=== PATIENT | male | born 1945 ===

== ENCOUNTER 2020-08-17 10:20 | Outpatient (REF) | payer MEDICARE, SELFPAY ==
[2020-08-17 12:41] LABS: Cholesterol 110 mg/dL; HDL Cholesterol 33 mg/dL; LDL Cholesterol Calculated 55 mg/dl; Triglycerides 111 mg/dL
== END 2020-08-17 10:21 | disposition home or self-care (01) ==
LOC: HO.10HDL 10:20
PROVIDERS: Visit Provider Internal Medicine
DX: I10 Essential (primary) hypertension (principal)
CPT/HCPCS: 80061

== ENCOUNTER 2020-10-24 13:07 | Outpatient (REF) | payer MEDICARE, SELFPAY ==
--- NOTE | 2020-10-24 | US_ITS ---
EXAMINATION: US NONINVASIVE ASSESSMENT OF THE ARTERIES OF BOTH LOWER EXTREMITIES WITH PVR EXAM AND BILATERAL LOWER EXTREMITY DUPLEX Walker Zheng M.D. CLINICAL INFORMATION: Claudication. TECHNIQUE: Ankle pulse volume recordings, ankle pressure measurements and ankle brachial indices were obtained of the lower extremity arterial system bilaterally in addition to duplex Doppler techniques with wave form analysis and measurement of velocities in the common femoral, profunda femoral, superficial femoral, popliteal and tibial arteries. The study was performed only at rest. COMPARISON: PVR date 03/10/2019 and CTA with runoff 07/19/2018. FINDINGS: RIGHT LEG: Right ankle-brachial index: 0.59 (previously 0.75). Right ankle pressures: PT 98. DP 86. Right ankle PVR waveform: Dampened. Brachial pressure used is 165. Direct duplex Doppler findings: Common femoral artery: 97 cm/s. Diastolic flow reversal: No. Profunda femoris artery: 34 cm/s. Diastolic flow reversal: No. Superficial femoral artery (proximal): 53 cm/s. Diastolic flow reversal: No. Superficial femoral artery (mid): 51 cm/s. Diastolic flow reversal: No. Superficial femoral artery (distal): 33 cm/s. Diastolic flow reversal: No. Popliteal artery: 31 cm/s. Diastolic flow reversal: No. Posterior tibial artery: 26 cm/s. Diastolic flow reversal: No. Peroneal artery: 22 cm/s. Diastolic flow reversal: No. LEFT LEG: Ankle-brachial index: 0.73 (previously 0.76). Pressures: PT 120. DP 102. Ankle PVR waveform: Dampened. Direct duplex Doppler findings: Common femoral artery: 490 cm/s. Diastolic flow reversal: No. Profunda femoris artery: 65 cm/s. Diastolic flow reversal: No. Superficial femoral artery (proximal): 423 cm/s. Diastolic flow reversal: No. Superficial femoral artery (mid): 62 cm/s. Diastolic flow reversal: No. Superficial femoral artery (distal): 74 cm/s. Diastolic flow reversal: No. Popliteal artery: 31 cm/s. Diastolic flow reversal: No. Posterior tibial artery: 22 cm/s. Diastolic flow reversal: No. Peroneal artery: 21 cm/s. Diastolic flow reversal: No. US/US arterial duplex LE BI IMPRESSION: Right: Monophasic waveforms in the right common femoral artery consistent with inflow stenosis. Moderate peripheral arterial insufficiency. The BRADLY has decreased from 0.75 previously to 0.59. Left: Monophasic waveforms within the left common femoral artery indicative of inflow disease. There is marked worsening of elevated velocities within the left INFUSION THERAPY NURSE increasing from 264 to 490 consistent with a severe INFUSION THERAPY NURSE stenosis. Marked velocity elevation in the proximal SFA on the left increasing from 208 to 423 indicative of a severe stenosis. BRADLY Reference: - >0.97-1.25 = normal - no significant arterial disease. - 0.75-0.96 = mild peripheral arterial disease. - 0.5-0.74 = moderate peripheral arterial disease. - <0.50 = severe peripheral arterial disease.
--- NOTE | 2020-10-24 | US_ITS ---
EXAMINATION: US NONINVASIVE ASSESSMENT OF THE ARTERIES OF BOTH LOWER EXTREMITIES WITH PVR EXAM AND BILATERAL LOWER EXTREMITY DUPLEX Walker Zheng M.D. CLINICAL INFORMATION: Claudication. TECHNIQUE: Ankle pulse volume recordings, ankle pressure measurements and ankle brachial indices were obtained of the lower extremity arterial system bilaterally in addition to duplex Doppler techniques with wave form analysis and measurement of velocities in the common femoral, profunda femoral, superficial femoral, popliteal and tibial arteries. The study was performed only at rest. COMPARISON: PVR date 03/10/2019 and CTA with runoff 07/19/2018. FINDINGS: RIGHT LEG: Right ankle-brachial index: 0.59 (previously 0.75). Right ankle pressures: PT 98. DP 86. Right ankle PVR waveform: Dampened. Brachial pressure used is 165. Direct duplex Doppler findings: Common femoral artery: 97 cm/s. Diastolic flow reversal: No. Profunda femoris artery: 34 cm/s. Diastolic flow reversal: No. Superficial femoral artery (proximal): 53 cm/s. Diastolic flow reversal: No. Superficial femoral artery (mid): 51 cm/s. Diastolic flow reversal: No. Superficial femoral artery (distal): 33 cm/s. Diastolic flow reversal: No. Popliteal artery: 31 cm/s. Diastolic flow reversal: No. Posterior tibial artery: 26 cm/s. Diastolic flow reversal: No. Peroneal artery: 22 cm/s. Diastolic flow reversal: No. LEFT LEG: Ankle-brachial index: 0.73 (previously 0.76). Pressures: PT 120. DP 102. Ankle PVR waveform: Dampened. Direct duplex Doppler findings: Common femoral artery: 490 cm/s. Diastolic flow reversal: No. Profunda femoris artery: 65 cm/s. Diastolic flow reversal: No. Superficial femoral artery (proximal): 423 cm/s. Diastolic flow reversal: No. Superficial femoral artery (mid): 62 cm/s. Diastolic flow reversal: No. Superficial femoral artery (distal): 74 cm/s. Diastolic flow reversal: No. Popliteal artery: 31 cm/s. Diastolic flow reversal: No. Posterior tibial artery: 22 cm/s. Diastolic flow reversal: No. Peroneal artery: 21 cm/s. Diastolic flow reversal: No. US/US BRADLY complete IMPRESSION: Right: Monophasic waveforms in the right common femoral artery consistent with inflow stenosis. Moderate peripheral arterial insufficiency. The BRADLY has decreased from 0.75 previously to 0.59. Left: Monophasic waveforms within the left common femoral artery indicative of inflow disease. There is marked worsening of elevated velocities within the left [employer] C[employer]TING [employer] FEEDER increasing from 264 to 490 consistent with a severe CREASING [employer] C[employer]TING PRESS FEEDER stenosis. Marked velocity elevation in the proximal SFA on the left increasing from 208 to 423 indicative of a severe stenosis. BRADLY Reference: - >0.97-1.25 = normal - no significant arterial disease. - 0.75-0.96 = mild peripheral arterial disease. - 0.5-0.74 = moderate peripheral arterial disease. - <0.50 = severe peripheral arterial disease.
== END 2020-10-24 13:08 | disposition home or self-care (01) ==
LOC: HO.US 13:07
PROVIDERS: Visit Provider Surgery Vascular Surgery
DX: I73.9 Peripheral vascular disease, unspecified (principal)
CPT/HCPCS: 93923; 93925

== ENCOUNTER → 2020-10-30 10:53 | Outpatient (BNVA) | payer MEDICARE, SELFPAY | PROVIDERS: PCP Internal Medicine; Referring Provider Internal Medicine; Visit Provider Surgery Vascular Surgery | DX: I73.9 Peripheral vascular disease, unspecified (principal); I77.9 Disorder of arteries and arterioles, unspecified | CPT/HCPCS: 99212 ==

== ENCOUNTER → 2020-11-05 13:49 | Outpatient (REF) | payer MEDICARE, SELFPAY ==
--- NOTE | 2020-11-05 14:12 | ECG_ITS ---
Hook-up date: 2020-11-05 14:02:00 Duration: 25:40:00 Test Indications: ATRIAL TACHYCARDIA Medications: 521005 QRS complexes 765 Ventricular ectopics which represent <1 % of total QRS comp. * Supraventricular ectopics which represent % of total QRS comp. * Paced QRS complexs which represent % of total QRS comp. VENTRICULAR ECTOPY 747 Isolated 0 Bigeminal Cycles 9 Couplets 0 Runs 0 Beats in Runs * Beats LONGEST at * BPM at :: -- * Beats FASTEST at * BPM at :: -- SUPRAVENTRICULAR ECTOPY * Isolated * Couplets * Runs * Beats in Runs * Beats LONGEST at * BPM at :: -- * Beats FASTEST at * BPM at :: -- HEART RATES 47 MIN at 05:17:43 2020-11-06 81 AVG 148 MAX at 19:51:59 2020-11-05 LONGEST RR 2.5360 secs at 05:07:14 2020-11-06 S-T LEVELS Channel 1 - 128 mm at 14:02:00 2020-11-05 - 128 mm at 14:02:00 2020-11-05 Channel 2 - 128 mm at 14:02:00 2020-11-05 - 128 mm at 14:02:00 2020-11-05 Channel 3 - 128 mm at 03:32:11 -- - 128 mm at 03:32:11 Basic rhythm Atrial fibrillation Good rate control Frequent Premature ventricular complexes Patient did not report any symptoms in the diary Referred By: Jonathan House Overread By: JONATHAN HOUSE MD
== END ==
LOC: HO.CARD 13:49
PROVIDERS: PCP Internal Medicine; Visit Provider Internal Medicine Cardiovascular Disease
DX: I47.1 Supraventricular tachycardia (principal)
CPT/HCPCS: 93226

== ENCOUNTER 2020-11-08 12:01 | Outpatient (REF) | payer MEDICARE, SELFPAY ==
[2020-11-08 13:34] LABS: Blood Urea Nitrogen 24 mg/dL (9-16); Estimated Glomerular Filt Rate > 60
[2020-11-08 13:43] LABS: Cholesterol 108 mg/dL; HDL Cholesterol 42 mg/dL; LDL Cholesterol Calculated 47 mg/dl; Triglycerides 95 mg/dL
== END 2020-11-08 12:02 | disposition home or self-care (01) ==
LOC: HO.10HDL 12:01
PROVIDERS: Internal Medicine; Visit Provider Surgery Vascular Surgery
DX: E11.9 Type 2 diabetes mellitus without complications (principal); I73.9 Peripheral vascular disease, unspecified; D50.0 Iron deficiency anemia secondary to blood loss (chronic)
CPT/HCPCS: 80061; 82565; 84520

== ENCOUNTER 2020-11-14 07:52 | Outpatient (REF) | payer MEDICARE, SELFPAY ==
--- NOTE | 2020-11-14 07:55 | CT_ITS ---
EXAMINATION: CT ANGIOGRAPHY LEGS WITH RUNOFF Interventional Radiologist: Sean Snow M.D., F.S.I.R., F.A.C.R. CLINICAL INFORMATION: This is a 75-year-old male with peripheral vascular disease. The patient has a right ankle-brachial index of 0.59. The patient has a left ankle brachial index of 0.73. Abnormal waveforms are evident. There is a suspicion of bilateral inflow disease. COMPARISON: Comparison is made to the previous noninvasive study. Comparison is made to the CAT scan dated 11/20/2016 TECHNIQUE: This CT examination was performed using dose optimization techniques as appropriate, variously including the following: *Automated exposure control *Adjustment of mA and/or kV according to patient size (this includes techniques or standardized protocols for targeted exams where dose is matched to indication/reason for exam; i.e. extremities or head) *Use of iterative reconstruction technique DLP: 830 mGy-cm. FINDINGS: Vascular: 1. Mesenteric Arteries: There is 30% narrowing the proximal celiac artery. There is diffuse atherosclerotic disease with 30% narrowing in the superior mesenteric artery. There is 30% narrowing at the origin of the inferior mesenteric artery. 2. Renal Arteries: There are 2 left renal arteries. The more superior and main left renal artery demonstrates a high-grade, 99% stenosis. The inferior left renal artery demonstrates a high-grade stenosis and is diffusely small in caliber. There are 2 right renal arteries. The superior right renal artery demonstrates 50% narrowing at its origin. There is a high-grade stenosis at the origin of the inferior right renal artery. 3. Infrarenal Abdominal Aorta :There is diffuse severe atherosclerotic plaque throughout the abdominal aorta without evidence of aneurysm. There is mild ectasia. There is an area of 30% narrowing in the mid abdominal aorta. 4. Common iliac arteries: There is diffuse severe atherosclerotic plaque with 50% narrowing throughout the right common iliac artery. There is diffuse severe atherosclerotic disease with 30% narrowing in the proximal left common iliac artery. There is 50% narrowing the distal left common iliac artery. 5. Internal iliac arteries: There is diffuse severe disease in the right hypogastric artery.. There is severe disease in the left hypogastric artery. 5. Right Lower Extremity: External iliac artery: There is diffuse calcified atherosclerotic disease in the right external iliac artery with 50% narrowing. There is a focal 75% narrowing in the distal right external iliac artery. Common femoral artery: There is diffuse atherosclerotic disease with 30% narrowing in the right common femoral artery appear The profunda femoral artery appears patent. Superficial femoral artery: There is a high-grade 75% stenosis in the proximal right superficial femoral artery. There is diffuse atherosclerotic disease with multiple areas of 30-50% narrowing in the mid and distal right superficial femoral artery. There is a 90% stenosis in the distal right superficial femoral artery. Popliteal artery: The popliteal artery demonstrates diffuse disease above and below the knee joint without focal stenosis. Runoff vessels: There is heavy calcific patient the proximal anterior tibial artery with 30% narrowing. The anterior tibial artery is then seen throughout the calf down into the dorsalis pedis. The posterior tibial artery appears patent throughout its course down into the plantar arch. The peroneal artery is seen patent within the calf. 6. Left lower extremity: External iliac artery: There is diffuse calcified atherosclerotic disease with 50% narrowing. Common femoral artery: There is diffuse atherosclerotic disease with multiple areas of 75-90% narrowing in the common femoral artery. Superficial femoral artery: There is a high-grade, 99%, stenosis in the proximal left superficial femoral artery. The mid left superficial femoral artery demonstrates diffuse atherosclerotic disease with 50% narrowing. There is diffuse atherosclerotic disease with 50% narrowing the distal left superficial femoral artery. There is severe disease in the distal left superficial femoral artery with a focal area of 75% narrowing.The profunda femoral artery appears patent. Popliteal artery: No hemodynamically significant stenosis. Runoff vessels: The proximal left anterior tibial artery demonstrates diffuse calcification with 30% narrowing. The mid and distal anterior tibial artery appear to be patent into the dorsalis pedis. The posterior tibial artery appears to be patent throughout the calf down into the plantar arch. The left peroneal artery appears to be patent throughout the calf. Nonvascular: LUNG BASES: There is increasing groundglass opacity in the left lower lobe medially. This is now apparent. Further evaluation with a PET scan may be helpful to exclude a metabolically active disease such as malignancy. LIVER, GALLBLADDER, AND BILIARY TREE: Again noted is a 0.6 cm low-density nodule in the right lobe of liver which appears unchanged when compared to the previous examination dated 11/20/2016. Again noted is the 1.7 cm hyperenhancing right lobe lesion which appears unchanged when compared to the previous study dated 11/20/2016. It may be helpful to evaluate this with dynamic liver MRI is recommended on the previous study for more definitive diagnosis. The gallbladder is unremarkable with no evidence of radiopaque gallstones, gallbladder wall thickening, or obvious pericholecystic inflammatory changes. PANCREAS: Unremarkable. SPLEEN: Unremarkable. ADRENAL GLANDS: Unremarkable. KIDNEYS AND URETERS: The kidneys are normal in size, shape, and attenuation. No hydronephrosis, hydroureter, or calculi seen. No perinephric stranding. BLADDER: Unremarkable. GASTROINTESTINAL TRACT: There is diverticulosis without evidence of diverticulitis. ABDOMINAL WALL: There is soft tissue thickening in the left groin region possibly from previous interventions. LYMPH NODES: Normal. PELVIC VISCERA: Again noted is prostate gland enlargement. OSSEOUS STRUCTURES: Unremarkable. CT/CT angio abd aorta runoff IMPRESSION: 1. There is increasing groundglass opacity in the left lower lobe medially. This is now apparent. Further evaluation with a PET scan is recommended to exclude a metabolically active disease such as malignancy. 2. Again noted is the 1.7 cm hyperenhancing right lobe lesion which appears unchanged when compared to the previous study dated 11/20/2016. It may be helpful to evaluate this with dynamic liver MRI is recommended on the previous study for more definitive diagnosis. 3. There is diffuse bilateral inflow and outflow atherosclerotic disease with multiple areas of hemodynamically significant stenosis as noted above.
[2020-11-14] MEDS: iohexoL 350 MG/ML 100 ML INFUS..BTL IV (09:08)
== END 2020-11-14 07:53 | disposition home or self-care (01) ==
LOC: HO.CT 07:52
PROVIDERS: Visit Provider Surgery Vascular Surgery
DX: I73.9 Peripheral vascular disease, unspecified (principal)
CPT/HCPCS: 75635; Q9967

== ENCOUNTER → 2020-11-15 10:36 | Outpatient (BNVA) | payer MEDICARE, SELFPAY | PROVIDERS: Visit Provider Surgery Vascular Surgery | DX: I73.9 Peripheral vascular disease, unspecified (principal) | CPT/HCPCS: 99212 ==

== ENCOUNTER → 2020-12-03 10:58 | Outpatient (BNVA) | payer MEDICARE, SELFPAY | PROVIDERS: PCP Internal Medicine; Visit Provider Internal Medicine Cardiovascular Disease | DX: I48.19 Other persistent atrial fibrillation (principal); I73.9 Peripheral vascular disease, unspecified; I10 Essential (primary) hypertension | CPT/HCPCS: 99212 ==

== ENCOUNTER 2020-12-05 06:21 | Day surgery (SDC) | payer MEDICARE, SELFPAY ==
[2020-12-05] VITALS (9 sets, daily range): BP systolic 127–175; BP diastolic 58–85; PULSE 63–90; RESP 16–20; TEMP 36.7–36.8; O2SAT 94–97; BMI 35.3
[2020-12-05 06:30] LABS: MANUAL DIFF FLAG NO
[2020-12-05 06:32] LABS: Basophils Absolute Auto 0.1 X10*3/uL (0.0-0.2); Basophils Percent Auto 0.7 % (0-2); Eosinophils Absolute Auto 0.1 X10*3/uL (0.0-0.4); Eosinophils Percent Auto 1.6 % (0-4); Hematocrit 41.7 % (42-52); Hemoglobin 13.1 g/dl (14.0-18.0); Imm Gran Abs Auto 0.07 X10*3/uL (0.00-0.03); Imm Gran Pct Auto 0.8 % (0.0-0.4); Lymphocytes Absolute Auto 2.1 X10*3/uL (1.2-4.9); Lymphocytes Percent Auto 23.2 % (20-40); Mean Corpuscular HGB Conc 31.4 g/dl (31.0-36.0); Mean Corpuscular Volume 92.3 fL (80-98); Mean Platelet Volume 9.5 fL (9.4-12.4); Monocytes Absolute Auto 1.1 X10*3/uL (0.1-1.2); Monocytes Percent Auto 11.8 % (2-11); Neutrophils Absolute Auto 5.6 X10*3/uL (2.0-8.3); Neutrophils Percent Auto 61.9 % (45-73); Platelet Count 433 X10*3/uL (160-400); Red Blood Count 4.52 X10*6/uL (4.60-5.80); Red Cell Distribution Width 13.9 % (11.0-16.0)
[2020-12-05 06:54] LABS: INTERNATIONAL NORM RATIO 1.3 (0.9-1.1); Prothrombin Time 15.8 SEC (10.8-13.0)
[2020-12-05 06:57] LABS: Partial Thromboplastin Time 32.1 SEC (24.1-38.0)
[2020-12-05 07:00] LABS: Anion Gap 13 (12-20); Blood Urea Nitrogen 39 mg/dL (9-16); Calcium 9.8 mg/dL (8.4-10.2); Carbon Dioxide 27 mmol/L (22-29); Chloride 103 mmol/L (96-108); Creatinine Clr Calc Pharmacy 53.8; Estimated Glomerular Filt Rate 56; Glucose Random 107 mg/dL (60-115); Potassium 4.2 mmol/l (3.3-5.1); Sodium 139 mmol/L (135-145)
[2020-12-05] MEDS: Lidocaine HCl 1 % MPF 5 ML VIAL 15 ML SUBCUT (09:39)
[2020-12-05] MEDS: iohexoL 300 MG/ML 100 ML INFUS..BTL IV (09:40)
--- NOTE | 2020-12-05 13:40 | OP_ITS ---
SURGEON: Tyler Flores MD INDICATIONS: Holland is a 75-year-old gentleman with history significant for peripheral vascular disease. He has had prior bilateral femoral endarterectomies. He is experiencing severe right lower extremity claudication. He now presents for endovascular intervention. Risks, benefits, and complications were discussed in detail with the patient. The patient understood and consented. PREOPERATIVE DIAGNOSIS: POSTOPERATIVE DIAGNOSIS: PROCEDURE PERFORMED: ESTIMATED BLOOD LOSS: Minimal. COMPLICATIONS: ANESTHESIA: Local with moderate conscious sedation performed by mi for a total of 78 minutes. ASSISTANTS: SPECIMENS: None. PREPROCEDURE DIAGNOSIS: Atherosclerosis with bilateral lower extremity claudication. POSTPROCEDURE DIAGNOSIS: Atherosclerosis with bilateral lower extremity claudication. PROCEDURES PERFORMED: 1. Ultrasound-guided left common femoral access. 2. Plasty of left common iliac and external iliac. DESCRIPTION OF PROCEDURE: The patient was brought to the angiography suite, prior to which timeout was called for patient identification and site verification. Bilateral groins were prepped and draped in standard surgical fashion. Under ultrasound guidance, left common femoral was accessed with micropuncture needle, wire. This did not enter straight. We had to go more proximal and we had to enter with an arterial entry needle and subsequent [employer]age and then we were able to advance a 4-Paraguayan sheath. Once this was done, flush catheter was brought to the level of the aorta. Aortogram was then undertaken. We parked it at the level of the iliacs. Iliacs were subsequently imaged bilateral. We were unable to go down the right side due to the calcifications and the tortuosity. This would require a second puncture due to his bilateral femoral endarterectomy. Decision was made to just focus on the left side. At this point, we administered 3000 units of systemic heparin, after 5 minutes of circulation time, we plastied the external iliac and the common iliac with a 7 x 20 regular balloon. Once this was done, we decided to place a 7 x 60 drug-coated balloon, this was once we upsized to a 6-Paraguayan sheath. This was brought into position and under 3 minutes and insufflated for a total of 3 minutes in duration. Once this was accomplished, balloon was then removed. Completion angiogram showed it demonstrated a good result. Catheter, wire, sheath were then removed and direct pressure was held for 10 minutes in duration. No hematoma was noted. The patient tolerated the procedure well, returned to Recovery with stable vitals. INTERPRETATION OF FILMS: Aortogram demonstrated good flow through the aorta, some stenotic disease at the distal portion of it. Iliacs; right side had significant disease throughout the entire iliac tree on the right side. Left side had disease at the junction of the takeoff of the hypogastric. Origin of the hypogastric was quite stenosed. External iliac had stenosis and of note, the prior femoral endarterectomy patch had significant amount of disease. Post plasty, left external iliac and common iliac demonstrated excellent result with good flow through there. CONCLUSION: Successful left-sided plasty of common iliac and external iliac. Right side, will need a second procedure with a directed puncture of the right femoral. DRAINS: None. MD LISA Hernandez/SMOOTH / [id number] MTDD
== END 2020-12-05 16:00 | disposition home or self-care (01) ==
PROVIDERS: PCP Internal Medicine; Visit Provider Surgery Vascular Surgery
DX: I70.212 Atherosclerosis of native arteries of extremities with intermittent claudication, left leg (principal); M79.662 Pain in left lower leg; M79.661 Pain in right lower leg; R26.2 Difficulty in walking, not elsewhere classified; Z98.890 Other specified postprocedural states; Z79.51 Long term (current) use of inhaled steroids; Z87.891 Personal history of nicotine dependence
CPT/HCPCS: 36415; 37220; 37222; 76942; 80048; 85025; 85610; 85730; 99152; 99153; C1725; C1769; C1887; C1894; C2623; J2250; J3010; Q9967

== ENCOUNTER → 2020-12-20 11:31 | Outpatient (BNVA) | payer MEDICARE, SELFPAY | PROVIDERS: PCP Internal Medicine; Visit Provider Surgery Vascular Surgery | DX: I73.9 Peripheral vascular disease, unspecified (principal) | CPT/HCPCS: 99212 ==

== ENCOUNTER 2021-01-02 06:04 | Day surgery (SDC) | payer MEDICARE, SELFPAY ==
[2021-01-02] VITALS (13 sets, daily range): BP systolic 125–205; BP diastolic 47–98; PULSE 68–101; RESP 18–20; TEMP 36.3; O2SAT 94–98; BMI 35.4
[2021-01-02 06:49] LABS: MANUAL DIFF FLAG NO
[2021-01-02 06:54] LABS: Basophils Percent Auto 0.5 % (0-2); Eosinophils Absolute Auto 0.2 X10*3/uL (0.0-0.4); Hematocrit 40.7 % (42-52); Hemoglobin 12.8 g/dl (14.0-18.0); Imm Gran Abs Auto 0.03 X10*3/uL (0.00-0.03); Imm Gran Pct Auto 0.4 % (0.0-0.4); Lymphocytes Percent Auto 25.9 % (20-40); Mean Corpuscular HGB Conc 31.4 g/dl (31.0-36.0); Mean Corpuscular Hemoglobin 28.3 pg (27.0-33.0); Mean Platelet Volume 9.9 fL (9.4-12.4); Monocytes Absolute Auto 0.8 X10*3/uL (0.1-1.2); Monocytes Percent Auto 10.1 % (2-11); Neutrophils Absolute Auto 4.7 X10*3/uL (2.0-8.3); Neutrophils Percent Auto 60.1 % (45-73); Platelet Count 284 X10*3/uL (160-400); Red Blood Count 4.52 X10*6/uL (4.60-5.80); Red Cell Distribution Width 14.7 % (11.0-16.0); White Blood Count 7.8 X10*3/uL (4.8-10.8)
[2021-01-02 07:20] LABS: INTERNATIONAL NORM RATIO 1.2 (0.9-1.1); Prothrombin Time 14.5 SEC (10.8-13.0)
[2021-01-02 07:23] LABS: Anion Gap 13 (12-20); Blood Urea Nitrogen 34 mg/dL (9-16); Calcium 9.3 mg/dL (8.4-10.2); Carbon Dioxide 25 mmol/L (22-29); Chloride 105 mmol/L (96-108); Estimated Glomerular Filt Rate 55; Glucose Random 107 mg/dL (60-115); Partial Thromboplastin Time 32.4 SEC (24.1-38.0); Potassium 3.7 mmol/L (3.3-5.1); Sodium 139 mmol/L (135-145)
[2021-01-02] MEDS: iohexoL 300 MG/ML 100 ML INFUS..BTL IV (09:12)
[2021-01-02] MEDS: Lidocaine HCl 1 % MPF 5 ML VIAL 10 ML SUBCUT (09:12)
--- NOTE | 2021-01-02 11:22 | W.PM.OPN ---
Operative Note Operative Note Date of Service: 01/02/21 Narrative: Angiogram report from [facility] Preoperative diagnosis: Peripheral arterial disease of right lower extremity Postoperative diagnosis: Same Procedure: 1. Ultrasound-guided right common femoral access 2. Aortogram with right lower extremity runoff 3. Stent of right common iliac Surgeon:Tyler Flores M.D. Private Banker:None Anesthesia: Local with moderate conscious sedation for a total of 50 minutes, performed by me Specimens:none Drains:none Estimated blood loss:minimal Indications: 75-year-old gentleman with well known history of peripheral vascular disease presents for right lower extremity intervention. Risks benefits complications were discussed in detail with the patient. He demonstrated a clear understanding and consented. Procedure in detail: Patient was brought to the angiography suite prior to which a time-out was called for patient identification and site verification. Bilateral groins were prepped and draped in the standard surgical fashion. Under ultrasound guidance right common femoral was punctured with micro puncture needle and wire. Subsequently a precision 4 Nepalese sheath was then placed. [employer] wire was advanced to the level of the aorta. 4 Nepalese Flush catheter was brought up and parked at the level of the renal arteries. Aortogram was then undertaken. Catheter was brought down to the level of the iliac bifurcation. Iliacs were subsequently imaged. Right leg runoff study was then undertaken through the sheath. It was recognized that he had a significant occlusion of the right common iliac. At this point we upsized to a 7 Nepalese sheath. 3000 units of systemic heparin was administered. The area was 1st pre-dilated with a 6 x 30 balloon. We then placed a Royal VBX 8 x 59 covered balloon expandable stent. Completion angiogram demonstrated excellent result. Sheath was then removed and direct pressure was held for 10 minutes. Interpretation of films: 1. Ultrasound demonstrates appropriate femoral puncture. Image of which was saved. 2. Aortogram demonstrates appropriate caliber aorta. Minimal disease. Appropriate take-off of the renals. 3. Iliac images demonstrate normal flow through the left iliac. Significant disease in the right common iliac. Normal takeoff of the hypogastric. External iliac had good flow down to the common femoral. SFA had good flow down and good 2 vessel runoff. Conclusion: 1. Successful stent placement of right common iliac artery This note is constructed using voice recognition software. While every effort has been made to ensure accuracy, gunnery/ordnance officer errors may have been included. Thank you for allowing me to participate in the care of your patient. Yours sincerely, Tyler Flores MD, FACS, R.P.V.I.
== END 2021-01-02 14:34 | disposition home or self-care (01) ==
PROVIDERS: PCP Internal Medicine; Visit Provider Surgery Vascular Surgery
DX: E11.51 Type 2 diabetes mellitus with diabetic peripheral angiopathy without gangrene (principal); I70.211 Atherosclerosis of native arteries of extremities with intermittent claudication, right leg; I10 Essential (primary) hypertension; D50.9 Iron deficiency anemia, unspecified; J45.909 Unspecified asthma, uncomplicated; G47.33 Obstructive sleep apnea (adult) (pediatric)
CPT/HCPCS: 36415; 37221; 76942; 80048; 85025; 85610; 85730; 99152; 99153; C1769; C1874; C1887; C1894; J2250; J3010; Q9967

== ENCOUNTER → 2021-01-15 08:53 | Outpatient (BNVA) | payer MEDICARE, SELFPAY | PROVIDERS: PCP Internal Medicine; Visit Provider Surgery Vascular Surgery | DX: I73.9 Peripheral vascular disease, unspecified (principal) | CPT/HCPCS: 99212 ==

== ENCOUNTER 2021-01-15 10:18 | Outpatient (REF) | payer MEDICARE, SELFPAY ==
[2021-01-15 12:52] LABS: Cholesterol 111 mg/dL; HDL Cholesterol 37 mg/dL; LDL Cholesterol Calculated 61 mg/dl; Triglycerides 66 mg/dL
== END 2021-01-15 10:19 | disposition home or self-care (01) ==
LOC: HO.10HDL 10:18
PROVIDERS: Visit Provider Internal Medicine
DX: E11.9 Type 2 diabetes mellitus without complications (principal)
CPT/HCPCS: 36415; 80061

== ENCOUNTER 2021-04-11 09:38 | Outpatient (REF) | payer MEDICARE, SELFPAY ==
--- NOTE | ~2021-04-11 | US_ITS ---
EXAMINATION: US RETROPERITONEAL LIMITED (AORTA) CLINICAL INFORMATION: Peripheral vascular disease. COMPARISON: CT angiography 11/14/2020 TECHNIQUE: Gifford-scale, color Doppler and spectral Doppler evaluation of the abdominal aorta. The study is technically limited as it is difficult to visualize the aorta and iliac arteries. FINDINGS: There are atherosclerotic changes of the visualized aorta appear The measurements of the aorta in maximum AP and transverse dimensions respectively are as follows: Proximal: 2.4 x 2.6 cm. Mid: 1.9 x 1.8 cm. Distal: 1.8 x 1.6 cm. PSV: 80.3 cm/s. The measurements of the common iliac arteries in maximum AP and TRV dimensions are as follows: Right Common Iliac Artery: 1.1 cm. Left Common Iliac Artery: 1.5 cm. US/US abdominal aortic aneurysm IMPRESSION: Somewhat limited visualization. No evidence of abdominal aortic aneurysm. The left common iliac artery is ectatic and measures at least 1.5 cm.
--- NOTE | ~2021-04-11 | US_ITS ---
EXAMINATION: NONINVASIVE ASSESSMENT OF THE ARTERIES OF BOTH LOWER EXTREMITIES INCLUDING BILATERAL LOWER EXTREMITY DUPLEX CLINICAL INFORMATION: Peripheral vascular disease, unspecified. COMPARISON: CT angiography 11/14/2020, ultrasound 10/24/2020 TECHNIQUE: Ankle pressure measurements and ankle brachial indices were obtained of the lower extremity arterial system bilaterally in addition to duplex Doppler techniques with wave form analysis and measurement of velocities in the common femoral, profunda femoral, superficial femoral, popliteal, tibial and peroneal arteries. The study was performed only at rest. FINDINGS: Brachial pressure on the right 206 mmHg brachial pressure on the left 197 mmHg. RIGHT LEG 1. Right Ankle-Brachial Index: 0.86 >0.97-1.25 = normal - no significant arterial disease 0.75-0.96 = mild peripheral arterial disease 0.5-0.74 = moderate peripheral arterial disease <0.50 = severe peripheral arterial disease <0.30 = critical arterial disease 2. Segmental Pressures (mmHg): Ankle: PT 173, DP 177 3. Direct Duplex: Common femoral artery: 173 cm/s, Multiphasic Profunda femoris artery: 84.4 cm/s, Multiphasic Superficial femoral artery (proximal): 132 cm/s, Multiphasic Superficial femoral artery (mid): 130 cm/s, Multiphasic Superficial femoral artery (distal): 134 cm/s, Multiphasic Proximal Popliteal artery: 110 cm/s, Multiphasic Distal popliteal artery: 75 cm/s, Multiphasic Mid posterior tibial artery: 108 cm/s, Multiphasic Peroneal artery: 52.3 cm/s, Multiphasic LEFT LE. Left Ankle-Brachial Index: 0.54 (higher of the DP/PT) >0.97-1.25 = normal - no significant arterial disease 0.75-0.96 = mild peripheral arterial disease 0.5-0.74 = moderate peripheral arterial disease <0.50 = severe peripheral arterial disease <0.30 = critical arterial disease 2. Segmental Pressures: Ankle: PT 112, DP 103 3. Direct Duplex: Common femoral artery: 474 cm/s, Multiphasic Profunda femoris artery: 122 cm/s, monophasic Superficial femoral artery (proximal): 170 cm/s, monophasic Superficial femoral artery (mid): 52.2 cm/s, monophasic Superficial femoral artery (distal): 38.1 cm/s, monophasic Proximal Popliteal artery: 36.9 cm/s, monophasic Distal popliteal artery: 39.5 cm/s, monophasic Mid posterior tibial artery: 27.9 cm/s, monophasic Peroneal artery: 26.2 cm/s, monophasic US/US arterial duplex LE BI IMPRESSION: 1. Evidence of significant hypertension with brachial pressures bilaterally greater than 190 mmHg. 2. Right ankle-brachial index 0.86, previously 0.59. There is now multiphasic flow throughout the visualized right lower extremity arterial vasculature. 3. Left ankle-brachial index is 0.54, previously 0.73. There is persistent elevated velocity at the level of the common femoral artery with monophasic flow throughout the left lower extremity suggestive of inflow disease as well as stenosis at the level of the mid superficial femoral artery.
== END 2021-04-11 09:39 | disposition home or self-care (01) ==
LOC: HO.US 09:38
PROVIDERS: PCP Internal Medicine; Visit Provider Surgery Vascular Surgery
DX: I70.213 Atherosclerosis of native arteries of extremities with intermittent claudication, bilateral legs (principal)
CPT/HCPCS: 76706; 93923; 93925

== ENCOUNTER 2021-04-16 12:18 | Outpatient (REF) | payer MEDICARE, SELFPAY ==
[2021-04-18 15:11] LABS: H Pylori Breath Test NOT DETECTED (NOT DETECTED)
== END 2021-04-16 12:19 | disposition home or self-care (01) ==
LOC: CF 12:18
PROVIDERS: Visit Provider Internal Medicine Gastroenterology
DX: Z87.11 Personal history of peptic ulcer disease (principal); I48.91 Unspecified atrial fibrillation; Z79.01 Long term (current) use of anticoagulants; Z11.0 Encounter for screening for intestinal infectious diseases
CPT/HCPCS: 83013; 99212

== ENCOUNTER → 2021-04-22 13:11 | Outpatient (BNVA) | payer MEDICARE, SELFPAY | PROVIDERS: PCP Internal Medicine; Visit Provider Surgery Vascular Surgery | DX: I73.9 Peripheral vascular disease, unspecified (principal) | CPT/HCPCS: 99212 ==

== ENCOUNTER → 2021-05-28 13:20 | Outpatient (BNVA) | payer MEDICARE, SELFPAY | PROVIDERS: PCP Internal Medicine; Referring Provider Internal Medicine; Visit Provider Internal Medicine Cardiovascular Disease | DX: I48.0 Paroxysmal atrial fibrillation (principal); I73.9 Peripheral vascular disease, unspecified; I10 Essential (primary) hypertension | CPT/HCPCS: 93005; 99212 ==

== ENCOUNTER → 2021-06-07 10:53 | Outpatient (REF) | payer MEDICARE, SELFPAY ==
--- NOTE | 2021-06-07 11:08 | HM_ITS ---
Underlying rhythm is atrial fibrillation; this was noted 93.3% of the time, Remainder of the time, rhythm is sinus rhythm/sinus tachycardia; Overall average rate 94/min; min 46/min; max 175/min; tachycardia count - 26.5%; Frequent PVCs vs aberrant beats (or combination of above); burden 2.3%; longest run 3 beats; 2 different morphologies noted; Total monitoring period- 3d 45 min; No patient symptoms noted. MTDD
== END ==
LOC: HO.CARD 10:53
PROVIDERS: PCP Internal Medicine; Visit Provider Internal Medicine Cardiovascular Disease
DX: I48.0 Paroxysmal atrial fibrillation (principal); I10 Essential (primary) hypertension
CPT/HCPCS: 93242

== ENCOUNTER → 2021-07-09 08:28 | Outpatient (REF) | payer MEDICARE, SELFPAY ==
--- NOTE | 2021-07-09 08:32 | CA_ITS ---
Transthoracic Echocardiogram Patient (Last, First, Middle): Holland Middleton J Gender: Male Date of : 1945 Age: 75 Procedure Date: 07/09/2021 Procedure Type: Transthoracic Echocardiogram Location: OP Height: 160.02 cm Weight: 95.26 kg BSA: 1.97 m2 Heart Rate: bpm BP: 160 / 68 mmHg Wastewater Design Engineer: CARLITA Referring MD: Jonathan House MD Speeder Machine Operator: Jonathan House MD Symptoms: I48.19 - Other persistent atrial fibrillation Study Quality: Fair ECG Rhythm: Atrial Fibrillation Conclusions: - 1. Normal LV systolic function 2. Mildly dilated left atrium 3. Normal cardiac valvular Doppler next 4. Normal RV systolic pressure 5. No pericardial effusion Findings Left Ventricle Normal left ventricular size, thickness, and systolic function. The visually estimated ejection fraction is between 60-65%. Diastolic function is indeterminate on the basis of available data. Right Ventricle Normal right ventricular cavity size and systolic function. Atria The left atrium is mildly dilated. Interatrial shunt cannot be excluded. The right atrium is normal in size. Aortic Valve The aortic valve structure and function is likely normal. There is no aortic valve stenosis. There is no aortic valve regurgitation. Mitral Valve There is mild anterior and posterior mitral leaflet thickening. There is trace mitral valve regurgitation. There is no mitral valve stenosis. Pulmonic Valve The pulmonic valve was not well visualized. Tricuspid Valve Likely normal tricuspid valve structure and function. There is trace tricuspid valve regurgitation. The right ventricular systolic pressure is normal. The right ventricular systolic pressure is 23 mmHg. Normal right atrial pressure. There is no evidence of pulmonary hypertension. Great Vessels All visible segments of the aorta are normal in size. The pulmonary artery was not well visualized. Venous The inferior vena cava is normal in size and collapses greater than 50% with inspiration. Pericardium/Pleural There is no evidence of pericardial effusion. Measurements 2D Linear Measurements IVSd: 1.04 0.6-0.9/0.6-1.0 cm LVIDd: 4.43 3.9-5.3/4.2-5.9 cm LVIDd Index: 2.25 2.4-3.2/2.2-3.1 cm/m2 LVIDs: 2.64 2.0-3.6 cm LVPWd: 1.07 0.7-1.1 cm Ao Root: 2.60 2.1-3.5 cm LA Diam: 4.00 2.7-3.8/3.0-4.0 cm LAIDs Index: 2.03 1.5-2.3 cm/m2 LV Mass: 200.50 67-162/88-224 g LV Mass Index: 101.78 43-95/49-115 g/m2 LVOT Diam: 2.00 3.0+(-)1.3 cm 2D Systolic Function EF 4C: 75.30 >55% Mitral Valve MV Pk E: 0.57 MV Decel Time: 162.00 E'Medial: 8.11 E/E' Med: 7.10 PHT: 48.00 MVA PHT: 4.58 Decel [place]: 5.06 Aortic Valve AoV Pk Jair: 1.21 AoV Pk Grad: 6.00 LVOT LVOT Pk Jair: 0.86 LVOT Mn Jair: 0.52 LVOT VTI: 0.20 LVOT Pk Grad: 3.00 LVOT Mn Grad: 1.00 LVOT Diam: 2.00 LVOT Area: 3.14 Diastolic Function MV Pk E: 0.57 E'Medial: 8.11 E/E' Med: 7.10 Right Ventricle TAPSE (mm): 2.14 Tricuspid Valve TR Pk Jair: 2.23 TR Pk Grad: 20.00 RA Press: 3.00 RVSP: 23.00 Great Vessels Aorta Ao Root-2D: 2.60 2.0-3.7 cm Ao Asc: 3.00 2.1-3.4 cm Updated in Other Vendor System with Status of Final Jonathan House MD electronically signed on 07/09/2021 12:14:43 PM with status of Final
== END ==
LOC: HO.CARD 08:28
PROVIDERS: Visit Provider Internal Medicine Cardiovascular Disease
DX: I48.19 Other persistent atrial fibrillation (principal)
CPT/HCPCS: 93306

== ENCOUNTER 2021-10-08 08:32 | Outpatient (REF) | payer MEDICARE, SELFPAY ==
[2021-10-08 10:51] LABS: Alanine Aminotransferase 15 U/L (0-40); Alkaline Phosphatase 80 U/L (39-117); Anion Gap 12 (12-20); Aspartate Amino Transferase 18 U/L (5-37); Bilirubin Total 0.6 mg/dL (0.0-1.0); Blood Urea Nitrogen 32 mg/dL (9-16); Calcium 10.4 mg/dL (8.4-10.2); Carbon Dioxide 27 mmol/L (22-29); Chloride 106 mmol/L (96-108); Cholesterol 118 mg/dL; Estimated Glomerular Filt Rate 48; Glucose Fasting 96 mg/dL (60-99); HDL Cholesterol 38 mg/dL; LDL Cholesterol Calculated 64 mg/dl; Potassium 4.2 mmol/L (3.3-5.1); Sodium 141 mmol/L (135-145); Total Protein 7.1 g/dL (6.5-8.0); Triglycerides 83 mg/dL
[2021-10-08 11:35] LABS: Prostate Specific Antigen 5.26 ng/mL (<0.05-4.0)
== END 2021-10-08 08:33 | disposition home or self-care (01) ==
LOC: HO.10HDL 08:32
PROVIDERS: Absent Provider Nurse Practitioner Family; Visit Provider Internal Medicine
DX: Z12.5 Encounter for screening for malignant neoplasm of prostate (principal); Z13.1 Encounter for screening for diabetes mellitus; E11.9 Type 2 diabetes mellitus without complications
CPT/HCPCS: 36415; 80053; 80061; 84153

== ENCOUNTER 2021-10-15 08:47 | Outpatient (REF) | payer MEDICARE, SELFPAY ==
--- NOTE | ~2021-10-15 | US_ITS ---
EXAMINATION: NONINVASIVE ASSESSMENT OF THE ARTERIES OF BOTH LOWER EXTREMITIES INCLUDING BILATERAL LOWER EXTREMITY DUPLEX CLINICAL INFORMATION: Peripheral vascular disease, unspecified. COMPARISON: Comparison is made to the previous study dated 04/11/2021. TECHNIQUE: Ankle pressure measurements and ankle brachial indices were obtained of the lower extremity arterial system bilaterally in addition to duplex Doppler techniques with wave form analysis and measurement of velocities in the common femoral, profunda femoral, superficial femoral, popliteal, tibial and peroneal arteries. The study was performed only at rest. FINDINGS: Brachial pressure on the right 206 mmHg brachial pressure on the left 197 mmHg. RIGHT LEG 1. Right Ankle-Brachial Index: 0.95. Previously, 0.86 >0.97-1.25 = normal - no significant arterial disease 0.75-0.96 = mild peripheral arterial disease 0.5-0.74 = moderate peripheral arterial disease <0.50 = severe peripheral arterial disease <0.30 = critical arterial disease 2. Segmental Pressures (mmHg): Ankle: PT 154 mmHg. DP 160 mmHg. Previously, PT 173, DP 177 3. Direct Duplex: Common femoral artery: 115 cm/s. Monophasic. Previously, 173 cm/s, Multiphasic Profunda femoris artery: 115 cm/s. Monophasic. Previously, 84.4 cm/s, Multiphasic Superficial femoral artery (proximal): 90 cm/s. Multiphasic. Previously, 132 cm/s, Multiphasic Superficial femoral artery (mid): 71 cm/s.. Multiphasic. Previously, 130 cm/s, Multiphasic Superficial femoral artery (distal): 168 cm/s. Multiphasic. Previously, 134 cm/s, Multiphasic Proximal Popliteal artery: 68 cm/s. Previously, 110 cm/s, Multiphasic Distal popliteal artery: 75 cm/s, Multiphasic Mid posterior tibial artery: 66 cm/s. Multiphasic. Previously, 108 cm/s, Multiphasic Peroneal artery: 52.3 cm/s, Multiphasic The aortic diameter measures 1.9 cm. The right common iliac artery velocity measures 229 cm/s. The right external iliac artery velocity measures 211 cm/s. LEFT LE. Left Ankle-Brachial Index: 0.69. Previously, 0.54 (higher of the DP/PT) >0.97-1.25 = normal - no significant arterial disease 0.75-0.96 = mild peripheral arterial disease 0.5-0.74 = moderate peripheral arterial disease <0.50 = severe peripheral arterial disease <0.30 = critical arterial disease 2. Segmental Pressures: Ankle: PT 116 mmHg. DAP 94 mmHg. Previously, PT 112, DP 103 3. Direct Duplex: Common femoral artery: 187 cm/s. Monophasic. Previously, 474 cm/s, Multiphasic Profunda femoris artery: 101 cm/s. Monophasic. Previously, 122 cm/s, monophasic Superficial femoral artery (proximal): 109 cm/s. Monophasic. Previously, 170 cm/s, monophasic Superficial femoral artery (mid): 47 cm/s. Monophasic. Previously, 52.2 cm/s, monophasic Superficial femoral artery (distal): 45 cm/s. Monophasic. Previously, 38.1 cm/s, monophasic Proximal Popliteal artery: 35 cm/s. Monophasic. Previously, 36.9 cm/s, monophasic Distal popliteal artery: 39.5 cm/s, monophasic Mid posterior tibial artery: 29 cm/s. Monophasic. Previously, 27.9 cm/s, monophasic Peroneal artery: 26.2 cm/s, monophasic The left common iliac artery velocity measures 254 cm/s. The left external iliac artery velocity measures 86 cm/s. An arrhythmia was demonstrated during the duplex portion of examination. This would be best evaluated with an EKG. US/US abdominal aortic aneurysm IMPRESSION: 1. The right ankle-brachial index measures 0.95. Previously, 0.86. Multiphasic waveforms are seen. 2. Left ankle-brachial index is 0.69, previously 0.54. There is persistent elevated velocity at the level of the common femoral artery with monophasic flow throughout the left lower extremity suggestive of inflow disease as well as stenosis at the level of the mid superficial femoral artery.
== END 2021-10-15 08:48 | disposition home or self-care (01) ==
LOC: HO.US 08:47
PROVIDERS: PCP Internal Medicine; Visit Provider Surgery Vascular Surgery
DX: I73.9 Peripheral vascular disease, unspecified (principal)
CPT/HCPCS: 76706; 93923; 93925

== ENCOUNTER → 2021-10-22 12:47 | Outpatient (BNVA) | payer MEDICARE, SELFPAY | PROVIDERS: PCP Internal Medicine; Visit Provider Surgery Vascular Surgery | DX: I73.9 Peripheral vascular disease, unspecified (principal) | CPT/HCPCS: 99212 ==

== ENCOUNTER 2021-11-19 12:48 | Outpatient (REF) | payer MEDICARE, SELFPAY ==
[2021-11-19 14:33] LABS: Anion Gap 11 (12-20); Blood Urea Nitrogen 31 mg/dL (9-16); Calcium 10.4 mg/dL (8.4-10.2); Carbon Dioxide 30 mmol/L (22-29); Chloride 105 mmol/L (96-108); Estimated Glomerular Filt Rate 51; Glucose Random 85 mg/dL (60-115); Potassium 4.3 mmol/L (3.3-5.1); Sodium 142 mmol/L (135-145)
== END 2021-11-19 12:49 | disposition home or self-care (01) ==
LOC: HO.LAB 12:48
PROVIDERS: PCP Internal Medicine; Referring Provider Internal Medicine; Visit Provider Internal Medicine Cardiovascular Disease
DX: I48.19 Other persistent atrial fibrillation (principal); I73.9 Peripheral vascular disease, unspecified; Z79.899 Other long term (current) drug therapy
CPT/HCPCS: 36415; 80048; 99212

== ENCOUNTER 2022-02-04 08:41 | Outpatient (REF) | payer MEDICARE, SELFPAY ==
--- NOTE | ~2022-02-04 | US_ITS ---
EXAMINATION: US RETROPERITONEAL DOPPLER AND ULTRASOUND CLINICAL INFORMATION: CKD, hypertension. COMPARISON: None TECHNIQUE: Routine ultrasound imaging of kidneys and Doppler study was performed. FINDINGS: RIGHT KIDNEY: 11.4 x 4.8 x 5.1 cm (SAG x AP x TRV). The kidney is normal in size, contour, and echogenicity. Renal cortical thickness is normal. There is an anechoic cyst lower pole measuring 2.6 x 2.0 x 2.6 cm. No additional cyst seen. There is no echogenic stones or hydronephrosis. LEFT KIDNEY: 10.5 x 4.9 x 4.7 cm (SAG x AP x TRV). The kidney is normal in size, contour, and echogenicity. Renal cortical thickness is normal. No calculi or focal parenchymal lesions. No hydronephrosis. There are multiple anechoic cysts. The largest cyst upper pole measures 2.68 x 2.54 x 2.29 cm. RENAL DOPPLER EXAM: Right kidney: The proximal renal artery is not visualized. Renal artery velocity midsegment measures 126 cm/s, distal segment measures 125 cm/s. Renal aortic ratio measures 2.21. Average resistive index measures 0.89. Left kidney: The proximal renal artery velocity measures 74 cm/s, midsegment measures 77 cm/s and distal segment measures 68 cm/s. Renal aortic ratio measures 1.35. Average resistive index measures 0.89. There is abnormal left renal artery waveform. Peak systolic velocity mid abdominal aorta measures 57 cm/s. US/US renal doppler IMPRESSION: Bilateral renal cysts. No echogenic renal calculi. Elevated resistive indices in both kidneys but the renal artery velocities are normal. The RAR ratio is normal. There is no suggestion for renal artery velocity. Elevated resistive indices may be secondary to renal parenchymal disease.
--- NOTE | ~2022-02-04 | US_ITS ---
EXAMINATION: US RETROPERITONEAL DOPPLER AND ULTRASOUND CLINICAL INFORMATION: CKD, hypertension. COMPARISON: None TECHNIQUE: Routine ultrasound imaging of kidneys and Doppler study was performed. FINDINGS: RIGHT KIDNEY: 11.4 x 4.8 x 5.1 cm (SAG x AP x TRV). The kidney is normal in size, contour, and echogenicity. Renal cortical thickness is normal. There is an anechoic cyst lower pole measuring 2.6 x 2.0 x 2.6 cm. No additional cyst seen. There is no echogenic stones or hydronephrosis. LEFT KIDNEY: 10.5 x 4.9 x 4.7 cm (SAG x AP x TRV). The kidney is normal in size, contour, and echogenicity. Renal cortical thickness is normal. No calculi or focal parenchymal lesions. No hydronephrosis. There are multiple anechoic cysts. The largest cyst upper pole measures 2.68 x 2.54 x 2.29 cm. RENAL DOPPLER EXAM: Right kidney: The proximal renal artery is not visualized. Renal artery velocity midsegment measures 126 cm/s, distal segment measures 125 cm/s. Renal aortic ratio measures 2.21. Average resistive index measures 0.89. Left kidney: The proximal renal artery velocity measures 74 cm/s, midsegment measures 77 cm/s and distal segment measures 68 cm/s. Renal aortic ratio measures 1.35. Average resistive index measures 0.89. There is abnormal left renal artery waveform. Peak systolic velocity mid abdominal aorta measures 57 cm/s. US/US renal BI IMPRESSION: Bilateral renal cysts. No echogenic renal calculi. Elevated resistive indices in both kidneys but the renal artery velocities are normal. The RAR ratio is normal. There is no suggestion for renal artery velocity. Elevated resistive indices may be secondary to renal parenchymal disease.
== END 2022-02-04 08:42 | disposition home or self-care (01) ==
LOC: HO.US 08:41
PROVIDERS: Visit Provider Internal Medicine Nephrology
DX: I12.9 Hypertensive chronic kidney disease with stage 1 through stage 4 chronic kidney disease, or unspecified chronic kidney disease (principal); N18.31 Chronic kidney disease, stage 3a
CPT/HCPCS: 76775; 93975

== ENCOUNTER 2022-03-14 10:11 | Outpatient (REF) | payer MEDICARE, SELFPAY ==
[2022-03-14 10:32] LABS: MANUAL DIFF FLAG NO
[2022-03-14 10:48] LABS: Basophils Percent Auto 0.6 % (0-2); Eosinophils Absolute Auto 0.1 X10*3/uL (0.0-0.4); Hematocrit 42.3 % (42.0-52.0); Hemoglobin 13.6 g/dl (14.0-18.0); Imm Gran Abs Auto 0.03 X10*3/uL (0.00-0.03); Imm Gran Pct Auto 0.4 % (0.0-0.4); Lymphocytes Absolute Auto 1.9 X10*3/uL (1.2-4.9); Mean Corpuscular HGB Conc 32.2 g/dl (31.0-36.0); Mean Corpuscular Hemoglobin 29.1 pg (27.0-33.0); Mean Corpuscular Volume 90.6 fL (80.0-98.0); Mean Platelet Volume 10.4 fL (9.4-12.4); Monocytes Absolute Auto 0.7 X10*3/uL (0.1-1.2); Monocytes Percent Auto 10.2 % (2-11); Neutrophils Absolute Auto 4.1 x10*3/uL (2.0-8.3); Neutrophils Percent Auto 59.8 % (45-73); Platelet Count 288 X10*3/uL (160-400); Red Blood Count 4.67 X10*6/uL (4.60-5.80); Red Cell Distribution Width 14.6 % (11.0-16.0); White Blood Count 6.9 X10*3/uL (4.8-10.8)
[2022-03-14 11:19] LABS: Creatinine Urine 141.66 mg/dL; Protein/Creatinine Ratio, Ur 0.25 (<0.2); Total Protein Urine Random 35 mg/dL (<12)
[2022-03-14 11:34] LABS: Anion Gap 11 (12-20); Blood Urea Nitrogen 30 mg/dL (9-16); Calcium 10.7 mg/dL (8.4-10.2); Carbon Dioxide 29 mmol/L (22-29); Chloride 102 mmol/L (96-108); Estimated Glomerular Filt Rate 44; Potassium 4.8 mmol/L (3.3-5.1); Sodium 137 mmol/L (135-145)
[2022-03-14 11:38] LABS: Vitamin D 25-OH Total 22.7 ng/mL (>30)
[2022-03-17 17:17] LABS: Calcium (PTHI) 10.5 mg/dL (8.6-10.3); PTHI 195 pg/mL (16-77)
[2022-03-17 22:26] LABS: Prot Elec - Albumin 3.8 g/dL (3.8-4.8); Prot Elec - Alpha1 0.4 g/dL (0.2-0.3); Prot Elec - Alpha2 0.8 g/dL (0.5-0.9); Prot Elec - Beta 1 0.4 g/dL (0.4-0.6); Prot Elec - Beta 2 0.4 g/dL (0.2-0.5); Prot Elec - Gamma 1.2 g/dL (0.8-1.7); Prot Elec - Total Protein 6.9 g/dL (6.1-8.1)
== END 2022-03-14 10:12 | disposition home or self-care (01) ==
LOC: HO.LAB 10:11
PROVIDERS: PCP Internal Medicine; Visit Provider Internal Medicine Nephrology
DX: I12.9 Hypertensive chronic kidney disease with stage 1 through stage 4 chronic kidney disease, or unspecified chronic kidney disease (principal); N18.31 Chronic kidney disease, stage 3a
CPT/HCPCS: 36415; 80051; 82306; 82310; 82565; 83970; 84100; 84156; 84165; 84520; 85025

== ENCOUNTER → 2022-05-27 10:51 | Outpatient (BNVA) | payer MEDICARE, SELFPAY | PROVIDERS: PCP Internal Medicine; Referring Provider Internal Medicine; Visit Provider Internal Medicine Cardiovascular Disease | DX: I48.19 Other persistent atrial fibrillation (principal); I48.92 Unspecified atrial flutter; Z79.01 Long term (current) use of anticoagulants | CPT/HCPCS: 93005; 99212 ==

== ENCOUNTER 2022-05-28 10:52 | Day surgery (SDC) | payer MEDICARE, SELFPAY ==
--- NOTE | 2022-05-27 13:13 | P.CONAN_ITS ---
Documented by User: Jenise Najera NP 05/27/22 13:21 HPI - Anesthesia Eval Consult details Narrative: 76yo M for Cardioversion Xarelto for afib PMFSH Active Problems Active Problems: All Active Problems (Updated 05/27/22 @ 11:19 by Jonathan House MD) Atrial flutter (Acute) Obesity (Acute) Persistent atrial fibrillation (Acute) Obesity (Acute) Adult general medical exam (Acute) Blind right eye (Acute) Screening for prostate cancer (Acute) Screening for diabetes mellitus (Acute) Hyperlipidemia (Acute) Hypertension (Acute) Carotid disease, bilateral (Acute) PAD (peripheral artery disease) (Acute) Past Medical History Medical History Carotid disease, bilateral History of stent insertion of renal artery Hyperlipidemia Hypertension Obesity PAD (peripheral artery disease) Paroxysmal atrial fibrillation Persistent atrial fibrillation Screening for diabetes mellitus Screening for prostate cancer Family History Family History Father Heart disease Mother Hypertension Brother No problems noted. Son No problems noted. Surgical History Surgical History H/O colonoscopy H/O esophagogastroduodenoscopy History of angioplasty History of cardioversion History of carotid endarterectomy History of surgery History of vasectomy Social History Social History Housing: House Alcohol intake: former Patient Tobacco Use Status: Former Tobacco user e-Cigarette/Vaping Use: Never Used Second Hand Smoke Exposure: No Advance Directives Date on File: 08/17/20 service: No Current occupational status: retired Cognitive needs: No Hearing needs: Yes Vision needs: Yes Meds Allergies Allergy/AdvReac Type Severity Reaction Status Date / Time ENVIRONMENTAL Allergy Runny Nose Uncoded 05/06/22 09:17 Home Medications Medication Instructions Recorded Confirmed Last Taken Type acetaminophen 500 mg capsule 500 mg PO Q6H PRN sob 04/16/21 05/27/22 05/28/22 History cholecalciferol (vitamin D3) 25 25 mcg PO DAILY 05/27/22 05/27/22 Unknown History mcg (1,000 unit) capsule glucosamine 750 at-olowhbbaiff-amm 1 tab PO BID 05/27/22 05/27/22 Unknown History no1 644 mg-C 30 mg-cassi 1 mg tablet (Osteo Bi-Flex Triple Strength) Exam Exam Date and Time: May 27, 2022 1313 Pertinent Lab Results Pertinent Lab Results: Laboratory Tests 03/14/22 03/14/22 10:30 10:30 WBC 6.9 Hgb 13.6 L Hct 42.3 Plt Count 288 Sodium 137 Potassium 4.8 Chloride 102 Carbon Dioxide 29 BUN 30 H Creatinine 1.55 H Narrative Narrative: EKG 05/2022 atrial tachycardia/flutter at heart rate 135 beats per minute with septal infarct pattern with nonspecific ST Assessment and Plan Assessment Anesthesia Assessment: Chart Reviewed Documented by User: Júnior Weiss MD 05/28/22 16:02 HPI - Anesthesia Eval Consult details Narrative: 76yo M for Cardioversion Xarelto for afib [facility] Past Medical History Medical History Carotid disease, bilateral History of stent insertion of renal artery Hyperlipidemia Hypertension Obesity PAD (peripheral artery disease) Paroxysmal atrial fibrillation Persistent atrial fibrillation Screening for diabetes mellitus Screening for prostate cancer Family History Family History Father Heart disease Mother Hypertension Brother No problems noted. Son No problems noted. Family history of problems with anesthesia: No Surgical History Surgical History H/O colonoscopy H/O esophagogastroduodenoscopy History of angioplasty History of cardioversion History of carotid endarterectomy History of surgery History of vasectomy History of Problems with Anesthesia: No Social History Social History Housing: House Alcohol intake: former Patient Tobacco Use Status: Former Tobacco user e-Cigarette/Vaping Use: Never Used Second Hand Smoke Exposure: No Advance Directives Date on File: 08/17/20 service: No Current occupational status: retired Cognitive needs: No Hearing needs: Yes Vision needs: Yes Meds Allergies Allergy/AdvReac Type Severity Reaction Status Date / Time ENVIRONMENTAL Allergy Runny Nose Uncoded 05/06/22 09:17 Home Medications Medication Instructions Recorded Confirmed Last Taken Type acetaminophen 500 mg capsule 500 mg PO Q6H PRN sob 04/16/21 05/27/22 05/28/22 History cholecalciferol (vitamin D3) 25 25 mcg PO DAILY 05/27/22 05/27/22 Unknown H istory mcg (1,000 unit) capsule glucosamine 750 on-cgzwqidroiv-qpv 1 tab PO BID 05/27/22 05/27/22 Unknown History no1 644 mg-C 30 mg-cassi 1 mg tablet (Osteo Bi-Flex Triple Strength) Exam Airway Mallampati Class: III TM Dist: >3cm Denture: Upper and Lower Loose/Missing/Broken Teeth: Yes Heart: Irregular Lungs: b/l breath sounds Assessment and Plan Assessment Anesthesia Assessment: Anesthesia Plan Discussed Final Anesthetic Review Family History of Problems with Anesthesia: No History of Problems with Anesthesia: No NPO: Yes ASA Class: III Final Preanesthetic Review: Meds/Allgs Chart Reviewed, Consent Obtained/Reviewed and Anes Risks/Benef Reviewed Patient Risk: High Procedure Risk: Intermediate Anesthetic Plan Anesthetic Plan: GA Disposition: Standard PACU
--- NOTE | 2022-05-28 11:00 | MHC.SHP ---
Pre-Procedural Eval Section A Date of Service: 05/28/22 The patient is an INPATIENT: No Changes since office visit: Yes Patient answered all questions; No Cold of Flu in the past 2 weeks, No New Medical Problems and No Changes in Medication The History & Physical has been completed within 30 days and I have reviewed it.: Yes Section B Chief Complaint: atrial flutter Allergies: Allergies Allergy/AdvReac Type Severity Reaction Status Date / Time ENVIRONMENTAL Allergy Runny Nose Uncoded 05/06/22 09:17 Plan I have reviewed the history and physical and performed a pertinent physical examination on my patient. No changes have occurred unless specified.
[2022-05-28 11:42] VITALS: BMI 35.6
[2022-05-28 11:58] VITALS: BP 146/78; PULSE 91; RESP 18; TEMP 36.5; O2SAT 97
[2022-05-28] MEDS: Lactated Ringers 1,000 ML 50 ML IVCONT (12:16)
--- NOTE | 2022-05-28 13:31 | ECG_ITS ---
Test Reason : POST CARDIOVERSION Blood Pressure : / mmHG Vent. Rate : 068 BPM Atrial Rate : 068 BPM P-R Int : 270 ms QRS Dur : 092 ms QT Int : 404 ms P-R-T Axes : 088 007 054 degrees QTc Int : 429 ms Sinus rhythm with 1st degree A-V block Possible Anterior infarct , age undetermined Abnormal ECG When compared with ECG of 20-APR-2020 14:13, Premature supraventricular complexes are no longer Present Referred By: Jonathan House Electronically Signed By:Saulo Crouch
--- NOTE | 2022-05-28 13:31 | HO.CARDIVERS ---
Cardioversion Procedure Note Cardioversion Date of Procedure: 05/28/2022 Ordering Provider: Myself Performing Provider: Myself Indication for Procedure: Persistent atrial flutter with rapid ventricular response Pre-Op Diagnosis: Same Post-Op Diagnosis: Normal sinus rhythm Performed with Transesophageal Echo: No History: See my office note from yesterday Consent: Verbal and Written consent was obtained from the patient before starting in after confirming use of oral anticoagulant. The patient was made aware of the risk of synchronized cardioversion including risk, benefits, alternatives. Procedure: After consent obtained, cardioversion pads were attached in anteroposterior configuration and the patient was sedated by the anesthesia team. Once adequate sedation achieved, patient was delivered 200 joules of biphasic synchronized energy in anteroposterior configuration Complications: None Impression: Successful conversion to sinus rhythm with first-degree AV block Recommendations: 1. 12 lead EKG 2. Continue full oral anticoagulation 3. Continue Multaq and Cardizem 4. Will set up for follow-up in 4 weeks after Holter monitor
[2022-05-28 13:34] VITALS: BP 122/63; PULSE 77; RESP 19; TEMP 36.8; O2SAT 96
[2022-05-28 13:39] VITALS: BP 131/66; PULSE 75; RESP 12; O2SAT 100
[2022-05-28 13:44] VITALS: BP 141/71; PULSE 76; RESP 12; O2SAT 97
[2022-05-28 13:49] VITALS: BP 127/68; PULSE 75; RESP 15; TEMP 36.2; O2SAT 95
[2022-05-28 14:04] VITALS: BP 129/70; PULSE 75; RESP 16; TEMP 36.2; O2SAT 96
== END 2022-05-28 14:36 | disposition home or self-care (01) ==
PROVIDERS: PCP Internal Medicine; Visit Provider Internal Medicine Cardiovascular Disease
PROC: 5A2204Z Restoration of Cardiac Rhythm, Single (ICD-10-PCS; principal; 2022-05-28 12:50)
DX: I48.92 Unspecified atrial flutter (principal); Z79.01 Long term (current) use of anticoagulants; I10 Essential (primary) hypertension; E78.5 Hyperlipidemia, unspecified; E66.9 Obesity, unspecified; Z68.35 Body mass index [BMI] 35.0-35.9, adult; Z87.891 Personal history of nicotine dependence
CPT/HCPCS: 92960; 93005

== ENCOUNTER → 2022-06-13 11:30 | Outpatient (REF) | payer MEDICARE, SELFPAY ==
--- NOTE | 2022-06-13 11:33 | HM_ITS ---
* Total monitoring time 3 days and 1 hour. * Underlying rhythm is atrial fibrillation. * Average rate 75/Min. Range 49 to 131/Min. * About 10% the time, rate greater than 100/Min. No significant bradycardia or pauses. * Frequent ventricular ectopy. 3 morphologies. Some couplets; short runs; longest 4 beats. * No patient events. MTDD
== END ==
LOC: HO.CARD 11:30
PROVIDERS: PCP Internal Medicine; Visit Provider Internal Medicine Cardiovascular Disease
DX: I48.92 Unspecified atrial flutter (principal)
CPT/HCPCS: 93242

== ENCOUNTER 2022-06-20 09:54 | Outpatient (REF) | payer MEDICARE, SELFPAY ==
[2022-06-20 11:01] LABS: Anion Gap 14 (12-20); Blood Urea Nitrogen 31 mg/dL (9-16); Calcium 9.7 mg/dL (8.4-10.2); Carbon Dioxide 25 mmol/L (22-29); Chloride 106 mmol/L (96-108); Estimated Glomerular Filt Rate 48; Sodium 141 mmol/L (135-145)
[2022-06-23 17:06] LABS: Calcium (PTHI) 9.8 mg/dL (8.6-10.3); PTHI 183 pg/mL (16-77)
== END 2022-06-20 09:55 | disposition home or self-care (01) ==
LOC: HO.10HDL 09:54
PROVIDERS: Visit Provider Internal Medicine Nephrology
DX: I11.0 Hypertensive heart disease with heart failure (principal); N18.31 Chronic kidney disease, stage 3a; E83.52 Hypercalcemia; N25.81 Secondary hyperparathyroidism of renal origin
CPT/HCPCS: 36415; 80051; 82310; 82565; 83970; 84520

== ENCOUNTER → 2022-07-25 11:03 | Outpatient (BNVA) | payer MEDICARE, SELFPAY | PROVIDERS: PCP Internal Medicine; Referring Provider Internal Medicine; Visit Provider Internal Medicine Gastroenterology | DX: D64.9 Anemia, unspecified (principal); Z87.11 Personal history of peptic ulcer disease | CPT/HCPCS: 99212 ==

== ENCOUNTER 2022-07-25 11:58 | Outpatient (REF) | payer MEDICARE, SELFPAY ==
[2022-07-25 13:40] LABS: MANUAL DIFF FLAG NO
[2022-07-25 13:45] LABS: Basophils Percent Auto 0.5 % (0-2); Eosinophils Absolute Auto 0.2 X10*3/uL (0.0-0.4); Eosinophils Percent Auto 2.6 % (0-4); Hematocrit 42.7 % (42.0-52.0); Hemoglobin 13.6 g/dl (14.0-18.0); Imm Gran Abs Auto 0.04 X10*3/uL (0.00-0.03); Imm Gran Pct Auto 0.5 % (0.0-0.4); Lymphocytes Absolute Auto 1.3 X10*3/uL (1.2-4.9); Lymphocytes Percent Auto 16.7 % (20-40); Mean Corpuscular HGB Conc 31.9 g/dl (31.0-36.0); Mean Corpuscular Hemoglobin 28.8 pg (27.0-33.0); Mean Corpuscular Volume 90.3 fL (80.0-98.0); Mean Platelet Volume 10.3 fL (9.4-12.4); Monocytes Absolute Auto 0.7 X10*3/uL (0.1-1.2); Neutrophils Absolute Auto 5.5 x10*3/uL (2.0-8.3); Neutrophils Percent Auto 70.7 % (45-73); Platelet Count 307 X10*3/uL (160-400); Red Blood Count 4.73 X10*6/uL (4.60-5.80); Red Cell Distribution Width 14.4 % (11.0-16.0); White Blood Count 7.8 X10*3/uL (4.8-10.8)
[2022-07-25 13:55] LABS: Alanine Aminotransferase 22 U/L (0-40); Albumin Level 3.8 g/dL (3.5-5.0); Alkaline Phosphatase 85 U/L (39-117); Anion Gap 14 (12-20); Aspartate Amino Transferase 18 U/L (5-37); Bilirubin Total 0.4 mg/dL (0.0-1.0); Blood Urea Nitrogen 27 mg/dL (9-16); Calcium 9.8 mg/dL (8.4-10.2); Carbon Dioxide 27 mmol/L (22-29); Chloride 105 mmol/L (96-108); Estimated Glomerular Filt Rate 58; Glucose Random 114 mg/dL (60-115); Magnesium 1.7 mg/dL (1.6-2.6); Potassium 4.4 mmol/L (3.3-5.1); Sodium 142 mmol/L (135-145)
[2022-07-25 14:18] LABS: Ferritin 44 ng/mL (20-250); Vitamin D 25-OH Total 25.7 ng/mL (>30)
[2022-07-25 14:35] LABS: Folate 14.3 ng/mL (> or = 4.0); Vitamin B12 306 pg/mL (200-900)
== END 2022-07-25 11:59 | disposition home or self-care (01) ==
LOC: HO.10HDL 11:58
PROVIDERS: Visit Provider Internal Medicine Gastroenterology
DX: K75.81 Nonalcoholic steatohepatitis (NASH) (principal); E46 Unspecified protein-calorie malnutrition; D64.9 Anemia, unspecified
CPT/HCPCS: 36415; 80053; 82306; 82607; 82728; 82746; 83735; 85025

== ENCOUNTER → 2022-08-07 09:04 | Outpatient (BNVA) | payer MEDICARE, SELFPAY | PROVIDERS: PCP Internal Medicine; Referring Provider Internal Medicine; Visit Provider Internal Medicine Cardiovascular Disease | DX: I48.19 Other persistent atrial fibrillation (principal); I48.92 Unspecified atrial flutter | CPT/HCPCS: 93005; 99212 ==

== ENCOUNTER 2022-08-08 12:54 | Day surgery (SDC) | payer MEDICARE, SELFPAY ==
--- NOTE | 2022-08-07 12:15 | P.CONAN_ITS ---
Documented by User: Jenise Najera NP 08/07/22 12:20 HPI - Anesthesia Eval Consult details Narrative: 76yo M for Cardioversion Xarelto for afib s/p same 05/2022 with GA-mask PMFSH Active Problems Active Problems: All Active Problems (Updated 07/25/22 @ 11:23 by Melita Mon MD) Anemia (Acute) Malnutrition (Acute) Atrial flutter (Acute) Obesity (Acute) Persistent atrial fibrillation (Acute) Obesity (Acute) Adult general medical exam (Acute) Blind right eye (Acute) Screening for prostate cancer (Acute) Screening for diabetes mellitus (Acute) Hyperlipidemia (Acute) Hypertension (Acute) Carotid disease, bilateral (Acute) PAD (peripheral artery disease) (Acute) Past Medical History Medical History Atrial flutter Carotid disease, bilateral History of stent insertion of renal artery Hyperlipidemia Hypertension Obesity PAD (peripheral artery disease) Paroxysmal atrial fibrillation Persistent atrial fibrillation Screening for diabetes mellitus Screening for prostate cancer Family History Family History Father Heart disease Mother Hypertension Brother No problems noted. Son No problems noted. Family history of problems with anesthesia: No Surgical History Surgical History H/O colonoscopy H/O esophagogastroduodenoscopy History of angioplasty History of cardioversion History of carotid endarterectomy History of surgery History of vasectomy History of Problems with Anesthesia: No Social History Social History Housing: House Are you a primary family day care provider to a significant other at home: No Do you presently have visiting nurse or other home services: No Alcohol intake: former Patient Tobacco Use Status: Former Tobacco user e-Cigarette/Vaping Use: Never Used Second Hand Smoke Exposure: No Use of substances other than those prescribed or required for medical reasons: No Have you been hit, kicked, punched, or otherwise hurt by someone within the past year? If so, by whom?: No Are you DNR?: No Advance Directives: No Advance Directives Information Provided: Yes Advance Directives Date on File: 08/17/20 Eating poorly because of decreased appetite: No Nutrition Risks: No Nutritional Risk Poor oral hygiene: No service: No Current occupational status: retired Cognitive needs: No Hearing needs: Yes Vision needs: Yes Meds Allergies Allergy/AdvReac Type Severity Reaction Status Date / Time ENVIRONMENTAL Allergy Runny Nose Uncoded 07/25/22 11:09 Home Medications Medication Instructions Recorded Confirmed Last Taken Type acetaminophen 500 mg capsule 500 mg PO Q6H PRN sob 04/16/21 08/07/22 05/28/22 History cholecalciferol (vitamin D3) 25 25 mcg PO DAILY 05/27/22 08/07/22 08/08/22 History mcg (1,000 unit) capsule glucosamine 750 ub-[id number]-[id number] 1 tab PO BID 05/27/22 08/07/22 08/08/22 History no1 644 mg-C 30 mg-cassi 1 mg tablet (Osteo Bi-Flex Triple Strength) lisinopril 40 mg tablet 40 mg PO BID 08/07/22 08/07/22 08/08/22 History Exam Exam Date and Time: August 07, 2022 1215 Pertinent Lab Results Pertinent Lab Results: Laboratory Tests 07/25/22 07/25/22 10:00 10:00 WBC 7.8 Hgb 13.6 L Hct 42.7 Plt Count 307 Sodium 142 Potassium 4.4 Chloride 105 Carbon Dioxide 27 BUN 27 H Creatinine 1.22 Narrative Narrative: Holter 06/2022 * Total monitoring time 3 days and 1 hour. * Underlying rhythm is atrial fibrillation.? * Average rate 75/Min.? Range 49 to 131/Min. * About 10% the time, rate greater than 100/Min.? No significant bradycardia or pauses. * Frequent ventricular ectopy. 3 morphologies.? Some couplets; short runs; longest 4 beats. * No patient events. EKG 05/2022 Vent. Rate : 068 BPM ? ? Atrial Rate : 068 BPM ?? P-R Int : 270 ms? QRS Dur : 092 ms ? ? QT Int : 404 ms ? ? ? P-R-T Axes : 088 007 054 degrees ?? QTc Int : 429 ms ? Sinus rhythm with 1st degree A-V block Possible Anterior infarct , age undetermined Abnormal ECG When compared with ECG of 20-APR-2020 14:13, Premature supraventricular complexes are no longer Present Assessment and Plan Assessment Anesthesia Assessment: Chart Reviewed Final Anesthetic Review Family History of Problems with Anesthesia: No History of Problems with Anesthesia: No Documented by User: Key Tinajero MD 08/08/22 14:06 [facility] Past Medical History Medical History Atrial flutter Carotid disease, bilateral History of stent insertion of renal artery Hyperlipidemia Hypertension Obesity PAD (peripheral artery disease) Paroxysmal atrial fibrillation Persistent atrial fibrillation Screening for diabetes mellitus Screening for prostate cancer Family History Family History Father Heart disease Mother Hypertension Brother No problems noted. Son No problems noted. Surgical History Surgical History H/O colonoscopy H/O esophagogastroduodenoscopy History of angioplasty History of cardioversion History of carotid endarterectomy History of surgery History of vasectomy Social History Social History Housing: House Are you a primary family day care provider to a significant other at home: No Do you presently have visiting nurse or other home services: No Alcohol intake: former Patient Tobacco Use Status: Former Tobacco user e-Cigarette/Vaping Use: Never Used Second Hand Smoke Exposure: No Use of substances other than those prescribed or required for medical reasons: No Have you been hit, kicked, punched, or otherwise hurt by someone within the past year? If so, by whom?: No Are you DNR?: No Advance Directives: No Advance Directives Information Provided: Yes Advance Directives Date on File: 08/17/20 Eating poorly because of decreased appetite: No Nutrition Risks: No Nutritional Risk Poor oral hygiene: No service: No Current occupational status: retired Cognitive needs: No Hearing needs: Yes Vision needs: Yes Meds Allergies Allergy/AdvReac Type Severity Reaction Status Date / Time ENVIRONMENTAL Allergy Runny Nose Uncoded 07/25/22 11:09 Home Medications Medication Instructions Recorded Confirmed Last Taken Type acetaminophen 500 mg capsule 500 mg PO Q6H PRN sob 04/16/21 08/07/22 05/28/22 History cholecalciferol (vitamin D3) 25 25 mcg PO DAILY 05/27/22 08/07/22 08/08/22 History mcg (1,000 unit) capsule glucosamine 750 ee-uijtlldggti-tnj 1 tab PO BID 05/27/22 08/07/22 08/08/22 History no1 644 mg-C 30 mg-cassi 1 mg tablet (Osteo Bi-Flex Triple Strength) lisinopril 40 mg tablet 40 mg PO BID 08/07/22 08/07/22 08/08/22 History Exam Airway Mallampati Class: III TM Dist: >3cm Neck ROM: Full Assessment and Plan Assessment Anesthesia Assessment: Anesthesia Plan Discussed Final Anesthetic Review NPO: Yes ASA Class: III Final Preanesthetic Review: Meds/Allgs Chart Reviewed, Consent Obtained/Reviewed and Anes Risks/Benef Reviewed Patient Risk: Intermediate Procedure Risk: Low Anesthetic Plan Anesthetic Plan: GA Disposition: Standard PACU
--- NOTE | 2022-08-08 09:46 | MHC.SHP ---
Pre-Procedural Eval Section A Date of Service: 08/08/22 The patient is an INPATIENT: No Changes since office visit: Yes Patient answered all questions; No Cold of Flu in the past 2 weeks, No New Medical Problems and No Changes in Medication The History & Physical has been completed within 30 days and I have reviewed it.: Yes Section B Chief Complaint: afib Allergies: Allergies Allergy/AdvReac Type Severity Reaction Status Date / Time ENVIRONMENTAL Allergy Runny Nose Uncoded 07/25/22 11:09 Plan I have reviewed the history and physical and performed a pertinent physical examination on my patient. No changes have occurred unless specified.
[2022-08-08 13:45] VITALS: BP 149/64; PULSE 81; RESP 8; TEMP 37.1; O2SAT 98; BMI 37.8
[2022-08-08] MEDS: Flecainide Acetate 50 MG TABLET 150 MG PO (14:12)
[2022-08-08] MEDS: Lactated Ringers 1,000 ML 100 ML IVCONT (14:14)
--- NOTE | 2022-08-08 14:17 | ECG_ITS ---
Test Reason : s/p cardioversion Blood Pressure : / mmHG Vent. Rate : 070 BPM Atrial Rate : 070 BPM P-R Int : 278 ms QRS Dur : 098 ms QT Int : 406 ms P-R-T Axes : 082 010 034 degrees QTc Int : 438 ms Sinus rhythm with 1st degree A-V block Cannot rule out Anterior infarct (cited on or before 28-MAY-2022) Abnormal ECG When compared with ECG of 28-MAY-2022 13:33, No significant change was found Referred By: Jonathan House Electronically Signed By:JATINDER BUSTAMANTE
[2022-08-08 14:21] VITALS: BP 136/67; PULSE 69; RESP 15; TEMP 36.8; O2SAT 96
--- NOTE | 2022-08-08 14:22 | HO.CARDIVERS ---
Cardioversion Procedure Note Cardioversion Date of Procedure: Today Ordering Provider: Myself Performing Provider: Myself Indication for Procedure: Persistent atrial tachycardia/flutter with rapid rate with intermittent episodes of persistent atrial fibrillation Pre-Op Diagnosis: Same Post-Op Diagnosis: Sinus rhythm with first-degree AV block Performed with Transesophageal Echo: No History: See my office visit note Consent: Verbal and Written consent was obtained from the patient before starting and after confirming oral anticoagulation use as well as give him 150 mg of flecainide.. The patient was made aware of the risk of synchronized cardioversion including benefits, risks and alternatives Procedure: After consent obtained, cardioversion pads were attached in anteroposterior configuration and the patient was sedated by the anesthesia team. Once adequate sedation achieved, patient was delivered 200 joules of biphasic synchronized energy in anteroposterior configuration] Complications: None Impression: Successful conversion to sinus rhythm Recommendations: 1. 12 lead EKG 2. Continue full oral anticoagulation with Xarelto 3. Start flecainide 150 mg b.i.d. for rhythm management along with Cardizem 4. Follow up in the office after Holter monitor
[2022-08-08 14:26] VITALS: BP 136/67; PULSE 70; RESP 17; O2SAT 96
[2022-08-08 14:31] VITALS: BP 122/59; PULSE 71; RESP 14; O2SAT 96
[2022-08-08 14:36] VITALS: BP 128/68; PULSE 72; RESP 14; O2SAT 98
[2022-08-08 14:49] VITALS: BP 142/68; PULSE 70; RESP 16; TEMP 36.9; O2SAT 97
== END 2022-08-08 15:15 | disposition home or self-care (01) ==
PROVIDERS: PCP Internal Medicine; Visit Provider Internal Medicine Cardiovascular Disease
PROC: 5A2204Z Restoration of Cardiac Rhythm, Single (ICD-10-PCS; principal; 2022-08-08 14:00)
DX: I48.92 Unspecified atrial flutter (principal); I48.19 Other persistent atrial fibrillation; Z79.01 Long term (current) use of anticoagulants; I10 Essential (primary) hypertension; Z79.899 Other long term (current) drug therapy; Z87.891 Personal history of nicotine dependence
CPT/HCPCS: 92960; 93005; J0171

== ENCOUNTER → 2022-08-11 07:39 | Outpatient (REF) | payer MEDICARE, SELFPAY ==
--- NOTE | ~2022-08-11 | NM_ITS ---
Lexiscan Myocardial perfusion study Indication: Atrial tachycardia, history of vascular disease, assess for ischemia Technique: The patient was brought in for a Lexiscan perfusion study on 08/11/2022 and was injected 0.4 mg of Lexiscan intravenously. Within a minute of this injection 35 mCi of sestamibi was given intravenously. Images were obtained using the SPECT gamma camera interlaced with the gating device. Images were obtained in supine position. Resting perfusion study was performed on 08/12/2022. Patient was administered 35 mCi of sestamibi intravenously at rest. Images were then obtained in supine position. Total DLP 98mGy-cm. Images were processed with the software and compared side to side in short axis, horizontal long axis and vertical long axis views. Findings: Raw acquisition reviewed. The stress perfusion study showed no significant perfusion abnormality. Both uncorrected as well as CT attenuation corrected images reviewed. The gated study shows normal LV systolic function with calculated LVEF of 68%. LV cavity is normal in size. The gated study shows normal wall thickening and contraction of segments. Resting study shows no significant perfusion abnormality. Gating at rest reveals normal wall motion with ejection fraction at 59%. The findings are consistent with no clear reversible or fixed perfusion defects. NM/NM erick perf SPECT rest & str Impression: 1. Myocardial perfusion imaging study shows likely normal myocardial perfusion. No definitive evidence of any ischemia or infarction. 2. Gated LVEF is 58% during stress and 59% during rest. 3. Transient ischemic dilatation not present. EKG component of the test reported separately.
--- NOTE | 2022-08-11 07:42 | CA_ITS ---
Acquisition Time: 2022-08-11 08:17:54 Total Exercise Time: 00:02:00 Test Indications: Abnormal ECG AFLUTTER Medications: SEE H Protocol: LEXISCAN Max HR: 093 BPM 63% of Pred: 146 BPM Max BP: 160/060 mmHG Max Work Load: 1.0 METS Exercise stress test with Lexiscan injection, while sitting and kicking his legs, without anginal symptoms, without arrythmia, with normotensive response to injection, with nondiagnostic EKG for ischemia. Nuclear images pending. Test reviewed with Dr House. Referred By: Jonathan House Overread By: ABDULLAHI DE LA ROSA
== END ==
LOC: HO.CARD 07:39
PROVIDERS: PCP Internal Medicine; Visit Provider Internal Medicine Cardiovascular Disease
DX: I48.92 Unspecified atrial flutter (principal)
CPT/HCPCS: 78452; 93017; A9500; J0280; J2785

== ENCOUNTER → 2022-08-20 14:54 | Outpatient (REF) | payer MEDICARE, SELFPAY ==
--- NOTE | 2022-08-20 14:56 | HM_ITS ---
* Total monitoring time 3 days. * Underlying rhythm is atrial fibrillation * Some strips appear to have V paced beats * Average ventricular rate 72/Min. Range 39-142/Min. * About 1.7% the time, rate greater than 100/Min. * No significant ectopy, pauses or AV blocks. * Overall, atrial fibrillation with reasonable rate control and rare tachycardia. MTDD
== END ==
LOC: HO.CARD 14:54
PROVIDERS: Visit Provider Internal Medicine Cardiovascular Disease
DX: I48.92 Unspecified atrial flutter (principal)
CPT/HCPCS: 93242

== ENCOUNTER → 2022-09-01 14:33 | Outpatient (BNVA) | payer MEDICARE, SELFPAY | PROVIDERS: PCP Internal Medicine; Visit Provider Internal Medicine Cardiovascular Disease | DX: I48.0 Paroxysmal atrial fibrillation (principal); I48.19 Other persistent atrial fibrillation; I10 Essential (primary) hypertension; Z95.820 Peripheral vascular angioplasty status with implants and grafts; Z98.890 Other specified postprocedural states | CPT/HCPCS: 93005; 99212 ==

== ENCOUNTER 2022-10-20 13:43 | Outpatient (REF) | payer MEDICARE, SELFPAY ==
--- NOTE | ~2022-10-20 | US_ITS ---
EXAMINATION: Noninvasive assessment of the bilateral lower extremities with ARTERIAL DUPLEX and ANKLE BRACHIAL INDICES (ABIs). CLINICAL INFORMATION: Peripheral vascular disease, history of prior left iliac stent TECHNIQUE: Duplex Doppler techniques with waveform analysis and measurement of velocities in the bilateral common femoral, profunda femoris, superficial femoral, popliteal and tibial arteries were performed. Additionally, ankle pulse volume recordings, ankle pressure measurements and ankle brachial indices were obtained of the lower extremity arterial system bilaterally. The study was performed only at rest. COMPARISON: 10/15/2021 FINDINGS: DIRECT DUPLEX DOPPLER FINDINGS: RIGHT LEG: Common femoral artery: 184 cm/s, phasicity: Monophasic Profunda femoris artery: 76.2 cm/s, phasicity: Monophasic Superficial femoral artery (proximal): 160 cm/s, phasicity: Monophasic. Moderate calcified plaque Superficial femoral artery (mid): 125 cm/s, phasicity: Biphasic Superficial femoral artery (distal): 162 cm/s, phasicity: Biphasic Popliteal artery: 113 cm/s, phasicity: Monophasic Posterior tibial artery: 73.9 cm/s, phasicity: Biphasic Peroneal artery: 50.3 cm/s, phasicity: Monophasic LEFT LEG: Common femoral artery: 541 cm/s, phasicity: Monophasic. Shadowing scarring is seen overlying the common femoral artery Profunda femoris artery: 206 cm/s, phasicity: Biphasic Superficial femoral artery (proximal): 162 cm/s, phasicity: Monophasic. Large amount of noncalcified thrombus Superficial femoral artery (mid): 39.3 cm/s, phasicity: Monophasic Superficial femoral artery (distal): 66.4 cm/s, phasicity: Monophasic Popliteal artery: 44.8 cm/s, phasicity: Monophasic Posterior tibial artery: 53.8 cm/s, phasicity: Monophasic Peroneal artery: 39.3 cm/s, phasicity: Monophasic ANKLE-BRACHIAL INDEX: Right: 0.78? Left: 0.69 ANKLE PRESSURES: Right: PT 156, DP 152 Left: PT?138, DP?nondetectable ANKLE PVR WAVEFORMS: Right: Abnormal Left: Abnormal US/US arterial duplex LE BI IMPRESSION: Right leg: Mildly decreased ankle brachial index however this could be inaccurate due to elevated brachial artery pressure. Mildly elevated velocity seen in the right common femoral artery, proximal superficial femoral artery and distal superficial femoral artery which could represent mild to moderate stenoses. Monophasic waveforms seen in the proximal external vessels which could indicate more proximal iliac artery disease. Left leg: Mildly decreased ankle brachial index however this could be inaccurate due to elevated brachial artery pressure. Severely elevated velocity consistent with severe stenosis in the left common femoral artery and proximal superficial femoral artery. Overall stable examination compared to the prior exam. BRADLY Reference: - >1.4 = calcified vessels - 0.9 - 1.4 = normal - no significant arterial disease - 0.7 - 0.89 = mild peripheral arterial disease - 0.51 - 0.69 = moderate peripheral arterial disease - ? 0.50 = severe peripheral arterial disease - < .30 = critical arterial disease
== END 2022-10-20 13:44 | disposition home or self-care (01) ==
LOC: HO.US 13:43
PROVIDERS: Visit Provider Surgery Vascular Surgery
DX: I73.9 Peripheral vascular disease, unspecified (principal)
CPT/HCPCS: 93923; 93925

== ENCOUNTER 2022-10-21 08:30 | Outpatient (REF) | payer MEDICARE, SELFPAY ==
[2022-10-21 11:41] LABS: Anion Gap 13 (12-20); Blood Urea Nitrogen 26 mg/dL (9-16); Calcium 10.2 mg/dL (8.4-10.2); Carbon Dioxide 27 mmol/L (22-29); Chloride 109 mmol/L (96-108); Cholesterol 129 mg/dL; Estimated Glomerular Filt Rate 58; Glucose Fasting 99 mg/dL (60-99); HDL Cholesterol 50 mg/dL; LDL Cholesterol Calculated 66 mg/dl; Potassium 4.2 mmol/L (3.3-5.1); Prostate Specific Antigen 10.84 ng/mL (<0.05-4.0); Sodium 145 mmol/L (135-145); Triglycerides 68 mg/dL
== END 2022-10-21 08:31 | disposition home or self-care (01) ==
LOC: HO.10HDL 08:30
PROVIDERS: Absent Provider Nurse Practitioner Family; Visit Provider Internal Medicine
DX: Z13.1 Encounter for screening for diabetes mellitus (principal); Z12.5 Encounter for screening for malignant neoplasm of prostate; E78.5 Hyperlipidemia, unspecified
CPT/HCPCS: 36415; 80048; 80061; 84153

== ENCOUNTER 2022-12-09 08:30 | Outpatient (REF) | payer MEDICARE, SELFPAY ==
[2022-12-10 08:47] LABS: Urine Cytology See Pathology rpt
== END 2022-12-09 08:31 | disposition home or self-care (01) ==
LOC: HO.LAB 08:30
PROVIDERS: PCP Internal Medicine; Visit Provider Nurse Practitioner Family
DX: R97.20 Elevated prostate specific antigen [PSA] (principal); R82.90 Unspecified abnormal findings in urine
CPT/HCPCS: 51798; 87086; 87088; 87186; 88112; 99202

== ENCOUNTER → 2022-12-16 12:56 | Outpatient (BNVA) | payer MEDICARE, SELFPAY | PROVIDERS: PCP Internal Medicine; Visit Provider Surgery Vascular Surgery | DX: I73.9 Peripheral vascular disease, unspecified (principal); Z95.820 Peripheral vascular angioplasty status with implants and grafts | CPT/HCPCS: 99212 ==

== ENCOUNTER 2023-01-02 12:18 | Outpatient (REF) | payer MEDICARE, SELFPAY ==
[2023-01-02 14:29] LABS: Anion Gap 12 (12-20); Blood Urea Nitrogen 36 mg/dL (9-16); Calcium 9.9 mg/dL (8.4-10.2); Carbon Dioxide 28 mmol/L (22-29); Chloride 106 mmol/L (96-108); Estimated Glomerular Filt Rate 46; Potassium 4.2 mmol/L (3.3-5.1); Sodium 142 mmol/L (135-145)
== END 2023-01-02 12:19 | disposition home or self-care (01) ==
LOC: HO.10HDL 12:18
PROVIDERS: Absent Provider Urology; Referring Provider Internal Medicine Nephrology; Visit Provider Surgery Vascular Surgery
DX: I73.9 Peripheral vascular disease, unspecified (principal); I12.9 Hypertensive chronic kidney disease with stage 1 through stage 4 chronic kidney disease, or unspecified chronic kidney disease; N18.31 Chronic kidney disease, stage 3a; N25.81 Secondary hyperparathyroidism of renal origin
CPT/HCPCS: 36415; 80051; 82310; 82565; 84520

== ENCOUNTER 2023-01-09 08:37 | Outpatient (REF) | payer MEDICARE, SELFPAY ==
--- NOTE | ~2023-01-09 | CT_ITS ---
STUDY PERFORMED: CTA ABDOMEN, PELVIS AND LOWER EXTREMITY RUNOFF WITH CONTRAST HISTORY: Peripheral vascular disease. DESCRIPTION: Routine abdominal aorta and lower extremity runoff CTA protocol with contrast was performed. 100 mL of Omnipaque 350 intravenous contrast was administered. 3D POSTPROCESSING: Multiple 3D angiographic images were processed from the initial data set by the [facility] under concurrent physician supervision. This CT examination was performed using dose optimization techniques as appropriate, variously including the following: *Automated exposure control *Adjustment of mA and/or kV according to patient size (this includes techniques or standardized protocols for targeted exams where dose is matched to indication/reason for exam; i.e. extremities or head) *Use of iterative reconstruction technique DLP: 818 mGy-cm COMPARISON: 3 prior CTA abdomen, pelvis and runoff dated 11/14/2020, 07/19/2018 and 11/20/2016. FINDINGS: VASCULAR: ABDOMINAL AORTA: Atherosclerotic change present in the abdominal aorta without aneurysm, dissection or stenosis. RIGHT LOWER EXTREMITY: - Common Iliac Artery: Since the prior study, the patient has undergone placement of a right common iliac artery stent which is patent. No significant stenosis is seen. - Internal Iliac Artery: Patent with atherosclerotic change. - External Iliac Artery: Calcific atherosclerotic change throughout without significant stenosis. - Common Femoral Artery: Calcific posterior plaque with some minimal narrowing without significant stenosis. - Profunda Femoral Artery: Patent. - Superficial Femoral Artery: Calcified plaque throughout producing some mild areas of narrowing, but a significant stenosis is not seen. - Popliteal Artery: Widely patent. - Tibioperoneal Trunk: Widely patent. - Posterior Tibial Artery: Widely patent. - Peroneal Artery: Widely patent. - Anterior Tibial Artery: Mild disease proximally. Widely patent. LEFT LOWER EXTREMITY: - Common Iliac Artery: Atherosclerotic changes but patent. - Internal Iliac Artery: Proximal stenosis. Patent distally. - External Iliac Artery: Moderate calcification without critical stenosis. - Common Femoral Artery: Tight stenosis distally with luminal narrowing to under 3 mm. - Profunda Femoral Artery: Stenosis proximally but patent. - Superficial Femoral Artery: Proximal occlusion with reconstitution at the adductor canal with [id number]-tyisoq disease. - Popliteal Artery: Small caliber but normal. - Tibioperoneal Trunk: Patent. - Posterior Tibial Artery: Patent. - Peroneal Artery: Patent. - Anterior Tibial Artery: Mild disease proximally, widely patent distally. CELIOMESENTERIC ARTERIES: Celiac, SMA and KENYA are patent. RENAL ARTERIES: There are 2 renal arteries present on each side with small lower pole accessory vessels bilaterally. Moderate atherosclerotic changes are present in both main renal arteries proximally with mild stenoses. NONVASCULAR: Lung Bases: The visualized lung bases are unremarkable aside from bibasilar scarring. Incidental note made of reflux of contrast into the IVC and hepatic veins suggesting elevated right heart pressure. Liver, Gallbladder and Biliary Tree: The liver is normal in size, shape, and attenuation. No focal hepatic lesion or biliary ductal dilatation is present. The gallbladder is unremarkable with no evidence of radiopaque gallstones, gallbladder wall thickening, or obvious pericholecystic inflammatory changes. Pancreas: Unremarkable. Spleen: Unremarkable. Adrenal Glands: Unremarkable. Kidneys and Ureters: The kidneys are normal in size, shape, and attenuation. Bilateral benign Bosniak class I renal cysts are present which need no additional imaging or followup. No solid masses. No hydronephrosis, hydroureter, or calculi seen. No perinephric stranding. Bladder: Unremarkable. Gastrointestinal Tract: The small and large bowel are unremarkable. The appendix is unremarkable. Abdominal Wall: No significant hernia is appreciated. Lymph Nodes: No retroperitoneal lymphadenopathy. Pelvic Viscera: Moderate BPH. Seminal vesicles appear normal. Osseous Structures: Degenerative changes are noted throughout the spine. There is grade 1 anterolisthesis of L5 upon S1. No pars defects are seen. CT/CT angio abd aorta runoff IMPRESSION: 1. No aortic inflow disease. 2. On the right, there has been interval placement of a right common iliac stent which is patent. There is some mild disease in the SFA, but the popliteal is widely patent with three-vessel runoff. 3. On the left, there is a common femoral stenosis with a proximal SFA occlusion with reconstitution at the adductor canal with three-vessel runoff, as described above. 4. Nonvascular findings significant for reflux of contrast into the IVC and hepatic veins suggesting elevated right heart pressures, BPH and degenerative changes in the spine.
[2023-01-09] MEDS: iohexoL 350 MG/ML 100 ML INFUS..BTL IV (10:02)
== END 2023-01-09 08:38 | disposition home or self-care (01) ==
LOC: HO.CT 08:37
PROVIDERS: Visit Provider Surgery Vascular Surgery
DX: I70.213 Atherosclerosis of native arteries of extremities with intermittent claudication, bilateral legs (principal)
CPT/HCPCS: 75635; Q9967

== ENCOUNTER 2023-01-13 07:24 | Outpatient (REF) | payer MEDICARE, SELFPAY ==
[2023-01-13 07:57] VITALS: BP 115/77; RESP 16; TEMP 36.3; O2SAT 99
[2023-01-13 08:01] VITALS: BMI 34.8
[2023-01-13 08:03] VITALS: PULSE 47
[2023-01-13 08:48] VITALS: BP 154/67; PULSE 48; RESP 16; O2SAT 98
--- NOTE | 2023-01-13 08:48 | W.PM.OPN ---
Operative Note Operative Note Date of Service: 01/13/23 Narrative: Preoperative diagnosis: Elevated PSA Postoperative diagnosis: Elevated PSA Prostate Cancer Procedure: 1. transrectal ultrasound measurement of prostate 2. transrectal ultrasound-guided pudendal nerve block 3. transrectal ultrasound-guided prostate biopsy 12 core Surgeon: Dr. Carlos Gallagher Anesthetic: Local Indications for procedure: Elevated PSA 10.3 Procedure: After informed consent was verified, the patient was brought into the procedure area and lay left-hand side down on the table. Patient identity confirmed. Perioperative antibiotics confirmed. Safety pause time out performed. ROGELIO performed to dilate rectal sphincter Iodine 10cc with Gel was placed per rectum Ultrasound probe was placed per rectum The prostate was measured in 3 dimensions Total volume equals 80 gm No cystic structures were noted minor calcifications were noted at the surgical margin The prostate was otherwise homogeneous in nature An ultrasound-guided pudendal nerve block was performed using 10 cc of 1% lidocaine. 8 cc was placed at the base and 2 cc of the apex. A 12 core biopsy was performed with 6 cores each side. Two cores were taken at the apex, mid and base. Cores were spaced between lateral and medial. He tolerated the procedure well. Was able to ambulate to bathroom after 5 minutes. Printed instructions regarding antibiotic use and common side effects such as low-grade temperature, potential infection and bleeding were given Pathology: 12 core prostate biopsy.
== END 2023-01-13 07:25 | disposition home or self-care (01) ==
LOC: HO.MS 07:24
PROVIDERS: PCP Internal Medicine; Visit Provider Urology
PROC: (CPT 55700; principal; 2023-01-13 08:00)
DX: R97.20 Elevated prostate specific antigen [PSA] (principal); C61 Malignant neoplasm of prostate
CPT/HCPCS: 55700; 76942; 88305

== ENCOUNTER → 2023-01-21 12:31 | Outpatient (BNVA) | payer MEDICARE, SELFPAY | PROVIDERS: PCP Internal Medicine; Visit Provider Urology | DX: R97.20 Elevated prostate specific antigen [PSA] (principal); N41.9 Inflammatory disease of prostate, unspecified; R82.81 Pyuria; R31.29 Other microscopic hematuria; I10 Essential (primary) hypertension; Z79.01 Long term (current) use of anticoagulants | CPT/HCPCS: Q3014 ==

== ENCOUNTER → 2023-02-12 11:41 | Outpatient (BNVA) | payer MEDICARE, SELFPAY | PROVIDERS: PCP Internal Medicine; Visit Provider Surgery Vascular Surgery | DX: I73.9 Peripheral vascular disease, unspecified (principal) | CPT/HCPCS: 99212 ==

== ENCOUNTER → 2023-02-24 10:59 | Outpatient (BNVA) | payer MEDICARE, SELFPAY | PROVIDERS: PCP Internal Medicine; Referring Provider Internal Medicine; Visit Provider Internal Medicine Cardiovascular Disease | DX: I48.92 Unspecified atrial flutter (principal); I48.0 Paroxysmal atrial fibrillation; I10 Essential (primary) hypertension; Z98.890 Other specified postprocedural states; Z79.899 Other long term (current) drug therapy | CPT/HCPCS: 93005; 99212 ==

== ENCOUNTER 2023-05-05 10:22 | Outpatient (REF) | payer MEDICARE, SELFPAY ==
[2023-05-05 14:04] LABS: Cholesterol 118 mg/dL; HDL Cholesterol 40 mg/dL; LDL Cholesterol Calculated 61 mg/dl; Triglycerides 88 mg/dL
== END 2023-05-05 10:23 | disposition home or self-care (01) ==
LOC: HO.10HDL 10:22
PROVIDERS: Visit Provider Internal Medicine
DX: E78.5 Hyperlipidemia, unspecified (principal)
CPT/HCPCS: 36415; 80061

== ENCOUNTER 2023-06-25 08:54 | Outpatient (AMB) | payer MEDICARE, SELFPAY ==
[2023-06-25 08:55] VITALS: BP 142/80; PULSE 85; O2SAT 98; BMI 36.7
--- NOTE | 2023-06-25 08:55 | A.OFFVIS_ITS ---
Intake Vital Signs 06/25/23 08:55 Height 5 ft 4 in Weight 214 lb BMI 36.7 BP 142/80 H Blood Pressure Location Lt brachial Position Sitting Pulse 85 Pulse Source Pulse Oximeter Temp Source Skin Pulse Oximetry (%) 98 Oxygen Delivery Method Room Air Intake Visit Reasons: [facility] G0439 Intake Note: Patient is here for an Annual Wellness Visit. Radiation / Chemistry Technician Required: No Allergies ENVIRONMENTAL Allergy (Uncoded 06/25/23 09:09) Runny Nose Medication List - Last Reconciled 06/25/23 by NGHIA Carrington acetaminophen 500 mg PO Q6H PRN albuterol sulfate 90 mcg/actuation 2 puffs PO DAILY atorvastatin 80 mg PO DAILY 90 days cholecalciferol (vitamin D3) 25 mcg PO DAILY diltiazem HCl (Cardizem CD) 240 mg PO DAILY ezetimibe 10 mg PO DAILY fluticasone propion-salmeterol 100-50 mcg/dose (Wixela Inhub) 1 inh inhalation BID ewjucnow-[id number]-C-cassi-bosw 750 mg-644 mg- 30 mg-1 mg (Osteo Bi-Flex Triple Strength) 1 tab PO BID hydrochlorothiazide 25 mg PO DAILY lisinopril 40 mg PO BID pantoprazole 20 mg PO DAILY rivaroxaban (Xarelto) 20 mg PO DAILY 90 days tramadol 100 mg (2 x 50 mg) PO Q6H PRN Fall Risk Assessment Fall risk assessment: No Falls in past year Date Fall Risk Assessed: 06/25/23 HPI [facility] G0439 HPI Details Patient is a 77-year-old male presents today for subsequent wellness visit. Patient of Dr. Puentes. Patient is due for fasting glucose blood work, he has order from his PCP. Up-to-date with immunizations. PSA 10.84 10/2022 and this is followed by Urology. [place] of care was reviewed with the patient and he was provided with a screening schedule. Patient reports that he has a healthcare proxy in place and he has declined a MOLST form. Patient has declined to fill out Medicare wellness checkup questionnaire. [facility] Medical History Atrial flutter Atrial tachycardia Carotid disease, bilateral History of stent insertion of renal artery Hyperlipidemia Hypertension Obesity PAD (peripheral artery disease) Paroxysmal atrial fibrillation Paroxysmal atrial fibrillation Persistent atrial fibrillation Screening for diabetes mellitus Screening for prostate cancer Surgical History H/O colonoscopy H/O esophagogastroduodenoscopy History of angioplasty History of cardioversion History of carotid endarterectomy History of surgery History of vasectomy Family History Father Heart disease Mother Hypertension Brother No problems noted. Son No problems noted. Social History Housing: House Are you a primary customer care assistant to a significant other at home: No Do you presently have visiting nurse or other home services: No Alcohol intake: former Patient Tobacco Use Status: Former Tobacco user e-Cigarette/Vaping Use: Never Used Second Hand Smoke Exposure: No Advance Directives Date on File: 08/17/20 service: No Current occupational status: retired Cognitive needs: Yes (cane) Hearing needs: Yes (hearing aide) Vision needs: Yes (glasses) Questionnaire Mini Mental State Exam (MMSE) Orientation What is the (year) (season) (date) (day) (month)?: year, season, date, day and month Score Score: 5 Activity of Daily Living Bathing - sponge bath, tub bath or shower: receives no assistance (gets in/out by self, if usual bathing means Dressing - getting clothes from closets & drawers, including inner/outer garments & fasteners.: gets clothes & gets completely dressed without help Toileting - going to the 'toilet room' for urine/bowel elimination & cleaning self/arranging clothes: goes to toilet room, cleans self, arranges clothes w ithout help Transfer: moves in & out of bed and chair without help (may use support object) Continence: controls urination/bowel movements completely by self Feeding: feeds self without help Total Score: 0 Information obtained from: patient Using telephone: independent Traveling: independent Shopping: independent Preparing meals: independent Housework: independent Taking medicine: independent Managing money: independent PHQ-9 Over the last 2 weeks, how often have you been bothered by any of the following problems? 1. Little interest or pleasure in doing things: not at all 2. Feeling down, depressed, or hopeless: not at all 3. Trouble falling or staying asleep, or sleeping too much: not at all 4. Feeling tired or having little energy: not at all 5. Poor appetite or overeating: not at all 6. Feeling bad about yourself - or that you are a failure or have let yourself or your family down: not at all 7. Trouble concentrating on things, such as reading the newspaper or watching television: not at all 8. Moving or speaking so slowly that other people could have noticed. Or the opposite - being so fidgety or restless that you have been moving around a lot more than usual: not at all 9. Thoughts that you would be better off or of hurting yourself in some way: not at all Total score: 0 Depression Screening Interpretation: Negative 60834 - PHQ-9 Billing: Yes Source: Developed by Drs. Rubén Whitney, Dalila Delgado, Ken Jolley and colleagues, with an educational oscar from [employer]. ROBERTO-7 AMB Questionnaire ROBERTO-7 Date ROBERTO - 7 assessed: 05/07/23 Feeling nervous, anxious, or on edge: 0 = Not at all Not being able to stop or control worryin = Not at all Worrying too much about different things: 0 = Not at all Trouble relaxin = Not at all Being so restless that it is hard to sit still: 0 = Not at all Becoming easily annoyed or irritable: 0 = Not at all Feeling afraid as if something awful might happen: 0 = Not at all Total ROBERTO-7 score (0-4 normal; 5-9 mild; 10-14 moderate; 15-21 severe): 0 Source: Developed by Drs. Rubén Whitney, Ken Montero and colleagues, with an educational oscar from [employer]. ROBERTO-7 Assessment Billing ROBERTO-7 Assessment Tool: ROBERTO-7 Assessment 48841 AUDIT C Alcohol Use Questionnaire (AUDIT-C) 1. How often do you have a drink containing alcohol?: Never 3. How often do you have six or more drinks on one occasion?: Never Total Score: 0 Score Reviewed/Action Taken: No Thrive Questionnaire Date Thrive assessed: 05/07/23 Physical Exam Vital Signs: Last Vital Signs Pulse 85 08/17/23 08:55 BP 142/80 H 06/25/23 08:55 Pulse Ox 98 06/25/23 08:55 Oxygen Delivery Method Room Air 06/25/23 08:55 BMI result Body Mass Index 36.7 Const General: cooperative and no acute distress Orientation/consciousness: patient oriented x3 HEENT Other: Whisper test: fail - hearing aids Neuro Other: Balance: Normal - ambulates with a cane Get up and walk: able to Romberg: negative Tandem gait: unable to General: patient oriented x3 Assessment & Plan Assessment & Plan (1) Obesity: Code(s): E66.9 - Obesity, unspecified Plan: Healthy food choices and exercise as tolerated (2) Adult general medical exam: Code(s): Z00.00 - Encounter for general adult medical examination without abnormal findings (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 Palacio (4) Screening for diabetes mellitus: Code(s): Z13.1 - Encounter for screening for diabetes mellitus (5) Hyperlipidemia: Code(s): E78.5 - Hyperlipidemia, unspecified Plan: Continue current treatment. Reinforced low-cholesterol diet. (6) Hypertension: Code(s): I10 - Essential (primary) hypertension Plan: Continue current treatment. Reinforced low-sodium diet and exercise as matthias ated. (7) PAD (peripheral artery disease): Comment: Bilateral femoral endarterectomy 12/05/2020- left common iliac and external iliac plasty 01/02/2021 - right common iliac stent Code(s): I73.9 - Peripheral vascular disease, unspecified Plan: Continue to follow-up with vascular provider (8) Atrial flutter: Code(s): I48.92 - Unspecified atrial flutter Plan: Continue to follow-up with cardiology Continue Xarelto Quality Reporting (2019) Fall Risk Screening ([facility] 139) Last assessed Fall Risk: 06/25/23 Fall risk assessment: No Falls in past year Depression/Bipolar (159/160/161/177) PHQ-9: Total score: 0 Coding Level of Care Code Medicare Subsequent (G0439) Diagnoses Obesity E66.9 Adult general medical exam Z00.00 Blind right eye H54.40 Screening for diabetes mellitus Z13.1 Hyperlipidemia E78.5 Hypertension I10 PAD (peripheral artery disease) I73.9 Atrial flutter I48.92 CPT Codes Advance Care Planning - Time spent: 1-15 minutes, not on file ([id number]) Additional Codes ROBERTO-7 Assessment Billing - ROBERTO-7 Assessment Tool: ROBERTO-7 Assessment 28410 ([id number]) Advance Care Planning Advance Care Planning discussion: Exists, not on file Date of discussion: 06/25/23 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
== END 2023-06-25 09:22 | disposition home or self-care (01) ==
PROVIDERS: PCP Internal Medicine; Visit Provider Nurse Practitioner Family
DX: Z00.00 Encounter for general adult medical examination without abnormal findings (principal); E66.9 Obesity, unspecified; I10 Essential (primary) hypertension; Z68.36 Body mass index [BMI] 36.0-36.9, adult; I73.9 Peripheral vascular disease, unspecified; I48.92 Unspecified atrial flutter; Z13.1 Encounter for screening for diabetes mellitus; E78.5 Hyperlipidemia, unspecified
CPT/HCPCS: 1124F; G0439

== ENCOUNTER 2023-07-21 11:29 | Outpatient (REF) | payer MEDICARE, SELFPAY ==
[2023-07-21 13:19] LABS: MANUAL DIFF FLAG NO
[2023-07-21 13:32] LABS: Basophils Percent Auto 0.4 % (0-2); Eosinophils Absolute Auto 0.2 X10*3/uL (0.0-0.4); Eosinophils Percent Auto 1.6 % (0-4); Hematocrit 45.3 % (42.0-52.0); Hemoglobin 14.3 g/dl (14.0-18.0); Imm Gran Abs Auto 0.01 X10*3/uL (0.00-0.03); Imm Gran Pct Auto 0.1 % (0.0-0.4); Lymphocytes Percent Auto 19.6 % (20-40); Mean Corpuscular HGB Conc 31.6 g/dl (31.0-36.0); Mean Corpuscular Hemoglobin 28.1 pg (27.0-33.0); Mean Platelet Volume 10.7 fL (9.4-12.4); Monocytes Absolute Auto 0.8 X10*3/uL (0.1-1.2); Monocytes Percent Auto 8.2 % (2-11); Neutrophils Percent Auto 70.1 % (45-73); Platelet Count 289 X10*3/uL (160-400); Red Blood Count 5.09 X10*6/uL (4.60-5.80); Red Cell Distribution Width 15.5 % (11.0-16.0)
[2023-07-21 14:14] LABS: Alanine Aminotransferase 17 U/L (0-40); Albumin Level 3.9 g/dL (3.5-5.0); Alkaline Phosphatase 71 U/L (39-117); Anion Gap 11 (12-20); Aspartate Amino Transferase 21 U/L (5-37); Bilirubin Total 0.6 mg/dL (0.0-1.0); Blood Urea Nitrogen 30 mg/dL (9-16); Calcium 10.3 mg/dL (8.4-10.2); Carbon Dioxide 28 mmol/L (22-29); Chloride 107 mmol/L (96-108); Cholesterol 115 mg/dL (<200); Estimated Glomerular Filt Rate > 60; Glucose Fasting 100 mg/dL (60-99); HDL Cholesterol 48 mg/dL (>40); LDL Cholesterol Calculated 57 mg/dL (<100); Potassium 4.2 mmol/L (3.3-5.1); Sodium 142 mmol/L (135-145); Total Protein 7.1 g/dL (6.5-8.0); Triglycerides 50 mg/dL (<150)
[2023-07-21 14:30] LABS: PSA,Total (Free>4and<10) 2.31 ng/mL (0.00-4.00)
== END 2023-07-21 11:30 | disposition home or self-care (01) ==
LOC: HO.10HDL 11:29
PROVIDERS: Urology; Visit Provider Internal Medicine
DX: Z12.5 Encounter for screening for malignant neoplasm of prostate (principal); D64.9 Anemia, unspecified; N28.9 Disorder of kidney and ureter, unspecified; R97.20 Elevated prostate specific antigen [PSA]; E78.5 Hyperlipidemia, unspecified
CPT/HCPCS: 36415; 80053; 80061; 84153; 85025

== ENCOUNTER 2023-07-30 09:52 | Outpatient (REF) | payer MEDICARE, SELFPAY ==
--- NOTE | ~2023-07-30 | US_ITS ---
EXAMINATION: ANKLE-BRACHIAL INDICES SINGLE LEVEL PULSE VOLUME RECORDING ARTERIAL DUPLEX BILATERAL LEGS CLINICAL INFORMATION: Peripheral vascular disease. COMPARISON: 10/20/2022 TECHNIQUE: Ankle-brachial indices and PVR at the ankle were obtained. Duplex Doppler of the bilateral lower extremity arterial systems was performed. FINDINGS: RIGHT: Ankle-brachial index: 0.86 (previous 0.78) PVR: Mildly abnormal Diffuse atherosclerotic disease by ultrasound. Common femoral: PSV 177 cm/s. Monophasic waveform. Deep femoral: PSV 75 cm/s. Monophasic waveform. Proximal superficial femoral: PSV 206 cm/s. Biphasic waveform. Mid superficial femoral: PSV 146 cm/s. Biphasic waveform. Distal superficial femoral: PSV 161 cm/s. Biphasic waveform. Popliteal: PSV 122 cm/s. Biphasic waveform. Posterior tibial: PSV 86 cm/s. Biphasic waveform. Peroneal: PSV 55 cm/s. Biphasic waveform. LEFT: Ankle-brachial index: 0.65 (previous 0.69) PVR: Mildly abnormal Diffuse atherosclerotic disease by ultrasound, with severe disease in the proximal superficial femoral artery. Common femoral: PSV 604 cm/s. Biphasic waveform. Deep femoral: PSV 276 cm/s. Monophasic waveform. Proximal superficial femoral: PSV 71 cm/s. Monophasic waveform. Mid superficial femoral: PSV 30 cm/s. Monophasic waveform. Distal superficial femoral: PSV 72 cm/s. Monophasic waveform. Popliteal: PSV 47 cm/s. Monophasic waveform. Posterior tibial: PSV 34 cm/s. Monophasic waveform. Peroneal: PSV 24 cm/s. Monophasic waveform. An arrhythmia is incidentally noted. US/US arterial duplex LE BI IMPRESSION: Mild peripheral arterial disease by BRADLY on the right with a suggestion of inflow disease (monophasic common femoral waveform) and mild mid and distal SFA disease. Moderate peripheral arterial disease by BRADLY on the left with hemodynamically significant common femoral disease and proximal SFA disease.
--- NOTE | ~2023-07-30 | US_ITS ---
EXAMINATION: ANKLE-BRACHIAL INDICES SINGLE LEVEL PULSE VOLUME RECORDING ARTERIAL DUPLEX BILATERAL LEGS CLINICAL INFORMATION: Peripheral vascular disease. COMPARISON: 10/20/2022 TECHNIQUE: Ankle-brachial indices and PVR at the ankle were obtained. Duplex Doppler of the bilateral lower extremity arterial systems was performed. FINDINGS: RIGHT: Ankle-brachial index: 0.86 (previous 0.78) PVR: Mildly abnormal Diffuse atherosclerotic disease by ultrasound. Common femoral: PSV 177 cm/s. Monophasic waveform. Deep femoral: PSV 75 cm/s. Monophasic waveform. Proximal superficial femoral: PSV 206 cm/s. Biphasic waveform. Mid superficial femoral: PSV 146 cm/s. Biphasic waveform. Distal superficial femoral: PSV 161 cm/s. Biphasic waveform. Popliteal: PSV 122 cm/s. Biphasic waveform. Posterior tibial: PSV 86 cm/s. Biphasic waveform. Peroneal: PSV 55 cm/s. Biphasic waveform. LEFT: Ankle-brachial index: 0.65 (previous 0.69) PVR: Mildly abnormal Diffuse atherosclerotic disease by ultrasound, with severe disease in the proximal superficial femoral artery. Common femoral: PSV 604 cm/s. Biphasic waveform. Deep femoral: PSV 276 cm/s. Monophasic waveform. Proximal superficial femoral: PSV 71 cm/s. Monophasic waveform. Mid superficial femoral: PSV 30 cm/s. Monophasic waveform. Distal superficial femoral: PSV 72 cm/s. Monophasic waveform. Popliteal: PSV 47 cm/s. Monophasic waveform. Posterior tibial: PSV 34 cm/s. Monophasic waveform. Peroneal: PSV 24 cm/s. Monophasic waveform. An arrhythmia is incidentally noted. US/US BRADLY complete IMPRESSION: Mild peripheral arterial disease by BRADLY on the right with a suggestion of inflow disease (monophasic common femoral waveform) and mild mid and distal SFA disease. Moderate peripheral arterial disease by BRADLY on the left with hemodynamically significant common femoral disease and proximal SFA disease.
== END 2023-07-30 09:53 | disposition home or self-care (01) ==
LOC: HO.US 09:52
PROVIDERS: PCP Internal Medicine; Visit Provider Surgery Vascular Surgery
DX: I73.9 Peripheral vascular disease, unspecified (principal); E66.9 Obesity, unspecified; R97.20 Elevated prostate specific antigen [PSA]; R33.9 Retention of urine, unspecified; Z79.899 Other long term (current) drug therapy
CPT/HCPCS: 81003; 93923; 93925; 99212

== ENCOUNTER 2023-07-30 13:37 | Outpatient (AMB) | payer MEDICARE, SELFPAY ==
--- NOTE | 2023-07-30 13:45 | A.OFFVIS_ITS ---
Intake Intake Visit Reasons: Elevated PSA- follow up/labs(set) Intake Note: Patient presents for follow up elevated psa/labs (psa 2.31) Urology Medications: finasteride Blood Thinner: Rivaroxaban Media Arts Professor Required: No Accompanied by: Unknown Allergies ENVIRONMENTAL Allergy (Uncoded 07/30/23 14:24) Runny Nose Medication List - Last Reconciled 07/30/23 by HANSEL Wang acetaminophen 500 mg PO Q6H PRN albuterol sulfate 90 mcg/actuation 2 puffs PO DAILY atorvastatin 80 mg PO DAILY 90 days cholecalciferol (vitamin D3) 25 mcg PO DAILY diltiazem HCl (Cardizem CD) 240 mg PO DAILY ezetimibe 10 mg PO DAILY finasteride 5 mg PO DAILY 90 days fluticasone propion-salmeterol 100-50 mcg/dose (Wixela Inhub) 1 inh inhalation BID qxlegfbs-zvhw-iyw7-C-cassi-bosw 750 mg-644 mg- 30 mg-1 mg (Osteo Bi-Flex Triple Strength) 1 tab PO BID hydrochlorothiazide 25 mg PO DAILY lisinopril 40 mg PO BID pantoprazole 20 mg PO DAILY rivaroxaban (Xarelto) 20 mg PO DAILY 90 days tramadol 100 mg (2 x 50 mg) PO Q6H PRN HPI HPI Comments History of Present Illness Details Holland is a very pleasant 77-year-old male patient of Dr. Silva who was accompanied by his at today's visit. He has a past medical history of paroxysmal AFib, a flutter, obesity, P 80, hyperlipidemia, and hypertension. He presents to the office today for follow-up of his elevated PSA. Of note, patient was previously seen approximately [address] Gallagher at which time prostate biopsy results were reviewed. Negative biopsy- chronic inflammation. 80gram prostate. When asked patient reports compliance with finasteride 5 mg daily however reports needing a refill as he has ran out of medication. He denies any bothersome urinary issues or concerns at this time. Recent PSA results reviewed with the patient and his today. PSAs are as follows - 09/29 5.3, 10/30 10.8, 08/01 2.31 When asked he denies urinary urgency, urinary frequency, incontinence, nocturia, hematuria, dysuria, foul smelling urine, changes to urinary stream, flank pain, fever, and or chills. He is happy with his current voiding parameters. In office urinalysis results reviewed with the patient today. He otherwise offers no other issues or concerns at this time. [facility] Medical History Paroxysmal atrial fibrillation Atrial tachycardia Atrial flutter Persistent atrial fibrillation Obesity Screening for prostate cancer Screening for diabetes mellitus Paroxysmal atrial fibrillation History of stent insertion of renal artery Carotid disease, bilateral PAD (peripheral artery disease) Hyperlipidemia Hypertension Surgical History H/O esophagogastroduodenoscopy H/O colonoscopy History of angioplasty History of surgery History of cardioversion History of vasectomy History of carotid endarterectomy Family History Father Heart disease Mother Hypertension Brother No problems noted. Son No problems noted. Social History Housing: House Are you a primary childcare worker to a significant other at home: No Do you presently have visiting nurse or other home services: No Alcohol intake: former Patient Tobacco Use Status: Former Tobacco user e-Cigarette/Vaping Use: Never Used Second Hand Smoke Exposure: No Advance Directives Date on File: 08/17/20 service: No Current occupational status: retired Cognitive needs: Yes (cane) Hearing needs: Yes (hearing aide) Vision needs: Yes (glasses) Review of Systems Const Reports as per HPI Eyes Reports no additional complaints ENT Reports no additional complaints Card Reports as per HPI Resp Reports no additional complaints GI Reports no additional complaints Reports as per HPI Musc Reports no additional complaints Neuro Reports no additional complaints Psych Reports no additional complaints Endo Reports no additional complaints Logan/Lymph Reports no additional complaints Aller/Immun Reports no additional complaints Physical Exam Const General: cooperative, healthy appearing, comfortable, no acute distress, well developed, alert and awake Nutritional Appearance: overweight Orientation/consciousness: patient oriented x3 Limitations: no limitations HEENT Head: Yes normal to inspection, Yes normocephalic and Yes atraumatic Ears: hearing grossly normal bilaterally Eyes General: appearance normal, both eyes and all related structures Neck Neck: Yes normal visual inspection and Yes trachea midline Chest Chest palpation & inspection: normal inspection of the chest Resp Effort & Inspection: normal respiratory effort and able to speak in complete sentences Cardio Rate: regular rate GI Inspection: Yes normal to inspection General: Yes no CVA tenderness Back/Spine/Pelvis Back: no CVA tenderness Skin General skin exam: no rashes or lesions noted Neuro General: patient oriented x3 Extrem General: Yes normal to inspection Psych Appearance: grossly normal and well kempt Mental Status: mental status grossly normal Speech and movement: Normal speech and movement present and Clear speech present Affect: normal affect Attitude: cooperative Thought process: Normal thought process present Thought content: Normal thought content present Insight: Good insight present (Psych) Judgement: Good judgement present (Psych) Results AMB Urinalysis, Automated UA Leukoctes 0 Harman/uL Last Edit by [employer] on 07/30/23 14:01 UA Nitrite Last Edit by [employer] on 07/30/23 14:01 UA Urobilinogen 0.2 mg/dL Last Edit by [employer] on 07/30/23 14:01 UA Protein 0 mg/dL Last Edit by [employer] on 07/30/23 14:01 UA pH 6.0 Last Edit by [employer] on 07/30/23 14:01 UA Blood 0 Michael/uL Last Edit by [employer] on 07/30/23 14:01 UA Specific [place] 1.020 Last Edit by [employer] on 07/30/23 14:01 UA Ketone Negative Last Edit by [employer] on 07/30/23 14:01 UA Bilirubin 0 mg/dL Last Edit by [employer] on 07/30/23 14:01 UA Glucose 0 mg/dL Last Edit by [employer] on 07/30/23 14:01 Results Reviewed Results Reviewed: Laboratory Last Values Urine pH (Auto) 6.0 07/30/23 13:47 Specific [place] (Auto) 1.020 07/30/23 13:47 Urine Protein (Auto) 0 mg/dL 07/30/23 13:47 Glucose (UA)(Auto) 0 mg/dL 07/30/23 13:47 Urine Ketones (Auto) Negative 07/30/23 13:47 Urine Blood (Auto) 0 Michael/uL 07/30/23 13:47 Urine Bilirubin (Auto) 0 mg/dL 07/30/23 13:47 Urine Urobilinogen (Auto) 0.2 mg/dL 07/30/23 13:47 Leukocyte Esterase (Auto) 0 Harman/uL 07/30/23 13:47 Assessment & Plan Assessment & Plan (1) Elevated PSA: Code(s): R97.20 - Elevated prostate specific antigen [PSA] Plan In office urinalysis results reviewed with the patient today. Recent PSA results reviewed with the patient today. Patient denies any bothersome urinary issues or concerns at this time. He reports be happy with current voiding parameters. Will obtain PSA in 1 year. Continue finasteride 5 mg daily as discussed and prescribed; refill prescription provided Follow-up in 1 year with lab to be completed prior; or sooner with any issues, concerns, and or questions. Orders: Orders AMB Urinalysis Automated Today Z13.9 - Encounter for screening, unspecified Prostate Specific Antigen 364 Days R97.20 - Elevated prostate specific antigen [PSA] Medications: New finasteride 5 mg PO DAILY 90 days 90 tabs 3RF N40.1 - Benign prostatic hyperplasia with lower urinary tract symptoms, R33.9 - Retention of urine, unspecified Patient Instructions: The patient had an opportunity to ask questions regarding the treatment plan. All questions were answered. Physical exam, labs, and imaging were discussed and reviewed in detail. As well as risks, benefits, and discussion of treatment choices. No major barriers to understanding were identified. The patient expressed understanding and agreement with the above treatment plan. The patient was made aware they should contact our office by phone for worsening of their current condition, the appearance of new symptoms, or with any questions or concerns. Compliance is encouraged with any medications and follow up testing that is ordered. It is a privilege to be allowed the opportunity to participate in? your urological care.? Again, if you have any questions or concerns If you have any questions or concerns please do not hesitate to contact me. The office is [phone]. This note is constructed using voice recognition software. While every effort has been made to ensure accuracy emt b errors may have been included. Yours sincerely, HANSEL Wang Coding Level of Care Code Est Pt Level 3 (73258) Diagnoses Elevated PSA R97.20
== END 2023-07-30 14:20 | disposition home or self-care (01) ==
PROVIDERS: PCP Internal Medicine; Visit Provider Nurse Practitioner Family
DX: R97.20 Elevated prostate specific antigen [PSA] (principal)
CPT/HCPCS: 99213

== ENCOUNTER 2023-08-06 10:35 | Outpatient (AMB) | payer MEDICARE, SELFPAY ==
[2023-08-06 10:42] VITALS: BP 124/62; PULSE 54; O2SAT 99; BMI 36.6
--- NOTE | 2023-08-06 10:42 | MHC.PC.OV ---
Vital Signs 08/06/23 10:42 Height 5 ft 4 in Weight 213 lb BMI 36.6 BP 124/62 Blood Pressure Location Lt brachial Position Sitting Pulse 54 Pulse Source Pulse Oximeter Pulse Oximetry (%) 99 Oxygen Delivery Method Room Air Intake Visit Reasons: 3 month f/u Rug Clipper: Not Required per policy Accompanied by: Self / Same As Patient Allergies ENVIRONMENTAL Allergy (Uncoded 08/06/23 10:42) Runny Nose Medication List - Last Reconciled 08/06/23 by Oren Puentes MD acetaminophen 500 mg PO Q6H PRN albuterol sulfate 90 mcg/actuation 2 puffs PO DAILY atorvastatin 80 mg PO DAILY 90 days cholecalciferol (vitamin D3) 25 mcg PO DAILY diltiazem HCl 240 mg PO DAILY ezetimibe 10 mg PO DAILY finasteride 5 mg PO DAILY 90 days fluticasone propion-salmeterol 100-50 mcg/dose (Wixela Inhub) 1 inh inhalation BID [id number]-cassi-bosw 750 mg-644 mg- 30 mg-1 mg (Osteo Bi-Flex Triple Strength) 1 tab PO BID hydrochlorothiazide 25 mg PO DAILY lisinopril 40 mg PO BID pantoprazole 20 mg PO DAILY rivaroxaban (Xarelto) 20 mg PO DAILY 90 days tramadol 100 mg (2 x 50 mg) PO Q6H PRN Tobacco use date assessed: 05/07/23 Fall risk assessment: No Falls in past year Last assessed Fall Risk: 08/06/23 Dental Screening Dental Screen Date: 08/06/23 Did you have a dental visit in the last 12 months?: No Did you have a dental problem in the last 6 months where you did not have access to dental care?: No Was dental information given to patient?: Patient has dentist HPI 3 month f/u HPI Details HTN BPH and hyperlipidemia; stable [facility] Medical History Paroxysmal atrial fibrillation Atrial tachycardia Atrial flutter Persistent atrial fibrillation Obesity Screening for prostate cancer Screening for diabetes mellitus Paroxysmal atrial fibrillation History of stent insertion of renal artery Carotid disease, bilateral PAD (peripheral artery disease) Hyperlipidemia Hypertension Surgical History H/O esophagogastroduodenoscopy H/O colonoscopy History of angioplasty History of surgery History of cardioversion History of vasectomy History of carotid endarterectomy Family History Father Heart disease Mother Hypertension Brother No problems noted. Son No problems noted. Social History Housing: House Are you a primary manager care management to a significant other at home: No Do you presently have visiting nurse or other home services: No Alcohol intake: former Patient Tobacco Use Status: Former Tobacco user e-Cigarette/Vaping Use: Never Used Second Hand Smoke Exposure: No Advance Directives Date on File: 08/17/20 service: No Current occupational status: retired Cognitive needs: Yes (cane) Hearing needs: Yes (hearing aide) Vision needs: Yes (glasses) Questionnaire PHQ-9 Over the last 2 weeks, how often have you been bothered by any of the following problems? 1. Little interest or pleasure in doing things: not at all 2. Feeling down, depressed, or hopeless: not at all 3. Trouble falling or staying asleep, or sleeping too much: not at all 4. Feeling tired or having little energy: not at all 5. Poor appetite or overeating: not at all 6. Feeling bad about yourself - or that you are a failure or have let yourself or your family down: not at all 7. Trouble concentrating on things, such as reading the newspaper or watching television: not at all 8. Moving or speaking so slowly that other people could have noticed. Or the opposite - being so fidgety or restless that you have been moving around a lot more than usual: not at all 9. Thoughts that you would be better off or of hurting yourself in some way: not at all Total score: 0 Depression Screening Interpretation: Negative 13805 - PHQ-9 Billing: Yes Source: Developed by Drs. Rubén Whitney, Dalila Delgado, Ken Jolley and colleagues, with an educational oscar from [employer] Thrive Questionnaire Date Thrive assessed: 05/07/23 AUDIT C Alcohol Use Questionnaire (AUDIT-C) 1. How often do you have a drink containing alcohol?: Never 3. How often do you have six or more drinks on one occasion?: Never Total Score: 0 Score Reviewed/Action Taken: No ROBERTO-7 AMB Questionnaire ROBERTO-7 Date ROBERTO - 7 assessed: 05/07/23 Source: Developed by Drs. Rubén Whitney, Dalila Delgado, Ken Jolley and colleagues, with an educational oscar from [employer] Review of Systems Const Denies chills, Denies headache(s) and Denies weight loss ENT Denies headache(s) Card Denies chest pain, Denies syncope, Denies irregular heart rhythm and Denies dyspnea Resp Denies chest congestion, Denies cough and Denies dyspnea GI Denies abdominal pain, Denies change in stool character, Denies nausea and Denies vomiting Musc Denies deformity and Denies joint swelling Neuro Denies syncope and Denies headache(s) Physical exam (Primary Care) Vital Signs: Last Vital Signs Pulse 54 08/06/23 10:42 BP 124/62 08/06/23 10:42 Pulse Ox 99 08/06/23 10:42 Oxygen Delivery Method Room Air 08/06/23 10:42 BMI result Body Mass Index 36.6 Tobacco/Smoking Status: Tobacco use Status Tobacco use date assessed 05/07/23 08/06/23 10:49 Patient Tobacco Use Status Former Tobacco user 08/06/23 10:49 e-Cigarette/Vaping Use Never Used 08/06/23 10:49 PHQ-9: PHQ-9 Score PHQ-9: Total score 0 08/06/23 10:52 Depression Screening Interpretation: Negative Thrive Assessment: Date of Thrive Assessment Date Thrive assessed 05/07/23 08/06/23 10:49 Const General: cooperative, comfortable, no acute distress and alert Neck Neck: Yes no lymphadenopathy Thyroid: Thyroid normal Resp Effort & Inspection: normal respiratory effort Auscultation: clear to auscultation bilaterally Percussion: percussion normal Cardio Jugular venous distension: no JVD Palpation: normal PMI Rate: regular rate Rhythm: regular rhythm Heart sounds: S1 normal heart sound present and S2 normal heart sound present GI Inspection: Yes normal to inspection Palpation (GI): No hepatosplenomegaly present Skin General skin exam: no rashes or lesions noted Extrem General: Yes no clubbing, cyanosis or edema Assessment and Plan Assessment & Plan (1) Hypertension: Code(s): I10 - Essential (primary) hypertension Plan: stable; same rx (2) Hyperlipidemia: Code(s): E78.5 - Hyperlipidemia, unspecified Plan: stable; same rx (3) Elevated PSA: Code(s): R97.20 - Elevated prostate specific antigen [PSA] Plan: as per urology Orders: Orders Lipid Panel Today E78.5 - Hyperlipidemia, unspecified Comprehensive Bruno. Panel Fast Today N28.9 - Disorder of kidney and ureter, unspecified Complete Blood Count Auto Diff Today D64.9 - Anemia, unspecified Coding Level of Care Code Est Pt Level 4 (12443) Diagnoses Hypertension I10 Hyperlipidemia E78.5 Elevated PSA R97.20
== END 2023-08-06 10:57 | disposition home or self-care (01) ==
PROVIDERS: PCP Internal Medicine; Visit Provider Internal Medicine
DX: I10 Essential (primary) hypertension (principal); E78.5 Hyperlipidemia, unspecified; R97.20 Elevated prostate specific antigen [PSA]
CPT/HCPCS: 99214

== ENCOUNTER 2023-09-03 09:55 | Outpatient (AMB) | payer MEDICARE, SELFPAY ==
--- NOTE | 2023-09-03 10:12 | MHC.OFFVIS ---
Intake Vital Signs 09/03/23 10:14 Height 5 ft 4 in Weight 213 lb BMI 36.6 Intake Visit Reasons: Follow Up Arterial Intake Note: FU arterial US with HX of CTA w/ [place] on 01/09/23 Pt states his doing good and has no issues today Accompanied by: Spouse Allergies ENVIRONMENTAL Allergy (Uncoded 08/06/23 10:42) Runny Nose HPI Follow Up Arterial HPI Details Very pleasant 77-year-old gentleman who presents for routine follow-up regarding peripheral vascular disease. He has been following us for a few years now. He reports that he is able to ambulate a erik to with no significant difficulty. He does require the use of a cane more so for balance and he does have some neurologic/back pain issues as well. He appears to be doing relatively well. He is now for surveillance follow-up with noninvasive arterial testing. Of note prior GI bleed issues appear to have all resolved. [facility] Medical History Paroxysmal atrial fibrillation Atrial tachycardia Atrial flutter Persistent atrial fibrillation Obesity Screening for prostate cancer Screening for diabetes mellitus Paroxysmal atrial fibrillation History of stent insertion of renal artery Carotid disease, bilateral PAD (peripheral artery disease) Hyperlipidemia Hypertension Surgical History H/O esophagogastroduodenoscopy H/O colonoscopy History of angioplasty History of surgery History of cardioversion History of vasectomy History of carotid endarterectomy Family History Father Heart disease Mother Hypertension Brother No problems noted. Son No problems noted. Social History Housing: House Are you a primary patient centered care specialist to a significant other at home: No Do you presently have visiting nurse or other home services: No Alcohol intake: former Patient Tobacco Use Status: Former Tobacco user e-Cigarette/Vaping Use: Never Used Second Hand Smoke Exposure: No Advance Directives Date on File: 08/17/20 service: No Current occupational status: retired Cognitive needs: Yes (cane) Hearing needs: Yes (hearing aide) Vision needs: Yes (glasses) Physical Exam Vital Signs: BMI result Body Mass Index 36.6 Cardio Other: Bilateral DP signals Results Reviewed Results Reviewed: Noninvasive arterial testing on 07/30/2023 demonstrates BRADLY on the right of 0.86 and on the left of 0.65 right side has biphasic waveforms all the way down left side has monophasic waveforms SFA down. There is no significant change from prior testing which was done on 10/20/2022. Written report and images were reviewed. Assessment & Plan Assessment & Plan (1) PAD (peripheral artery disease): Comment: Bilateral femoral endarterectomy 12/05/2020- left common iliac and external iliac plasty 01/02/2021 - right common iliac stent Code(s): I73.9 - Peripheral vascular disease, unspecified Plan: In short patient has stable claudication. I did review the pathophysiology of peripheral vascular disease with the patient. In addition we did discuss routine conservative measures including a healthy diet and the importance of exercise and ambulation. We did discuss risk factor modification. The patient will continue to to follow-up with surveillance follow-up in approximately 1 year. Thank you for allowing us to participate in this patient's care. If there are any questions or concerns please do not hesitate to contact us. Orders: Orders US arterial duplex LE BI 364 Days I73.9 - Peripheral vascular disease, unspecified Coding Level of Care Code Est Pt Level 4 (53592) Diagnoses PAD (peripheral artery disease) I73.9
[2023-09-03 10:14] VITALS: BMI 36.6
== END 2023-09-03 10:40 | disposition home or self-care (01) ==
PROVIDERS: PCP Internal Medicine; Visit Provider Surgery Vascular Surgery
DX: I73.9 Peripheral vascular disease, unspecified (principal)
CPT/HCPCS: 99213

== ENCOUNTER → 2023-09-03 09:55 | Outpatient (BNVA) | payer MEDICARE, SELFPAY | PROVIDERS: PCP Internal Medicine; Visit Provider Surgery Vascular Surgery | DX: I73.9 Peripheral vascular disease, unspecified (principal) | CPT/HCPCS: 99212 ==

== ENCOUNTER 2023-09-23 09:52 | Outpatient (AMB) | payer MEDICARE, SELFPAY ==
[2023-09-23 09:57] VITALS: BP 138/70; PULSE 93; BMI 36.5
--- NOTE | 2023-09-23 09:57 | HO.NEPHOV_ITS ---
HPI HPI Comments History of Present Illness Details I had the privilege of seeing Holland in follow-up of his chronic kidney disease and hypertension. He has vascular disease and has seen vascular surgeon . He had undergone angiography as well as stenting. He has been having exacerbation of his sciatica on the left side. He denies taking any nonsteroidal anti-inflammatory medications for it. He follows up with Dr. Flores. His blood pressure has been at goal at home. He denies any chest pain, shortness of breath, proximal nocturnal dyspnea, orthopnea, pedal edema or urinary symptoms. He does not have any palpitation, syncope or orthostatic symptoms. He has not had any medication changes lately. He is on lipid- lowering agents. He has been tolerating lisinopril. He is on anticoagulation. [facility] Medical History Paroxysmal atrial fibrillation Atrial tachycardia Atrial flutter Persistent atrial fibrillation Obesity Screening for prostate cancer Screening for diabetes mellitus Paroxysmal atrial fibrillation History of stent insertion of renal artery Carotid disease, bilateral PAD (peripheral artery disease) Hyperlipidemia Hypertension Surgical History H/O esophagogastroduodenoscopy H/O colonoscopy History of angioplasty History of surgery History of cardioversion History of vasectomy History of carotid endarterectomy Family History Father Heart disease Mother Hypertension Brother No problems noted. Son No problems noted. Social History Housing: House Are you a primary manager medicare marketing to a significant other at home: No Do you presently have visiting nurse or other home services: No Alcohol intake: former Patient Tobacco Use Status: Former Tobacco user e-Cigarette/Vaping Use: Never Used Second Hand Smoke Exposure: No Advance Directives Date on File: 08/17/20 service: No Current occupational status: retired Cognitive needs: Yes (cane) Hearing needs: Yes (hearing aide) Vision needs: Yes (glasses) Vital Signs 09/23/23 09:57 Height 5 ft 4 in Weight 212 lb 8 oz BMI 36.5 BP 138/70 Blood Pressure Location Lt brachial Position Sitting Pulse 93 Pulse Source Pulse Oximeter Physical Exam Vital Signs: Last Vital Signs Pulse 93 09/23/23 09:57 BP 138/70 09/23/23 09:57 BMI result Body Mass Index 36.5 Const General: comfortable and no acute distress Orientation/consciousness: patient oriented x3 HEENT Head: Yes normocephalic Mouth: Normal oral and palatal mucosa present Eyes EOM: EOMs intact bilaterally Neck Neck: Yes supple Resp Auscultation: clear to auscultation bilaterally Cardio Jugular venous distension: no JVD Rate: regular rate GI Palpation (GI): Soft to palpation Auscultation: normal bowel sounds General: Yes no CVA tenderness Back/Spine/Pelvis Back: no CVA tenderness Skin General skin exam: no rashes or lesions noted Neuro General: patient oriented x3 and moves all extremities Extrem General: Yes no pedal edema Assessment & Plan Assessment & Plan (1) CKD (chronic kidney disease) stage 3, GFR 30-59 ml/min: Code(s): N18.30 - Chronic kidney disease, stage 3 unspecified (2) Hypertension: Code(s): I10 - Essential (primary) hypertension Plan Holland has stage III 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 He has longstanding hypertension which is well controlled on the current medication regimen. His needs to cut back on salt and should lose some weight. He avoids nonsteroidal anti-inflammatory medications. He should remain well hydrated. He is on statins. Repeat blood pressure in the office today was 120/80 mmHg on the right arm sitting position. He takes anticoagulation. I did not make any medication changes today. I plan to repeat a Doppler of his renal arteries after his next visit. I have ordered blood work and urine studies for follow-up. Answered all his questions. Time spent for retrieval of his data, documentation and patient encounter 21 minutes. Orders: Orders Blood Urea Nitrogen Today I10 - Essential (primary) hypertension, N18.30 - Chronic kidney disease, stage 3 unspecified Creatinine Today I10 - Essential (primary) hypertension, N18.30 - Chronic kidney disease, stage 3 unspecified Calcium Today I10 - Essential (primary) hypertension, N18.30 - Chronic kidney disease, stage 3 unspecified Protein Creatinine Ratio, Ur Today I10 - Essential (primary) hypertension, N18.30 - Chronic kidney disease, stage 3 unspecified Electrolytes Today I10 - Essential (primary) hypertension, N18.30 - Chronic kidney disease, stage 3 unspecified Coding Level of Care Code Est Pt Level 3 (05684) Diagnoses CKD (chronic kidney disease) stage 3, GFR 30-59 ml/min N18.30 Hypertension I10
== END 2023-09-23 10:47 | disposition home or self-care (01) ==
PROVIDERS: PCP Internal Medicine; Visit Provider Internal Medicine Nephrology
DX: I12.9 Hypertensive chronic kidney disease with stage 1 through stage 4 chronic kidney disease, or unspecified chronic kidney disease (principal); N18.30 Chronic kidney disease, stage 3 unspecified; Z95.820 Peripheral vascular angioplasty status with implants and grafts
CPT/HCPCS: 99213

== ENCOUNTER → 2023-09-23 09:52 | Outpatient (BNVA) | payer MEDICARE, SELFPAY | PROVIDERS: PCP Internal Medicine; Visit Provider Internal Medicine Nephrology | DX: I12.9 Hypertensive chronic kidney disease with stage 1 through stage 4 chronic kidney disease, or unspecified chronic kidney disease (principal); N18.30 Chronic kidney disease, stage 3 unspecified | CPT/HCPCS: 99212 ==

== ENCOUNTER 2023-11-19 10:55 | Outpatient (AMB) | payer MEDICARE, SELFPAY ==
[2023-11-19 11:04] VITALS: BP 144/70; PULSE 68; O2SAT 97; BMI 36.9
--- NOTE | 2023-11-19 11:04 | MHC.PC.OV ---
Vital Signs 11/19/23 11:04 Height 5 ft 4 in Weight 215 lb BMI 36.9 BP 144/70 H Blood Pressure Location Lt brachial Position Sitting Pulse 68 Pulse Source Pulse Oximeter Pulse Oximetry (%) 97 Oxygen Delivery Method Room Air Intake Visit Reasons: Reschedule from November 16 House Supervisor Required: No Mechanical Applications Engineer: Not Required per policy Accompanied by: Self / Same As Patient Allergies ENVIRONMENTAL Allergy (Uncoded 11/19/23 11:05) Runny Nose Medication List - Last Reconciled 11/19/23 by Oren Puentes MD acetaminophen 500 mg PO Q6H PRN albuterol sulfate 90 mcg/actuation 2 puffs PO DAILY atorvastatin 80 mg PO DAILY 90 days cholecalciferol (vitamin D3) 25 mcg PO DAILY cholecalciferol (vitamin D3) 25 mcg PO DAILY diltiazem HCl 240 mg PO DAILY ezetimibe 10 mg PO DAILY finasteride 5 mg PO DAILY 90 days fluticasone propion-salmeterol 100-50 mcg/dose (Wixela Inhub) 1 inh inhalation BID nlpelzjt-kdxg-hfz3-C-cassi-bosw 750 mg-644 mg- 30 mg-1 mg (Osteo Bi-Flex Triple Strength) 1 tab PO BID hydrochlorothiazide 25 mg PO DAILY lisinopril 40 mg PO BID pantoprazole 20 mg PO DAILY rivaroxaban (Xarelto) 20 mg PO DAILY 90 days tramadol 100 mg (2 x 50 mg) PO Q6H PRN Tobacco use date assessed: 05/07/23 Fall risk assessment: No Falls in past year Last assessed Fall Risk: 11/19/23 Dental Screening Dental Screen Date: 11/19/23 Did you have a dental visit in the last 12 months?: Yes Did you have a dental problem in the last 6 months where you did not have access to dental care?: No Was dental information given to patient?: Patient has dentist HPI Reschedule from November 16 HPI Details hyperlip htn and bph on rx; doing well and compliant [facility] Medical History Paroxysmal atrial fibrillation Atrial tachycardia Atrial flutter Persistent atrial fibrillation Obesity Screening for prostate cancer Screening for diabetes mellitus Paroxysmal atrial fibrillation History of stent insertion of renal artery Carotid disease, bilateral PAD (peripheral artery disease) Hyperlipidemia Hypertension Surgical History H/O esophagogastroduodenoscopy H/O colonoscopy History of angioplasty History of surgery History of cardioversion History of vasectomy History of carotid endarterectomy Family History Father Heart disease Mother Hypertension Brother No problems noted. Son No problems noted. Social History Housing: House Are you a primary toddler caregiver to a significant other at home: No Do you presently have visiting nurse or other home services: No Alcohol intake: former Patient Tobacco Use Status: Former Tobacco user e-Cigarette/Vaping Use: Never Used Second Hand Smoke Exposure: No Advance Directives Date on File: 08/17/20 service: No Current occupational status: retired Cognitive needs: Yes (cane) Hearing needs: Yes (hearing aide) Vision needs: Yes (glasses) Questionnaire PHQ-9 Over the last 2 weeks, how often have you been bothered by any of the following problems? 1. Little interest or pleasure in doing things: not at all 2. Feeling down, depressed, or hopeless: not at all 3. Trouble falling or staying asleep, or sleeping too much: not at all 4. Feeling tired or having little energy: not at all 5. Poor appetite or overeating: not at all 6. Feeling bad about yourself - or that you are a failure or have let yourself or your family down: not at all 7. Trouble concentrating on things, such as reading the newspaper or watching television: not at all 8. Moving or speaking so slowly that other people could have noticed. Or the opposite - being so fidgety or restless that you have been moving around a lot more than usual: not at all 9. Thoughts that you would be better off or of hurting yourself in some way: not at all Total score: 0 Depression Screening Interpretation: Negative Depression Screening Done: Yes 55191 - PHQ-9 Billing: Yes Source: Developed by Drs. Rubén Whitney, Dalila Delgado, Ken Jolley and colleagues, with an educational oscar from [employer]. Thrive Questionnaire Date Thrive assessed: 11/19/23 I am a: Patient What is your living situation today?: I have a steady place to live Within the past 12 months, did the food you bought not last and you didn't have the money to get more?: Never true Within the past 12 months, did you worry whether your food would run out before you got money to buy more?: Never true Do you have trouble paying for medicines?: No Do you have trouble getting transportation to medical appointments?: No Do you have trouble paying your heating and electricity bill?: No Do you have trouble taking care of your child, family member or friend?: No Do you have trouble with day-to-day activities such as bathing, preparing meals, shopping, managing finances, etc.?: No Are you currently unemployed and looking for a job?: No Are you interested in more education?: No Please select the resources that you would like help with: None AUDIT C Alcohol Use Questionnaire (AUDIT-C) 1. How often do you have a drink containing alcohol?: Never 3. How often do you have six or more drinks on one occasion?: Never Total Score: 0 Score Reviewed/Action Taken: No ROBERTO-7 AMB Questionnaire ROBERTO-7 Date ROBERTO - 7 assessed: 11/19/23 Feeling nervous, anxious, or on edge: 0 = Not at all Not being able to stop or control worryin = Not at all Worrying too much about different things: 0 = Not at all Trouble relaxin = Not at all Being so restless that it is hard to sit still: 0 = Not at all Becoming easily annoyed or irritable: 0 = Not at all Feeling afraid as if something awful might happen: 0 = Not at all Total ROBERTO-7 score (0-4 normal; 5-9 mild; 10-14 moderate; 15-21 severe): 0 Source: Developed by Drs. Rubén Whitney, Dalila Delgado, Ken Jolley and colleagues, with an educational oscar from [employer]. ROBERTO-7 Assessment Billing ROBERTO-7 Assessment Tool: ROBERTO-7 Assessment 49056 Review of Systems Const Denies chills, Denies headache(s) and Denies weight loss ENT Denies headache(s) Card Denies chest pain, Denies syncope, Denies irregular heart rhythm and Denies dyspnea Resp Denies chest congestion, Denies cough and Denies dyspnea GI Denies abdominal pain, Denies change in stool character, Denies nausea and Denies vomiting Musc Denies deformity and Denies joint swelling Neuro Denies syncope and Denies headache(s) Physical exam (Primary Care) Vital Signs: Last Vital Signs Pulse 68 11/19/23 11:04 BP 144/70 H 11/19/23 11:04 Pulse Ox 97 11/19/23 11:04 Oxygen Delivery Method Room Air 11/19/23 11:04 BMI result Body Mass Index 36.9 Tobacco/Smoking Status: Tobacco use Status Tobacco use date assessed 05/07/23 11/19/23 11:06 Patient Tobacco Use Status Former Tobacco user 11/19/23 11:06 e-Cigarette/Vaping Use Never Used 11/19/23 11:06 PHQ-9: PHQ-9 Score PHQ-9: Total score 0 11/19/23 11:06 Depression Screening Interpretation: Negative Thrive Assessment: Date of Thrive Assessment Date Thrive assessed 11/19/23 11/19/23 11:06 Const General: cooperative, comfortable, no acute distress and alert Neck Neck: Yes no lymphadenopathy Thyroid: Thyroid normal Resp Effort & Inspection: normal respiratory effort Auscultation: clear to auscultation bilaterally Percussion: percussion normal Cardio Jugular venous distension: no JVD Palpation: normal PMI Rate: regular rate Rhythm: regular rhythm Heart sounds: S1 normal heart sound present and S2 normal heart sound present GI Inspection: Yes normal to inspection Palpation (GI): No hepatosplenomegaly present Skin General skin exam: no rashes or lesions noted Extrem General: Yes no clubbing, cyanosis or edema Assessment and Plan Assessment & Plan (1) Hyperlipidemia: Code(s): E78.5 - Hyperlipidemia, unspecified Plan: stable; same rx (2) Hypertension: Code(s): I10 - Essential (primary) hypertension Plan: stable; same rx (3) BPH (benign prostatic hyperplasia): Code(s): N40.0 - Benign prostatic hyperplasia without lower urinary tract symptoms Plan: stable; same rx Orders: Orders Lipid Panel Today E78.5 - Hyperlipidemia, unspecified Coding Level of Care Code Est Pt Level 4 (97698) Diagnoses Hyperlipidemia E78.5 Hypertension I10 BPH (benign prostatic hyperplasia) N40.0 Additional Codes ROBERTO-7 Assessment Billing - ROBERTO-7 Assessment Tool: ROBERTO-7 Assessment 80345 ([id number])
== END 2023-11-19 11:30 | disposition home or self-care (01) ==
PROVIDERS: PCP Internal Medicine; Visit Provider Internal Medicine
DX: E78.5 Hyperlipidemia, unspecified (principal); I10 Essential (primary) hypertension; N40.0 Benign prostatic hyperplasia without lower urinary tract symptoms
CPT/HCPCS: 99214

== ENCOUNTER 2023-12-15 08:59 | Outpatient (REF) | payer MEDICARE, SELFPAY ==
[2023-12-15 11:14] LABS: Cholesterol 122 mg/dL (<200); HDL Cholesterol 50 mg/dL (>40); LDL Cholesterol Calculated 56 mg/dL (<100); Triglycerides 84 mg/dL (<150)
== END 2023-12-15 09:00 | disposition home or self-care (01) ==
LOC: HO.LAB 08:59
PROVIDERS: PCP Internal Medicine; Visit Provider Internal Medicine
DX: E78.5 Hyperlipidemia, unspecified (principal)
CPT/HCPCS: 36415; 80061

== ENCOUNTER 2023-12-21 13:44 | Outpatient (REF) | payer MEDICARE, SELFPAY ==
[2023-12-21 16:16] LABS: Anion Gap 13 (12-20); Blood Urea Nitrogen 28 mg/dL (9-16); Calcium 10.6 mg/dL (8.4-10.2); Carbon Dioxide 28 mmol/L (22-29); Chloride 104 mmol/L (96-108); Estimated Glomerular Filt Rate > 60; Sodium 141 mmol/L (135-145)
[2023-12-21 16:17] LABS: Creatinine Urine 71.11 mg/dL; Protein/Creatinine Ratio, Ur 0.13 (<0.2); Total Protein Urine Random 9 mg/dL (<12)
== END 2023-12-21 13:45 | disposition home or self-care (01) ==
LOC: HO.LAB 13:44
PROVIDERS: PCP Internal Medicine; Visit Provider Internal Medicine Nephrology
DX: I12.9 Hypertensive chronic kidney disease with stage 1 through stage 4 chronic kidney disease, or unspecified chronic kidney disease (principal); N18.30 Chronic kidney disease, stage 3 unspecified
CPT/HCPCS: 36415; 80051; 82310; 82565; 82570; 84156; 84520

== ENCOUNTER 2023-12-23 09:47 | Outpatient (AMB) | payer MEDICARE, SELFPAY ==
--- NOTE | 2023-12-23 10:04 | HO.NEPHOV_ITS ---
HPI HPI Comments History of Present Illness Details I had the privilege of seeing Holland in follow-up of his chronic kidney disease and hypertension. He has vascular disease and has seen vascular surgeon . He had undergone angiography as well as stenting. He has been having exacerbation of his sciatica on the left side. He denies taking any nonsteroidal anti-inflammatory medications for it. He follows up with Dr. Flores. His blood pressure has been at goal at home. He denies any chest pain, shortness of breath, proximal nocturnal dyspnea, orthopnea, pedal edema or urinary symptoms. He does not have any palpitation, syncope or orthostatic symptoms. He is on lipid-lowering agents. He has been tolerating lisinopril. He is on anticoagulation [facility] Medical History Paroxysmal atrial fibrillation Atrial tachycardia Atrial flutter Persistent atrial fibrillation Obesity Screening for prostate cancer Screening for diabetes mellitus Paroxysmal atrial fibrillation History of stent insertion of renal artery Carotid disease, bilateral PAD (peripheral artery disease) Hyperlipidemia Hypertension Surgical History H/O esophagogastroduodenoscopy H/O colonoscopy History of angioplasty History of surgery History of cardioversion History of vasectomy History of carotid endarterectomy Family History Father Heart disease Mother Hypertension Brother No problems noted. Son No problems noted. Social History Housing: House Are you a primary health care / medical job titles to a significant other at home: No Do you presently have visiting nurse or other home services: No Alcohol intake: former Patient Tobacco Use Status: Former Tobacco user e-Cigarette/Vaping Use: Never Used Second Hand Smoke Exposure: No Advance Directives Date on File: 08/17/20 service: No Current occupational status: retired Cognitive needs: Yes (cane) Hearing needs: Yes (hearing aide) Vision needs: Yes (glasses) Vital Signs 12/23/23 10:06 Height 5 ft 4 in Weight 216 lb BMI 37.1 BP 130/62 Blood Pressure Location Rt brachial Position Sitting Pulse 84 Pulse Source Pulse Oximeter Pulse Oximetry (%) 98 Oxygen Delivery Method Room Air Physical Exam Vital Signs: Last Vital Signs Pulse 84 12/23/23 10:06 BP 130/62 12/23/23 10:06 Pulse Ox 98 12/23/23 10:06 Oxygen Delivery Method Room Air 12/23/23 10:06 BMI result Body Mass Index 37.1 Const General: comfortable and no acute distress Orientation/consciousness: patient oriented x3 HEENT Head: Yes normocephalic Mouth: Normal oral and palatal mucosa present Eyes EOM: EOMs intact bilaterally Neck Neck: Yes supple Resp Auscultation: clear to auscultation bilaterally Cardio Jugular venous distension: no JVD Rate: regular rate GI Palpation (GI): Soft to palpation Auscultation: normal bowel sounds General: Yes no CVA tenderness Back/Spine/Pelvis Back: no CVA tenderness Skin General skin exam: no rashes or lesions noted Neuro General: patient oriented x3 and moves all extremities Extrem General: Yes no pedal edema Assessment & Plan Assessment & Plan (1) CKD (chronic kidney disease) stage 3, GFR 30-59 ml/min: Code(s): N18.30 - Chronic kidney disease, stage 3 unspecified Qualifiers: Chronic kidney disease stage 3 subtype: stage 3a (GFR 45-59) Qualified Code(s): N18.31 - Chronic kidney disease, stage 3a (2) Hypertension: Code(s): I10 - Essential (primary) hypertension Qualifiers: Hypertension type: primary hypertension Qualified Code(s): I10 - Essential (primary) hypertension (3) Hypercalcemia: Code(s): E83.52 - Hypercalcemia Elena Lino has stage III 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 He has longstanding hypertension which is well controlled on the current medication regimen. His needs to cut back on salt and should lose some weight. He avoids nonsteroidal anti-inflammatory medications. He should remain well hydrated. He is on statins. He takes anticoagulation. I did not make any medication changes today. I shall back off HCTZ if his serum calcium goes up further. I ordered W/U. I plan to repeat a Doppler of his renal arteries after his next visit. Answered all his questions. Orders: Orders Blood Urea Nitrogen Today E83.52 - Hypercalcemia, I10 - Essential (primary) hypertension, N18.30 - Chronic kidney disease, stage 3 unspecified Creatinine Today E83.52 - Hypercalcemia, I10 - Essential (primary) hypertension, N18.30 - Chronic kidney disease, stage 3 unspecified Calcium Today E83.52 - Hypercalcemia, I10 - Essential (primary) hypertension, N18.30 - Chronic kidney disease, stage 3 unspecified Immunofixation Pnl, Serum Today E83.52 - Hypercalcemia, I10 - Essential (primary) hypertension, N18.30 - Chronic kidney disease, stage 3 unspecified Vitamin D 25-OH Total Today E83.52 - Hypercalcemia, I10 - Essential (primary) hypertension, N18.30 - Chronic kidney disease, stage 3 unspecified Electrolytes Today E83.52 - Hypercalcemia, I10 - Essential (primary) hypertension, N18.30 - Chronic kidney disease, stage 3 unspecified Vitamin D 1,25 dihydroxy Today E83.52 - Hypercalcemia, I10 - Essential (primary) hypertension, N18.30 - Chronic kidney disease, stage 3 unspecified Parathyroid Hormone Intact Today E83.52 - Hypercalcemia, I10 - Essential (primary) hypertension, N18.30 - Chronic kidney disease, stage 3 unspecified Coding Level of Care Code Est Pt Level 4 (73678) Diagnoses Stage 3a chronic kidney disease N18.31 Chronic kidney disease stage 3 subtype: stage 3a (GFR 45-59) Primary hypertension I10 Hypertension type: primary hypertension Hypercalcemia E83.52 Results Reviewed Nephrology Results: Hgb 14.3 g/dl (14.0-18.0) 07/21/23 WBC 10.0 X10*3/uL (4.8-10.8) 07/21/23 Plt Count 289 X10*3/uL (160-400) 07/21/23 Sodium 141 mmol/L (135-145) 12/21/23 Potassium 4.0 mmol/L (3.3-5.1) 12/21/23 Chloride 104 mmol/L (96-108) 12/21/23 Carbon Dioxide 28 mmol/L (22-29) 12/21/23 BUN 28 mg/dL (9-16) H 12/21/23 Creatinine 1.14 mg/dL (0.5-1.4) 12/21/23 Calcium 10.6 mg/dL (8.4-10.2) H 12/21/23 Urine Creatinine 71.11 mg/dL 12/21/23 Protein/Creatinin Ratio 0.13 (<0.2) 12/21/23
[2023-12-23 10:06] VITALS: BP 130/62; PULSE 84; O2SAT 98; BMI 37.1
== END 2023-12-23 10:37 | disposition home or self-care (01) ==
PROVIDERS: PCP Internal Medicine; Visit Provider Internal Medicine Nephrology
DX: N18.31 Chronic kidney disease, stage 3a (principal); I10 Essential (primary) hypertension; E83.52 Hypercalcemia
CPT/HCPCS: 99214

== ENCOUNTER → 2023-12-23 09:47 | Outpatient (BNVA) | payer MEDICARE, SELFPAY | PROVIDERS: PCP Internal Medicine; Visit Provider Internal Medicine Nephrology | DX: I12.9 Hypertensive chronic kidney disease with stage 1 through stage 4 chronic kidney disease, or unspecified chronic kidney disease (principal); N18.31 Chronic kidney disease, stage 3a; E83.52 Hypercalcemia | CPT/HCPCS: 99212 ==

== ENCOUNTER 2024-02-18 10:23 | Outpatient (AMB) | payer MEDICARE, SELFPAY ==
[2024-02-18 10:24] VITALS: BP 134/60; PULSE 80; O2SAT 96; BMI 37.1
--- NOTE | 2024-02-18 10:24 | A.OFFPC_ITS ---
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: No Allergies ENVIRONMENTAL Allergy (Uncoded 02/18/24 10:25) Runny Nose Medication List - Last Reconciled 02/18/24 by Oren Puentes MD acetaminophen 500 mg PO Q6H PRN albuterol sulfate 90 mcg/actuation 2 puffs PO DAILY atorvastatin 80 mg PO DAILY 90 days cholecalciferol (vitamin D3) 25 mcg PO DAILY diltiazem HCl CD 240 mg PO DAILY ezetimibe 10 mg PO DAILY finasteride 5 mg PO DAILY 90 days fluticasone propion-salmeterol 100-50 mcg/dose (Wixela Inhub) 1 inh inhalation BID hydrochlorothiazide 25 mg PO DAILY lisinopril 40 mg PO BID pantoprazole 20 mg PO DAILY rivaroxaban (Xarelto) 20 mg PO DAILY 90 days tramadol 100 mg (2 x 50 mg) PO Q6H PRN Tobacco use date assessed: 02/18/24 Fall risk assessment: No Falls in past year Last assessed Fall Risk: 02/18/24 Dental Screening Dental Screen Date: 11/19/23 HPI 3mth f/u HPI Details hyperlipidemia hypertension and afib; compliant wuith rx; feels well PFSH Medical History Paroxysmal atrial fibrillation Atrial tachycardia Atrial flutter Persistent atrial fibrillation Obesity Screening for prostate cancer Screening for diabetes mellitus Paroxysmal atrial fibrillation History of stent insertion of renal artery Carotid disease, bilateral PAD (peripheral artery disease) Hyperlipidemia Hypertension Surgical History H/O esophagogastroduodenoscopy H/O colonoscopy History of angioplasty History of surgery History of cardioversion History of vasectomy History of carotid endarterectomy Family History Father Heart disease Mother Hypertension Brother No problems noted. Son No problems noted. Social History (Reviewed 12/23/23 @ 10:10 by LEIGH Phillips Housing: House Are you a primary janitor caretaker to a significant other at home: No Do you presently have visiting nurse or other home services: No Alcohol intake: former Patient Tobacco Use Status: Former Tobacco user e-Cigarette/Vaping Use: Never Used Second Hand Smoke Exposure: No Advance Directives Date on File: 08/17/20 service: No Current occupational status: retired Cognitive needs: Yes (cane) Hearing needs: Yes (hearing aide) Vision needs: Yes (glasses) Questionnaire Thrive Questionnaire Date Thrive assessed: 11/19/23 AUDIT C Alcohol Use Questionnaire (AUDIT-C) 1. How often do you have a drink containing alcohol?: Never 3. How often do you have six or more drinks on one occasion?: Never Total Score: 0 Score Reviewed/Action Taken: No ROBERTO-7 AMB Questionnaire ROBERTO-7 Date ROBERTO - 7 assessed: 11/19/23 Source: Developed by Drs. Rubén Whitney, Dalila Delgado, Ken Jolley and colleagues, with an educational oscar from [email or web address]. Review of Systems Const Denies chills, Denies headache(s) and Denies weight loss ENT Denies headache(s) Card Denies chest pain, Denies syncope, Denies irregular heart rhythm and Denies dyspnea Resp Denies chest congestion, Denies cough and Denies dyspnea GI Denies abdominal pain, Denies change in stool character, Denies nausea and Denies vomiting Musc Denies deformity and Denies joint swelling Neuro Denies syncope and Denies headache(s) Physical exam (Primary Care) Vital Signs: Last Vital Signs Pulse 80 02/18/24 10:24 BP 134/60 02/18/24 10:24 Pulse Ox 96 02/18/24 10:24 Oxygen Delivery Method Room Air 02/18/24 10:24 BMI result Body Mass Index 37.1 Tobacco/Smoking Status: Tobacco use Status Tobacco use date assessed 02/18/24 02/18/24 10:32 Patient Tobacco Use Status Former Tobacco user 02/18/24 10:32 e-Cigarette/Vaping Use Never Used 02/18/24 10:32 Thrive Assessment: Date of Thrive Assessment Date Thrive assessed 11/19/23 02/18/24 10:32 Const General: cooperative, comfortable, no acute distress and alert Neck Neck: Yes no lymphadenopathy Thyroid: Thyroid normal Resp Effort & Inspection: normal respiratory effort Auscultation: clear to auscultation bilaterally Percussion: percussion normal Cardio Jugular venous distension: no JVD Palpation: normal PMI Rate: regular rate Rhythm: regular rhythm Heart sounds: S1 normal heart sound present and S2 normal heart sound present GI Inspection: Yes normal to inspection Palpation (GI): No hepatosplenomegaly present Skin General skin exam: no rashes or lesions noted Extrem General: Yes no clubbing, cyanosis or edema Assessment and Plan Assessment & Plan (1) Atrial flutter: Code(s): I48.92 - Unspecified atrial flutter Plan: stable; same rx (2) Hyperlipidemia: Code(s): E78.5 - Hyperlipidemia, unspecified Plan: stable; same rx (3) Hypertension: Code(s): I10 - Essential (primary) hypertension Qualifiers: Hypertension type: primary hypertension Qualified Code(s): I10 - Essential (primary) hypertension Plan: stable; same rx Orders: Orders Lipid Panel Today Z13.220 - Encounter for screening for lipoid disorders Comprehensive [place]. Panel Fast Today Z13.9 - Encounter for screening, unspecified Complete Blood Count Auto Diff Today Z13.0 - Encounter for screening for diseases of the blood and blood-forming organs and certain disorders involving the immune mechanism Coding Level of Care Code Est Pt Level 4 (12358) Diagnoses Atrial flutter I48.92 Hyperlipidemia E78.5 Primary hypertension I10 Hypertension type: primary hypertension
== END 2024-02-18 11:02 | disposition home or self-care (01) ==
PROVIDERS: PCP Internal Medicine; Visit Provider Internal Medicine
DX: I48.92 Unspecified atrial flutter (principal); E78.5 Hyperlipidemia, unspecified; I10 Essential (primary) hypertension
CPT/HCPCS: 99214

== ENCOUNTER 2024-02-25 10:54 | Outpatient (AMB) | payer MEDICARE, SELFPAY ==
[2024-02-25 11:12] VITALS: BP 130/52; PULSE 71; BMI 36.7
--- NOTE | 2024-02-25 11:12 | MHC.OFFVIS ---
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 Present Allergies ENVIRONMENTAL Allergy (Uncoded 02/25/24 11:16) Runny Nose Medication List - Last Reconciled 02/25/24 by Jonathan House MD acetaminophen 500 mg PO Q6H PRN albuterol sulfate 90 mcg/actuation 2 puffs PO DAILY atorvastatin 80 mg PO DAILY 90 days cholecalciferol (vitamin D3) 25 mcg PO DAILY diltiazem HCl CD 240 mg PO DAILY ezetimibe 10 mg PO DAILY finasteride 5 mg PO DAILY 90 days fluticasone propion-salmeterol 100-50 mcg/dose (Wixela Inhub) 1 inh inhalation BID hydrochlorothiazide 25 mg PO DAILY lisinopril 40 mg PO BID pantoprazole 20 mg PO DAILY rivaroxaban (Xarelto) 20 mg PO DAILY 90 days tramadol 100 mg (2 x 50 mg) PO Q6H PRN HPI Comments Details: Holland comes for annual follow-up. He has been doing well overall. No major cardiac complaints. Recently had symptoms of lightheadedness after his heart spiked to 125 beats per minute over this was only transient but his lightheaded lasted for the whole day. After that he had lightheadedness for some time. Since then he is significantly reduced his caffeine intake. He is also drinking more fluid. Symptoms of lightheadedness as well. No syncopal episodes. He denies any heart failure symptoms. No orthopnea, PND, leg edema. No bleeding issues or neurologic events. Takes all his medications regularly. [facility] Medical History Paroxysmal atrial fibrillation Atrial tachycardia Atrial flutter Persistent atrial fibrillation Obesity Screening for prostate cancer Screening for diabetes mellitus Paroxysmal atrial fibrillation History of stent insertion of renal artery Carotid disease, bilateral PAD (peripheral artery disease) Hyperlipidemia Hypertension Surgical History H/O esophagogastroduodenoscopy H/O colonoscopy History of angioplasty History of surgery History of cardioversion History of vasectomy History of carotid endarterectomy Family History Father Heart disease Mother Hypertension Brother No problems noted. Son No problems noted. Social History Housing: House Are you a primary acute care nurse to a significant other at home: No Do you presently have visiting nurse or other home services: No Alcohol intake: former Patient Tobacco Use Status: Former Tobacco user e-Cigarette/Vaping Use: Never Used Second Hand Smoke Exposure: No Advance Directives Date on File: 08/17/20 service: No Current occupational status: retired Cognitive needs: Yes (cane) Hearing needs: Yes (hearing aide) Vision needs: Yes (glasses) Review of Systems ENT Reports dizziness Card Denies chest pain, Denies chest pain at rest, Denies chest pain with activity, Denies rapid heart rate, Denies pedal edema, Denies edema, Denies leg edema, Denies lightheadedness, Denies palpitations, Denies dyspnea, Denies dyspnea on exertion and Denies orthopnea Resp Denies cough, Denies dyspnea and Denies dyspnea on exertion GI Denies hematochezia and Denies change in stool character Musc Denies abnormal gait, Reports limited range of motion, Reports muscle cramps, Denies muscle weakness, Denies numbness, Denies radiating pain into limb, Denies stiffness and Denies tingling Neuro Denies abnormal gait, Reports dizziness, Denies numbness and Denies tingling Endo Denies palpitations Physical Exam Vital Signs: Last Vital Signs Pulse 71 02/25/24 11:12 BP 130/52 L 02/25/24 11:12 BMI result Body Mass Index 36.7 Const General: cooperative, comfortable, no acute distress, alert and awake Nutritional Appearance: obese Orientation/consciousness: patient oriented x3 Limitations: ambulation with cane Neck Neck: Yes trachea midline, Yes supple and Yes no JVD Resp Effort & Inspection: normal respiratory effort Auscultation: clear to auscultation bilaterally Cardio Jugular venous distension: no JVD Palpation: normal PMI Rate: regular rate Rhythm: abnormal rhythm irregularly irregular and regularly irregular Heart sounds: S1 normal heart sound present, S2 normal heart sound present, no click, no gallops, no murmurs and no rubs GI Auscultation: normal bowel sounds Skin General skin exam: no rashes or lesions noted Neuro General: patient oriented x3 and no focal motor deficits Psych Appearance: grossly normal Office Procedures EKG Details: EKG shows atrial flutter with 4 is to 1 conduction with incomplete right bundle-branch block [id number], Complete Assessment & Plan Assessment & Plan (1) Atrial flutter: Code(s): I48.92 - Unspecified atrial flutter Category: Medical Plan: Persistent mostly rate controlled atrial flutter on current Cardizem therapy. Continue the same. Has failed rhythm control approach in the past. No new symptoms at this point time. Will therefore continue pursue rate control approach at this point time. Continue full oral anticoagulation, currently on Xarelto 20 mg daily. Semi annual renal function test should be pursued. Follow-up echocardiogram in 1 year's time. Advised to call me with any worsening symptoms. (2) Hypertension: Code(s): I10 - Essential (primary) hypertension Category: Medical Qualifiers: Hypertension type: primary hypertension Qualified Code(s): I10 - Essential (primary) hypertension Plan: Hypertension which is currently well optimized advised to monitor blood pressure at home maintain a log. Goal blood pressure less than 130/84 as per the blood pressure is well optimized advised low-salt diet. Advised to participate in regular physical activity and weight loss program. Has diffuse vascular disease being followed by vascular surgery. Currently on full oral anticoagulation Xarelto. Would avoid antiplatelet therapy. Continue high-intensity statin therapy as well as ezetimibe therapy. Target goal LDL less than 70 mg/dL. Will follow up in the clinic in 1 year's time, sooner p.r.n.. Thank you for allowing me to partake in his care Medications: New diltiazem HCl CD 240 mg PO DAILY 90 caps 1RF
== END 2024-02-25 11:46 | disposition home or self-care (01) ==
PROVIDERS: Visit Provider Internal Medicine Cardiovascular Disease
DX: I48.92 Unspecified atrial flutter (principal); I10 Essential (primary) hypertension
CPT/HCPCS: 93010; 99214

== ENCOUNTER → 2024-02-25 10:54 | Outpatient (BNVA) | payer MEDICARE, SELFPAY | PROVIDERS: Visit Provider Internal Medicine Cardiovascular Disease | DX: I48.92 Unspecified atrial flutter (principal); I48.19 Other persistent atrial fibrillation; I48.0 Paroxysmal atrial fibrillation; I10 Essential (primary) hypertension; I45.19 Other right bundle-branch block; Z98.890 Other specified postprocedural states | CPT/HCPCS: 93005; 99212 ==

== ENCOUNTER 2024-04-13 09:48 | Outpatient (REF) | payer MEDICARE, SELFPAY ==
[2024-04-13 11:07] LABS: Anion Gap 13 (12-20); Blood Urea Nitrogen 37 mg/dL (9-16); Calcium 10.6 mg/dL (8.4-10.2); Carbon Dioxide 25 mmol/L (22-29); Chloride 108 mmol/L (96-108); Estimated Glomerular Filt Rate 51; Potassium 3.8 mmol/L (3.3-5.1); Sodium 142 mmol/L (135-145)
[2024-04-13 11:14] LABS: Vitamin D 25-OH Total 29.8 ng/mL (>30)
[2024-04-13 11:32] LABS: Parathyroid Hormone Intact 212.1 pg/mL (8.7-77.1)
[2024-04-18 15:58] LABS: IgA 240 mg/dL (70-320); IgG 1147 mg/dL (600-1540); IgM 54 mg/dL (50-300)
[2024-04-19 15:43] LABS: VITAMIN D (1,25 OH) D3 25 pg/mL; Vit D (1,25-Dihydroxy) Total 25 pg/mL (18-72); Vitamin D (1,25 OH) D2 <8 pg/mL
== END 2024-04-13 09:49 | disposition home or self-care (01) ==
LOC: HO.10HDL 09:48
PROVIDERS: Visit Provider Internal Medicine Nephrology
DX: I12.9 Hypertensive chronic kidney disease with stage 1 through stage 4 chronic kidney disease, or unspecified chronic kidney disease (principal); N18.30 Chronic kidney disease, stage 3 unspecified; E83.52 Hypercalcemia
CPT/HCPCS: 36415; 80051; 82306; 82310; 82565; 82652; 82784; 83970; 84520; 86334

== ENCOUNTER 2024-04-20 11:06 | Outpatient (AMB) | payer MEDICARE, SELFPAY ==
--- NOTE | 2024-04-20 11:10 | HO.NEPHOV ---
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 He has vascular disease and has seen vascular surgeon . He had undergone angiography as well as stenting. He has been having exacerbation of his sciatica on the left side. He denies taking any nonsteroidal anti-inflammatory medications for it. He follows up with Dr. Flores. His blood pressure has been at goal at home. He denies any chest pain, shortness of breath, proximal nocturnal dyspnea, orthopnea, pedal edema or urinary symptoms. He does not have any palpitation, syncope or orthostatic symptoms. He is on lipid-lowering agents. He has been tolerating lisinopril. He is on anticoagulation [facility] Medical History Paroxysmal atrial fibrillation Atrial tachycardia Atrial flutter Persistent atrial fibrillation Obesity Screening for prostate cancer Screening for diabetes mellitus Paroxysmal atrial fibrillation History of stent insertion of renal artery Carotid disease, bilateral PAD (peripheral artery disease) Hyperlipidemia Hypertension Surgical History H/O esophagogastroduodenoscopy H/O colonoscopy History of angioplasty History of surgery History of cardioversion History of vasectomy History of carotid endarterectomy Family History Father Heart disease Mother Hypertension Brother No problems noted. Son No problems noted. Social History Housing: House Are you a primary patient care to a significant other at home: No Do you presently have visiting nurse or other home services: No Alcohol intake: former Patient Tobacco Use Status: Former Tobacco user e-Cigarette/Vaping Use: Never Used Second Hand Smoke Exposure: No Advance Directives Date on File: 08/17/20 service: No Current occupational status: retired Cognitive needs: Yes (cane) Hearing needs: Yes (hearing aide) Vision needs: Yes (glasses) Physical Exam Const General: comfortable and no acute distress Orientation/consciousness: patient oriented x3 HEENT Head: Yes normocephalic Mouth: Normal oral and palatal mucosa present Eyes EOM: EOMs intact bilaterally Neck Neck: Yes supple Resp Auscultation: clear to auscultation bilaterally Cardio Jugular venous distension: no JVD Rate: regular rate GI Palpation (GI): Soft to palpation Auscultation: normal bowel sounds General: Yes no CVA tenderness Back/Spine/Pelvis Back: no CVA tenderness Skin General skin exam: no rashes or lesions noted Neuro General: patient oriented x3 and moves all extremities Extrem General: Yes no pedal edema Results Reviewed Nephrology Results: Sodium 142 mmol/L (135-145) 04/13/24 Potassium 3.8 mmol/L (3.3-5.1) 04/13/24 Chloride 108 mmol/L (96-108) 04/13/24 Carbon Dioxide 25 mmol/L (22-29) 04/13/24 BUN 37 mg/dL (9-16) H 04/13/24 Creatinine 1.35 mg/dL (0.5-1.4) 04/13/24 Calcium 10.6 mg/dL (8.4-10.2) H 04/13/24 PTH Intact 212.1 pg/mL (8.7-77.1) H 04/13/24 Urine Creatinine 71.11 mg/dL 12/21/23 Protein/Creatinin Ratio 0.13 (<0.2) 12/21/23 Assessment & Plan Assessment & Plan (1) Hypercalcemia: Code(s): E83.52 - Hypercalcemia Category: Medical (2) CKD (chronic kidney disease) stage 3, GFR 30-59 ml/min: Code(s): N18.30 - Chronic kidney disease, stage 3 unspecified Category: Medical Qualifiers: Chronic kidney disease stage 3 subtype: stage 3a (GFR 45-59) Qualified Code(s): N18.31 - Chronic kidney disease, stage 3a (3) Hypertension: Code(s): I10 - Essential (primary) hypertension Category: Medical Qualifiers: Hypertension type: primary hypertension Qualified Code(s): I10 - Essential (primary) hypertension (4) Hyperparathyroidism: Code(s): E21.3 - Hyperparathyroidism, unspecified Category: Medical Plan Holland has stage III 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 He has longstanding hypertension which is well controlled on the current medication regimen. His needs to cut back on salt and should lose some weight. He avoids nonsteroidal anti-inflammatory medications. He should remain well hydrated. He is on statins. He takes anticoagulation. I did not make any medication changes today. I shall back off HCTZ if his serum calcium goes up further. He likely has primary hyperparathyroidism. I ordered a Sestamibi scan. I plan to repeat a Doppler of his renal arteries with time. Answered all his questions. Followup labs ordered. Orders: Orders Creatinine Today E21.3 - Hyperparathyroidism, unspecified, E83.52 - Hypercalcemia, I10 - Essential (primary) hypertension, N18.31 - Chronic kidney disease, stage 3a Electrolytes Today E21.3 - Hyperparathyroidism, unspecified, E83.52 - Hypercalcemia, I10 - Essential (primary) hypertension, N18.31 - Chronic kidney disease, stage 3a NM parathyroid SPECT Today E21.3 - Hyperparathyroidism, unspecified, E83.52 - Hypercalcemia Blood Urea Nitrogen Today E21.3 - Hyperparathyroidism, unspecified, E83.52 - Hypercalcemia, I10 - Essential (primary) hypertension, N18.31 - Chronic kidney disease, stage 3a Calcium Today E21.3 - Hyperparathyroidism, unspecified, E83.52 - Hypercalcemia, I10 - Essential (primary) hypertension, N18.31 - Chronic kidney disease, stage 3a Coding Level of Care Code Est Pt Level 4 (95660) Diagnoses Hypercalcemia E83.52 Stage 3a chronic kidney disease N18.31 Chronic kidney disease stage 3 subtype: stage 3a (GFR 45-59) Primary hypertension I10 Hypertension type: primary hypertension Hyperparathyroidism E21.3
[2024-04-20 11:12] VITALS: BP 134/60; BMI 36.1
== END 2024-04-20 11:35 | disposition home or self-care (01) ==
PROVIDERS: PCP Internal Medicine; Visit Provider Internal Medicine Nephrology
DX: I12.9 Hypertensive chronic kidney disease with stage 1 through stage 4 chronic kidney disease, or unspecified chronic kidney disease (principal); N18.31 Chronic kidney disease, stage 3a; E83.52 Hypercalcemia
CPT/HCPCS: 99214

== ENCOUNTER → 2024-04-20 11:06 | Outpatient (BNVA) | payer MEDICARE, SELFPAY | PROVIDERS: PCP Internal Medicine; Visit Provider Internal Medicine Nephrology | DX: I12.9 Hypertensive chronic kidney disease with stage 1 through stage 4 chronic kidney disease, or unspecified chronic kidney disease (principal); N18.31 Chronic kidney disease, stage 3a; E83.52 Hypercalcemia; E21.3 Hyperparathyroidism, unspecified | CPT/HCPCS: 99212 ==

== ENCOUNTER 2024-05-19 10:32 | Outpatient (AMB) | payer MEDICARE, SELFPAY ==
--- NOTE | 2024-05-19 10:36 | MHC.PC.OV ---
Vital Signs 05/19/24 10:37 Height 5 ft 2 in Weight 214 lb 6 oz BMI 39.2 BP 130/62 Blood Pressure Location Lt brachial Position Sitting Pulse 66 Pulse Source Pulse Oximeter Pulse Oximetry (%) 96 Oxygen Delivery Method Room Air Intake Visit Reasons: 3mth f/u - see comments Intake Note: Patient is here to follow up on BPH, CKD, HTN, Hyperthyroidism . Handbag Stitcher Required: No Hematology Oncology Consultant: Not Required per policy Accompanied by: Self / Same As Patient Allergies ENVIRONMENTAL Allergy (Uncoded 05/19/24 10:37) Runny Nose Medication List - Last Reconciled 05/19/24 by Oren Puentes MD acetaminophen 500 mg PO Q6H PRN albuterol sulfate 90 mcg/actuation 2 puffs PO DAILY atorvastatin 80 mg PO DAILY 90 days cholecalciferol (vitamin D3) 25 mcg PO DAILY diltiazem HCl CD 240 mg PO DAILY ezetimibe 10 mg PO DAILY finasteride 5 mg PO DAILY 90 days flecainide 50 mg PO BID fluticasone propion-salmeterol 100-50 mcg/dose (Wixela Inhub) 1 inh inhalation BID hydrochlorothiazide 25 mg PO DAILY lisinopril 40 mg PO BID pantoprazole 20 mg PO DAILY rivaroxaban (Xarelto) 20 mg PO DAILY 90 days tramadol 100 mg (2 x 50 mg) PO Q6H PRN Tobacco use date assessed: 05/19/24 Fall risk assessment: No Falls in past year Last assessed Fall Risk: 05/19/24 Dental Screening Dental Screen Date: 11/19/23 HPI 3mth f/u - see comments HPI Details hyperlipidemia on rx; doing well and comliant; PFSH Medical History Paroxysmal atrial fibrillation Atrial tachycardia Atrial flutter Persistent atrial fibrillation Obesity Screening for prostate cancer Screening for diabetes mellitus Paroxysmal atrial fibrillation History of stent insertion of renal artery Carotid disease, bilateral PAD (peripheral artery disease) Hyperlipidemia Hypertension Surgical History H/O esophagogastroduodenoscopy H/O colonoscopy History of angioplasty History of surgery History of cardioversion History of vasectomy History of carotid endarterectomy Family History Father Heart disease Mother Hypertension Brother No problems noted. Son No problems noted. Social History Housing: House Are you a primary critical care nurse specialist to a significant other at home: No Do you presently have visiting nurse or other home services: No Alcohol intake: former Patient Tobacco Use Status: Former Tobacco user e-Cigarette/Vaping Use: Never Used Second Hand Smoke Exposure: No Advance Directives Date on File: 08/17/20 service: No Current occupational status: retired Cognitive needs: Yes (cane) Hearing needs: Yes (hearing aide) Vision needs: Yes (glasses) Questionnaire Thrive Questionnaire Date Thrive assessed: 11/19/23 ROBERTO-7 AMB Questionnaire ROBERTO-7 Date ROBERTO - 7 assessed: 11/19/23 Source: Developed by Drs. Rubén Whitney, Dalila Delgado, Ken Jolley and colleagues, with an educational oscar from [employer]. Review of Systems Const Denies chills, Denies headache(s) and Denies weight loss ENT Denies headache(s) Card Denies chest pain, Denies syncope, Denies irregular heart rhythm and Denies dyspnea Resp Denies chest congestion, Denies cough and Denies dyspnea GI Denies abdominal pain, Denies change in stool character, Denies nausea and Denies vomiting Musc Denies deformity and Denies joint swelling Neuro Denies syncope and Denies headache(s) Physical exam (Primary Care) Vital Signs: Last Vital Signs Pulse 66 05/19/24 10:37 BP 130/62 05/19/24 10:37 Pulse Ox 96 05/19/24 10:37 Oxygen Delivery Method Room Air 05/19/24 10:37 BMI result Body Mass Index 39.2 Tobacco/Smoking Status: Tobacco use Status Tobacco use date assessed 05/19/24 05/19/24 10:42 Patient Tobacco Use Status Former Tobacco user 05/19/24 10:42 e-Cigarette/Vaping Use Never Used 05/19/24 10:42 Thrive Assessment: Date of Thrive Assessment Date Thrive assessed 11/19/23 05/19/24 10:42 Const General: cooperative, comfortable, no acute distress and alert Neck Neck: Yes no lymphadenopathy Thyroid: Thyroid normal Resp Effort & Inspection: normal respiratory effort Auscultation: clear to auscultation bilaterally Percussion: percussion normal Cardio Jugular venous distension: no JVD Palpation: normal PMI Rate: regular rate Rhythm: regular rhythm Heart sounds: S1 normal heart sound present and S2 normal heart sound present GI Inspection: Yes normal to inspection Palpation (GI): No hepatosplenomegaly present Skin General skin exam: no rashes or lesions noted Extrem General: Yes no clubbing, cyanosis or edema Assessment and Plan Assessment & Plan (1) Hyperlipidemia: Code(s): E78.5 - Hyperlipidemia, unspecified Plan: stable; same rx Coding Level of Care Code Est Pt Level 3 (25299) Diagnoses Hyperlipidemia E78.5
[2024-05-19 10:37] VITALS: BP 130/62; PULSE 66; O2SAT 96; BMI 39.2
== END 2024-05-19 10:53 | disposition home or self-care (01) ==
PROVIDERS: PCP Internal Medicine; Visit Provider Internal Medicine
DX: E78.5 Hyperlipidemia, unspecified (principal)
CPT/HCPCS: 99213

== ENCOUNTER → 2024-05-25 07:47 | Outpatient (REF) | payer MEDICARE, SELFPAY ==
--- NOTE | ~2024-05-25 | NM_ITS ---
EXAMINATION: NM PARATHYROID SCAN CLINICAL INFORMATION: Hyperparathyroidism, unspecified. COMPARISON: None TECHNIQUE: A double radionuclide study of the thyroid bed region and upper chest in multiple projections was performed 2 hours after the oral administration of 1000 microcuries I-123 sodium iodide and immediately following the intravenous administration of 30 mCi Tc-99m sestamibi. Repeat imaging was performed 2 hours later. The iodide images were electronically subtracted from the sestamibi images using different weighting factors. A single anterior view of the chest using a low energy high-resolution parallel hole collimator was also obtained at 2 hours. In addition, single photon emission tomography (SPECT) of the mid skull to the upper chest in the mid cardiac level was also performed acquiring 120 projections of 20 seconds each over 360 degrees using a noncircular orbit and an acquisition matrix of [id number]. Transverse, coronal and sagittal projections and a cine volume were reconstructed in separate image sets for the I-123 and technetium 99m photopenic acquisitions. FINDINGS: PLANAR PINHOLE COLLIMATOR IMAGES: The iodine images shows homogenous tracer avidity involving both lobes of the thyroid gland. Technetium 99m sestamibi images demonstrate homogeneous thyroid activity. In addition, focal increased asymmetric tracer avidity is present at the inferior pole of the right lobe. Subtraction images further confirmed presence of extensive focal radiotracer activity seen projecting at the inferior pole of the right lobe, best visualized on 20 minutes delayed images in the PEDRAZA projection. SPECT IMAGES: No additional information. NM/NM parathyroid SPECT IMPRESSION: Solitary focal excess sestamibi activity suggestive of parathyroid adenoma or hyperplasia is seen projecting at the inferior pole of the right lobe of the thyroid gland, best seen in the PEDRAZA projection. There is homogeneous uptake of radioiodine in the thyroid gland which is also normal in size and shape.
== END ==
LOC: HO.NUCMED 07:47
PROVIDERS: PCP Internal Medicine; Visit Provider Internal Medicine Nephrology
DX: E21.3 Hyperparathyroidism, unspecified (principal)
CPT/HCPCS: 78071; A9500; A9516

== ENCOUNTER 2024-07-21 11:59 | Outpatient (REF) | payer MEDICARE, SELFPAY ==
[2024-07-21 13:58] LABS: Prostate Specific Antigen 2.63 ng/mL (<0.05-4.0)
== END 2024-07-21 12:00 | disposition home or self-care (01) ==
LOC: HO.10HDL 11:59
PROVIDERS: Visit Provider Nurse Practitioner Family
DX: Z12.5 Encounter for screening for malignant neoplasm of prostate (principal); R97.20 Elevated prostate specific antigen [PSA]
CPT/HCPCS: 36415; 84153

== ENCOUNTER 2024-07-26 09:20 | Outpatient (AMB) | payer MEDICARE, SELFPAY ==
--- NOTE | 2024-07-26 09:24 | MHC.OFFVIS ---
Intake Visit Reasons: 1y/PSA(set) Intake Note: Patient presents for follow up elevated psa PSA: 2.63 Urology Medications: finasteride Blood Thinner: Rivaroxaban Linux System Admin Required: No Accompanied by: Self / Same As Patient Allergies ENVIRONMENTAL Allergy (Uncoded 07/26/24 09:44) Runny Nose Medication List - Last Reconciled 07/26/24 by NGHIA Wang-JOSE DANIEL acetaminophen 500 mg PO Q6H PRN albuterol sulfate 90 mcg/actuation 2 puffs PO DAILY atorvastatin 80 mg PO DAILY 90 days cholecalciferol (vitamin D3) 25 mcg PO DAILY diltiazem HCl CD 240 mg PO DAILY ezetimibe 10 mg PO DAILY finasteride 5 mg PO DAILY 90 days flecainide 50 mg PO BID fluticasone propion-salmeterol 100-50 mcg/dose (Wixela Inhub) 1 inh inhalation BID hydrochlorothiazide 25 mg PO DAILY lisinopril 40 mg PO BID pantoprazole 20 mg PO DAILY rivaroxaban (Xarelto) 20 mg PO DAILY 90 days tramadol 100 mg (2 x 50 mg) PO Q6H PRN HPI Comments Details: Holland is a very pleasant 78-year-old male patient of Dr. Silva. He has a past medical history of paroxysmal AFib, a flutter, obesity, P 80, hyperlipidemia, and hypertension. He presents to the office today for follow-up of his elevated PSA. In discussion with the patient today reports to be doing and feeling well. He reports having had no bothersome urinary issues or concerns since his last office visit here approximately 1 year ago. Recent PSA results reviewed with the patient today as noted and trended below. Patient with a previous history of a prostate biopsy with Dr. Gallagher 01/29 due to his elevated PSA that noted Negative biopsy-chronic inflammation. 80gram prostate. When asked patient reports compliance with finasteride 5 mg daily as prescribed. He denies any bothersome urinary issues or concerns at this time. PSAs are as follows: - 09/29 5.3, 10/30 10.8, 08/01 2.31, 08/02 2.6 When asked he denies urinary urgency, urinary frequency, incontinence, nocturia, hematuria, dysuria, foul smelling urine, changes to urinary stream, flank pain, fever, and or chills. He is happy with his current voiding parameters. In office urinalysis results reviewed with the patient today. He otherwise offers no other issues or concerns at this time. [facility] Medical History Paroxysmal atrial fibrillation Atrial tachycardia Atrial flutter Persistent atrial fibrillation Obesity Screening for prostate cancer Screening for diabetes mellitus Paroxysmal atrial fibrillation History of stent insertion of renal artery Carotid disease, bilateral PAD (peripheral artery disease) Hyperlipidemia Hypertension Surgical History H/O esophagogastroduodenoscopy H/O colonoscopy History of angioplasty History of surgery History of cardioversion History of vasectomy History of carotid endarterectomy Family History Father Heart disease Mother Hypertension Brother No problems noted. Son No problems noted. Social History Housing: House Are you a primary career development director to a significant other at home: No Do you presently have visiting nurse or other home services: No Alcohol intake: former Patient Tobacco Use Status: Former Tobacco user e-Cigarette/Vaping Use: Never Used Second Hand Smoke Exposure: No Advance Directives Date on File: 08/17/20 service: No Current occupational status: retired Cognitive needs: Yes (cane) Hearing needs: Yes (hearing aide) Vision needs: Yes (glasses) Review of Systems Const Reports as per HPI Eyes Reports no additional complaints ENT Reports no additional complaints Card Reports as per HPI Resp Reports no additional complaints GI Reports no additional complaints Reports as per HPI Musc Reports no additional complaints Neuro Reports no additional complaints Psych Reports no additional complaints Endo Reports no additional complaints Logan/Lymph Reports no additional complaints Aller/Immun Reports no additional complaints Physical Exam Const General: cooperative, healthy appearing, comfortable, no acute distress, well developed, alert and awake Nutritional Appearance: overweight Orientation/consciousness: patient oriented x3 Limitations: ambulation with cane HEENT Head: Yes normal to inspection, Yes normocephalic and Yes atraumatic Ears: hearing grossly normal bilaterally Eyes General: appearance normal, both eyes and all related structures Neck Neck: Yes normal visual inspection and Yes trachea midline Chest Chest palpation & inspection: normal inspection of the chest Resp Effort & Inspection: normal respiratory effort and able to speak in complete sentences Cardio Rate: regular rate GI Inspection: Yes normal to inspection General: Yes no CVA tenderness Back/Spine/Pelvis Back: no CVA tenderness Skin General skin exam: no rashes or lesions noted Neuro General: patient oriented x3 Extrem General: Yes normal to inspection Psych Appearance: grossly normal and well kempt Mental Status: mental status grossly normal Speech and movement: Normal speech and movement present and Clear speech present Affect: normal affect Attitude: cooperative Thought process: Normal thought process present Thought content: Normal thought content present Insight: Fair insight present (Psych) Judgement: Fair judgement present (Psych) Results AMB Urinalysis, Automated UA Leukoctes 0 Harman/uL Last Edit by [employer] on 07/26/24 09:35 UA Nitrite Last Edit by Kapow Softwarebryan [employer] on 07/26/24 09:35 UA Urobilinogen 0.2 mg/dL Last Edit by Speed D[employer] by Chantilly Lace Ebonydali on 07/26/24 09:35 UA Protein 15 mg/dL Last Edit by Kapow Softwarebryan Beckd[employer] on 07/26/24 09:35 UA pH 5.5 Last Edit by ChaiEndoLumix Technologybryan Beckdali on 07/26/24 09:35 UA Blood 0 Michael/uL Last Edit by [employer] on 07/26/24 09:35 UA Specific [place] 1.025 Last Edit by [employer] D[employer] by Chantilly Lace Ebonydali on 07/26/24 09:35 UA Ketone Last Edit by Speed Dating by Chantilly Lace EbonyWorld [employer] on 07/26/24 09:35 UA Bilirubin 0 mg/dL Last Edit by Speed Dating by Chantilly Lace EbonyWorld [employer] Network on 07/26/24 09:35 UA Glucose 0 mg/dL Last Edit by [employer] on 07/26/24 09:35 Results Reviewed Results Reviewed: Laboratory Last Values Urine pH (Auto) 5.5 07/26/24 09:26 Specific [place] (Auto) 1.025 07/26/24 09:26 Urine Protein (Auto) 15 mg/dL 07/26/24 09:26 Glucose (UA)(Auto) 0 mg/dL 07/26/24 09:26 Urine Blood (Auto) 0 Michael/uL 07/26/24 09:26 Urine Bilirubin (Auto) 0 mg/dL 07/26/24 09:26 Urine Urobilinogen (Auto) 0.2 mg/dL 07/26/24 09:26 Leukocyte Esterase (Auto) 0 Harman/uL 07/26/24 09:26 Assessment & Plan Assessment & Plan (1) BPH (benign prostatic hyperplasia): Code(s): N40.0 - Benign prostatic hyperplasia without lower urinary tract symptoms Category: Medical (2) Prostatitis: Code(s): N41.9 - Inflammatory disease of prostate, unspecified Category: Medical (3) Elevated PSA: Code(s): R97.20 - Elevated prostate specific antigen [PSA] Category: Medical Plan In office urinalysis results reviewed with the patient today. Recent PSA results reviewed with the patient today. Patient denies any bothersome urinary issues or concerns at this time. He reports be happy with current voiding parameters. Will obtain PSA in 1 year. Continue finasteride 5 mg daily as discussed and prescribed; refill prescription provided Follow-up in 1 year with lab to be completed prior; or sooner with any issues, concerns, and or questions. Orders: Orders AMB Urinalysis Automated Today Z13.9 - Encounter for screening, unspecified Prostate Specific Antigen 1 Year N40.0 - Benign prostatic hyperplasia without lower urinary tract symptoms Patient Instructions: The patient had an opportunity to ask questions regarding the treatment plan. All questions were answered. Physical exam, labs, and imaging were discussed and reviewed in detail. As well as risks, benefits, and discussion of treatment choices. No major barriers to understanding were identified. The patient expressed understanding and agreement with the above treatment plan. The patient was made aware they should contact our office by phone for worsening of their current condition, the appearance of new symptoms, or with any questions or concerns. Compliance is encouraged with any medications and follow up testing that is ordered. It is a privilege to be allowed the opportunity to participate in? your urological care.? Again, if you have any questions or concerns If you have any questions or concerns please do not hesitate to contact me. The office is [phone]. This note is constructed using voice recognition software. While every effort has been made to ensure accuracy lidar analyst errors may have been included. Yours sincerely, HANSEL Wang Coding Level of Care Code Est Pt Level 3 (40694) Diagnoses BPH (benign prostatic hyperplasia) N40.0 Prostatitis N41.9 Elevated PSA R97.20
== END 2024-07-26 09:45 | disposition home or self-care (01) ==
PROVIDERS: PCP Internal Medicine; Visit Provider Nurse Practitioner Family
DX: N40.0 Benign prostatic hyperplasia without lower urinary tract symptoms (principal); N41.9 Inflammatory disease of prostate, unspecified; R97.20 Elevated prostate specific antigen [PSA]; Z13.9 Encounter for screening, unspecified
CPT/HCPCS: 99213

== ENCOUNTER → 2024-07-26 09:20 | Outpatient (BNVA) | payer MEDICARE, SELFPAY | PROVIDERS: PCP Internal Medicine; Visit Provider Nurse Practitioner Family | DX: N40.0 Benign prostatic hyperplasia without lower urinary tract symptoms (principal); N41.9 Inflammatory disease of prostate, unspecified; R97.20 Elevated prostate specific antigen [PSA] | CPT/HCPCS: 81003; 99212 ==

== ENCOUNTER 2024-08-16 10:46 | Outpatient (REF) | payer MEDICARE, SELFPAY ==
[2024-08-16 13:20] LABS: MANUAL DIFF FLAG NO
[2024-08-16 13:30] LABS: Basophils Percent Auto 0.5 % (0-2); Eosinophils Absolute Auto 0.3 X10*3/uL (0.0-0.4); Eosinophils Percent Auto 3.2 % (0-4); Hematocrit 40.3 % (42.0-52.0); Hemoglobin 13.3 g/dl (14.0-18.0); Imm Gran Abs Auto 0.04 X10*3/uL (0.00-0.03); Imm Gran Pct Auto 0.5 % (0.0-0.4); Lymphocytes Absolute Auto 1.7 X10*3/uL (1.2-4.9); Lymphocytes Percent Auto 20.5 % (20-40); Mean Corpuscular Volume 90.8 fL (80.0-98.0); Mean Platelet Volume 10.1 fL (9.4-12.4); Monocytes Percent Auto 11.5 % (2-11); Neutrophils Absolute Auto 5.3 x10*3/uL (2.0-8.3); Neutrophils Percent Auto 63.8 % (45-73); Platelet Count 332 X10*3/uL (160-400); Red Blood Count 4.44 X10*6/uL (4.60-5.80); Red Cell Distribution Width 13.5 % (11.0-16.0); White Blood Count 8.2 X10*3/uL (4.8-10.8)
[2024-08-16 14:01] LABS: Alanine Aminotransferase 15 U/L (0-40); Albumin Level 3.7 g/dL (3.5-5.0); Alkaline Phosphatase 81 U/L (39-117); Anion Gap 11 (12-20); Aspartate Amino Transferase 20 U/L (5-37); Bilirubin Total 0.6 mg/dL (0.0-1.0); Blood Urea Nitrogen 20 mg/dL (9-16); Calcium 10.4 mg/dL (8.4-10.2); Carbon Dioxide 29 mmol/L (22-29); Chloride 106 mmol/L (96-108); Cholesterol 103 mg/dL (<200); Estimated Glomerular Filt Rate > 60; Glucose Fasting 108 mg/dL (60-99); HDL Cholesterol 39 mg/dL (>40); LDL Cholesterol Calculated 50 mg/dL (<100); Potassium 3.9 mmol/L (3.3-5.1); Sodium 142 mmol/L (135-145); Total Protein 7.1 g/dL (6.5-8.0); Triglycerides 70 mg/dL (<150)
== END 2024-08-16 10:47 | disposition home or self-care (01) ==
LOC: HO.10HDL 10:46
PROVIDERS: Internal Medicine; Visit Provider Internal Medicine Nephrology
DX: Z13.0 Encounter for screening for diseases of the blood and blood-forming organs and certain disorders involving the immune mechanism (principal); Z13.220 Encounter for screening for lipoid disorders; I12.9 Hypertensive chronic kidney disease with stage 1 through stage 4 chronic kidney disease, or unspecified chronic kidney disease; N18.31 Chronic kidney disease, stage 3a; E21.3 Hyperparathyroidism, unspecified
CPT/HCPCS: 36415; 80053; 80061; 85025

== ENCOUNTER 2024-08-19 09:15 | Outpatient (AMB) | payer MEDICARE, SELFPAY ==
[2024-08-19 09:17] VITALS: BP 160/82; PULSE 49; O2SAT 93; BMI 39.9
--- NOTE | 2024-08-19 09:17 | MHC.PC.OV ---
Vital Signs 08/19/24 09:17 Height 5 ft 2 in Weight 218 lb BMI 39.9 BP 160/82 H Blood Pressure Location Lt brachial Position Sitting Pulse 49 L Pulse Source Pulse Oximeter Pulse Oximetry (%) 93 Oxygen Delivery Method Room Air Intake Visit Reasons: 3 month follow up [employer] Manager Architect Required: No Accompanied by: Self / Same As Patient Allergies ENVIRONMENTAL Allergy (Uncoded 08/19/24 09:17) Runny Nose Medication List - Last Reconciled 08/19/24 by Oren Puentes MD acetaminophen 500 mg PO Q6H PRN albuterol sulfate 90 mcg/actuation 2 puffs PO DAILY atorvastatin 80 mg PO DAILY 90 days cholecalciferol (vitamin D3) 25 mcg PO DAILY diltiazem HCl CD 240 mg PO DAILY ezetimibe 10 mg PO DAILY finasteride 5 mg PO DAILY 90 days flecainide 50 mg PO BID fluticasone propion-salmeterol 100-50 mcg/dose (Wixela Inhub) 1 inh inhalation BID hydrochlorothiazide 25 mg PO DAILY lisinopril 40 mg PO BID pantoprazole 20 mg PO DAILY rivaroxaban (Xarelto) 20 mg PO DAILY 90 days tramadol 100 mg (2 x 50 mg) PO Q6H PRN Tobacco use date assessed: 05/19/24 Fall risk assessment: 1 Fall in past year Last assessed Fall Risk: 08/19/24 Dental Screening Dental Screen Date: 11/19/23 HPI 3 month follow up HPI Details hyperlipidemia on rx; doing well and compliant; due for labs [facility] Medical History Paroxysmal atrial fibrillation Atrial tachycardia Atrial flutter Persistent atrial fibrillation Obesity Screening for prostate cancer Screening for diabetes mellitus Paroxysmal atrial fibrillation History of stent insertion of renal artery Carotid disease, bilateral PAD (peripheral artery disease) Hyperlipidemia Hypertension Surgical History H/O esophagogastroduodenoscopy H/O colonoscopy History of angioplasty History of surgery History of cardioversion History of vasectomy History of carotid endarterectomy Family History Father Heart disease Mother Hypertension Brother No problems noted. Son No problems noted. Social History (Reviewed 07/26/24 @ 09:26 by Hemant Hammond Housing: House Are you a primary critical care unit nurse to a significant other at home: No Do you presently have visiting nurse or other home services: No Alcohol intake: former Patient Tobacco Use Status: Former Tobacco user Tobacco use type: Cigarette e-Cigarette/Vaping Use: Never Used Second Hand Smoke Exposure: No Advance Directives Date on File: 08/17/20 service: No Current occupational status: retired Cognitive needs: Yes (cane) Hearing needs: Yes (hearing aide) Vision needs: Yes (glasses) Questionnaire PHQ-9 Over the last 2 weeks, how often have you been bothered by any of the following problems? 1. Little interest or pleasure in doing things: not at all 2. Feeling down, depressed, or hopeless: not at all 3. Trouble falling or staying asleep, or sleeping too much: not at all 4. Feeling tired or having little energy: not at all 5. Poor appetite or overeating: not at all 6. Feeling bad about yourself - or that you are a failure or have let yourself or your family down: not at all 7. Trouble concentrating on things, such as reading the newspaper or watching television: not at all 8. Moving or speaking so slowly that other people could have noticed. Or the opposite - being so fidgety or restless that you have been moving around a lot more than usual: not at all 9. Thoughts that you would be better off or of hurting yourself in some way: not at all Total score: 0 Depression Screening Interpretation: Negative Depression Screening Done: Yes 57328 - PHQ-9 Billing: Yes Source: Developed by Drs. Rubén Whitney, Dalila Delgado, Ken Jolley and colleagues, with an educational oscar from [employer]. Thrive Questionnaire Date Thrive assessed: 11/19/23 Are you currently unemployed and looking for a job?: I choose not to answer this question AUDIT C Alcohol Use Questionnaire (AUDIT-C) 1. How often do you have a drink containing alcohol?: Never 3. How often do you have six or more drinks on one occasion?: Never Total Score: 0 Score Reviewed/Action Taken: No ROBERTO-7 AMB Questionnaire ROBERTO-7 Date ROBERTO - 7 assessed: 11/19/23 Source: Developed by Drs. Rubén Whitney, Dalila Delgado, Ken Jolley and colleagues, with an educational oscar from [employer]. Review of Systems Const Denies chills, Denies headache(s) and Denies weight loss ENT Denies headache(s) Card Denies chest pain, Denies syncope, Denies irregular heart rhythm and Denies dyspnea Resp Denies chest congestion, Denies cough and Denies dyspnea GI Denies abdominal pain, Denies change in stool character, Denies nausea and Denies vomiting Musc Denies deformity and Denies joint swelling Neuro Denies syncope and Denies headache(s) Physical exam (Primary Care) Vital Signs: Last Vital Signs Pulse 49 L 08/19/24 09:17 BP 160/82 H 08/19/24 09:17 Pulse Ox 93 08/19/24 09:17 Oxygen Delivery Method Room Air 08/19/24 09:17 BMI result Body Mass Index 39.9 Tobacco/Smoking Status: Tobacco use Status Tobacco use date assessed 05/19/24 08/19/24 09:23 Patient Tobacco Use Status Former Tobacco user 08/19/24 09:23 Tobacco use type Cigarette 08/19/24 09:23 e-Cigarette/Vaping Use Never Used 08/19/24 09:23 PHQ-9: PHQ-9 Score PHQ-9: Total score 0 08/19/24 09:23 Depression Screening Interpretation: Negative Thrive Assessment: Date of Thrive Assessment Date Thrive assessed 11/19/23 08/19/24 09:23 Const General: cooperative, comfortable, no acute distress and alert Neck Neck: Yes no lymphadenopathy Thyroid: Thyroid normal Resp Effort & Inspection: normal respiratory effort Auscultation: clear to auscultation bilaterally Percussion: percussion normal Cardio Jugular venous distension: no JVD Palpation: normal PMI Rate: regular rate Rhythm: regular rhythm Heart sounds: S1 normal heart sound present and S2 normal heart sound present GI Inspection: Yes normal to inspection Palpation (GI): No hepatosplenomegaly present Skin General skin exam: no rashes or lesions noted Extrem General: Yes no clubbing, cyanosis or edema Coding Level of Care Code Est Pt Level 3 (30855) Diagnoses Hyperlipidemia E78.5 Assessment & Plan Assessment & Plan (1) Hyperlipidemia: Code(s): E78.5 - Hyperlipidemia, unspecified Category: Medical Plan: stable; same rx Orders: Orders ECG 12 lead EKG Today R42 - Dizziness and giddiness Lipid Panel Today Z13.220 - Encounter for screening for lipoid disorders
== END 2024-08-19 09:36 | disposition home or self-care (01) ==
PROVIDERS: PCP Internal Medicine; Visit Provider Internal Medicine
DX: E78.5 Hyperlipidemia, unspecified (principal)

== ENCOUNTER → 2024-08-19 09:15 | Outpatient (REF) | payer MEDICARE, SELFPAY ==
--- NOTE | 2024-08-19 09:55 | ECG_ITS ---
Test Reason : DIZZINESS Blood Pressure : / mmHG Vent. Rate : 095 BPM Atrial Rate : 271 BPM P-R Int : 000 ms QRS Dur : 100 ms QT Int : 356 ms P-R-T Axes : 000 -06 -02 degrees QTc Int : 447 ms Atrial flutter with variable A-V block with premature ventricular or aberrantly conducted complexes RSR' or QR pattern in V1 suggests right ventricular conduction delay Anteroseptal infarct (cited on or before 28-MAY-2022) Abnormal ECG When compared with ECG of 08-AUG-2022 14:25, Atrial flutter has replaced Sinus rhythm RSR' pattern in V1 is now Present Questionable change in initial forces of Anteroseptal leads ST now depressed in Inferior leads Referred By: Oren Puentes Electronically Signed By:JOHANN QUINTERO MD
== END ==
LOC: HO.CARD 09:15
PROVIDERS: PCP Internal Medicine; Visit Provider Internal Medicine
DX: R42 Dizziness and giddiness (principal); E78.5 Hyperlipidemia, unspecified
CPT/HCPCS: 93005; 99212

== ENCOUNTER → 2024-08-19 09:55 | Outpatient (BNV) | payer MEDICARE, SELFPAY | PROVIDERS: PCP Internal Medicine; Visit Provider Internal Medicine Cardiovascular Disease | DX: R94.31 Abnormal electrocardiogram [ECG] [EKG] (principal) | CPT/HCPCS: 93010 ==

== ENCOUNTER 2024-08-24 10:08 | Outpatient (AMB) | payer MEDICARE, SELFPAY ==
--- NOTE | 2024-08-24 10:20 | HO.NEPHOV ---
Vital Signs 08/24/24 10:21 Height 5 ft 2 in Weight 219 lb 8 oz BMI 40.1 BP 130/70 Blood Pressure Location Rt brachial Position Sitting Pulse 97 Pulse Source Pulse Oximeter Pulse Oximetry (%) 95 Oxygen Delivery Method Room Air Intake Visit Reasons: 4 mo fu w/labs/ Conf Rolling Chair Pusher Required: No Accompanied by: Self / Same As Patient Allergies ENVIRONMENTAL Allergy (Uncoded 08/19/24 09:17) Runny Nose HPI Comments Details: I had the privilege of seeing Holland in follow-up of his chronic kidney disease and hypertension. He has vascular disease and has seen vascular surgeon . He had undergone angiography as well as stenting. He denies taking any nonsteroidal anti-inflammatory medications for it. He follows up with Dr. Flores. His blood pressure has been close to goal at home. He denies any chest pain, shortness of breath, proximal nocturnal dyspnea, orthopnea, pedal edema or urinary symptoms. He does not have any palpitation, syncope or orthostatic symptoms. He is on lipid-lowering agents. He has been tolerating lisinopril. He is on anticoagulation [facility] Medical History Paroxysmal atrial fibrillation Atrial tachycardia Atrial flutter Persistent atrial fibrillation Obesity Screening for prostate cancer Screening for diabetes mellitus Paroxysmal atrial fibrillation History of stent insertion of renal artery Carotid disease, bilateral PAD (peripheral artery disease) Hyperlipidemia Hypertension Surgical History H/O esophagogastroduodenoscopy H/O colonoscopy History of angioplasty History of surgery History of cardioversion History of vasectomy History of carotid endarterectomy Family History Father Heart disease Mother Hypertension Brother No problems noted. Son No problems noted. Social History Housing: House Are you a primary caregiver services home to a significant other at home: No Do you presently have visiting nurse or other home services: No Alcohol intake: former Patient Tobacco Use Status: Former Tobacco user Tobacco use type: Cigarette e-Cigarette/Vaping Use: Never Used Second Hand Smoke Exposure: No Advance Directives Date on File: 08/17/20 service: No Current occupational status: retired Cognitive needs: Yes (cane) Hearing needs: Yes (hearing aide) Vision needs: Yes (glasses) Review of Systems Const All systems reviewed & are unremarkable except as noted in HPI and below Physical Exam Vital Signs: Last Vital Signs Pulse 97 08/24/24 10:21 BP 138/70 08/24/24 10:21 Pulse Ox 95 08/24/24 10:21 Oxygen Delivery Method Room Air 08/24/24 10:21 BMI result Body Mass Index 40.1 Const General: comfortable and no acute distress Orientation/consciousness: patient oriented x3 HEENT Head: Yes normocephalic Mouth: Normal oral and palatal mucosa present Eyes EOM: EOMs intact bilaterally Neck Neck: Yes supple Resp Auscultation: clear to auscultation bilaterally Cardio Jugular venous distension: no JVD Rate: regular rate GI Palpation (GI): Soft to palpation Auscultation: normal bowel sounds General: Yes no CVA tenderness Back/Spine/Pelvis Back: no CVA tenderness Skin General skin exam: no rashes or lesions noted Neuro General: patient oriented x3 and moves all extremities Extrem General: Yes no pedal edema Results Reviewed Nephrology Results: Hgb 13.3 g/dl (14.0-18.0) L 08/16/24 WBC 8.2 X10*3/uL (4.8-10.8) 08/16/24 Plt Count 332 X10*3/uL (160-400) 08/16/24 Sodium 142 mmol/L (135-145) 08/16/24 Potassium 3.9 mmol/L (3.3-5.1) 08/16/24 Chloride 106 mmol/L (96-108) 08/16/24 Carbon Dioxide 29 mmol/L (22-29) 08/16/24 BUN 20 mg/dL (9-16) H 08/16/24 Creatinine 1.05 mg/dL (0.5-1.4) 08/16/24 Calcium 10.4 mg/dL (8.4-10.2) H 08/16/24 Assessment & Plan Assessment & Plan (1) Hypercalcemia: Code(s): E83.52 - Hypercalcemia Category: Medical (2) CKD (chronic kidney disease) stage 3, GFR 30-59 ml/min: Code(s): N18.30 - Chronic kidney disease, stage 3 unspecified Category: Medical Qualifiers: Chronic kidney disease stage 3 subtype: stage 3a (GFR 45-59) Qualified Code(s): N18.31 - Chronic kidney disease, stage 3a (3) Hypertension: Code(s): I10 - Essential (primary) hypertension Category: Medical Qualifiers: Hypertension type: primary hypertension Qualified Code(s): I10 - Essential (primary) hypertension (4) Hyperparathyroidism: Code(s): E21.3 - Hyperparathyroidism, unspecified Category: Medical Plan Holland has stage III 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 He has longstanding hypertension which is well controlled on the current medication regimen. His needs to cut back on salt and should lose some weight. He avoids nonsteroidal anti-inflammatory medications. He should remain well hydrated. He is on statins. He takes anticoagulation. I did not make any medication changes today. I shall back off HCTZ if his serum calcium goes up further. He has primary hyperparathyroidism as evident by Sestamibi scan. I plan to repeat a Doppler of his renal arteries with time. Answered all his questions. Followup labs ordered. Orders: Orders Calcium 6 Months E21.3 - Hyperparathyroidism, unspecified, E83.52 - Hypercalcemia, I10 - Essential (primary) hypertension, N18.31 - Chronic kidney disease, stage 3a Creatinine 6 Months E21.3 - Hyperparathyroidism, unspecified, E83.52 - Hypercalcemia, I10 - Essential (primary) hypertension, N18.31 - Chronic kidney disease, stage 3a Parathyroid Hormone Intact 6 Months E21.3 - Hyperparathyroidism, unspecified, E83.52 - Hypercalcemia, I10 - Essential (primary) hypertension, N18.31 - Chronic kidney disease, stage 3a Electrolytes 6 Months E21.3 - Hyperparathyroidism, unspecified, E83.52 - Hypercalcemia, I10 - Essential (primary) hypertension, N18.31 - Chronic kidney disease, stage 3a Blood Urea Nitrogen 6 Months E21.3 - Hyperparathyroidism, unspecified, E83.52 - Hypercalcemia, I10 - Essential (primary) hypertension, N18.31 - Chronic kidney disease, stage 3a Coding Level of Care Code Est Pt Level 4 (90626) Diagnoses Hypercalcemia E83.52 Stage 3a chronic kidney disease N18.31 Chronic kidney disease stage 3 subtype: stage 3a (GFR 45-59) Primary hypertension I10 Hypertension type: primary hypertension Hyperparathyroidism E21.3
[2024-08-24 10:21] VITALS: BP 130/70; PULSE 97; O2SAT 95; BMI 40.1
== END 2024-08-24 10:44 | disposition home or self-care (01) ==
PROVIDERS: PCP Internal Medicine; Visit Provider Internal Medicine Nephrology
DX: I12.9 Hypertensive chronic kidney disease with stage 1 through stage 4 chronic kidney disease, or unspecified chronic kidney disease (principal); N18.31 Chronic kidney disease, stage 3a; E21.3 Hyperparathyroidism, unspecified
CPT/HCPCS: 99214

== ENCOUNTER → 2024-08-24 10:08 | Outpatient (BNVA) | payer MEDICARE, SELFPAY | PROVIDERS: PCP Internal Medicine; Visit Provider Internal Medicine Nephrology | DX: I12.9 Hypertensive chronic kidney disease with stage 1 through stage 4 chronic kidney disease, or unspecified chronic kidney disease (principal); N18.31 Chronic kidney disease, stage 3a; I73.9 Peripheral vascular disease, unspecified; E83.52 Hypercalcemia; E21.3 Hyperparathyroidism, unspecified | CPT/HCPCS: 99212 ==

== ENCOUNTER 2024-08-29 13:49 | Outpatient (REF) | payer MEDICARE, SELFPAY ==
--- NOTE | ~2024-08-29 | US_ITS ---
EXAMINATION: Noninvasive assessment of the bilateral lower extremities with ARTERIAL DUPLEX and ANKLE BRACHIAL INDICES (ABIs). US DOPPLER AORTA AND INFERIOR VENA CAVA CLINICAL INFORMATION: Peripheral vascular disease, history of a iliac stent TECHNIQUE: Duplex Doppler techniques with waveform analysis and measurement of velocities in the bilateral common femoral, profunda femoris, superficial femoral, popliteal and tibial arteries were performed. Additionally, ankle pulse volume recordings, ankle pressure measurements and ankle brachial indices were obtained of the lower extremity arterial system bilaterally. The study was performed only at rest. Ultrasound along with color Doppler imaging and spectral analysis was performed of the abdominal aorta and bilateral iliac arteries. COMPARISON: CTA from 01/09/2023. Ultrasound from 07/30/2023 FINDINGS: AORTA: The mid segment is obscured by bowel gas shadowing. Proximal and distal segments are normal in caliber. The measurements of the aorta in maximum AP and transverse dimensions respectively are as follows: Proximal: 2.8 cm. Mid: Not visualized cm. Distal: 1.8 cm. PSV: 95.7 cm/s. Biphasic The velocity measurements of the iliac arteries are as follows: Right Common Iliac Artery: 145 cm/s. Monophasic Right external iliac artery: 124 cm/s. Monophasic Left Common Iliac Artery: 66.8 cm/s. Biphasic Left external iliac artery: 146 cm/s. Monophasic DIRECT DUPLEX DOPPLER FINDINGS: RIGHT LEG: Common femoral artery: 181 cm/s, phasicity: Biphasic Profunda femoris artery: 243 cm/s, phasicity: Monophasic Superficial femoral artery (proximal): 235 cm/s, phasicity: Biphasic. Moderate calcified plaque Superficial femoral artery (mid): 151 cm/s, phasicity: Biphasic. Moderate calcified plaque Superficial femoral artery (distal): 137 cm/s, phasicity: Biphasic Popliteal artery: 59.8 cm/s, phasicity: Biphasic Posterior tibial artery: 64.2 cm/s, phasicity: Biphasic Peroneal artery: 67.0 cm/s, phasicity: Biphasic Anterior tibial artery: 55.4 cm/s, phasicity: Biphasic Dorsalis pedis artery: 16.4 cm/s, phasicity:Monophasic LEFT LEG: Common femoral artery: 527 cm/s, phasicity: Monophasic. Moderate calcified plaque Profunda femoris artery: 90.1 cm/s, phasicity: Biphasic Superficial femoral artery (proximal): 161 cm/s, phasicity: Monophasic Superficial femoral artery (mid): 84 cm/s, phasicity: Monophasic Superficial femoral artery (distal): 49.8 cm/s, phasicity: Monophasic Popliteal artery: 42.7 cm/s, phasicity: Monophasic Posterior tibial artery: 35.7 cm/s, phasicity: Monophasic Peroneal artery: 29.3 cm/s, phasicity: Monophasic Anterior tibial artery: 17.9 cm/s, phasicity: Monophasic Dorsalis pedis artery: 17.5 cm/s, phasicity: Monophasic ANKLE-BRACHIAL INDEX: Right: 0.81, previously 0.86 Left: 0.59, previously 0.65 ANKLE PRESSURES: Right: PT 152, DP 168 Left: PT 111, DP 106 ANKLE PVR WAVEFORMS: Right: Abnormal Left: Abnormal US/US arterial duplex BI w/ BRADLY IMPRESSION: 1. Patent right iliac stent. 2. Elevated velocities in the right proximal and mid superficial femoral artery consistent with moderate stenosis. 3. Elevated velocities in the left common femoral artery consistent with severe stenosis. 4. Abnormal ankle-brachial indices bilaterally consistent with peripheral vascular disease, stable. Electronically signed by: Robel Funes MD 09/08/2024 10:17 AM EDT
== END 2024-08-29 13:50 | disposition home or self-care (01) ==
LOC: HO.US 13:49
PROVIDERS: PCP Internal Medicine; Visit Provider Surgery Vascular Surgery
DX: I73.9 Peripheral vascular disease, unspecified (principal)
CPT/HCPCS: 76775; 93922; 93925

== ENCOUNTER 2024-09-29 13:58 | Outpatient (AMB) | payer MEDICARE, SELFPAY ==
--- NOTE | 2024-09-29 14:01 | MHC.OFFVIS ---
Vital Signs 09/29/24 14:02 Height 5 ft 2 in Weight 219 lb BMI 40.1 Intake Visit Reasons: Follow Up arterial Intake Note: 1 yr follow up Arterial US 08/29/24. Pt states no changes Accompanied by: Self / Same As Patient Allergies ENVIRONMENTAL Allergy (Uncoded 09/29/24 14:08) Runny Nose HPI HPI Follow Up arterial: Details: very pleasant 79-year-old gentleman presents for routine surveillance follow-up regarding peripheral vascular disease. He appears to be doing relatively well. Ambulating well no interval issues. He does require the use of a cane more for balance. He now presents for routine surveillance follow-up with noninvasive arterial testing. [facility], [facility] Medical History Paroxysmal atrial fibrillation Atrial tachycardia Atrial flutter Persistent atrial fibrillation Obesity Screening for prostate cancer Screening for diabetes mellitus Paroxysmal atrial fibrillation History of stent insertion of renal artery Carotid disease, bilateral PAD (peripheral artery disease) Hyperlipidemia Hypertension Surgical History H/O esophagogastroduodenoscopy H/O colonoscopy History of angioplasty History of surgery History of cardioversion History of vasectomy History of carotid endarterectomy Family History Father Heart disease Mother Hypertension Brother No problems noted. Son No problems noted. Social History Housing: House Are you a primary medicare biller to a significant other at home: No Do you presently have visiting nurse or other home services: No Alcohol intake: former Patient Tobacco Use Status: Former Tobacco user Tobacco use type: Cigarette e-Cigarette/Vaping Use: Never Used Second Hand Smoke Exposure: No Advance Directives Date on File: 08/17/20 service: No Current occupational status: retired Cognitive needs: Yes (cane) Hearing needs: Yes (hearing aide) Vision needs: Yes (glasses) Review of Systems Const All systems reviewed & are unremarkable except as noted in HPI and below Reports no additional complaints ENT Reports Normal hearing present Card Denies chest pain, Denies chest pain at rest, Denies chest pain with activity and Denies pedal edema Resp Denies cough GI Denies abdominal pain Musc Denies abnormal gait, Denies muscle cramps and Denies radiating pain into limb Skin/Breast Denies skin ulcer and Denies wounds Neuro Reports Normal hearing present and Denies abnormal gait Psych Reports no additional complaints Physical Exam Vital Signs: BMI result Body Mass Index 40.1 Const General: cooperative, healthy appearing and comfortable Orientation/consciousness: oriented to person, oriented to place and oriented to time HEENT Head: Yes normal to inspection Neck Neck: Yes normal visual inspection Carotids: no bruits Chest Chest palpation & inspection: normal inspection of the chest Resp Effort & Inspection: normal respiratory effort and able to speak in complete sentences Auscultation: clear to auscultation bilaterally, no crackles, no rales, no rhonchi and no wheezes Cardio Other: Bilateral DP signals Rate: regular rate Rhythm: regular rhythm Heart sounds: S1 normal heart sound present and S2 normal heart sound present Bruits: no carotid bruits Peripheral pulses: Peripheral pulses 2+ throughout GI Inspection: Yes normal to inspection Skin Wounds: no wounds Hair: normal Neuro General: oriented to person, oriented to place and oriented to time Cranial nerves: Yes CN's II-XII intact bilaterally and Yes Normal hearing present Cognition (Neuro): normal cognition Motor exam (neuro): 5/5 motor strength present throughout Extrem Other: venous exam: No significant superficial varicosities or spider telangiectasias, minimal edema General: No clubbing, No cyanosis and No edema Psych Appearance: grossly normal Mental Status: mental status grossly normal Speech and movement: Normal speech and movement present Results Reviewed Results Reviewed: noninvasive lower extremity testing dated 08/29/2024 demonstrates patent iliac stents with BRADLY on the right of 0.81 and on the left of 0.59. Written report and images were reviewed. Assessment & Plan Assessment & Plan (1) PAD (peripheral artery disease): Comment: Bilateral femoral endarterectomy 12/05/2020- left common iliac and external iliac plasty 01/02/2021 - right common iliac stent Code(s): I73.9 - Peripheral vascular disease, unspecified Category: Medical Plan: In short patient has stable claudication. I did review the pathophysiology of peripheral vascular disease with the patient. In addition we did discuss routine conservative measures including a healthy diet and the importance of exercise and ambulation. We did discuss risk factor modification. The patient will continue to to follow-up with surveillance follow-up in approximately One year. Thank you for allowing us to participate in this patient's care. If there are any questions or concerns please do not hesitate to contact us. Please note a longitudinal relationship has been created with the patient and we have been following and surveillance this chronic condition. Orders: Orders US arterial duplex LE BI 1 Year I73.9 - Peripheral vascular disease, unspecified US abdominal aortic aneurysm 1 Year I73.9 - Peripheral vascular disease, unspecified Coding Level of Care Code Est Pt Level 4 (20759) Complex EM visit Add On G2211 Diagnoses PAD (peripheral artery disease) I73.9
[2024-09-29 14:02] VITALS: BMI 40.1
== END 2024-09-29 14:36 | disposition home or self-care (01) ==
PROVIDERS: PCP Internal Medicine; Visit Provider Surgery Vascular Surgery
DX: I73.9 Peripheral vascular disease, unspecified (principal)
CPT/HCPCS: 99214; G2211

== ENCOUNTER → 2024-09-29 13:58 | Outpatient (BNVA) | payer MEDICARE, SELFPAY | PROVIDERS: PCP Internal Medicine; Visit Provider Surgery Vascular Surgery | DX: I73.9 Peripheral vascular disease, unspecified (principal); Z87.891 Personal history of nicotine dependence | CPT/HCPCS: 99212 ==

== ENCOUNTER 2024-12-07 10:33 | Outpatient (AMB) | payer MEDICARE, SELFPAY ==
--- NOTE | 2024-12-07 10:39 | MHC.PC.OV ---
Vital Signs 12/07/24 10:42 Height 5 ft 2 in Weight 222 lb 4 oz BMI 40.6 BP 130/60 Blood Pressure Location Lt brachial Position Sitting Pulse 65 Pulse Source Pulse Oximeter Temp 96.9 F Temp Source Skin Pulse Oximetry (%) 98 Oxygen Delivery Method Room Air Intake Visit Reasons: 3 month f/u Intake Note: Patient is here to follow up on HTN, HLD. Service Operator Required: No Injection Mold Tooling Technician: Not Required per policy Accompanied by: Self / Same As Patient Allergies ENVIRONMENTAL Allergy (Uncoded 12/07/24 10:41) Runny Nose Medication List - Last Reconciled 12/07/24 by Oren Puentes MD acetaminophen 500 mg PO Q6H PRN albuterol sulfate 90 mcg/actuation 2 puffs PO DAILY atorvastatin 80 mg PO DAILY 90 days cholecalciferol (vitamin D3) 25 mcg PO DAILY diltiazem HCl CD 240 mg PO DAILY ezetimibe 10 mg PO DAILY finasteride 5 mg PO DAILY 90 days flecainide 50 mg PO BID fluticasone propion-salmeterol 100-50 mcg/dose (Wixela Inhub) 1 inh inhalation BID hydrochlorothiazide 25 mg PO DAILY lisinopril 40 mg PO BID pantoprazole 20 mg PO DAILY rivaroxaban (Xarelto) 20 mg PO DAILY 90 days tramadol 100 mg (2 x 50 mg) PO Q6H PRN Tobacco use date assessed: 12/07/24 Fall risk assessment: No Falls in past year Last assessed Fall Risk: 12/07/24 Dental Screening Dental Screen Date: 12/07/24 Did you have a dental visit in the last 12 months?: No Did you have a dental problem in the last 6 months where you did not have access to dental care?: No Was dental information given to patient?: No (Dentures) HPI 3 month f/u HPI Details hyperlipidemia on rx; doing well and compliant [facility] Medical History Paroxysmal atrial fibrillation Atrial tachycardia Atrial flutter Persistent atrial fibrillation Obesity Screening for prostate cancer Screening for diabetes mellitus Paroxysmal atrial fibrillation History of stent insertion of renal artery Carotid disease, bilateral PAD (peripheral artery disease) Hyperlipidemia Hypertension Surgical History H/O esophagogastroduodenoscopy H/O colonoscopy History of angioplasty History of surgery History of cardioversion History of vasectomy History of carotid endarterectomy Family History Father Heart disease Mother Hypertension Brother No problems noted. Son No problems noted. Social History Housing: House Are you a primary medical care evaluation specialist to a significant other at home: No Do you presently have visiting nurse or other home services: No Alcohol intake: former Patient Tobacco Use Status: Former Tobacco user Tobacco use type: Cigarette e-Cigarette/Vaping Use: Never Used Second Hand Smoke Exposure: No Advance Directives Date on File: 08/17/20 service: No Current occupational status: retired Cognitive needs: Yes (cane) Hearing needs: Yes (hearing aide) Vision needs: Yes (glasses) Questionnaire PHQ-9 Over the last 2 weeks, how often have you been bothered by any of the following problems? 1. Little interest or pleasure in doing things: not at all 2. Feeling down, depressed, or hopeless: not at all 3. Trouble falling or staying asleep, or sleeping too much: not at all 4. Feeling tired or having little energy: not at all 5. Poor appetite or overeating: not at all 6. Feeling bad about yourself - or that you are a failure or have let yourself or your family down: not at all 7. Trouble concentrating on things, such as reading the newspaper or watching television: not at all 8. Moving or speaking so slowly that other people could have noticed. Or the opposite - being so fidgety or restless that you have been moving around a lot more than usual: not at all 9. Thoughts that you would be better off or of hurting yourself in some way: not at all Total score: 0 Depression Screening Interpretation: Negative Depression Screening Done: Yes Source: Developed by Drs. Rubén Whitney, Dalila Delgado, Ken Jolley and colleagues, with an educational oscar from [email or web address]. Thrive Questionnaire Date Thrive assessed: 12/07/24 I am a: Patient What is your living situation today?: I have a steady place to live Within the past 12 months, did the food you bought not last and you didn't have the money to get more?: Never true Within the past 12 months, did you worry whether your food would run out before you got money to buy more?: Never true Do you have trouble paying for medicines?: No Do you have trouble getting transportation to medical appointments?: No Do you have trouble paying your heating and electricity bill?: No Do you have trouble taking care of your child, family member or friend?: No Do you have trouble with day-to-day activities such as bathing, preparing meals, shopping, managing finances, etc.?: No Are you currently unemployed and looking for a job?: No Are you interested in more education?: No Please select the resources that you would like help with: None Currently or been in a relationship where the following occur: No concerns reported THRIVE Score: 0 AUDIT C Alcohol Use Questionnaire (AUDIT-C) 1. How often do you have a drink containing alcohol?: Never Total Score: 0 ROBERTO-7 AMB Questionnaire ROBERTO-7 Date ROBERTO - 7 assessed: 12/07/24 Feeling nervous, anxious, or on edge: 0 = Not at all Not being able to stop or control worryin = Not at all Worrying too much about different things: 0 = Not at all Trouble relaxin = Not at all Being so restless that it is hard to sit still: 0 = Not at all Becoming easily annoyed or irritable: 0 = Not at all Feeling afraid as if something awful might happen: 0 = Not at all Total ROBERTO-7 score (0-4 normal; 5-9 mild; 10-14 moderate; 15-21 severe): 0 Source: Developed by Drs. Rubén Whitney, Dalila Delgado, Ken Jolley and colleagues, with an educational oscar from [email or web address]. Review of Systems Const Denies chills, Denies headache(s) and Denies weight loss ENT Denies headache(s) Card Denies chest pain, Denies syncope, Denies irregular heart rhythm and Denies dyspnea Resp Denies chest congestion, Denies cough and Denies dyspnea GI Denies abdominal pain, Denies change in stool character, Denies nausea and Denies vomiting Musc Denies deformity and Denies joint swelling Neuro Denies syncope and Denies headache(s) Physical exam (Primary Care) Vital Signs: Last Vital Signs Temp 96.9 F 12/07/24 10:42 Pulse 65 12/07/24 10:42 BP 130/60 12/07/24 10:42 Pulse Ox 98 12/07/24 10:42 Oxygen Delivery Method Room Air 12/07/24 10:42 BMI result Body Mass Index 40.6 Tobacco/Smoking Status: Tobacco use Status Tobacco use date assessed 12/07/24 12/07/24 10:46 Patient Tobacco Use Status Former Tobacco user 12/07/24 10:46 Tobacco use type Cigarette 12/07/24 10:46 e-Cigarette/Vaping Use Never Used 12/07/24 10:46 PHQ-9: PHQ-9 Score PHQ-9: Total score 0 12/07/24 10:46 Depression Screening Interpretation: Negative Thrive Assessment: Date of Thrive Assessment Date Thrive assessed 12/07/24 12/07/24 10:46 Currently or been in a relationship where the following occur: No concerns reported Const General: cooperative, comfortable, no acute distress and alert Neck Neck: Yes no lymphadenopathy Thyroid: Thyroid normal Resp Effort & Inspection: normal respiratory effort Auscultation: clear to auscultation bilaterally Percussion: percussion normal Cardio Jugular venous distension: no JVD Palpation: normal PMI Rate: regular rate Rhythm: regular rhythm Heart sounds: S1 normal heart sound present and S2 normal heart sound present GI Inspection: Yes normal to inspection Palpation (GI): No hepatosplenomegaly present Skin General skin exam: no rashes or lesions noted Extrem General: Yes no clubbing, cyanosis or edema Coding Level of Care Code Est Pt Level 3 (23975) Diagnoses Hyperlipidemia E78.5 Assessment & Plan Assessment & Plan (1) Hyperlipidemia: Code(s): E78.5 - Hyperlipidemia, unspecified Category: Medical Plan: stable; same rx
[2024-12-07 10:42] VITALS: BP 130/60; PULSE 65; TEMP 36.1; O2SAT 98; BMI 40.6
--- OUTSIDE RECORDS SUMMARY | 2024-12-07 12:41 | XMS_ITS | Clinical Summary ---
Author Organization [facility] Address [address] [place] [address] Phone Care Team Providers Care Clothing Pattern Preparer Name Role Phone Oren Puentes MD Primary Care Provider [phone] Allergies No known active allergies Medications acetaminophen (TYLENOL) 500 MG tablet Take 500 mg by mouth every 6 (six) hours if needed for mild pain Active albuterol HFA (PROVENTIL HFA;VENTOLIN HFA) 108 (90 Base) MCG/ACT inhaler Inhale 2 puffs every 6 (six) hours if needed for wheezing Active atorvastatin (LIPITOR) 80 MG tablet Take 80 mg by mouth 1 (one) time each day Active ezetimibe (ZETIA) 10 MG tablet Take 10 mg by mouth 1 (one) time each day Active fluticasone-enid meterol (ADVAIR DISKUS) 100-50 MCG/DOSE diskus inhaler Inhale 1 puff 2 (two) times a day Rinse mouth with water after use to reduce aftertaste and incidence of candidiasis. Do not swallow. Active hydroCHLOROthia zide 25 MG tablet Take 25 mg by mouth 1 (one) time each day Active lisinopril 40 MG tablet Take 40 mg by mouth in the morning and 40 mg in the evening. Active pantoprazole (PROTONIX) 20 MG EC tablet Take 20 mg by mouth 1 (one) time each day before breakfast Do not crush, chew, or split. Active rivaroxaban (XARELTO) 20 MG tablet Take 20 mg by mouth 1 (one) time each day with dinner Active traMADol ER (ULTRAM-ER) 100 MG 24 hr tablet Take 50 mg by mouth if needed Do not crush, chew, or split. Active Cholecalciferol (Vitamin D) 25 MCG (1000 UT) tablet Take by mouth Active dilTIAZem CD (CARDIZEM CD) 240 MG 24 hr capsule Take 240 mg by mouth 1 (one) time each day Active flecainide (TAMBOCOR) 150 MG tablet Take 150 mg by mouth in the morning and 150 mg in the evening. Active Active Problems Problem Noted Date Diagnosed Date Secondary hyperparathyroidism of renal origin Hypercalcemia 03/26/2022 Stage 3a chronic kidney disease 12/25/2021 Hypertension 12/25/2021 Hypertensive disorder 02/04/2017 Overview (12/23/2021): Last Assessment & Plan: Managed by PCP as an outpatient. SBP in the 90's post procedure. Patient did take Toprol, Norvasc and Lisinopril this morning -Maintain SBP >90 -Check Cr tomorrow prior to resuming Lisinopril and HCTZ -Continue Norvasc tomorrow if BP can tolerate Resolved Problems Problem Noted Date Diagnosed Date Resolved Date Asymptomatic carotid artery stenosis 03/26/2017 12/23/2021 Overview (12/23/2021): Last Assessment & Plan: Prior stroke with right eye blindness in 1999 and was found to have bilateral carotid artery stenosis and underwent a RCEA at that time. In January 2017 underwent RCIA stent. A carotid US on 02/16/2017 showed: Patent MACIE stent, mild RCCA plaque, significant RECA plaque, ~60% complex and irregular LICA stenosis, mild-moderate LCCA plaque, significant plaque in the LECA, antegrade flow in both vertebrals, and biphasic flow in both subclavians without significant stenosis. Today he is s/p LICA stent without complications. Upon arrival to [facility] SBP 85-90, HR 45-50, sudafed 60mg x1 given -Continue post procedure care per protocol -Maintain SBP >90, HR >45 -NS at 150cc/hr x 10 hours -Sudafed 60 mg q 4 hours prn for SBP <90 -Neuro checks q 4 hours -Continue ASA and Plavix -Continue Atorvastatin 80 mg daily -Check labs in the morning -Follow up with Dr. Oropeza in [facility] with an ultrasound in 2 weeks and appointment in 4 weeks (already scheduled) Atrial fibrillation 02/04/2017 12/23/19 Overview (12/23/2021): Was on Xarelto but had epistaxis after aspirin and plavix were added. No recurrent bleeding off Xarelto. No known recurrence of AF. Last Assessment & Plan: History of PAF and was previously anticoagulated with Xarelto but after starting ASA and Plavix he developed epistaxis and it was discontinued. [id number]. Currently sinus bradycardia in the 50's (patients baseline) -Monitor on telemetry -Continue Toprol XL 100mg daily -Hold Xarelto while on DAPT, decision on when to resume will be determined as an outpatient Hyperlipidemia 02/04/2017 12/23/2021 Overview (12/23/2021): Last Assessment & Plan: No fasting lipid panel available, managed by his PCP -Continue Zetia and high dose Atorvastatin -Check FLP an outpatient Peripheral vascular disease 02/04/2017 12/23/2021 Overview (12/23/2021): s/p R MARKETING/SALES PERSON endarterectomy Last Assessment & Plan: History of PAD, s/p right MARKETING/SALES PERSON endarterectomy November 2016. Left iliofemoral angiogram reveals a high grade L MARKETING/SALES PERSON lesion (distal to the access site) -Continue ASA and statin as above -Followed by Dr. Oropeza Stenosis of bilateral carotid arteries 02/04/2017 12/23/2021 Overview (12/23/2021): s/p R CEA Last Assessment & Plan: Hx stroke in 1999. RCEA in 1999. US showed restenosis of MACIE, and significant LICA stenosis. RCEA/MACIE restenosis treated with stent in 01/2017 Most recent US showed patent MACIE stent. Admitted now for LICA stent Family History Medical History Relation Comments Heart disease Father Hypertension Mother Relation Status Comments Father Mother Social History Tobacco Use Types Packs/Day Years Used Date Smoking Tobacco: Former Smokeless Tobacco: Never Tobacco Cessation:Counseling Given: Not Answered Alcohol Use Standard Drinks/Week Comments Not Currently 0 (1 standard drink = 0.6 oz pur e alcohol) Sex and Gender Information Value Date Recorded Sex Assigned at Not on file Legal Sex Male 2:22 PM EST Gender Identity Not on file Sexual Orientation Not on file Last Filed Vital Signs Vital Sign Reading Time Taken Comments Blood Pressure 160/60 01/21/2023 2:01 PM EDT Pulse 48 01/21/2023 2:01 PM EDT Temperature - - Respiratory Rate - - Oxygen Saturation 97% 07/09/2022 3:08 PM EDT Inhaled Oxygen Concentration - - Weight 96.5 kg (212 lb 12.8 oz) 01/21/2023 2:01 PM EDT Height - - Body Mass Index - - Plan of Treatment Health Maintenance Due Date Last Done Comments Pneumococcal Vaccine: 65+ Ye ars (1 of 2 - PCV) 1951 Influenza Vaccine (#1) 2024 Hepatitis B Vaccine Aged Out No longe r eligible based on patient's age to complete this topic Insurance [facility] [place] [address] [facility] MEDICARE Care Teams Clothing Pattern Preparer Relationship Specialty Start Date End Date Oren Puentes MD [address] [place], [place] PCP - General Internal Medicine 10/22/21
== END 2024-12-07 11:05 | disposition home or self-care (01) ==
PROVIDERS: PCP Internal Medicine; Visit Provider Internal Medicine
DX: E78.5 Hyperlipidemia, unspecified (principal)

== ENCOUNTER → 2024-12-07 10:33 | Outpatient (BNVA) | payer MEDICARE, SELFPAY | PROVIDERS: PCP Internal Medicine; Visit Provider Internal Medicine | DX: E78.5 Hyperlipidemia, unspecified (principal) | CPT/HCPCS: 99212 ==

== ENCOUNTER 2025-02-20 10:26 | Outpatient (REF) | payer MEDICARE, SELFPAY ==
--- OUTSIDE RECORDS SUMMARY | 2025-02-20 11:56 | XMS_ITS | Clinical Summary ---
Author Organization [facility] Address [address] [place] [address] Phone Care Team Providers Care Supervisor Industrial Garment Name Role Phone Oren Puentes MD Primary Care Provider [phone] Allergies No known active allergies Medications acetaminophen [...] LICA stent without complications. Upon arrival to [facility] SBP 85-90, HR 45-50, sudafed 60mg x1 given -Continue post procedure care per protocol -Maintain SBP >90, HR >45 -NS at 150cc/hr x 10 hours -Sudafed 60 mg q 4 hours prn for SBP <90 -Neuro checks q 4 hours -Continue ASA and Plavix -Continue Atorvastatin 80 mg daily -Check labs in the morning -Follow up with Dr. Oropeza in [facility] with an ultrasound in 2 weeks and [...] he developed epistaxis and it was discontinued. [id number]. Currently sinus bradycardia in the 50's (patients [...] disease 02/04/2017 12/23/2021 Overview (12/23/2021): s/p R TELEPHONE SEX WORKER endarterectomy Last Assessment & Plan: History of PAD, s/p right TELEPHONE SEX WORKER endarterectomy November 2016. Left iliofemoral angiogram reveals a high grade L TELEPHONE SEX WORKER lesion (distal to the access site) -Continue [...] Due Date Last Done Comments Pneumococcal Vaccine: 50+ Ye ars (1 of 2 - PCV) 1966 Influenza Vaccine (Season Ended) 2025 Hepatitis B Vaccine Aged Out No longe r eligible based on patient's age to complete this topic Insurance [facility] Medicare [facility] Medicare Care Teams Supervisor Industrial Garment Relationship Specialty Start Date End Date Oren Puentes MD [address] [place], [place] PCP - General Internal Medicine 10/22/21
[2025-02-20 13:52] LABS: Anion Gap 13 (12-20); Blood Urea Nitrogen 31 mg/dL (9-16); Calcium 10.4 mg/dL (8.4-10.2); Carbon Dioxide 27 mmol/L (22-29); Chloride 107 mmol/L (96-108); Estimated Glomerular Filt Rate 58; Potassium 3.9 mmol/L (3.3-5.1); Sodium 143 mmol/L (135-145)
[2025-02-20 14:14] LABS: Parathyroid Hormone Intact 205.8 pg/mL (8.7-77.1)
== END 2025-02-20 10:27 | disposition home or self-care (01) ==
LOC: HO.10HDL 10:26
PROVIDERS: Visit Provider Internal Medicine Nephrology
DX: E83.52 Hypercalcemia (principal); I12.9 Hypertensive chronic kidney disease with stage 1 through stage 4 chronic kidney disease, or unspecified chronic kidney disease; N18.31 Chronic kidney disease, stage 3a
CPT/HCPCS: 36415; 80051; 82310; 82565; 83970; 84520

== ENCOUNTER 2025-02-22 09:32 | Outpatient (AMB) | payer MEDICARE, SELFPAY ==
--- NOTE | 2025-02-22 09:45 | HO.NEPHOV_ITS ---
Vital Signs 02/22/25 09:48 Height 5 ft 2 in Weight 225 lb 2 oz BMI 41.2 BP 140/70 H Blood Pressure Location Lt brachial Position Sitting Pulse 116 H Pulse Source Pulse Oximeter Pulse Oximetry (%) 95 Oxygen Delivery Method Room Air Intake Visit Reasons: 6mon follow up- Conf Environmental Auditor Required: No Accompanied by: Self / Same As Patient Allergies ENVIRONMENTAL Allergy (Uncoded 12/07/24 10:41) Runny Nose HPI Comments Details: Holland was seen in follow-up of his chronic kidney disease and hypertension. He has vascular disease and has seen vascular surgeon . He had undergone angiography as well as stenting. He denies taking any nonsteroidal anti- inflammatory medications for it. He follows up with Dr. Flores. His blood pressure has been close to goal at home. He denies any chest pain, shortness of breath, proximal nocturnal dyspnea, orthopnea, pedal edema or urinary symptoms. He does not have any palpitation, syncope or orthostatic symptoms. He is on lipid-lowering agents. He has been tolerating lisinopril. He is on anticoagulation [facility] Medical History Paroxysmal atrial fibrillation Atrial tachycardia Atrial flutter Persistent atrial fibrillation Obesity Screening for prostate cancer Screening for diabetes mellitus Paroxysmal atrial fibrillation History of stent insertion of renal artery Carotid disease, bilateral PAD (peripheral artery disease) Hyperlipidemia Hypertension Surgical History H/O esophagogastroduodenoscopy H/O colonoscopy History of angioplasty History of surgery History of cardioversion History of vasectomy History of carotid endarterectomy Family History Father Heart disease Mother Hypertension Brother No problems noted. Son No problems noted. Social History Housing: House Are you a primary care partner to a significant other at home: No Do you presently have visiting nurse or other home services: No Alcohol intake: former Patient Tobacco Use Status: Former Tobacco user Tobacco use type: Cigarette e-Cigarette/Vaping Use: Never Used Second Hand Smoke Exposure: No Advance Directives Date on File: 08/17/20 service: No Current occupational status: retired Cognitive needs: Yes (cane) Hearing needs: Yes (hearing aide) Vision needs: Yes (glasses) Review of Systems Const All systems reviewed & are unremarkable except as noted in HPI and below Physical Exam Vital Signs: Last Vital Signs Pulse 116 H 02/22/25 09:48 BP 140/70 H 02/22/25 09:48 Pulse Ox 95 02/22/25 09:48 Oxygen Delivery Method Room Air 02/22/25 09:48 BMI result Body Mass Index 41.2 Const General: comfortable and no acute distress Orientation/consciousness: patient oriented x3 HEENT Head: Yes normocephalic Mouth: Normal oral and palatal mucosa present Eyes EOM: EOMs intact bilaterally Neck Neck: Yes supple Resp Auscultation: clear to auscultation bilaterally Cardio Jugular venous distension: no JVD Rate: regular rate GI Palpation (GI): Soft to palpation Auscultation: normal bowel sounds General: Yes no CVA tenderness Back/Spine/Pelvis Back: no CVA tenderness Skin General skin exam: no rashes or lesions noted Neuro General: patient oriented x3 and moves all extremities Extrem General: Yes no pedal edema Results Reviewed Nephrology Results: Sodium 143 mmol/L (135-145) 02/20/25 Potassium 3.9 mmol/L (3.3-5.1) 02/20/25 Chloride 107 mmol/L (96-108) 02/20/25 Carbon Dioxide 27 mmol/L (22-29) 02/20/25 BUN 31 mg/dL (9-16) H 02/20/25 Creatinine 1.22 mg/dL (0.5-1.4) 02/20/25 Calcium 10.4 mg/dL (8.4-10.2) H 02/20/25 PTH Intact 205.8 pg/mL (8.7-77.1) H 02/20/25 Assessment & Plan Assessment & Plan (1) Hyperparathyroidism: Code(s): E21.3 - Hyperparathyroidism, unspecified Category: Medical (2) Hypercalcemia: Code(s): E83.52 - Hypercalcemia Category: Medical (3) CKD (chronic kidney disease) stage 3, GFR 30-59 ml/min: Code(s): N18.30 - Chronic kidney disease, stage 3 unspecified Category: Medical Qualifiers: Chronic kidney disease stage 3 subtype: stage 3a (GFR 45-59) Qualified Code(s): N18.31 - Chronic kidney disease, stage 3a (4) Hypertension: Code(s): I10 - Essential (primary) hypertension Category: Medical Qualifiers: Hypertension type: primary hypertension Qualified Code(s): I10 - Essential (primary) hypertension Elena Lino has stage III 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 He has longstanding hypertension which is well controlled on the current medication regimen. His needs to cut back on salt and should lose some weight. He avoids nonsteroidal anti-inflammatory medications. He should remain well hydrated. He is on statins. He takes anticoagulation. He has primary hyperparathyroidism as evident by Sestamibi scan. I started him on sensipar 30 mg three times a week. I plan to repeat a Doppler of his renal arteries with time. Answered all his questions. Follow up labs ordered. Orders: Orders Parathyroid Hormone Intact 6 Months E21.3 - Hyperparathyroidism, unspecified, E83.52 - Hypercalcemia, I10 - Essential (primary) hypertension, N18.31 - Chronic kidney disease, stage 3a Creatinine 6 Months E21.3 - Hyperparathyroidism, unspecified, E83.52 - Hypercalcemia, I10 - Essential (primary) hypertension, N18.31 - Chronic kidney disease, stage 3a Phosphorus 6 Months E21.3 - Hyperparathyroidism, unspecified, E83.52 - Hypercalcemia, I10 - Essential (primary) hypertension, N18.31 - Chronic kidney disease, stage 3a Vitamin D 25-OH Total 6 Months E21.3 - Hyperparathyroidism, unspecified, E83.52 - Hypercalcemia, I10 - Essential (primary) hypertension, N18.31 - Chronic kidney disease, stage 3a Blood Urea Nitrogen 6 Months E21.3 - Hyperparathyroidism, unspecified, E83.52 - Hypercalcemia, I10 - Essential (primary) hypertension, N18.31 - Chronic kidney disease, stage 3a Electrolytes 6 Months E21.3 - Hyperparathyroidism, unspecified, E83.52 - Hypercalcemia, I10 - Essential (primary) hypertension, N18.31 - Chronic kidney disease, stage 3a Calcium 6 Months E21.3 - Hyperparathyroidism, unspecified, E83.52 - Hypercalcemia, I10 - Essential (primary) hypertension, N18.31 - Chronic kidney disease, stage 3a Medications: New cinacalcet (Sensipar) 30 mg PO .three times a week 14 tabs 3RF Coding Level of Care Code Est Pt Level 4 (43518) Diagnoses Hyperparathyroidism E21.3 Hypercalcemia E83.52 Stage 3a chronic kidney disease N18.31 Chronic kidney disease stage 3 subtype: stage 3a (GFR 45-59) Primary hypertension I10 Hypertension type: primary hypertension
[2025-02-22 09:48] VITALS: BP 140/70; PULSE 116; O2SAT 95; BMI 41.2
--- OUTSIDE RECORDS SUMMARY | 2025-02-22 10:34 | XMS_ITS | Clinical Summary ---
Author Organization [facility] Address [address] [place] [address] Phone Care Team Providers Care Advertising Display Rotator Name Role Phone Oren Puentes MD Primary Care Provider [phone] Allergies No known active allergies Medications acetaminophen [...] LICA stent without complications. Upon arrival to [facility] SBP 85-90, HR 45-50, sudafed 60mg x1 given -Continue post procedure care per protocol -Maintain SBP >90, HR >45 -NS at 150cc/hr x 10 hours -Sudafed 60 mg q 4 hours prn for SBP <90 -Neuro checks q 4 hours -Continue ASA and Plavix -Continue Atorvastatin 80 mg daily -Check labs in the morning -Follow up with Dr. Oropeza in [facility] with an ultrasound in 2 weeks and [...] he developed epistaxis and it was discontinued. [id number]. Currently sinus bradycardia in the 50's (patients [...] disease 02/04/2017 12/23/2021 Overview (12/23/2021): s/p R CONSTRUCTION PERSON endarterectomy Last Assessment & Plan: History of PAD, s/p right CONSTRUCTION PERSON endarterectomy November 2016. Left iliofemoral angiogram reveals a high grade L CONSTRUCTION PERSON lesion (distal to the access site) [...] patient's age to complete this topic Insurance [facility] Medicare [facility] Medicare Care Teams Advertising Display Rotator Relationship Specialty Start Date End Date Oren Puentes MD [address] [place], [place] PCP - General Internal Medicine 10/22/21
== END 2025-02-22 10:10 | disposition home or self-care (01) ==
PROVIDERS: Visit Provider Internal Medicine Nephrology
DX: I12.9 Hypertensive chronic kidney disease with stage 1 through stage 4 chronic kidney disease, or unspecified chronic kidney disease (principal); N18.31 Chronic kidney disease, stage 3a; E21.3 Hyperparathyroidism, unspecified; E83.52 Hypercalcemia
CPT/HCPCS: 99214

== ENCOUNTER → 2025-02-22 09:32 | Outpatient (BNVA) | payer MEDICARE, SELFPAY | PROVIDERS: Visit Provider Internal Medicine Nephrology | DX: I12.9 Hypertensive chronic kidney disease with stage 1 through stage 4 chronic kidney disease, or unspecified chronic kidney disease (principal); N18.31 Chronic kidney disease, stage 3a; E21.3 Hyperparathyroidism, unspecified; E83.52 Hypercalcemia | CPT/HCPCS: 99212 ==

== ENCOUNTER → 2025-02-24 08:29 | Outpatient (REF) | payer MEDICARE, SELFPAY ==
--- NOTE | 2025-02-24 08:31 | CA_ITS ---
Transthoracic Echocardiogram Patient (Last, First, Middle): Holland Middleton J Gender: Male Date of : 1945 Age: 79 Procedure Date: 02/24/2025 Procedure Type: Transthoracic Echocardiogram Location: OP Height: 160.02 cm Weight: 99.79 kg BSA: 2.01 m2 Heart Rate: bpm BP: 180 / 70 mmHg Delphi Programmer: TO Referring MD: Jonathan House MD [employer] Paralegal: Jonathan House MD Symptoms: I48.92 - Unspecified atrial flutter Study Quality: Fair/Contrast ECG Rhythm: Possible atrial fibrillation Conclusions: - 1. Low normal LV ejection fraction 50-55% 2. Mildly dilated left atrium 3. Calcific aortic and mitral valve changes noted with normal cardiac valvular Dopplers 4. Mildly elevated right ventricular systolic pressure Findings Procedure Information Contrast agent, definity, is being given per protocol without apparent complications. Left Ventricle Normal left ventricular cavity size. There is normal left ventricular wall thickness. The left ventricular systolic function is low normal. The visually estimated ejection fraction is between 50-55%. Diastolic function is indeterminate on the basis of available data. Right Ventricle The right ventricle was not well visualized. Atria The left atrium is mildly dilated. Interatrial shunt cannot be excluded. The right atrium was not well visualized. Aortic Valve There is mild calcification of the aortic valve. There is no aortic valve stenosis. There is no aortic valve regurgitation. Mitral Valve There is mild anterior mitral leaflet thickening. There is mild mitral annular calcification. There is trace mitral valve regurgitation. There is no mitral valve stenosis. Pulmonic Valve The pulmonic valve is likely normal. Tricuspid Valve The tricuspid valve was not well visualized. There is mild tricuspid valve regurgitation. Normal right atrial pressure. Mild pulmonary hypertension is present. Great Vessels The aorta was not well visualized. The pulmonary artery was not well visualized. There is no dilatation of the ascending aorta measuring 3.20 cm. Venous The inferior vena cava is normal in size and collapses greater than 50% with inspiration. Pericardium/Pleural The pericardium was not well visualized. Prior Study Comparison Changes noted compared to prior study dated: 07/09/2021. LV function is marginally reduce with mildly elevated right ventricular systolic pressure Measurements 2D Linear Measurements IVSd: 1.11 0.6-0.9/0.6-1.0 cm LVIDd: 4.72 3.9-5.3/4.2-5.9 cm LVIDd Index: 2.35 2.4-3.2/2.2-3.1 cm/m2 LVIDs: 3.43 2.0-3.6 cm LVPWd: 0.91 0.7-1.1 cm LA Diam: 4.40 2.7-3.8/3.0-4.0 cm LAIDs Index: 2.19 1.5-2.3 cm/m2 LV Mass: 209.64 67-162/88-224 g LV Mass Index: 104.30 43-95/49-115 g/m2 LVOT Diam: 2.20 3.0+(-)1.3 cm 2D Systolic Function EF 4C: 43.90 >55% Mitral Valve MV Pk E: 0.83 MV Decel Time: 167.00 E'Lateral: 8.67 E'Medial: 7.04 E/E' Med: 11.80 E/E' Lat: 9.60 PHT: 49.00 MVA PHT: 4.49 Decel Rosebud: 5.29 Aortic Valve AoV Pk Jair: 1.03 AoV Pk Grad: 4.00 LVOT LVOT Pk Jair: 0.61 LVOT Mn Jair: 0.41 LVOT VTI: 0.14 LVOT Pk Grad: 1.00 LVOT Mn Grad: 1.00 LVOT Diam: 2.20 LVOT Area: 3.80 Diastolic Function MV Pk E: 0.83 E'Medial: 7.04 E/E' Med: 11.80 E' Laterial: 8.67 E/E' Lat: 9.60 Right Ventricle TAPSE (mm): 16.30 TVS' Jair: 10.80 Tricuspid Valve TR Pk Jair: 3.06 TR Pk Grad: 37.00 RA Press: 3.00 RVSP: 40.00 Great Vessels Aorta Sinus of Valsalva: 3.25 2.0-3.5 cm Ao Asc: 3.20 2.1-3.4 cm Updated in Other Vendor System with Status of Final Jonathan House MD electronically signed on 02/24/2025 3:37:41 PM with status of Final
--- OUTSIDE RECORDS SUMMARY | 2025-02-24 08:48 | XMS_ITS | Clinical Summary ---
Author Organization [facility] Address [address] [place] [address] Phone Care Team Providers Care Landing Gear Mechanic Name Role Phone Oren Puentes MD Primary Care Provider [phone] Allergies No known active allergies Medications acetaminophen [...] LICA stent without complications. Upon arrival to [facility] SBP 85-90, HR 45-50, sudafed 60mg x1 given -Continue post procedure care per protocol -Maintain SBP >90, HR >45 -NS at 150cc/hr x 10 hours -Sudafed 60 mg q 4 hours prn for SBP <90 -Neuro checks q 4 hours -Continue ASA and Plavix -Continue Atorvastatin 80 mg daily -Check labs in the morning -Follow up with Dr. Oropeza in [facility] with an ultrasound in 2 [...] he developed epistaxis and it was discontinued. [id number]. Currently sinus bradycardia in the 50's (patients [...] disease 02/04/2017 12/23/2021 Overview (12/23/2021): s/p R LADIES ATTENDANT endarterectomy Last Assessment & Plan: History of PAD, s/p right LADIES ATTENDANT endarterectomy November 2016. Left iliofemoral angiogram reveals a high grade L LADIES ATTENDANT lesion (distal to the access site) -Continue [...] patient's age to complete this topic Insurance [facility] Medicare [facility] Medicare Care Teams Landing Gear Mechanic Relationship Specialty Start Date End Date Oren Puentes MD [address] [place], [place] PCP - General Internal Medicine 10/22/21
== END ==
LOC: HO.CARD 08:29
PROVIDERS: Visit Provider Internal Medicine Cardiovascular Disease
DX: I48.92 Unspecified atrial flutter (principal)
CPT/HCPCS: 93306; Q9957

== ENCOUNTER → 2025-02-24 08:31 | Outpatient (BNV) | payer MEDICARE, SELFPAY | PROVIDERS: Visit Provider Internal Medicine Cardiovascular Disease | DX: I48.92 Unspecified atrial flutter (principal) | CPT/HCPCS: 93306 ==

== ENCOUNTER 2025-03-06 10:00 | Outpatient (AMB) | payer MEDICARE, SELFPAY ==
--- NOTE | 2025-03-06 10:10 | MHC.OFFVIS ---
Vital Signs 03/06/25 10:11 Height 5 ft 2 in Weight 224 lb 13.944 oz BMI 41.1 BP 116/60 Blood Pressure Location Lt brachial Pulse 68 Intake Visit Reasons: 1 yr f/up post echo Intake Note: 1 year follow-up with ekg after echo feeling good Swatch Folder Required: No Artificial Stone Setter: Artificial Stone Setter Present Accompanied by: Spouse Allergies ENVIRONMENTAL Allergy (Uncoded 12/07/24 10:41) Runny Nose Medication List - Last Reconciled 03/06/25 by Jonathan House MD acetaminophen 500 mg PO Q6H PRN albuterol sulfate 90 mcg/actuation 2 puffs PO DAILY antiarthritic combination no.2 (glucosamine-chondroitin) mg PO atorvastatin 80 mg PO DAILY 90 days cholecalciferol (vitamin D3) 25 mcg PO DAILY cinacalcet (Sensipar) 30 mg PO .three times a week diltiazem HCl CD 240 mg PO DAILY ezetimibe 10 mg PO DAILY finasteride 5 mg PO DAILY fluticasone propion-salmeterol 100-50 mcg/dose (Wixela Inhub) 1 inh inhalation BID hydrochlorothiazide 25 mg PO DAILY lisinopril 40 mg PO BID pantoprazole 20 mg PO DAILY rivaroxaban (Xarelto) 20 mg PO DAILY 90 days tramadol 100 mg (2 x 50 mg) PO Q6H PRN HPI Comments Details: Holland comes for follow-up. Accompanied by his . Intermittently on his smart watch notices elevated heart rate up to 131 50 beats per minute without any obvious cardiac symptoms at that point time. The symptoms last for couple minutes and then dissipate. There was no clear trigger factors. He has been taking current medications. Denies any worsening shortness of breath, orthopnea, PND. No lightheadedness, syncope. No bleeding issues or neurologic events. [facility], [facility] Medical History Paroxysmal atrial fibrillation Atrial tachycardia Atrial flutter Persistent atrial fibrillation Obesity Screening for prostate cancer Screening for diabetes mellitus Paroxysmal atrial fibrillation History of stent insertion of renal artery Carotid disease, bilateral PAD (peripheral artery disease) Hyperlipidemia Hypertension Surgical History H/O esophagogastroduodenoscopy H/O colonoscopy History of angioplasty History of surgery History of cardioversion History of vasectomy History of carotid endarterectomy Family History Father Heart disease Mother Hypertension Brother No problems noted. Son No problems noted. Social History Housing: House Are you a primary healthcare interpreter to a significant other at home: No Do you presently have visiting nurse or other home services: No Alcohol intake: former Patient Tobacco Use Status: Former Tobacco user Tobacco use type: Cigarette e-Cigarette/Vaping Use: Never Used Second Hand Smoke Exposure: No Advance Directives Date on File: 08/17/20 service: No Current occupational status: retired Cognitive needs: Yes (cane) Hearing needs: Yes (hearing aide) Vision needs: Yes (glasses) Review of Systems Const Denies chills, Denies fatigue, Denies fever(s), Denies frequent falls, Denies weakness, Denies weight gain and Denies weight loss ENT Denies dizziness Card Denies chest pain, Denies leg edema, Denies lightheadedness, Denies palpitations, Denies dyspnea, Denies dyspnea on exertion, Denies orthopnea and Denies other (loss of consciousness) Resp Denies cough, Denies dyspnea and Denies dyspnea on exertion GI Denies hematochezia and Denies change in stool character Musc Denies abnormal gait, Denies muscle weakness, Denies numbness, Denies radiating pain into limb and Denies tingling Neuro Denies abnormal gait, Denies dizziness, Denies frequent falls, Denies numbness, Denies tingling and Denies weakness Endo Denies fatigue and Denies palpitations Physical Exam Vital Signs: Last Vital Signs Pulse 68 03/06/25 10:11 BP 116/60 03/06/25 10:11 BMI result Body Mass Index 41.1 Const General: cooperative, comfortable, no acute distress, alert and awake Nutritional Appearance: obese Orientation/consciousness: patient oriented x3 Limitations: ambulation with cane Neck Neck: Yes trachea midline, Yes supple and Yes no JVD Resp Effort & Inspection: normal respiratory effort Auscultation: clear to auscultation bilaterally Cardio Jugular venous distension: no JVD Palpation: normal PMI Rate: regular rate Rhythm: abnormal rhythm irregularly irregular and regularly irregular Heart sounds: S1 normal heart sound present, S2 normal heart sound present, no click, no gallops, no murmurs and no rubs GI Auscultation: normal bowel sounds Skin General skin exam: no rashes or lesions noted Neuro General: patient oriented x3 and no focal motor deficits Psych Appearance: grossly normal Office Procedures EKG Details: Atrial flutter with 4 is to 1 conduction 59460-[id number], Complete Assessment & Plan Assessment & Plan (1) Atrial flutter: Code(s): I48.92 - Unspecified atrial flutter Category: Medical Plan: Persistent atrial flutter without any obvious symptoms at current point time with no signs of cardiac decompensation. LV function remains preserved. We discussed about management. Given lack of symptoms and is multiple comorbidities will continue pursue rate control approach at this point time. Discussed with him. Continue Cardizem therapy. High risk for thromboembolic complication and suggested to continue with Xarelto therapy. Quarterly renal function test should be pursued. Signs and symptoms of heart failure were discussed with him. (2) Hypertension: Code(s): I10 - Essential (primary) hypertension Category: Medical Qualifiers: Hypertension type: primary hypertension Qualified Code(s): I10 - Essential (primary) hypertension Plan: Hypertension which is currently well optimized advised to monitor blood pressure at home maintain a log. Goal blood pressure less than 130/84. Low-salt diet was discussed. Continue participate in physical activity as tolerated. Given his diffuse vascular disease continue high-intensity statin therapy along with ezetimibe therapy with target goal LDL less than 70 mg/dL. Continue follow up with vascular surgery. Will follow up in the clinic in 1 year's time, sooner p.r.n.. Thank you for allowing me to partake in his care Coding Level of Care Code Est Pt Level 4 (15762) Complex EM visit Add On G2211 Diagnoses Atrial flutter I48.92 Primary hypertension I10 Hypertension type: primary hypertension CPT Codes EKG - CPT: 36831-[id number], Complete ([id number])
[2025-03-06 10:11] VITALS: BP 116/60; PULSE 68; BMI 41.1
--- OUTSIDE RECORDS SUMMARY | 2025-03-06 11:30 | XMS_ITS | Clinical Summary ---
Author Organization [facility] Address [address] [place] [address] Phone Care Team Providers Care Hospitality Services Manager Name Role Phone Oren Puentes MD Primary Care Provider [phone] Allergies No known active allergies Medications acetaminophen [...] LICA stent without complications. Upon arrival to [facility] SBP 85-90, HR 45-50, sudafed 60mg x1 given -Continue post procedure care per protocol -Maintain SBP >90, HR >45 -NS at 150cc/hr x 10 hours -Sudafed 60 mg q 4 hours prn for SBP <90 -Neuro checks q 4 hours -Continue ASA and Plavix -Continue Atorvastatin 80 mg daily -Check labs in the morning -Follow up with Dr. Oropeza in [facility] with an ultrasound in 2 weeks [...] he developed epistaxis and it was discontinued. [id number]. Currently sinus bradycardia in the 50's (patients [...] disease 02/04/2017 12/23/2021 Overview (12/23/2021): s/p R RN INVASIVE endarterectomy Last Assessment & Plan: History of PAD, s/p right RN INVASIVE endarterectomy November 2016. Left iliofemoral angiogram reveals a high grade L RN INVASIVE lesion (distal to the access site) -Continue [...] patient's age to complete this topic Insurance [employer] Medicare [employer] Medicare Care Teams Hospitality Services Manager Relationship Specialty Start Date End Date Oren Puentes MD [id number] [place], [place] PCP - General Internal Medicine 10/22/21
== END 2025-03-06 10:38 | disposition home or self-care (01) ==
LOC: HO.HCS 10:00
PROVIDERS: Visit Provider Internal Medicine Cardiovascular Disease
DX: I48.92 Unspecified atrial flutter (principal); I10 Essential (primary) hypertension
CPT/HCPCS: 93010; 99214; G2211

== ENCOUNTER → 2025-03-06 10:00 | Outpatient (BNVA) | payer MEDICARE, SELFPAY | PROVIDERS: Visit Provider Internal Medicine Cardiovascular Disease | DX: I48.92 Unspecified atrial flutter (principal); I10 Essential (primary) hypertension | CPT/HCPCS: 93005; 99212 ==

== ENCOUNTER 2025-04-28 09:23 | Outpatient (AMB) | payer MEDICARE, SELFPAY ==
--- NOTE | 2025-04-28 09:32 | A.OFFPC_ITS ---
Vital Signs 04/28/25 09:33 Height 5 ft 2 in Weight 224 lb 6 oz BMI 41.0 BP 136/64 Blood Pressure Location Lt brachial Position Sitting Pulse 96 Pulse Source Pulse Oximeter Temp 97.1 F Temp Source Temporal Artery Scan Pulse Oximetry (%) 93 Oxygen Delivery Method Room Air Intake Visit Reasons: f/u 3 month/ JUSTO from [facility] - see comments Intake Note: Patient is here today for JUSTO from Dr Puentes Stamping Press Operator Required: No Manager Environmental Affairs: Present Accompanied by: Spouse Allergies ENVIRONMENTAL Allergy (Uncoded 04/28/25 09:58) Runny Nose Medication List - Last Reconciled 04/28/25 by Lena Matthews PA-C acetaminophen 500 mg PO Q6H PRN albuterol sulfate 90 mcg/actuation 2 puffs PO DAILY antiarthritic combination no.2 (glucosamine-chondroitin) mg PO atorvastatin 80 mg PO DAILY 90 days cholecalciferol (vitamin D3) 25 mcg PO DAILY cinacalcet 30 mg PO 3XW diltiazem HCl CD (Cartia XT) 240 mg PO DAILY ezetimibe 10 mg PO DAILY finasteride 5 mg PO DAILY 90 days finasteride 5 mg PO DAILY fluticasone propion-salmeterol 100-50 mcg/dose (Wixela Inhub) 1 inh inhalation BID hydrochlorothiazide 25 mg PO DAILY lisinopril 40 mg PO BID pantoprazole 20 mg PO DAILY rivaroxaban (Xarelto) 20 mg PO DAILY 90 days tramadol 100 mg (2 x 50 mg) PO Q6H PRN Tobacco use date assessed: 04/28/25 Fall risk assessment: 1 Fall in past year Last assessed Fall Risk: 04/28/25 Dental Screening Dental Screen Date: 12/07/24 HPI f/u 3 month/ JUSTO from [facility] - see comments HPI Details 79-year-old male with past medical histo ry of hypertension, hyperlipidemia, carotid artery disease, peripheral arterial disease, obesity, atrial flutter, CKD in, BPH, hyperparathyroidism last seen by Dr. Puentes 11/2024 coming in for transfer of care. In review of the notes, patient was seen by Cardiology 02/2025 for atrial flutter continue on Cardizem and Xarelto therapy and activity as tolerated, follow up in 1 year. Patient was seen by Nephrology 02/2025 advised weight loss and decrease salt intake as well as avoid the use of NSAIDs and stay well hydrated. He was started on Sensipar 30 mg 3 times a week for hyperparathyroidism. He is also seen by vascular surgery 09/2024 patient having stable claudication repeat imaging in 1 year. The patient has undergone three cardioversions, with the last one occurring in 2021. The patient had carotid endarterectomy surgeries in 2000 and 2016, with significant stenosis addressed during these procedures. The patient's LDL cholesterol was last checked in August of the previous year and was within target range. Blood pressure is currently well-controlled with medication. 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 [facility] Medical History Paroxysmal atrial fibrillation Atrial tachycardia Atrial flutter Persistent atrial fibrillation Obesity Screening for prostate cancer Screening for diabetes mellitus Paroxysmal atrial fibrillation History of stent insertion of renal artery Carotid disease, bilateral PAD (peripheral artery disease) Hyperlipidemia Hypertension Surgical History H/O esophagogastroduodenoscopy H/O colonoscopy History of angioplasty History of surgery History of cardioversion History of vasectomy History of carotid endarterectomy Family History Father Heart disease Mother Hypertension Brother No problems noted. Son No problems noted. Social History Housing: House Are you a primary insurance healthcare consultant to a significant other at home: No Do you presently have visiting nurse or other home services: No Alcohol intake: former Patient Tobacco Use Status: Former Tobacco user Tobacco use type: Cigarette e-Cigarette/Vaping Use: Never Used Second Hand Smoke Exposure: No Advance Directives Date on File: 08/17/20 service: No Current occupational status: retired Cognitive needs: Yes (cane) Hearing needs: Yes (hearing aide) Vision needs: Yes (glasses) Questionnaire PHQ-9 Over the last 2 weeks, how often have you been bothered by any of the following problems? 1. Little interest or pleasure in doing things: not at all 2. Feeling down, depressed, or hopeless: not at all 3. Trouble falling or staying asleep, or sleeping too much: not at all 4. Feeling tired or having little energy: not at all 5. Poor appetite or overeating: not at all 6. Feeling bad about yourself - or that you are a failure or have let yourself or your family down: not at all 7. Trouble concentrating on things, such as reading the newspaper or watching television: not at all 8. Moving or speaking so slowly that other people could have noticed. Or the opposite - being so fidgety or restless that you have been moving around a lot more than usual: not at all 9. Thoughts that you would be better off or of hurting yourself in some way: not at all Total score: 0 Depression Screening Interpretation: Negative Depression Screening Done: Yes Source: Developed by Drs. Rubén Whitney, Dalila Delgado, Ken Jolley and colleagues, with an educational oscar from [employer]. Thrive Questionnaire Date Thrive assessed: 12/07/24 I am a: Patient What is your living situation today?: I have a steady place to live Within the past 12 months, did the food you bought not last and you didn't have the money to get more?: Never true Within the past 12 months, did you worry whether your food would run out before you got money to buy more?: Never true Do you have trouble paying for medicines?: No Do you have trouble getting transportation to medical appointments?: No Do you have trouble paying your heating and electricity bill?: No Do you have trouble taking care of your child, family member or friend?: No Do you have trouble with day-to-day activities such as bathing, preparing meals, shopping, managing finances, etc.?: No Are you currently unemployed and looking for a job?: No Are you interested in more education?: No Please select the resources that you would like help with: None Currently or been in a relationship where the following occur: I choose not to answer THRIVE Score: 0 AUDIT C Alcohol Use Questionnaire (AUDIT-C) 1. How often do you have a drink containing alcohol?: Never Total Score: 0 ROBERTO-7 AMB Questionnaire ROBERTO-7 Date ROBERTO - 7 assessed: 12/07/24 Feeling nervous, anxious, or on edge: 0 = Not at all Not being able to stop or control worryin = Not at all Worrying too much about different things: 0 = Not at all Trouble relaxin = Not at all Being so restless that it is hard to sit still: 0 = Not at all Becoming easily annoyed or irritable: 0 = Not at all Feeling afraid as if something awful might happen: 0 = Not at all Total ROBERTO-7 score (0-4 normal; 5-9 mild; 10-14 moderate; 15-21 severe): 0 Source: Developed by Drs. Rubén Whitney, Dalila Delgado, Ken Jolley and colleagues, with an educational oscar from [employer]. ROBERTO-7 Assessment Billing ROBERTO-7 Assessment Tool: ROBERTO-7 Assessment 59703 Review of Systems Const Denies body aches, Denies chills, Denies fever(s), Denies headache(s) and Denies poor appetite Eyes Reports no additional complaints ENT Denies dysphagia, Denies dizziness, Denies headache(s) and Denies odynophagia Card Denies chest pain, Denies syncope, Denies edema, Denies irregular heart rhythm, Denies lightheadedness and Denies dyspnea Resp Denies cough and Denies dyspnea GI Denies abdominal pain, Denies constipation, Denies dysphagia, Denies diarrhea, Denies nausea, Denies odynophagia and Denies vomiting Reports no additional complaints Musc Reports no additional complaints and Denies abnormal gait Skin/Breast Reports system reviewed and no additional complaints, except as documented Neuro Denies abnormal gait, Denies dizziness, Denies syncope and Denies headache(s) Psych Reports no additional complaints Physical exam (Primary Care) Vital Signs: Last Vital Signs Temp 97.1 F 04/28/25 09:33 Pulse 96 04/28/25 09:33 BP 136/64 04/28/25 09:33 Pulse Ox 93 04/28/25 09:33 Oxygen Delivery Method Room Air 04/28/25 09:33 BMI result Body Mass Index 41.0 Tobacco/Smoking Status: Tobacco use Status Tobacco use date assessed 04/28/25 04/28/25 09:41 Patient Tobacco Use Status Former Tobacco user 04/28/25 09:41 Tobacco use type Cigarette 04/28/25 09:41 e-Cigarette/Vaping Use Never Used 04/28/25 09:41 PHQ-9: PHQ-9 Score PHQ-9: Total score 0 04/28/25 09:41 Depression Screening Interpretation: Negative Thrive Assessment: Date of Thrive Assessment Date Thrive assessed 12/07/24 04/28/25 09:41 Currently or been in a relationship where the following occur: I choose not to answer Const General: cooperative, healthy appearing, comfortable and no acute distress Orientation/consciousness: patient oriented x3 HENMT Head: Yes normocephalic Ears: hearing grossly normal bilaterally General nose exam: Normal external nose present Eyes General: appearance normal, both eyes and all related structures Conjunctivae: conjunctivae normal Pupils: Equal, round and reactive pupils present Neck Neck: Yes full ROM and Yes no lymphadenopathy Resp Effort & Inspection: normal respiratory effort Auscultation: clear to auscultation bilaterally, no crackles, no rales, no rhonchi and no wheezes Cardio Rate: regular rate Rhythm: regular rhythm Skin General skin exam: no rashes or lesions noted Neuro General: patient oriented x3 Cranial nerves: Yes CN's II-XII intact bilaterally and Yes Equal, round and reactive pupils present Gait exam (Neuro): Wide-based gait present and Assisted gait required Gait assisted method: walker Extrem General: Yes normal to inspection, Yes full ROM and No edema Psych Affect: normal affect Attitude: cooperative Insight: Good insight present (Psych) Judgement: Good judgement present (Psych) Coding Level of Care Code Est Pt Level 4 (48523) Diagnoses Primary hypertension I10 Hypertension type: primary hypertension Atrial flutter I48.92 PAD (peripheral artery disease) I73.9 Carotid disease, bilateral I77.9 Hyperlipidemia E78.5 Hyperparathyroidism E21.3 Obesity E66.9 Stage 3a chronic kidney disease N18.31 Chronic kidney disease stage 3 subtype: stage 3a (GFR 45-59) BPH (benign prostatic hyperplasia) N40.0 Balance problem R26.89 COPD (chronic obstructive pulmonary disease) J44.9 Additional Codes ROBERTO-7 Assessment Billing - ROBERTO-7 Assessment Tool: ROBERTO-7 Assessment [id number] ([id number]) Assessment & Plan Assessment & Plan (1) Hypertension: Code(s): I10 - Essential (primary) hypertension Category: Medical Qualifiers: Hypertension type: primary hypertension Qualified Code(s): I10 - Essential (primary) hypertension Plan: Continue on current blood pressure medication. Avoid salt intake and encourage healthy diet and regular exercise. (2) Atrial flutter: Code(s): I48.92 - Unspecified atrial flutter Category: Medical Plan: Currently following with Dr. House on full oral anticoagulation with Xarelto and diltiazem. (3) PAD (peripheral artery disease): Comment: Bilateral femoral endarterectomy 12/05/2020- left common iliac and external iliac plasty 01/02/2021 - right common iliac stent Code(s): I73.9 - Peripheral vascular disease, unspecified Category: Medical Plan: Patient is being monitored by Dr. Flores for peripheral arterial disease and imaging was ordered with follow up scheduled for September (4) Carotid disease, bilateral: Code(s): I77.9 - Disorder of arteries and arterioles, unspecified Category: Medical Plan: Patient currently following with Dr. Flores for carotid artery disease. He has a history of 3 carotid endarterectomy denies any lightheadedness, dizziness, vision changes or other symptoms at this time. LDL goal less than 70 and continue on anticoagulation. (5) Hyperlipidemia: Code(s): E78.5 - Hyperlipidemia, unspecified Category: Medical Plan: Avoid foods that are high in cholesterol such as red meat, fried foods, eggs and baked goods. Triglyceride goal of less than 150 and LDL goal of less than 70. Continue on atorvastatin 80 and Zetia. Last LDL within goal. I did order for repeat blood work as well (6) Hyperparathyroidism: Code(s): E21.3 - Hyperparathyroidism, unspecified Category: Medical Plan: Patient recently diagnosed with hyperparathyroidism he was started on cinacalcet 3 times per week by his dental assistant medical assistant. Blood work was ordered by neurologist to be completed in 3 months. (7) Obesity: Code(s): E66.9 - Obesity, unspecified Category: Medical Plan: Healthy diet and regular exercise is encouraged. (8) CKD (chronic kidney disease) stage 3, GFR 30-59 ml/min: Code(s): N18.30 - Chronic kidney disease, stage 3 unspecified Category: Medical Qualifiers: Chronic kidney disease stage 3 subtype: stage 3a (GFR 45-59) Qualified Code(s): N18.31 - Chronic kidney disease, stage 3a Plan: Patient following with Dr. Hill's advised to avoid excessive salt intake in the use of NSAIDs. Advised patient to stay well hydrated (9) BPH (benign prostatic hyperplasia): Code(s): N40.0 - Benign prostatic hyperplasia without lower urinary tract symptoms Category: Medical Plan: Patient currently following with Dr. Gallagher and has blood work to be completed. (10) Balance problem: Code(s): R26.89 - Other abnormalities of gait and mobility Category: Medical Plan: Patient reports difficulty with balancing. On exam he does have weakness with plantar and dorsiflexion of the left foot however strength and sensation is still intact in bilateral lower extremities. Referral was placed to Neurology today. (11) COPD (chronic obstructive pulmonary disease): Code(s): J44.9 - Chronic obstructive pulmonary disease, unspecified Category: Medical Plan: Patient uses albuterol inhaler as needed and Wixela twice daily. He feels his symptoms are well managed he does occasionally have an exacerbation typically due to weather. Avoid irritants such as allergies and smoking. Plan The management of atrial flutter will continue with regular monitoring and follow-up with the homicide squad captain. The patient is advised to maintain adherence to current medications and to monitor heart rate regularly. For coronary artery disease, the patient should continue with prescribed medications and lifestyle modifications, including regular exercise and dietary adjustments to manage cholesterol levels. The carotid artery stenosis will be monitored through regular ultrasounds and follow-ups with the vascular specialist. The patient's dehydration should be addressed by increasing fluid intake to prevent further complications. Regular blood work will be conducted to monitor kidney function and electrolyte levels. The scalp injury requires careful monitoring and protective measures to prevent further trauma. The patient is encouraged to continue with daily physical activity to maintain cardiovascular health and overall well-being. This note was constructed using voice recognition software. While every effort has been made to ensure accuracy and welder metal fab, still areas may have been included sometimes these areas may affect the content or meeting of the given symptoms. Total time spent caring for the patient today was 30 minutes. This includes time spent before the visit reviewing the chart, time spent during the visit, and time spent after the visit and documentation. Patient was informed and verbally consented to the use of an ambient scribe for clinic note documentation during this visit. Orders: Orders Lipid Panel Today E78.00 - Pure hypercholesterolemia, unspecified Referrals Neurology Referral R26.89 - Other abnormalities of gait and mobility
[2025-04-28 09:33] VITALS: BP 136/64; PULSE 96; TEMP 36.2; O2SAT 93; BMI 41.0
--- OUTSIDE RECORDS SUMMARY | 2025-04-28 09:41 | XMS_ITS | Clinical Summary ---
Author Organization [facility] Address [address] [place] [address] Phone Care Team Providers Care Instructor Warper Name Role Phone Oren Puentes MD Primary Care Provider [phone] Allergies No known active allergies Medications acetaminophen [...] LICA stent without complications. Upon arrival to [facility] SBP 85-90, HR 45-50, sudafed 60mg x1 [...] he developed epistaxis and it was discontinued. [id number]. Currently sinus bradycardia in the 50's (patients [...] disease 02/04/2017 12/23/2021 Overview (12/23/2021): s/p R AIRPORT GUIDE endarterectomy Last Assessment & Plan: History of PAD, s/p right AIRPORT GUIDE endarterectomy November 2016. Left iliofemoral angiogram reveals a high grade L AIRPORT GUIDE lesion (distal to the access site) -Continue [...] patient's age to complete this topic Insurance [facility] [place] [address] [facility] Medicare Care Teams Instructor Warper Relationship Specialty Start Date End Date Oren Puentes MD [address] [place], [place] PCP - General Internal Medicine 10/22/21
== END 2025-04-28 10:52 | disposition home or self-care (01) ==
LOC: HO.HMCH 09:24
DX: I12.9 Hypertensive chronic kidney disease with stage 1 through stage 4 chronic kidney disease, or unspecified chronic kidney disease (principal); E78.5 Hyperlipidemia, unspecified; I48.92 Unspecified atrial flutter; J44.9 Chronic obstructive pulmonary disease, unspecified; Z68.41 Body mass index [BMI] 40.0-44.9, adult; N18.31 Chronic kidney disease, stage 3a; I73.9 Peripheral vascular disease, unspecified; I77.9 Disorder of arteries and arterioles, unspecified; E21.3 Hyperparathyroidism, unspecified; E66.9 Obesity, unspecified; N40.0 Benign prostatic hyperplasia without lower urinary tract symptoms; R26.89 Other abnormalities of gait and mobility

== ENCOUNTER → 2025-04-28 09:23 | Outpatient (BNVA) | payer MEDICARE, SELFPAY | PROVIDERS: PCP Internal Medicine | DX: I48.92 Unspecified atrial flutter (principal); I73.9 Peripheral vascular disease, unspecified; I77.9 Disorder of arteries and arterioles, unspecified; E78.5 Hyperlipidemia, unspecified; E21.3 Hyperparathyroidism, unspecified; E66.9 Obesity, unspecified; Z68.41 Body mass index [BMI] 40.0-44.9, adult; I12.9 Hypertensive chronic kidney disease with stage 1 through stage 4 chronic kidney disease, or unspecified chronic kidney disease; N18.31 Chronic kidney disease, stage 3a; N40.0 Benign prostatic hyperplasia without lower urinary tract symptoms; R26.89 Other abnormalities of gait and mobility; J44.9 Chronic obstructive pulmonary disease, unspecified; Z71.3 Dietary counseling and surveillance | CPT/HCPCS: 96127; 99212 ==

== ENCOUNTER 2025-05-19 09:16 | Outpatient (AMB) | payer MEDICARE, SELFPAY ==
[2025-05-19 09:20] VITALS: BP 130/80; PULSE 107; O2SAT 99; BMI 40.4
--- NOTE | 2025-05-19 09:20 | MHC.OFFVIS ---
Vital Signs 05/19/25 09:20 Height 5 ft 2 in Weight 221 lb BMI 40.4 BP 130/80 Blood Pressure Location Rt brachial Position Sitting Pulse 107 H Pulse Source Pulse Oximeter Pulse Oximetry (%) 99 Oxygen Delivery Method Room Air Intake Visit Reasons: INP - Abnormalities of gait and mobility Intake Note: NPV Gait Log Deck Tender Required: No Accompanied by: Spouse Allergies ENVIRONMENTAL Allergy (Uncoded 04/28/25 09:58) Runny Nose Medication List - Last Reconciled 05/19/25 by Joanne Teague MD acetaminophen 500 mg PO Q6H PRN albuterol sulfate 90 mcg/actuation 2 puffs PO DAILY antiarthritic combination no.2 (glucosamine-chondroitin) mg PO atorvastatin 80 mg PO DAILY 90 days cholecalciferol (vitamin D3) 25 mcg PO DAILY cinacalcet 30 mg PO 3XW diltiazem HCl CD (Cartia XT) 240 mg PO DAILY ezetimibe 10 mg PO DAILY finasteride 5 mg PO DAILY 90 days finasteride 5 mg PO DAILY fluticasone propion-salmeterol 100-50 mcg/dose (Wixela Inhub) 1 inh inhalation BID hydrochlorothiazide 25 mg PO DAILY lisinopril 40 mg PO BID pantoprazole 20 mg PO DAILY rivaroxaban (Xarelto) 20 mg PO DAILY 90 days tramadol 100 mg (2 x 50 mg) PO Q6H PRN HPI Comments Details: 79y/o right handed male comes for evaluation of gait issues, tremors, muscle twitching , sleep problems. Gait- He has become more dependant on his came for the past 8 mths , feels tired ,off balance etc. He feels like his legs are slow and is weak.His right leg is worse than left.He had 1 fall 3 mths ago , he is also more stooped.His stride is shorter and gets stuck often .He is shuffling He has lumbar spondylosis and has back pain Tremors - right hand at rest for oevr 2 years .He has carapl tunnel and tendinitis and his ahdn hurts . He has trouble with right hand movement. SLeep- many years ago 2017 he had sleep study - does not remember his results. He use dto be a heavy snorer , he still snores but milder in supine position. No gasping arousals. No witnessed apneas. He has excessive daytime sleepiness. Muscle twitches- usually when he is relaxing , leg twitches wake him up from sleep.wake yahir up form sleep sometimes PFSH Medical History Myoclonus Coarse tremors Gait apraxia Muscle spasms of lower extremity Hypersomnia Snoring Falls Lumbar spondylosis Paroxysmal atrial fibrillation Atrial tachycardia Atrial flutter Persistent atrial fibrillation Obesity Screening for prostate cancer Screening for diabetes mellitus Paroxysmal atrial fibrillation History of stent insertion of renal artery Carotid disease, bilateral PAD (peripheral artery disease) Hyperlipidemia Hypertension Surgical History H/O esophagogastroduodenoscopy H/O colonoscopy History of angioplasty History of surgery History of cardioversion History of vasectomy History of carotid endarterectomy Family History Father Heart disease Mother Hypertension Brother No problems noted. Son No problems noted. Social History Housing: House Are you a primary pediatric care coordinator to a significant other at home: No Do you presently have visiting nurse or other home services: No Alcohol intake: former Patient Tobacco Use Status: Former Tobacco user Tobacco use type: Cigarette e-Cigarette/Vaping Use: Never Used Second Hand Smoke Exposure: No Advance Directives Date on File: 08/17/20 service: No Current occupational status: retired Cognitive needs: Yes (cane) Hearing needs: Yes (hearing aide) Vision needs: Yes (glasses) Physical Exam Vital Signs: Last Vital Signs Pulse 107 H 05/19/25 09:20 BP 130/80 05/19/25 09:20 Pulse Ox 99 05/19/25 09:20 Oxygen Delivery Method Room Air 05/19/25 09:20 BMI result Body Mass Index 40.4 Const General: cooperative, healthy appearing and comfortable Nutritional Appearance: obese Orientation/consciousness: patient oriented x3 Neuro Other: Right hand intermittent rest tremors , mild cog wheel rigidity FFM and foot taps very slow , gait with can e, better today as per , decreased stride, mild stoop, good turning General: patient oriented x3 and moves all extremities Cranial nerves: Yes Facial sensation intact/muscles of mastication intact, Yes Bilaterally intact EOM present, Yes Nystagmus not present, Yes Normal facial strength present and Yes Midline tongue present Cognition (Neuro): normal cognition Motor exam (neuro): 5/5 motor strength present throughout Deep tendon reflexes (DTR's): Right triceps reflex intensity grade: 2+, Left triceps reflex intensity grade: 2+, Rt Biceps (C5, C6): 2+, Left biceps reflex intensity grade: 2+, Right brachioradialis reflex intensity grade: 2+, Left brachioradialis reflex intensity grade: 2+, Right patellar reflex intensity grade: 4+, Left patellar reflex intensity grade: 4+, Right ankle reflex intensity grade: 4+ and Left ankle reflex intensity grade: 4+ Coordination: [id number] test normal Assessment & Plan Assessment & Plan (1) Lumbar spondylosis: Comment: hyperreflexia, spinal myoclonus , gait apraxia Code(s): M47.816 - Spondylosis without myelopathy or radiculopathy, lumbar region Category: Medical (2) Coarse tremors: Comment: ? rest ? parkinsons Code(s): G25.2 - Other specified forms of tremor Category: Medical (3) Myoclonus: Comment: spinal myoclonus , / periodic limb movements Code(s): G25.3 - Myoclonus Category: Medical (4) Gait apraxia: Code(s): R48.2 - Apraxia Category: Medical (5) Snoring: Code(s): R06.83 - Snoring Category: Medical (6) Hypersomnia: Code(s): G47.10 - Hypersomnia, unspecified Category: Medical Plan I will evaluate him with MRI Brain MRI LS spine Labs - B 12 D3 Ferritin CBC cMP SLeep study for periodic limb movements disorder and sleep apnea. Orders: Orders MR lumbar spine wo con Today M47.816 - Spondylosis without myelopathy or radiculopathy, lumbar region, M62.838 - Other muscle spasm, R48.2 - Apraxia Vitamin B12 and Folate Today G25.2 - Other specified forms of tremor, G25.3 - Myoclonus, M62.838 - Other muscle spasm, R48.2 - Apraxia TSH reflex Free T4 Today G25.2 - Other specified forms of tremor, G25.3 - Myoclonus, M62.838 - Other muscle spasm, R48.2 - Apraxia RT PSG in-lab sleep study Today G47.10 - Hypersomnia, unspecified, I48.92 - Unspecified atrial flutter, M62.838 - Other muscle spasm, R06.83 - Snoring MR head/brain wo con Today G25.2 - Other specified forms of tremor, G25.3 - Myoclonus, R48.2 - Apraxia Ferritin Today G25.2 - Other specified forms of tremor, G25.3 - Myoclonus, M62.838 - Other muscle spasm, R48.2 - Apraxia Vitamin D 25-OH (D2 and D3) Today G25.2 - Other specified forms of tremor, G25.3 - Myoclonus, M62.838 - Other muscle spasm, R48.2 - Apraxia Comprehensive Met. Panel Today G25.2 - Other specified forms of tremor, G25.3 - Myoclonus, M62.838 - Other muscle spasm, R48.2 - Apraxia Complete Blood Count Auto Diff Today G25.2 - Other specified forms of tremor, G25.3 - Myoclonus, M62.838 - Other muscle spasm, R48.2 - Apraxia Coding Level of Care Code New Pt Level 4 (58330) Complex EM visit Add On G2211 Diagnoses Lumbar spondylosis M47.816 Coarse tremors G25.2 Myoclonus G25.3 Gait apraxia R48.2 Snoring R06.83 Hypersomnia G47.10
--- OUTSIDE RECORDS SUMMARY | 2025-05-19 09:31 | XMS_ITS | Clinical Summary ---
Author Organization [facility] Address [address] [place] [address] Phone Care Team Providers Care Tower Erector Name Role Phone Oren Puentes MD Primary Care Provider [phone] Allergies No known active allergies Medications acetaminophen [...] LICA stent without complications. Upon arrival to [facility] SBP 85-90, HR 45-50, sudafed 60mg x1 given -Continue post procedure care per protocol -Maintain SBP >90, HR >45 -NS at 150cc/hr x 10 hours -Sudafed 60 mg q 4 hours prn for SBP <90 -Neuro checks q 4 hours -Continue ASA and Plavix -Continue Atorvastatin 80 mg daily -Check labs in the morning -Follow up with Dr. Oropeza in [facility] with an ultrasound in 2 weeks [...] he developed epistaxis and it was discontinued. [id number]. Currently sinus bradycardia in the 50's (patients [...] disease 02/04/2017 12/23/2021 Overview (12/23/2021): s/p R QUALITY FACILITATOR endarterectomy Last Assessment & Plan: History of PAD, s/p right QUALITY FACILITATOR endarterectomy November 2016. Left iliofemoral angiogram reveals a high grade L QUALITY FACILITATOR lesion (distal to the access site) -Continue [...] of 2 - PCV) 1966 Influenza Vaccine (#1) 2025 Hepatitis B Vaccine Aged Out No longe r eligible based on patient's age to complete this topic Insurance [facility] [place] [address] [facility] Medicare Care Teams Tower Erector Relationship Specialty Start Date End Date Oren Puentes MD [address] [place], [place] PCP - General Internal Medicine 10/22/21
--- OUTSIDE RECORDS SUMMARY | 2025-05-19 09:31 | XMS_ITS | Patient Health Record ---
Author Organization [facility] Address [address] [place] [address] Care Team Providers Care Pillow Agent Name Role Phone Rubén Beard Unavailable [phone] Reason For Referral No Information Plan Of Treatment No Information
== END 2025-05-19 10:09 | disposition home or self-care (01) ==
LOC: HO.HSMS 09:16
PROVIDERS: Visit Provider Psychiatry & Neurology Neurology
DX: M47.816 Spondylosis without myelopathy or radiculopathy, lumbar region (principal); G25.2 Other specified forms of tremor; G25.3 Myoclonus; R48.2 Apraxia; R06.83 Snoring; G47.10 Hypersomnia, unspecified
CPT/HCPCS: 99204; G2211

== ENCOUNTER → 2025-05-19 09:16 | Outpatient (BNVA) | payer MEDICARE, SELFPAY | PROVIDERS: Visit Provider Psychiatry & Neurology Neurology | DX: M47.816 Spondylosis without myelopathy or radiculopathy, lumbar region (principal); G25.3 Myoclonus; G25.2 Other specified forms of tremor; M62.838 Other muscle spasm; R48.2 Apraxia; R06.83 Snoring | CPT/HCPCS: 99202 ==

== ENCOUNTER 2025-06-04 08:46 | Outpatient (REF) | payer MEDICARE, SELFPAY ==
--- NOTE | ~2025-06-04 | MR_ITS ---
EXAMINATION: MR LUMBAR SPINE WITHOUT CONTRAST CLINICAL INFORMATION: No back pain, muscle spasm. COMPARISON: None available. TECHNIQUE: MRI of the lumbar spine was obtained using routine sequences without contrast. FINDINGS: There is normal lumbar lordosis. There is grade 1 anterolisthesis L5 over S1 and grade 1 retrolisthesis L3 over L4 and L2 over L3. Mild loss of L2-3, L3-4, L4-5 and L5-S1 disc height is noted. At L1-2 disc level is a left paracentral disc herniation narrowing the left lateral recess and moderately narrowing the left neural foramina. There is mild narrowing of right neural foramina At L2-3 disc level there is a broad-based diffuse bulge with bilateral facet joint and mild ligament flavum hypertrophy resulting in moderate canal stenosis. There is bilateral moderate narrowing of neural foramina. In addition there is a right lateral migrated disc fragment adjacent to the right L3 pedicle. It is best visualized on axial image 23/17 At L3-4 disc level there is a broad-based diffuse bulge/osteophyte complex resulting in mild to moderate AP canal stenosis. There is bilateral moderate narrowing of neural foramina. At L4-5 disc level the disc is intact with no evidence of herniation or spinal canal stenosis. The neural foramina are moderately narrowed secondary to facet joint hypertrophy. At L5-S1 disc level there is a grade 1 anterolisthesis with diffuse pseudo disc bulge resulting in mild AP canal stenosis. There is moderate facet joint arthropathy resulting in bilateral mild to moderate narrowing of neural foramina slightly greater on the left then right. Conus medullaris terminates at L1 and appears normal in morphology. There are Schmorl's node along the T12-L1, L2-3 and L3-4 disc levels. Incidental noted is made of moderate size left renal cyst. MR/MR lumbar spine wo con IMPRESSION: Grade 1 anterolisthesis L5 over S1 and grade 1 anterolisthesis L3 over L4 and L2 over L3. There is multilevel degenerative disc bulges resulting in canal stenosis as described above. Inferior migrated right paracentral disc herniation at L2-3 disc level. Electronically signed by: Javier Chowdhury MD 06/05/2025 07:42 AM EDT
--- NOTE | ~2025-06-04 | MR_ITS ---
EXAMINATION: MR BRAIN WITHOUT CONTRAST CLINICAL INFORMATION: Tremors. Spasms. Lower extremity weakness. Prior strokes. COMPARISON: None available. TECHNIQUE: MRI of the brain was obtained using routine sequences without contrast. FINDINGS: No restricted diffusion. No acute intracranial hemorrhage, mass effect, midline shift, hydrocephalus or herniation. Bilateral multifocal patchy and punctate deep periventricular white matter hyperintense T2 FLAIR signal involving centrum semiovale and ram radiata. There is no absent swallow tail sign. Flow-void signal within the main cerebral vessels is normal. Old lacunar infarcts, cerebellar, left lenticular nucleus. Sellar/suprasellar region demonstrated no signal abnormality or masses. Normal position of the cerebellar tonsils. Decreased AP diameter of the cranium suggesting plagiocephaly. 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 No acute stroke. Electronically signed by: Lawrence Young MD 06/05/2025 08:39 AM EDT
--- OUTSIDE RECORDS SUMMARY | 2025-06-04 08:49 | XMS_ITS | Patient Health Record ---
Author Organization [facility] Address [address] [place] [address] Care Team Providers Care Parts Sales Associate Name Role Phone Rubén Beard Unavailable [phone] Reason For Referral No Information Plan Of Treatment No Information
--- OUTSIDE RECORDS SUMMARY | 2025-06-04 08:49 | XMS_ITS | Clinical Summary ---
Author Organization [facility] Address [address] [place] [address] Phone Care Team Providers Care Philanthropy Officer Name Role Phone Oren Puentes MD Primary Care Provider [phone] Allergies No known active allergies Medications acetaminophen [...] without complications. Upon arrival to [facility] SBP 85-90, HR 45-50, sudafed [...] he developed epistaxis and it was discontinued. [id number]. Currently sinus bradycardia in the 50's (patients [...] disease 02/04/2017 12/23/2021 Overview (12/23/2021): s/p R MATTRESS RENOVATOR endarterectomy Last Assessment & Plan: History of PAD, s/p right MATTRESS RENOVATOR endarterectomy November 2016. Left iliofemoral angiogram reveals a high grade L MATTRESS RENOVATOR lesion (distal to the access site) -Continue [...] age to complete this topic Insurance [facility] [place] [address] [facility] Medicare Care Teams Philanthropy Officer Relationship Specialty Start Date End Date Oren Puentes MD [address] [place], [place] PCP - General Internal Medicine 10/22/21
== END 2025-06-04 08:47 | disposition home or self-care (01) ==
LOC: HO.MRI 08:46
PROVIDERS: Visit Provider Psychiatry & Neurology Neurology
DX: M62.838 Other muscle spasm (principal); M47.816 Spondylosis without myelopathy or radiculopathy, lumbar region; R48.2 Apraxia; G25.2 Other specified forms of tremor; G25.3 Myoclonus
CPT/HCPCS: 70551; 72148

== ENCOUNTER → 2025-06-04 08:46 | Outpatient (BNV) | payer MEDICARE, SELFPAY | PROVIDERS: Visit Provider Radiology Diagnostic Radiology | DX: M43.17 Spondylolisthesis, lumbosacral region (principal); I67.82 Cerebral ischemia | CPT/HCPCS: 70551; 72148 ==

== ENCOUNTER → 2025-06-12 20:30 | Outpatient (REF) | payer MEDICARE, SELFPAY ==
--- OUTSIDE RECORDS SUMMARY | 2025-06-12 21:00 | XMS_ITS | Patient Health Record ---
Author Organization [facility] Address [address] [place] [address] Care Team Providers Care Signals Intelligence Analyst Name Role Phone Rubén Beard Unavailable [phone] Reason For Referral No Information Plan Of Treatment No Information
--- OUTSIDE RECORDS SUMMARY | 2025-06-12 21:00 | XMS_ITS | Clinical Summary ---
Author Organization [facility] Address [address] [place] [address] Phone Care Team Providers Care Stock Handler Floorperson Name Role Phone Oren Puentes MD Primary Care Provider [phone] Allergies No known active allergies Medications acetaminophen [...] LICA stent without complications. Upon arrival to [facility] SBP 85-90, HR 45-50, sudafed 60mg x1 given -Continue post procedure care per protocol -Maintain SBP >90, HR >45 -NS at 150cc/hr x 10 hours -Sudafed 60 mg q 4 hours prn for SBP <90 -Neuro checks q 4 hours -Continue ASA and Plavix -Continue Atorvastatin 80 mg daily -Check labs in the morning -Follow up with Dr. Oropeza in [facility] with an ultrasound in 2 weeks [...] he developed epistaxis and it was discontinued. [id number]. Currently sinus bradycardia in the 50's (patients [...] disease 02/04/2017 12/23/2021 Overview (12/23/2021): s/p R COOK DINNER endarterectomy Last Assessment & Plan: History of PAD, s/p right COOK DINNER endarterectomy November 2016. Left iliofemoral angiogram reveals a high grade L COOK DINNER lesion (distal to the access site) -Continue [...] patient's age to complete this topic Insurance [facility] Medicare [facility] Medicare Care Teams Stock Handler Floorperson Relationship Specialty Start Date End Date Oren Puentes MD [address] [place], [place] PCP - General Internal Medicine 10/22/21
== END ==
LOC: HO.SL 20:30
PROVIDERS: Visit Provider Psychiatry & Neurology Neurology
DX: G47.33 Obstructive sleep apnea (adult) (pediatric) (principal); I48.92 Unspecified atrial flutter; R06.83 Snoring; G47.10 Hypersomnia, unspecified; M62.838 Other muscle spasm
CPT/HCPCS: 95810

== ENCOUNTER → 2025-06-12 21:24 | Outpatient (BNV) | payer MEDICARE, SELFPAY | PROVIDERS: Visit Provider Psychiatry & Neurology Neurology | DX: G47.33 Obstructive sleep apnea (adult) (pediatric) (principal) | CPT/HCPCS: 95810 ==

== ENCOUNTER 2025-07-20 09:25 | Outpatient (REF) | payer MEDICARE, SELFPAY ==
--- OUTSIDE RECORDS SUMMARY | 2025-07-20 10:54 | XMS_ITS | Encounter Summary ---
Author Organization [facility] Address [address] [place] [address] Phone Care Team Providers Care Java Solutions Architect Name Role Phone Unknown, Unknown Primary Care Provider Loree mason Encounter Details Date Type Department Care Team (Late st Contact Info) Description 03/26/[address] [facility] Cardiac Valet Attendant [address] [place] [address] Floyd Merritt MD, MSc [id number] [place] [address] [email or web address] Social History Tobacco Use Types Packs/Day Years Used Date Smoking Tobacco: Former Cigarettes Q uit: 02/05/1999 Smokeless Tobacco: Never Comments:quit 1998 Alcohol Use Standard Drinks/Week Comments No 0 (1 standard drink = 0.6 oz pur e alcohol) former use Sex and Gender Information Value Date Recorded Sex Assigned at Not on file Legal Sex Male 1:27 PM EST Gender Identity Not on file Sexual Orientation Not on file documented as of this encounter Functional Status * Patient is deaf or has serious difficulty with hearing Answer Date of Assessment Author No 02/06/2017 11:23 AM Nidia Arteaga NP * Patient is blind or has serious difficulty with seeing, even when wearing glasses Answer Date of Assessment Author No 02/06/2017 11:23 AM Nidia Arteaga NP * Patient has serious difficulty walking or climbing stairs (5yr old or older) Answer Date of Assessment Author No 02/06/2017 11:23 AM EDT Larry, Nidia Evelyne, CASING TRIMMER * Patient has serious difficulty dressing or bathing (5yr old or older) Answer Date of Assessment Author No 02/06/2017 11:23 AM Nidia Arteaga NP * Patient has serious difficulty doing errands alone such as visiting a doctor???s office or shopping, due to physical, mental, or emotional condition (15 years old or older) Answer Date of Assessment Author No 02/06/2017 11:23 AM Nidia Arteaga NP documented as of this encounter Mental Status * Patient has serious difficulty concentrating, remembering, or making decisions due to physical, mental, or emotional condition Answer Entry Date Author No 02/06/2017 11:23 AM Nidia Arteaga NP documented in this encounter Plan of Treatment Not on file documented as of this encounter Visit Diagnoses Not on filedocumented in this encounter Care Teams Java Solutions Architect Relationship Specialty Start Date End Date Unknown, Unknown, PCP - General 01/12/17 documented as of this encounter Additional Source Comments The information contained in this document represents components of the legal health record. It is not the complete legal health record.[facility]
--- OUTSIDE RECORDS SUMMARY | 2025-07-20 10:54 | XMS_ITS | Encounter Summary ---
Author Organization [facility] Address [address] [place] [address] Phone Care Team Providers Care Railroad Watchman Name Role Phone Unknown, Unknown Primary Care Provider Loree mason Encounter Details Date Type Department Care Team (Late st Contact Info) Description 03/26/2017 Documentation [facility] Cardiac Shelf Stocker [address] [place] [address] Floyd Merritt MD, MSc [address] [facility] [address] [facility] [id number] [place] [address] [email or web address] Social History Tobacco Use Types Packs/Day Years [...] 02/06/2017 11:23 AM EDT Larry, Nidia Evelyne, TAXI CAB DRIVER * Patient has serious difficulty dressing or [...] on filedocumented in this encounter Care Teams Railroad Watchman Relationship Specialty Start Date End Date Unknown, Unknown, PCP - General 01/12/17 documented as of this encounter Additional Source Comments The information contained in this document represents components of the legal health record. It is not the complete legal health record.[facility]
--- OUTSIDE RECORDS SUMMARY | 2025-07-20 10:54 | XMS_ITS | Patient Health Record ---
Author Organization [facility] Address [address] [place] [address] Care Team Providers Care Casting Machine Control Board Operator Name Role Phone Rubén Beard Unavailable [phone] Reason For Referral No Information Plan Of Treatment No Information
--- OUTSIDE RECORDS SUMMARY | 2025-07-20 10:54 | XMS_ITS | Clinical Summary ---
Author Organization [facility] Address [address] [facility] [address] [place] [id number] Phone Care Team Providers Care Manager Reporting Name Role Phone Unknown, Unknown MD Primary Care Provider Unavai lable Allergies No known active allergies Medications aspirin 81 mg chewable tablet Take 81 mg by mouth daily. Active clopidogrel (PLAVIX) 75 mg tablet Take 75 mg by mouth daily. Active atorvastatin (LIPITOR) 80 MG tablet Take 80 mg by mouth nightly. Active ezetimibe (ZETIA) 10 mg tablet Take 10 mg by mouth nightly. Active albuterol (PROVENTIL HFA;VENTOLIN HFA) 90 mcg/actuation inhaler Inhale 2 puffs into the lungs every 4 (four) hours as needed for wheezing (has been taking every 4 hours). Active fluticasone-salm eterol (ADVAIR DISKUS) 100-50 mcg/dose DISKUS Inhale 100 mcg/actuation of fluticasone into the lungs 2 (two) times a day. Active MULTIVIT-MINERAL S/FOLIC ACID (ADULT MULTIVITAMIN GUMMIES ORAL) Take 2 tablets by mouth daily. Active glucosamine-oliva droitin 500-400 mg Cap Take 2 capsules by mouth daily. Active Active Problems Problem Noted Date Diagnosed Date Carotid stenosis, asymptomatic 03/26/2017 Assessment & Plan (03/26/2017 6:15 PM EDT): Prior stroke with right eye blindness in [...] LICA stent without complications. Upon arrival to 11 SBP 85-90, HR 45-50, sudafed 60mg x1 given -Continue post procedure care per protocol -Maintain SBP >90, HR >45 -NS at 150cc/hr x 10 hours -Sudafed 60 mg q 4 hours prn for SBP <90 -Neuro checks q 4 hours -Continue ASA and Plavix -Continue Atorvastatin 80 mg daily -Check labs in the morning -Follow up with Dr. Oropeza in [facility] with an ultrasound in 2 weeks and appointment in 4 weeks (already scheduled) Atrial fibrillation 02/04/2017 Overview (03/26/2017): Was on Xarelto but had epistaxis after aspirin and plavix were added. No recurrent bleeding off Xarelto. No known recurrence of AF. Assessment & Plan (03/26/2017 6:17 PM EDT): History of PAF and was previously anticoagulated with Xarelto but after starting ASA and Plavix he developed epistaxis and it was discontinued. [id number]. Currently sinus bradycardia in the 50's (patients baseline) -Monitor on telemetry -Continue Toprol XL 100mg daily -Hold Xarelto while on DAPT, decision on when to resume will be determined as an outpatient Assessment & Plan (03/26/2017 9:04 AM EDT): Paroxysmal. Assessment & Plan (02/05/2017 3:11 PM EDT): Hx PAF, 09/2016 was on xarelto wiith DAPT complicated with epistaxis thus d/c xarel;to 10 days prior to carotid stent. - continue with dapt, holding xarelto defer to outside PCP - currently in sinus, SB rate controlled with BBL. Assessment & Plan (02/05/2017 9:46 AM EDT): Paroxysmal AFib diagnosed in 2015. Xarelto held more than 5 days following initiation of clopidogrel and on aspirin. In SR today and will likely need to hold Xarelto while on DAPT. - continue metoprolol Hyperlipidemia 02/04/2017 Assessment & Plan (03/26/2017 4:36 PM EDT): No fasting lipid panel available, managed by his PCP -Continue Zetia and high dose Atorvastatin -Check FLP an outpatient Assessment & Plan (02/05/2017 3:08 PM EDT): Continue with high dose statin and zetia managed per OSH. Assessment & Plan (02/05/2017 8:46 AM EDT): High intensity statin indicated. - continue atorvastatin 80mg and ezetimibe Hypertensive disorder 02/04/2017 Assessment & Plan (03/26/2017 5:20 PM EDT): Managed by PCP as an outpatient. SBP in the 90's post procedure. Patient did take Toprol, Norvasc and Lisinopril this morning -Maintain SBP >90 -Check Cr tomorrow prior to resuming Lisinopril and HCTZ -Continue Norvasc tomorrow if BP can tolerate Assessment & Plan (02/05/2017 3:09 PM EDT): Managed with outside PCP. Currently on Norvasc 10, lisinopril 60 daily, and HCTZ ( both akua and diuretic held for procedure. - may need to consider reducing RX in AM pending BP Assessment & Plan (02/05/2017 8:48 AM EDT): Hypertensive today. BP goal < 140/90. - held Lisinopril (takes 60mg) and HCTZ today - will monitor BP amy procedurally PAD (peripheral artery disease) 02/04/2017 Overview (02/04/2017): s/p R GAMBLING SUPERVISOR endarterectomy Assessment & Plan (03/26/2017 5:21 PM EDT): History of PAD, s/p right GAMBLING SUPERVISOR endarterectomy November 2016. Left iliofemoral angiogram reveals a high grade L GAMBLING SUPERVISOR lesion (distal to the access site) -Continue ASA and statin as above -Followed by Dr. Oropeza Assessment & Plan (02/05/2017 8:42 AM EDT): Intermittent claudication L calf. R calf claudication resolved following R GAMBLING SUPERVISOR endarterectomy in November. The right groin infected seroma is healing but would avoid use for access today. - f/u Dr. Sarah, Vascular Surgery Bilateral carotid artery stenosis 02/04/2017 Overview (02/04/2017): s/p R CEA Assessment & Plan (03/26/2017 9:09 AM EDT): Hx stroke in 1999. RCEA in 1999. US showed restenosis of MACIE, and significant LICA stenosis. RCEA/MACIE restenosis treated with stent in 01/2017 Most recent US showed patent MACIE stent. 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 He has severe restenosis of the CEA and severe LICA stenosis. Asymptomatic. - plan for carotid angiography with an eye toward stenting of the Right carotid artery today and possible staged revascularization of the left carotid artery at a future date. - Per [facility] 02/05/17: NIHSS score = 1, MRS = 0. - he will need DAPT x 1 month then resume Xarelto indefinitely for AFib. - advised to stop NSAIDs. - he will careful monitoring for bleeding given recent epistaxis following addition of Plavix. - continue high intensity statin, BP control. - Dr. Grant to consult (Vas [facility]) - further plans per Dr. Oropeza - repeat NIHSS scale post procedure Family History Medical History Relation Comments Coronary artery disease Father Coronary artery disease Mother Relation Status Comments Father following a llergic reaction, heart attacks Mother Alive alive 92, heart disease, blind, deaf Social History Tobacco Use Types Packs/Day Years Used Date Smoking Tobacco: Former Cigarettes Q uit: 02/05/1999 Smokeless Tobacco: Never Comments:quit 1998 Alcohol Use Standard Drinks/Week Comments No 0 (1 standard drink = 0.6 oz pur e alcohol) former use Education Answer Date Recorded Are you interested in more education? Not on asad e 03/06/2023 Are you concerned about learning? Not on file 03/06/2023 No 03/06/2023 No 03/06/2023 Digital Access Answer Date Recorded No 04/06/2023 No 04/06/2023 No 04/06/2023 Reliable internet access at home? Not on file 04/06/2023 Device with a working camera? Not on file Sex and Gender Information Value Date Recorded Sex Assigned at Not on file Legal Sex Male 1:27 PM EST Gender Identity Not on file Sexual Orientation Not on file Last Filed Vital Signs Vital Sign Reading Time Taken Comments Blood Pressure 106/53 03/27/2017 11:21 AM EDT Pulse 61 03/27/2017 11:21 AM EDT Temperature 35.9 C (96.7 F) 03/27/2017 8:41 AM EDT Respiratory Rate 18 03/27/2017 8:41 AM EDT Oxygen Saturation 97% 03/27/2017 8:41 AM EDT Inhaled Oxygen Concentration - - Weight 98 kg (216 lb) 03/26/2017 4:15 PM EDT Height 160 cm (5' 3 ) 03/26/2017 4:15 PM EDT Body Mass Index 38.26 03/26/2017 4:15 PM EDT Plan of Treatment Health Maintenance Due Date Last Done Comments BLOOD PRESSURE 1947 DEPRESSION SCREENING 1959 SMOKING Hx and SMOKELESS TOBACCO SCREENING 1960 HEPATITIS C SCREENING 1965 PNEUMOCOCCAL VACCINES (50+ years) (2 of 2 - PCV) 10/05/2019 10/05/2018 RSV VACCINE (1 - 1-dose 75+ series) 2022 Adult Td,Tdap Booster 03/22/2025 03/22/2015 INFLUENZA VACCINE (#1) 2025 9, 08/25/2018, 08/09/2018, Additional history exists COVID-19 VACCINE ( season) 2025 01/12/2021, 12/22/2020 ZOSTER VACCINES Completed 12/07/2019, 09/30/2019 HEPATITIS A VACCINES Aged Out No long er eligible based on patient's age to complete this topic HIB VACCINES Aged Out No longer eligi ble based on patient's age to complete this topic MENINGOCOCCAL VACCINES (ACWY) Aged Out No longer eligible based on patient's age to complete this topic MENINGOCOCCAL VACCINES (B) Aged Out N o longer eligible based on patient's age to complete this topic Medical Devices Implanted Type Area Staff Research Associate Device Identifier Shelf Expiration Date Model / Serial / Lot Stent Carotid 8-6x40mm Tapered Xact - Vasc. Dev. Div. - [id number] Implanted:Qty: 1 on 02/05/2017 by Matt Oropeza DO at [facility] Stent [employer] 05/08/2019 820 [id number] Stent Carotid 9-7x40mm Tapered Xact - Vasc. Dev. Div. - [id number] Implanted:Qty: 1 on 03/26/2017 by Matt Oropeza DO at [facility] Stent [employer] 06/08/2019 820 [id number] Description:left ica Insurance [employer] P[employer] MEDICARE A CIGNA PPO MEDICARE A CIGNA PPO MEDICARE A CIGNA PPO MEDICARE A CIGNA PPO MEDICARE A CIGNA PPO MEDICARE A CIGNA PPO MEDICARE A CIGNA PPO MEDICARE A CIGNA PPO MEDICARE A Advance Directives For more information, please contact: [phone] (9AM - 5PM Robyn/[facility], Thursday-Thursday) * Full Code (Presumed) (Latest Code Status on File) Date Activated Date Inactivated Comments 03/26/2017 4:49 PM 03/27/2017 2:59 PM * Full Code (Confirmed) Date Activated Date Inactivated Comments 02/05/2017 2:39 PM 02/06/2017 3:33 PM Question Answer Comments Code Discussion Comments: with patient Care Teams Manager Reporting Relationship Specialty Start Date End Date Unknown, Unknown, PCP - General 01/12/17 Additional Source Comments The information contained in this document represents components of the legal health record. It is not the complete legal health record.[facility]
--- OUTSIDE RECORDS SUMMARY | 2025-07-20 10:54 | XMS_ITS | Encounter Summary ---
Author Organization [facility] Address [address] [place] [address] Phone Care Team Providers Care Rn Physician Office Name Role Phone Unknown, Unknown Primary Care Provider Loree mason Encounter Details Date Type Department Care Team (Late st Contact Info) Description 03/26/2017 Documentation [facility] Cardiac Cloth Finishing Range Tender [address] [facility], [address], [address] [place] [address] Gumaro Templeton MD [address] [facility] [address] [place] [address] [email or web address] Social History Tobacco Use Types Packs/Day [...] 02/06/2017 11:23 AM EDT Larry, Nidia Evelyne, HAND DECORATOR * Patient has serious difficulty dressing or [...] on filedocumented in this encounter Care Teams Rn Physician Office Relationship Specialty Start Date End Date Unknown, Unknown, PCP - General 01/12/17 documented as of this encounter Additional Source Comments The information contained in this document represents components of the legal health record. It is not the complete legal health record.[facility]
--- OUTSIDE RECORDS SUMMARY | 2025-07-20 10:54 | XMS_ITS | Encounter Summary ---
Author Organization [facility] Address [address] [place] [address] Phone Care Team Providers Care Arabic Linguist Name Role Phone Unknown, Unknown Primary Care Provider Loree mason Encounter Details Date Type Department Care Team (Late st Contact Info) Description 03/26/2017 Procedure Pass [facility] Cardiac Machinist Automotive [address] [facility], [address], [address] [place] [address] Social History Tobacco Use Types Packs/Day Years [...] Arteaga NP * Patient has serious difficulty dressing or [...] on filedocumented in this encounter Care Teams Arabic Linguist Relationship Specialty Start Date End Date Unknown, Unknown, PCP - General 01/12/17 documented as of this encounter Additional Source Comments The information contained in this document represents components of the legal health record. It is not the complete legal health record.[facility]
--- OUTSIDE RECORDS SUMMARY | 2025-07-20 10:54 | XMS_ITS | Encounter Summary ---
Author Organization [facility] Address [address] [facility] [address] [place] [address] Phone Care Team Providers Care Client Services Assistant Name Role Phone Unknown, Unknown Primary Care Provider Loree mason Encounter Details Date Type Department Care Team (Late st Contact Info) Description 02/05/2017 Documentation [facility] Vascular Surgery - [address], [address] Floor, [address] [place] [address] Matt Oropeza, DO [address] [facility] [address] [place] [address] [email or web address] Social History Tobacco Use Types [...] on file documented as of this encounter Progress Notes * Karl Broderick - 02/05/2017 2:26 PM EDT NIH Stroke Scale Interval: PreOp Stroke Scale Time: 2:26 PM Person Administering Scale: Karl Broderick Patient seen at the OVERHEAD CRANE INSPECTOR on 02/05/2017 at7:40 NIHSS-0 (+unilateral blindness) mRS-0 Administer stroke scale items in the order listed. Record performance in each category after each subscale exam. Do not go back and change scores. Follow directions provided for each exam technique. Scores should reflect what the patient does, not what the clinician thinks the patient can do. The clinician should record answers while administering the exam and work quickly. Except where indicated, the patient should not be coached (i.e., repeated requests to patient to make a special effort). 1a Level of consciousness: 0 1b. LOC questions: 0 1c. LOC commands: 0 2. Best Gaze: 0 3. Visual: 0 4. Facial Palsy: 0 5a. Motor left arm: 0 5b. Motor right arm: 0 6a. motor left le 6b Motor right le 7. Limb Ataxia: 0 8. Sensory: 0 9. Best Language: 0 10. Dysarthria: 0 11. Extinction and Inattention: 0 12. Distal motor function: 0 Total: 0 * Karl Broderick - 02/05/2017 2:26 PM EDT NIH Stroke Scale Interval: PosOp Stroke Scales Time: 12:22 PM Person Administering Scale: Karl Broderick Patient seen on 02/06/2017 @ 11am and he is at baseline NIHSS-0 (+unilateral blindness) mRS-0 Administer stroke scale items in the order listed. Record performance in each category after each subscale exam. Do not go back and change scores. Follow directions provided for each exam technique. Scores should reflect what the patient does, not what the clinician thinks the patient can do. The clinician should record answers while administering the exam and work quickly. Except where indicated, the patient should not be coached (i.e., repeated requests to patient to make a special effort). 1a Level of consciousness: 0 1b. LOC questions: 0 1c. LOC commands: 0 2. Best Gaze: 0 3. Visual: 0 4. Facial Palsy: 0 5a. Motor left arm: 0 5b. Motor right arm: 0 6a. motor left le 6b Motor right le 7. Limb Ataxia: 0 8. Sensory: 0 9. Best Language: 0 10. Dysarthria: 0 11. Extinction and Inattention: 0 12. Distal motor function: 0 Total: 0 documented in this encounter Plan of Treatment Not on file documented as of this encounter Visit Diagnoses Not on filedocumented in this encounter Care Teams Client Services Assistant Relationship Specialty Start Date End Date Unknown, Unknown, PCP - General 01/12/17 documented as of this encounter Additional Source Comments The information contained in this document represents components of the legal health record. It is not the complete legal health record.[facility]
--- OUTSIDE RECORDS SUMMARY | 2025-07-20 10:54 | XMS_ITS | Encounter Summary ---
Author Organization [facility] Address [address] [place] [address] Phone Care Team Providers Care Mold Checker Name Role Phone Unknown, Unknown Primary Care Provider Loree mason Encounter Details Date Type Department Care Team (Late st Contact Info) Description 02/05/2017 Procedure Pass [facility] Cardiac Bush Regenerator [address] [facility], [address], [address] [place] [address] Social History Tobacco Use Types [...] on file documented as of this encounter Plan of Treatment Not on file documented as of this encounter Visit Diagnoses Not on filedocumented in this encounter Care Teams Mold Checker Relationship Specialty Start Date End Date Unknown, Unknown, PCP - General 01/12/17 documented as of this encounter Additional Source Comments The information contained in this document represents components of the legal health record. It is not the complete legal health record.[facility]
--- OUTSIDE RECORDS SUMMARY | 2025-07-20 10:54 | XMS_ITS | Clinical Summary ---
Author Organization [facility] Address [address] [place] [address] Phone Care Team Providers Care Lead Sustainability Specialist Name Role Phone Oren Puentes MD Primary Care Provider [phone] Allergies No known active allergies Medications acetaminophen [...] LICA stent without complications. Upon arrival to [facility] SBP 85-90, HR 45-50, sudafed 60mg x1 given -Continue post procedure care per protocol -Maintain SBP >90, HR >45 -NS at 150cc/hr x 10 hours -Sudafed 60 mg q 4 hours prn for SBP <90 -Neuro checks q 4 hours -Continue ASA and Plavix -Continue Atorvastatin 80 mg daily -Check labs in the morning -Follow up with Dr. Oropeza in [facility] with an ultrasound in 2 weeks [...] he developed epistaxis and it was discontinued. [id number]. Currently sinus bradycardia in the 50's (patients [...] disease 02/04/2017 12/23/2021 Overview (12/23/2021): s/p R AUTOMOBILE LOCATOR endarterectomy Last Assessment & Plan: History of PAD, s/p right AUTOMOBILE LOCATOR endarterectomy November 2016. Left iliofemoral angiogram reveals a high grade L AUTOMOBILE LOCATOR lesion (distal to the access site) -Continue [...] patient's age to complete this topic Insurance [facility] Medicare [facility] Medicare Care Teams Lead Sustainability Specialist Relationship Specialty Start Date End Date Oren Puentes MD [address] [place], [place] PCP - General Internal Medicine 10/22/21
--- OUTSIDE RECORDS SUMMARY | 2025-07-20 10:54 | XMS_ITS | Encounter Summary ---
Author Organization [facility] Address [address] [facility] [address] [place] [address] Phone Care Team Providers Care Cath Lab Name Role Phone Unknown, Unknown Primary Care Provider Loree mason Encounter Details Date Type Department Care Team (Late st Contact Info) Description 03/26/2017 Documentation [facility] [place] Pin Sticker [address] [facility], [address], [address] [place] [address] Matt Oropeza, DO [address] [facility] [address] [place] [address] [email or web address] Social History Tobacco Use Types Packs/Day Years [...] Assessment Author No 02/06/2017 11:23 AM EDT Nidia Larry NP * Patient has serious difficulty doing errands alone such as visiting a doctor???s office or shopping, due to physical, mental, or emotional condition (15 years old or older) Answer Date of Assessment Author No 02/06/2017 11:23 AM EDT Nidia Larry NP documented as of this encounter Mental Status * Patient has serious difficulty concentrating, remembering, or making decisions due to physical, mental, or emotional condition Answer Entry Date Author No 02/06/2017 11:23 AM EDT Nidia Larry NP documented in this encounter Progress Notes * Doug Diop - 03/26/2017 10:17 AM EDT NIH Stroke Scale +mRS Interval: pre laborer steel handling procedure Time: 8:30am on 03/26/2017 Person Administering Scale: Doug Diop mRS: 0 Administer stroke scale items in the order [...] 0 2. Best Gaze: 0 3. Visual: 1 4. Facial Palsy: 0 5a. Motor left arm: 0 5b. Motor right arm: 0 6a. motor left le 6b Motor right le 7. Limb Ataxia: 0 8. Sensory: 0 9. Best Language: 0 10. Dysarthria: 0 11. Extinction and Inattention: 0 12. Distal motor function: 0 Total: 1 * Doug Diop - 03/26/2017 10:17 AM EDT NIH Stroke Scale + mRS Interval: post laborer steel handling procedure Time: 8:35am Person Administering Scale: Doug Diop mRS: 0 Administer stroke scale items in the order [...] 0 2. Best Gaze: 0 3. Visual: 1 4. Facial Palsy: 0 5a. Motor left arm: 0 5b. Motor right arm: 0 6a. motor left le 6b Motor right le 7. Limb Ataxia: 0 8. Sensory: 0 9. Best Language: 0 10. Dysarthria: 0 11. Extinction and Inattention: 0 12. Distal motor function: 0 Total: 1 documented in this encounter Plan of Treatment Not on file documented as of this encounter Visit Diagnoses Not on filedocumented in this encounter Care Teams Cath Lab Relationship Specialty Start Date End Date Unknown, Unknown, PCP - General 01/12/17 documented as of this encounter Additional Source Comments The information contained in this document represents components of the legal health record. It is not the complete legal health record.[facility]
[2025-07-20 11:14] LABS: Cholesterol 104 mg/dL (<200); HDL Cholesterol 36 mg/dL (>40); Triglycerides 78 mg/dL (<150)
[2025-07-20 11:55] LABS: Prostate Specific Antigen 3.61 ng/mL (<0.05-4.0)
== END 2025-07-20 09:26 | disposition home or self-care (01) ==
LOC: HO.10HDL 09:25
PROVIDERS: Visit Provider Nurse Practitioner Family
DX: Z12.5 Encounter for screening for malignant neoplasm of prostate (principal); N40.0 Benign prostatic hyperplasia without lower urinary tract symptoms; E78.00 Pure hypercholesterolemia, unspecified
CPT/HCPCS: 36415; 80061; 84153

== ENCOUNTER 2025-07-26 09:12 | Outpatient (AMB) | payer MEDICARE, SELFPAY ==
--- NOTE | 2025-07-26 09:18 | MHC.OFFVIS ---
Intake Visit Reasons: 1y/PSA/PVR Intake Note: Patient is present for 1Y/PSA/PVR Urology Medication:FINASTERIDE Antibiotic Allergy:NONE Blood Thinner:RIVAROXABAN TODAY'S PVR:15ML'S Information [employer] Required: No Allergies ENVIRONMENTAL Allergy (Uncoded 07/26/25 09:55) Runny Nose Medication List - Last Reconciled 07/26/25 by NGHIA Wang-JOSE DANIEL acetaminophen 500 mg PO Q6H PRN albuterol sulfate 90 mcg/actuation 2 puffs PO DAILY antiarthritic combination no.2 (glucosamine-chondroitin) mg PO atorvastatin 80 mg PO DAILY 90 days cholecalciferol (vitamin D3) 25 mcg PO DAILY cinacalcet 30 mg PO 3XW diltiazem HCl CD (Cartia XT) 240 mg PO DAILY ezetimibe 10 mg PO DAILY finasteride 5 mg PO DAILY 90 days fluticasone propion-salmeterol 100-50 mcg/dose (Wixela Inhub) 1 inh inhalation BID hydrochlorothiazide 25 mg PO DAILY lisinopril 40 mg PO BID pantoprazole 20 mg PO DAILY rivaroxaban (Xarelto) 20 mg PO QPM tramadol 100 mg (2 x 50 mg) PO Q6H PRN HPI Comments Details: Holland is a very pleasant 79-year-old male patient of Dr. Silva. He has a past medical history of paroxysmal AFib, a flutter, obesity, PAD, hyperlipidemia, and hypertension. He presents to the office today for follow-up of his elevated PSA. In discussion with the patient today reports to be doing and feeling well. He reports having had no bothersome urinary issues or concerns since his last office visit here approximately 1 year ago. Recent PSA results reviewed with the patient today as noted and trended below. Patient with a previous history of a prostate biopsy with Dr. Gallagher 01/29 due to his elevated PSA that noted Negative biopsy-chronic inflammation. 80 gram prostate. When asked patient reports compliance with finasteride 5 mg daily as prescribed. He denies any bothersome urinary issues or concerns at this time. PSAs are as follows: PSA 09/29 5.3, 10/30 10.8, 08/01 2.31, 08/02 2.6, 08/03 3.6 When asked he denies urinary urgency, urinary frequency, incontinence, nocturia, hematuria, dysuria, foul smelling urine, changes to urinary stream, flank pain, fever, and or chills. He is happy with his current voiding parameters. In office urinalysis results reviewed with the patient today. He otherwise offers no other issues or concerns at this time. [facility] Medical History Myoclonus Coarse tremors Gait apraxia Muscle spasms of lower extremity Hypersomnia Snoring Falls Lumbar spondylosis Paroxysmal atrial fibrillation Atrial tachycardia Atrial flutter Persistent atrial fibrillation Obesity Screening for prostate cancer Screening for diabetes mellitus Paroxysmal atrial fibrillation History of stent insertion of renal artery Carotid disease, bilateral PAD (peripheral artery disease) Hyperlipidemia Hypertension Surgical History H/O esophagogastroduodenoscopy H/O colonoscopy History of angioplasty History of surgery History of cardioversion History of vasectomy History of carotid endarterectomy Family History Father Heart disease Mother Hypertension Brother No problems noted. Son No problems noted. Social History Housing: House Are you a primary foster care social worker to a significant other at home: No Do you presently have visiting nurse or other home services: No Alcohol intake: former Patient Tobacco Use Status: Former Tobacco user Tobacco use type: Cigarette e-Cigarette/Vaping Use: Never Used Second Hand Smoke Exposure: No Advance Directives Date on File: 08/17/20 service: No Current occupational status: retired Cognitive needs: Yes (cane) Hearing needs: Yes (hearing aide) Vision needs: Yes (glasses) Review of Systems Const Reports as per HPI Eyes Reports no additional complaints ENT Reports no additional complaints Card Reports as per HPI Resp Reports no additional complaints GI Reports no additional complaints Reports as per HPI Musc Reports no additional complaints Neuro Reports no additional complaints Psych Reports no additional complaints Endo Reports no additional complaints Logan/Lymph Reports no additional complaints Aller/Immun Reports no additional complaints Physical Exam Const General: cooperative, healthy appearing, comfortable, no acute distress, well developed, alert and awake Nutritional Appearance: overweight Orientation/consciousness: patient oriented x3 Limitations: ambulation with cane HEENT Head: Yes normal to inspection, Yes normocephalic and Yes atraumatic Ears: hearing grossly normal bilaterally Eyes General: appearance normal, both eyes and all related structures Neck Neck: Yes normal visual inspection and Yes trachea midline Chest Chest palpation & inspection: normal inspection of the chest Resp Effort & Inspection: normal respiratory effort and able to speak in complete sentences Cardio Rate: regular rate GI Inspection: Yes normal to inspection General: Yes no CVA tenderness Back/Spine/Pelvis Back: no CVA tenderness Skin General skin exam: no rashes or lesions noted Neuro General: patient oriented x3 Extrem General: Yes normal to inspection Psych Appearance: grossly normal and well kempt Mental Status: mental status grossly normal Speech and movement: Normal speech and movement present and Clear speech present Affect: normal affect Attitude: cooperative Thought process: Normal thought process present Thought content: Normal thought content present Insight: Fair insight present (Psych) Judgement: Fair judgement present (Psych) Office Procedures Post Void Residual Post Residual Void Post Void Residual (PVR): 15 65109-Bufm Void Residual by ultrasound Assessment & Plan Assessment & Plan (1) Elevated PSA: Code(s): R97.20 - Elevated prostate specific antigen [PSA] Category: Medical (2) Prostatitis: Code(s): N41.9 - Inflammatory disease of prostate, unspecified Category: Medical (3) BPH (benign prostatic hyperplasia): Code(s): N40.0 - Benign prostatic hyperplasia without lower urinary tract symptoms Category: Medical Plan In office urinalysis results reviewed with the patient today. PVR 15 mL Recent PSA results reviewed with the patient today. Patient denies any bothersome urinary issues or concerns at this time. He reports be happy with current voiding parameters. Will obtain PSA in 1 year. Continue finasteride 5 mg daily as discussed and prescribed; refill prescription provided Follow-up in 1 year with PSA & PVR to be completed prior; or sooner with any issues, concerns, and or questions. Orders: Orders PSA,Total (Free>4and<10) 1 Year N40.0 - Benign prostatic hyperplasia without lower urinary tract symptoms, N41.9 - Inflammatory disease of prostate, unspecified, R97.20 - Elevated prostate specific antigen [PSA] AMB Urinalysis Automated Today Z13.9 - Encounter for screening, unspecified Medications: Changed From finasteride 5 mg PO DAILY 100 tabs 2RF To finasteride 5 mg PO DAILY 90 tabs 4RF 90 days Patient Instructions: The patient had an opportunity to ask questions regarding the treatment plan. All questions were answered. Physical exam, labs, and imaging were discussed and reviewed in detail. As well as risks, benefits, and discussion of treatment choices. No major barriers to understanding were identified. The patient expressed understanding and agreement with the above treatment plan. The patient was made aware they should contact our office by phone for worsening of their current condition, the appearance of new symptoms, or with any questions or concerns. Compliance is encouraged with any medications and follow up testing that is ordered. It is a privilege to be allowed the opportunity to participate in? your urological care.? Again, if you have any questions or concerns If you have any questions or concerns please do not hesitate to contact me. The office is [phone]. This note is constructed using voice recognition software. While every effort has been made to ensure accuracy clinical information systems director errors may have been included. Yours sincerely, HANSEL Wang Coding Level of Care Code Est Pt Level 3 (65522) Complex EM visit Add On G2211 Diagnoses Elevated PSA R97.20 Prostatitis N41.9 BPH (benign prostatic hyperplasia) N40.0 CPT Codes Post Residual Void - PVR CPT Code: 16753-Ixuw Void Residual by ultrasound ([id number])
--- OUTSIDE RECORDS SUMMARY | 2025-07-26 10:49 | XMS_ITS | Patient Health Record ---
Author Organization [facility] Address [address] [place] [address] Care Team Providers Care Rivet Hole Puncher Name Role Phone Rubén Beard Unavailable [phone] Reason For Referral No Information Plan Of Treatment No Information
--- OUTSIDE RECORDS SUMMARY | 2025-07-26 10:49 | XMS_ITS | Encounter Summary ---
Author Organization [facility] Address [address] [place] [address] Phone Care Team Providers Care Methane Gas Collection System Operator Name Role Phone Unknown, Unknown Primary Care Provider Loree mason Encounter Details Date Type Department Care Team (Late st Contact Info) Description 02/05/2017 Documentation [facility] Vascular Surgery - [address], 4[address] Floor, [address] [place] [address] Matt Oropeza, DO [address] [place] [address] [email or web address] Social History Tobacco Use Types Packs/Day [...] Scale: Karl Broderick Patient seen at the [facility] on 02/05/2017 at7:40 NIHSS-0 (+unilateral blindness) mRS-0 [...] on filedocumented in this encounter Care Teams Methane Gas Collection System Operator Relationship Specialty Start Date End Date Unknown, Unknown, PCP - General 01/12/17 documented as of this encounter Additional Source Comments The information contained in this document represents components of the legal health record. It is not the complete legal health record.[facility]
--- OUTSIDE RECORDS SUMMARY | 2025-07-26 10:49 | XMS_ITS | Clinical Summary ---
Author Organization [facility] Address [address] [place] [address] Phone Care Team Providers Care Roll Cutter Name Role Phone Oren Puentes MD Primary Care Provider [phone] Allergies No known active allergies Medications acetaminophen [...] LICA stent without complications. Upon arrival to [facility] SBP 85-90, HR 45-50, sudafed 60mg x1 given -Continue post procedure care per protocol -Maintain SBP >90, HR >45 -NS at 150cc/hr x 10 hours -Sudafed 60 mg q 4 hours prn for SBP <90 -Neuro checks q 4 hours -Continue ASA and Plavix -Continue Atorvastatin 80 mg daily -Check labs in the morning -Follow up with Dr. Oropeza in [facility] with an ultrasound in 2 weeks [...] he developed epistaxis and it was discontinued. [id number]. Currently sinus bradycardia in the 50's (patients [...] disease 02/04/2017 12/23/2021 Overview (12/23/2021): s/p R SPEECH LANGUAGE PATHOLOGIST TRAVEL endarterectomy Last Assessment & Plan: History of PAD, s/p right SPEECH LANGUAGE PATHOLOGIST TRAVEL endarterectomy November 2016. Left iliofemoral angiogram reveals a high grade L SPEECH LANGUAGE PATHOLOGIST TRAVEL lesion (distal to the access site) -Continue [...] patient's age to complete this topic Insurance [facility] Medicare [facility] Medicare Care Teams Roll Cutter Relationship Specialty Start Date End Date Oren Puentes MD [address] [place], [place] PCP - General Internal Medicine 10/22/21
--- OUTSIDE RECORDS SUMMARY | 2025-07-26 10:49 | XMS_ITS | Encounter Summary ---
Author Organization [facility] Address [address] [place] [address] Phone Care Team Providers Care Charrer Name Role Phone Unknown, Unknown Primary Care Provider Loree mason Encounter Details Date Type Department Care Team (Late st Contact Info) Description 03/26/2017 Procedure Pass [facility] Cardiac Manager Of Care [address], [address], [address] [place] [address] Social History Tobacco Use Types [...] on filedocumented in this encounter Care Teams Charrer Relationship Specialty Start Date End Date Unknown, Unknown, PCP - General 01/12/17 documented as of this encounter Additional Source Comments The information contained in this document represents components of the legal health record. It is not the complete legal health record.[facility]
--- OUTSIDE RECORDS SUMMARY | 2025-07-26 10:49 | XMS_ITS | Encounter Summary ---
Author Organization [facility] Address [address] [place] [address] Phone Care Team Providers Care Liquor Department Manager Name Role Phone Unknown, Unknown Primary Care Provider Loree mason Encounter Details Date Type Department Care Team (Late st Contact Info) Description 03/26/2017 Documentation [facility] Cardiac Level Glass Forming Machine Operator [address], [address], [address] [place] [address] Floyd Merritt MD, MSc [address] [facility] [id number] [place] [address] [email or web address] Social History Tobacco Use Types [...] 02/06/2017 11:23 AM EDT Larry, Nidia Evelyne, FOUNTAIN SUPERVISOR * Patient has serious difficulty dressing or [...] on filedocumented in this encounter Care Teams Liquor Department Manager Relationship Specialty Start Date End Date Unknown, Unknown, PCP - General 01/12/17 documented as of this encounter Additional Source Comments The information contained in this document represents components of the legal health record. It is not the complete legal health record.[facility]
--- OUTSIDE RECORDS SUMMARY | 2025-07-26 10:49 | XMS_ITS | Encounter Summary ---
Author Organization [facility] Address [address] [place] [address] Phone Care Team Providers Care Traffic Survey Technician Name Role Phone Unknown, Unknown Primary Care Provider Loree mason Encounter Details Date Type Department Care Team (Late st Contact Info) Description 03/26/2017 Documentation [facility] Cardiac Awning Maker And Installer [address], [address], [address] [place] [address] Matt Oropeza, DO [address] [place] [address] [email or web address] Social History Tobacco Use Types Packs/Day Years [...] of Assessment Author No 02/06/2017 11:23 AM iNdia Arteaga NP * Patient is blind or [...] EDT NIH Stroke Scale +mRS Interval: pre laboratory monitor procedure Time: 8:30am on 03/26/2017 Person Administering [...] NIH Stroke Scale + mRS Interval: post laboratory monitor procedure Time: 8:35am Person Administering Scale: Doug [...] on filedocumented in this encounter Care Teams Traffic Survey Technician Relationship Specialty Start Date End Date Unknown, Unknown, PCP - General 01/12/17 documented as of this encounter Additional Source Comments The information contained in this document represents components of the legal health record. It is not the complete legal health record.[facility]
--- OUTSIDE RECORDS SUMMARY | 2025-07-26 10:49 | XMS_ITS | Encounter Summary ---
Author Organization [facility] Address [address] [place] [address] Phone Care Team Providers Care Tank Farm Gauger Name Role Phone Unknown, Unknown Primary Care Provider Loree mason Encounter Details Date Type Department Care Team (Late st Contact Info) Description 03/26/2017 Documentation [facility] Cardiac Adjustment Clerk [address], [address] 9, [address] [place] [address] Gumaro Templeton MD [address] [facility] [address] [place] [address] [email or web address] Social History Tobacco Use Types Packs/Day Years [...] 02/06/2017 11:23 AM EDT Larry, Nidia Evelyne, MANAGER INVENTORY CONTROL * Patient has serious difficulty dressing or [...] on filedocumented in this encounter Care Teams Tank Farm Gauger Relationship Specialty Start Date End Date Unknown, Unknown, PCP - General 01/12/17 documented as of this encounter Additional Source Comments The information contained in this document represents components of the legal health record. It is not the complete legal health record.[facility]
--- OUTSIDE RECORDS SUMMARY | 2025-07-26 10:49 | XMS_ITS | Encounter Summary ---
Author Organization [facility] Address [address] [place] [address] Phone Care Team Providers Care Motor Vehicles Supervisor Name Role Phone Unknown, Unknown Primary Care Provider Loree mason Encounter Details Date Type Department Care Team (Late st Contact Info) Description 02/05/2017 Procedure Pass [facility] Cardiac Midlevel Provider [address], [address] 9, [address] [place] [address] Social History Tobacco Use Types [...] on filedocumented in this encounter Care Teams Motor Vehicles Supervisor Relationship Specialty Start Date End Date Unknown, Unknown, PCP - General 01/12/17 documented as of this encounter Additional Source Comments The information contained in this document represents components of the legal health record. It is not the complete legal health record.[facility]
--- OUTSIDE RECORDS SUMMARY | 2025-07-26 10:49 | XMS_ITS | Clinical Summary ---
Author Organization [facility] Address [address] [place] [id number] Phone Care Team Providers Care Telecommunications Line Installer Name Role Phone Unknown, Unknown MD Primary [...] morning -Follow up with Dr. Oropeza in [facility] with an ultrasound in 2 weeks [...] he developed epistaxis and it was discontinued. [id number]. Currently sinus bradycardia in the 50's (patients [...] artery disease) 02/04/2017 Overview (02/04/2017): s/p R WHIZZER HAND endarterectomy Assessment & Plan (03/26/2017 5:21 PM EDT): History of PAD, s/p right WHIZZER HAND endarterectomy November 2016. Left iliofemoral angiogram reveals a high grade L WHIZZER HAND lesion (distal to the access site) -Continue ASA and statin as above -Followed by Dr. Oropeza Assessment & Plan (02/05/2017 8:42 AM EDT): Intermittent claudication L calf. R calf claudication resolved following R WHIZZER HAND endarterectomy in November. The right groin infected [...] artery at a future date. - Per [facility] Neurology 02/05/17: NIHSS score = 1, MRS [...] this topic Medical Devices Implanted Type Area Electric Tripper Machine Operator Device Identifier Shelf Expiration Date Model / Serial / Lot Stent Carotid 8-6x40mm Tapered Xact - Vasc. Dev. Div. - [id number] Implanted:Qty: 1 on 02/05/2017 by Matt Oropeza DO at [facility] Stent [employer] 05/08/2019 820 [id number] Stent Carotid 9-7x40mm Tapered Xact - Vasc. Dev. Div. - [id number] Implanted:Qty: 1 on 03/26/2017 by Matt Oropeza DO at [facility] Stent [employer] 06/08/2019 820 [id number] Description:left ica Insurance [facility] PPO MEDICARE A CIGNA PPO MEDICARE A CIGNA PPO MEDICARE A CIGNA PPO MEDICARE A CIGNA PPO MEDICARE A CIGNA PPO [facility] Address: [place] [address] MEDICARE A CIGNA PPO MEDICARE A CIGNA PPO MEDICARE A CIGNA PPO [facility] Address: [facility] [address] [place] [address] MEDICARE A Advance Directives For more information, please contact: [phone] (9AM - 5PM Robyn/[facility], Thursday-Thursday) * Full Code (Presumed) (Latest Code Status on File) Date Activated Date Inactivated Comments 03/26/2017 4:49 PM 03/27/2017 2:59 PM * Full Code (Confirmed) Date Activated Date Inactivated Comments 02/05/2017 2:39 PM 02/06/2017 3:33 PM Question Answer Comments Code Discussion Comments: with patient Care Teams Telecommunications Line Installer Relationship Specialty Start Date End Date Unknown, Unknown, PCP - General 01/12/17 Additional Source Comments The information contained in this document represents components of the legal health record. It is not the complete legal health record.[facility]
--- OUTSIDE RECORDS SUMMARY | 2025-07-26 10:49 | XMS_ITS | Encounter Summary ---
Author Organization [facility] Address [address] [place] [address] Phone Care Team Providers Care Fire Hazard Inspector Name Role Phone Unknown, Unknown Primary Care Provider Loree mason Encounter Details Date Type Department Care Team (Late st Contact Info) Description 03/26/2017 Documentation [facility] Cardiac Intel Recruiter [address], [address], [address] [place] [address] Floyd Merritt MD, MSc [address] [facility] [address] [place] [address] [email or web address] Social History Tobacco Use Types [...] 02/06/2017 11:23 AM EDT Larry, Nidia Evelyne, HOME CARE CONSULTANT * Patient has serious difficulty dressing or bathing (5yr old or older) Answer Date of Assessment Author No 02/06/2017 11:23 AM Ndiia Arteaga NP * Patient has serious difficulty [...] on filedocumented in this encounter Care Teams Fire Hazard Inspector Relationship Specialty Start Date End Date Unknown, Unknown, PCP - General 01/12/17 documented as of this encounter Additional Source Comments The information contained in this document represents components of the legal health record. It is not the complete legal health record.[facility]
== END 2025-07-26 09:53 | disposition home or self-care (01) ==
LOC: HO.HUSH 09:13
PROVIDERS: PCP Internal Medicine; Visit Provider Nurse Practitioner Family
DX: R97.20 Elevated prostate specific antigen [PSA] (principal); N41.9 Inflammatory disease of prostate, unspecified; N40.0 Benign prostatic hyperplasia without lower urinary tract symptoms; Z13.9 Encounter for screening, unspecified
CPT/HCPCS: 99213; G2211

== ENCOUNTER → 2025-07-26 09:12 | Outpatient (BNVA) | payer MEDICARE, SELFPAY | PROVIDERS: PCP Internal Medicine; Visit Provider Nurse Practitioner Family | DX: N40.0 Benign prostatic hyperplasia without lower urinary tract symptoms (principal); N41.9 Inflammatory disease of prostate, unspecified; R97.20 Elevated prostate specific antigen [PSA] | CPT/HCPCS: 51798; 81003; 99212 ==

== ENCOUNTER 2025-08-04 10:18 | Outpatient (AMB) | payer MEDICARE, SELFPAY ==
[2025-08-04 10:22] VITALS: BP 124/76; PULSE 79; TEMP 36.1; O2SAT 96; BMI 38.9
--- NOTE | 2025-08-04 10:22 | MHC.PC.OV ---
Vital Signs 08/04/25 10:22 Height 5 ft 2 in Weight 212 lb 8 oz BMI 38.9 BP 124/76 Blood Pressure Location Rt brachial Position Sitting Pulse 79 Pulse Source Pulse Oximeter Temp 97.0 F Temp Source Temporal Artery Scan Pulse Oximetry (%) 96 Oxygen Delivery Method Room Air Intake Visit Reasons: 3mth f/u Allergies ENVIRONMENTAL Allergy (Uncoded 08/04/25 10:36) Runny Nose Medication List - Last Reconciled 08/04/25 by Lena Matthews PA-C acetaminophen 500 mg PO Q6H PRN albuterol sulfate 90 mcg/actuation 2 puffs PO DAILY antiarthritic combination no.2 (glucosamine-chondroitin) mg PO atorvastatin 80 mg PO DAILY 90 days cholecalciferol (vitamin D3) 25 mcg PO DAILY cinacalcet 30 mg PO 3XW diltiazem HCl CD (Cartia XT) 240 mg PO DAILY ezetimibe 10 mg PO DAILY finasteride 5 mg PO DAILY 90 days fluticasone propion-salmeterol 100-50 mcg/dose (Wixela Inhub) 1 inh inhalation BID hydrochlorothiazide 25 mg PO DAILY lisinopril 40 mg PO BID pantoprazole 20 mg PO DAILY rivaroxaban (Xarelto) 20 mg PO QPM tramadol 100 mg (2 x 50 mg) PO Q6H PRN Tobacco use date assessed: 08/04/25 Fall risk assessment: 1 Fall in past year Last assessed Fall Risk: 08/04/25 Dental Screening Dental Screen Date: 08/04/25 Did you have a dental visit in the last 12 months?: No Did you have a dental problem in the last 6 months where you did not have access to dental care?: No Was dental information given to patient?: No HPI 3mth f/u HPI Details 79-year-old male with past medical history of hypertension, hyperlipidemia, carotid artery disease, peripheral arterial disease, obesity, atrial flutter, CKD in, BPH, hyperparathyroidism last seen 04/2025 coming in for follow up. In review of the notes, patient was seen by Urology 07/2025 continued on finasteride and follow up in 1 year. Seen by Neurology 06/02 ordered for MRI of the brain and spine in order for sleep study. Presenting with a review of recent diagnostic imaging and test results. Degenerative changes and disc bulging in the lumbar spine as evidence on MRI. His sleep study did reveal mild sleep apnea with recommendations to start auto PAP therapy however patient is declining today. No acute concerns today [facility] Medical History Myoclonus Coarse tremors Gait apraxia Muscle spasms of lower extremity Hypersomnia Snoring Falls Lumbar spondylosis Paroxysmal atrial fibrillation Atrial tachycardia Atrial flutter Persistent atrial fibrillation Obesity Screening for prostate cancer Screening for diabetes mellitus Paroxysmal atrial fibrillation History of stent insertion of renal artery Carotid disease, bilateral PAD (peripheral artery disease) Hyperlipidemia Hypertension Surgical History H/O esophagogastroduodenoscopy H/O colonoscopy History of angioplasty History of surgery History of cardioversion History of vasectomy History of carotid endarterectomy Family History Father Heart disease Mother Hypertension Brother No problems noted. Son No problems noted. Social History Housing: House Are you a primary assurance services manager health care to a significant other at home: No Do you presently have visiting nurse or other home services: No Alcohol intake: former Patient Tobacco Use Status: Former Tobacco user Tobacco use type: Cigarette e-Cigarette/Vaping Use: Never Used Second Hand Smoke Exposure: No Advance Directives Date on File: 08/17/20 service: No Current occupational status: retired Cognitive needs: Yes (cane) Hearing needs: Yes (hearing aide) Vision needs: Yes (glasses) Questionnaire PHQ-9 Over the last 2 weeks, how often have you been bothered by any of the following problems? 1. Little interest or pleasure in doing things: not at all 2. Feeling down, depressed, or hopeless: not at all 3. Trouble falling or staying asleep, or sleeping too much: not at all 4. Feeling tired or having little energy: not at all 5. Poor appetite or overeating: not at all 6. Feeling bad about yourself - or that you are a failure or have let yourself or your family down: not at all 7. Trouble concentrating on things, such as reading the newspaper or watching television: not at all 8. Moving or speaking so slowly that other people could have noticed. Or the opposite - being so fidgety or restless that you have been moving around a lot more than usual: not at all 9. Thoughts that you would be better off or of hurting yourself in some way: not at all Total score: 0 Depression Screening Interpretation: Negative Depression Screening Done: Yes Source: Developed by Drs. Rubén Whitney, Dalila Delgado, Ken Jolley and colleagues, with an educational oscar from [employer]™. Thrive Questionnaire Date Thrive assessed: 04/28/25 I am a: Patient What is your living situation today?: I have a steady place to live Within the past 12 months, did the food you bought not last and you didn't have the money to get more?: Never true Within the past 12 months, did you worry whether your food would run out before you got money to buy more?: Never true Do you have trouble paying for medicines?: No Do you have trouble getting transportation to medical appointments?: No Do you have trouble paying your heating and electricity bill?: No Do you have trouble taking care of your child, family member or friend?: No Do you have trouble with day-to-day activities such as bathing, preparing meals, shopping, managing finances, etc.?: No Are you currently unemployed and looking for a job?: No Are you interested in more education?: No Please select the resources that you would like help with: None Currently or been in a relationship where the following occur: I choose not to answer THRIVE Score: 0 AUDIT C Alcohol Use Questionnaire (AUDIT-C) 1. How often do you have a drink containing alcohol?: Never 3. How often do you have six or more drinks on one occasion?: Never Total Score: 0 ROBERTO-7 AMB Questionnaire ROBERTO-7 Date ROBERTO - 7 assessed: 12/07/24 Feeling nervous, anxious, or on edge: 0 = Not at all Not being able to stop or control worryin = Not at all Worrying too much about different things: 0 = Not at all Trouble relaxin = Not at all Being so restless that it is hard to sit still: 0 = Not at all Becoming easily annoyed or irritable: 0 = Not at all Feeling afraid as if something awful might happen: 0 = Not at all Total ROBERTO-7 score (0-4 normal; 5-9 mild; 10-14 moderate; 15-21 severe): 0 Source: Developed by Drs. Rubén Whitney, Dalila Delgado, Ken Jolley and colleagues, with an educational oscar from [employer]™. Review of Systems Const Denies body aches, Denies chills, Denies fever(s), Denies headache(s) and Denies poor appetite Eyes Reports no additional complaints ENT Denies dysphagia, Denies dizziness, Denies headache(s) and Denies odynophagia Card Denies chest pain, Denies syncope, Denies edema, Denies irregular heart rhythm, Denies lightheadedness and Denies dyspnea Resp Denies cough and Denies dyspnea GI Denies abdominal pain, Denies constipation, Denies dysphagia, Denies diarrhea, Denies nausea, Denies odynophagia and Denies vomiting Reports no additional complaints Musc Reports no additional complaints and Denies abnormal gait Skin/Breast Reports system reviewed and no additional complaints, except as documented Neuro Denies abnormal gait, Denies dizziness, Denies syncope and Denies headache(s) Psych Reports no additional complaints Physical exam (Primary Care) Vital Signs: Last Vital Signs Temp 97.0 F 08/04/25 10:22 Pulse 79 08/04/25 10:22 BP 124/76 08/04/25 10:22 Pulse Ox 96 08/04/25 10:22 Oxygen Delivery Method Room Air 08/04/25 10:22 BMI result Body Mass Index 38.9 Tobacco/Smoking Status: Tobacco use Status Tobacco use date assessed 08/04/25 08/04/25 10:30 Patient Tobacco Use Status Former Tobacco user 08/04/25 10:23 Tobacco use type Cigarette 08/04/25 10:23 e-Cigarette/Vaping Use Never Used 08/04/25 10:23 PHQ-9: PHQ-9 Score PHQ-9: Total score 0 08/04/25 10:30 Depression Screening Interpretation: Negative Thrive Assessment: Date of Thrive Assessment Date Thrive assessed 04/28/25 08/04/25 10:23 Currently or been in a relationship where the following occur: I choose not to answer Const General: cooperative, healthy appearing, comfortable and no acute distress Orientation/consciousness: patient oriented x3 [facility] Head: Yes normocephalic Ears: hearing grossly normal bilaterally General nose exam: Normal external nose present Eyes General: appearance normal, both eyes and all related structures Conjunctivae: conjunctivae normal Neck Neck: Yes full ROM and Yes no lymphadenopathy Resp Effort & Inspection: normal respiratory effort Auscultation: clear to auscultation bilaterally, no crackles, no rales, no rhonchi and no wheezes Cardio Rate: regular rate Rhythm: regular rhythm Skin General skin exam: no rashes or lesions noted Neuro General: patient oriented x3 Gait exam (Neuro): Normal gait present Extrem General: Yes normal to inspection, Yes full ROM and No edema Psych Affect: normal affect Attitude: cooperative Insight: Good insight present (Psych) Judgement: Good judgement present (Psych) Coding Level of Care Code Est Pt Level 3 (59146) Diagnoses Primary hypertension I10 Hypertension type: primary hypertension Atrial flutter I48.92 PAD (peripheral artery disease) I73.9 Carotid disease, bilateral I77.9 Hyperlipidemia E78.5 Obesity E66.9 Stage 3a chronic kidney disease N18.31 Chronic kidney disease stage 3 subtype: stage 3a (GFR 45-59) Balance problem R26.89 COPD (chronic obstructive pulmonary disease) J44.9 Obstructive sleep apnea G47.33 Assessment & Plan Assessment & Plan (1) Hypertension: Code(s): I10 - Essential (primary) hypertension Category: Medical Qualifiers: Hypertension type: primary hypertension Qualified Code(s): I10 - Essential (primary) hypertension Plan: Continue on current blood pressure medication. Avoid salt intake and encourage healthy diet and regular exercise. (2) Atrial flutter: Code(s): I48.92 - Unspecified atrial flutter Category: Medical Plan: Currently following with Dr. House on full oral anticoagulation with Xarelto and diltiazem. (3) PAD (peripheral artery disease): Comment: Bilateral femoral endarterectomy 12/05/2020- left common iliac and external iliac plasty 01/02/2021 - right common iliac stent Code(s): I73.9 - Peripheral vascular disease, unspecified Category: Medical Plan: Patient is being monitored by Dr. Flores for peripheral arterial disease and imaging was ordered with follow up scheduled for September (4) Carotid disease, bilateral: Code(s): I77.9 - Disorder of arteries and arterioles, unspecified Category: Medical Plan: Patient currently following with Dr. Flores for carotid artery disease. He has a history of 3 carotid endarterectomy denies any lightheadedness, dizziness, vision changes or other symptoms at this time. LDL goal less than 70 and continue on anticoagulation. (5) Hyperlipidemia: Code(s): E78.5 - Hyperlipidemia, unspecified Category: Medical Plan: Avoid foods that are high in cholesterol such as red meat, fried foods, eggs and baked goods. Triglyceride goal of less than 150 and LDL goal of less than 70. Continue on atorvastatin 80 and Zetia. Last LDL within goal (6) Obesity: Code(s): E66.9 - Obesity, unspecified Category: Medical Plan: Healthy diet and regular exercise is encouraged. Noted 12lb weight loss since last visit. (7) CKD (chronic kidney disease) stage 3, GFR 30-59 ml/min: Code(s): N18.30 - Chronic kidney disease, stage 3 unspecified Category: Medical Qualifiers: Chronic kidney disease stage 3 subtype: stage 3a (GFR 45-59) Qualified Code(s): N18.31 - Chronic kidney disease, stage 3a Plan: Patient following with Dr. Hill's advised to avoid excessive salt intake in the use of NSAIDs. Advised patient to stay well hydrated (8) Balance problem: Code(s): R26.89 - Other abnormalities of gait and mobility Category: Medical Plan: He will continue to follow up Neurology for this concern. (9) COPD (chronic obstructive pulmonary disease): Code(s): J44.9 - Chronic obstructive pulmonary disease, unspecified Category: Medical Plan: Patient uses albuterol inhaler as needed and Wixela twice daily. He feels his symptoms are well managed he does occasionally have an exacerbation typically due to weather. Avoid irritants such as allergies and smoking. (10) Obstructive sleep apnea: Code(s): G47.33 - Obstructive sleep apnea (adult) (pediatric) Category: Medical Plan: Sleep study revealed mild sleep apnea with recommendations for auto PAP therapy. Patient declines today and would like to discuss further with the neurologist prior to starting CPAP. Plan This note was constructed using voice recognition software. While every effort has been made to ensure accuracy and dental technician apprentice, still areas may have been included sometimes these areas may affect the content or meeting of the given symptoms. Total time spent caring for the patient today was 20 minutes. This includes time spent before the visit reviewing the chart, time spent during the visit, and time spent after the visit and documentation. Patient was informed and verbally consented to the use of an ambient scribe for clinic note documentation during this visit.
--- OUTSIDE RECORDS SUMMARY | 2025-08-04 11:39 | XMS_ITS | Encounter Summary ---
Author Organization [facility] Address [address] [place] [address] Phone Care Team Providers Care Morning News Anchor Name Role Phone Unknown, Unknown Primary Care Provider Loree mason Encounter Details Date Type Department Care Team (Late st Contact Info) Description 03/26/2017 Procedure [place] [facility] [place] Garment Steamer [address], [address], [address] [place] [address] Social History Tobacco Use Types [...] on filedocumented in this encounter Care Teams Morning News Anchor Relationship Specialty Start Date End Date Unknown, Unknown, PCP - General 01/12/17 documented as of this encounter Additional Source Comments The information contained in this document represents components of the legal health record. It is not the complete legal health record.[facility]
--- OUTSIDE RECORDS SUMMARY | 2025-08-04 11:40 | XMS_ITS | Encounter Summary ---
Author Organization [facility] Address [address] [place] [address] Phone Care Team Providers Care Internal Consultant Name Role Phone Unknown, Unknown Primary Care Provider Loree mason Encounter Details Date Type Department Care Team (Late st Contact Info) Description 03/26/2017 Documentation [facility] [place] Able Bodied Watchman [address], [address], [address] [place] [address] Matt Oropeza, DO [address] [place] [address] [email or web address] Social History Tobacco Use Types Packs/Day Years [...] EDT NIH Stroke Scale +mRS Interval: pre process laboratory specialist procedure Time: 8:30am on 03/26/2017 Person Administering [...] NIH Stroke Scale + mRS Interval: post process laboratory specialist procedure Time: 8:35am Person Administering Scale: Doug [...] on filedocumented in this encounter Care Teams Internal Consultant Relationship Specialty Start Date End Date Unknown, Unknown, PCP - General 01/12/17 documented as of this encounter Additional Source Comments The information contained in this document represents components of the legal health record. It is not the complete legal health record.[facility]
--- OUTSIDE RECORDS SUMMARY | 2025-08-04 11:40 | XMS_ITS | Encounter Summary ---
Author Organization [facility] Address [address] [place] [address] Phone Care Team Providers Care Chipper Name Role Phone Unknown, Unknown Primary Care Provider Loree mason Encounter Details Date Type Department Care Team (Late st Contact Info) Description 02/05/2017 Procedure Pass [facility] [place]iac Brokerage Office Manager [address], [address], [address] [place] [address] Social History Tobacco Use Types [...] on filedocumented in this encounter Care Teams Chipper Relationship Specialty Start Date End Date Unknown, Unknown, PCP - General 01/12/17 documented as of this encounter Additional Source Comments The information contained in this document represents components of the legal health record. It is not the complete legal health record.[facility]
--- OUTSIDE RECORDS SUMMARY | 2025-08-04 11:40 | XMS_ITS | Clinical Summary ---
Author Organization [facility] Address [address] [place] [address] Phone Care Team Providers Care Unit Supervisor Name Role Phone Unknown, Unknown MD Primary [...] morning -Follow up with Dr. Oropeza in [facility] with an ultrasound in 2 weeks [...] he developed epistaxis and it was discontinued. [id number]. Currently sinus bradycardia in the 50's (patients [...] artery disease) 02/04/2017 Overview (02/04/2017): s/p R TRACK REPAIRER HELPER endarterectomy Assessment & Plan (03/26/2017 5:21 PM EDT): History of PAD, s/p right TRACK REPAIRER HELPER endarterectomy November 2016. Left iliofemoral angiogram reveals a high grade L TRACK REPAIRER HELPER lesion (distal to the access site) -Continue ASA and statin as above -Followed by Dr. Oropeza Assessment & Plan (02/05/2017 8:42 AM EDT): Intermittent claudication L calf. R calf claudication resolved following R TRACK REPAIRER HELPER endarterectomy in November. The right groin infected [...] artery at a future date. - [place] [facility] [place]05[place]17: NIHSS score = 1, MRS [...] this topic Medical Devices Implanted Type Area Grand Scribe Device Identifier Shelf Expiration Date Model / Serial / Lot Stent Carotid 8-6x40mm Tapered Xact - Vasc. Dev. Div. - [id number] Implanted:Qty: 1 on 02/05/2017 by Matt Oropeza DO at [facility] Stent [employer] 05/08/2019 [id number] Stent Carotid 9-7x40mm Tapered Xact - Vasc. Dev. Div. - [id number] Implanted:Qty: 1 on 03/26/2017 by Mtat Oropeza DO at [facility] Stent [employer]ASCULAR 06/08/2019 [id number] Description:left ica Insurance [facility] PPO MEDICARE A CIGNA PPO MEDICARE A CIGNA PPO MEDICARE A CIGNA PPO MEDICARE A CIGNA PPO MEDICARE A CIGNA PPO MEDICARE A CIGNA PPO MEDICARE A CIGNA PPO MEDICARE A CIGNA PPO MEDICARE A Advance Directives For more information, please contact: [phone] (9AM - 5PM Robyn/[facility], Thursday-Thursday) * Full Code (Presumed) (Latest Code Status on File) Date Activated Date Inactivated Comments 03/26/2017 4:49 PM 03/27/2017 2:59 PM * Full Code (Confirmed) Date Activated Date Inactivated Comments 02/05/2017 2:39 PM 02/06/2017 3:33 PM Question Answer Comments Code Discussion Comments: with patient Care Teams Unit Supervisor Relationship Specialty Start Date End Date Unknown, Unknown, PCP - General 01/12/17 Additional Source Comments The information contained in this document represents components of the legal health record. It is not the complete legal health record.[facility]
--- OUTSIDE RECORDS SUMMARY | 2025-08-04 11:40 | XMS_ITS | Encounter Summary ---
Author Organization [facility] Address [address] [place] [address] Phone Care Team Providers Care Route Driver Coin Machines Name Role Phone Unknown, Unknown Primary Care Provider Loree mason Encounter Details Date Type Department Care Team (Late st Contact Info) Description 03/26/2017 Documentation [facility] [place] Re[place] Film Inspector [address] [facility] [address] [facility], [address], [address] [place] [address] Floyd Merritt MD, MSc [address] [facility] [address] [facility] [id number] [place] [address] [email or web address] Social History Tobacco Use Types Packs/Day Years [...] 02/06/2017 11:23 AM EDT Larry, Nidia Evelyne, MANUAL WRITER * Patient has serious difficulty dressing or [...] on filedocumented in this encounter Care Teams Route Driver Coin Machines Relationship Specialty Start Date End Date Unknown, Unknown, PCP - General 01/12/17 documented as of this encounter Additional Source Comments The information contained in this document represents components of the legal health record. It is not the complete legal health record.[facility]
--- OUTSIDE RECORDS SUMMARY | 2025-08-04 11:40 | XMS_ITS | Patient Health Record ---
Author Organization [facility] Address [address] [place] [address] Care Team Providers Care Grand Scribe Name Role Phone Rubén Beard Unavailable [phone] Reason For Referral No Information Plan Of Treatment No Information
--- OUTSIDE RECORDS SUMMARY | 2025-08-04 11:40 | XMS_ITS | Encounter Summary ---
Author Organization [facility] Address [address] [place] [address] Phone Care Team Providers Care Wood Die Maker Name Role Phone Unknown, Unknown Primary Care Provider Loree mason Encounter Details Date Type Department Care Team (Late st Contact Info) Description 03/26/2017 Documentation [facility] [place] Cardiac Lead Etl Developer [address], [address], [address] [place] [address] Floyd Merritt MD, MSc [address] [facility] [id number] [place] [address] [email or web address] Social History Tobacco Use Types [...] 02/06/2017 11:23 AM EDT Larry, Nidia Evelyne, HEAVY COIL WINDER * Patient has serious difficulty dressing or [...] on filedocumented in this encounter Care Teams Wood Die Maker Relationship Specialty Start Date End Date Unknown, Unknown, PCP - General 01/12/17 documented as of this encounter Additional Source Comments The information contained in this document represents components of the legal health record. It is not the complete legal health record.[facility]
--- OUTSIDE RECORDS SUMMARY | 2025-08-04 11:40 | XMS_ITS | Encounter Summary ---
Author Organization [facility] Address [address] [place] [address] Phone Care Team Providers Care Physician Practice Consultant Name Role Phone Unknown, Unknown Primary Care Provider Loree mason Encounter Details Date Type Department Care Team (Late st Contact Info) Description 02/05/2017 Documentation [facility] [place] Vascular Surgery - [address], 4th Floor, [address] [place] [address] Matt Oropeza, DO [address] [place] [address] [email or web address] Social History Tobacco Use Types Packs/Day Years [...] Scale: Karl Broderick Patient seen at the [facility] on 02/05/2017 at7:40 NIHSS-0 (+unilateral blindness) mRS-0 [...] on filedocumented in this encounter Care Teams Physician Practice Consultant Relationship Specialty Start Date End Date Unknown, Unknown, PCP - General 01/12/17 documented as of this encounter Additional Source Comments The information contained in this document represents components of the legal health record. It is not the complete legal health record.[facility]
--- OUTSIDE RECORDS SUMMARY | 2025-08-04 11:40 | XMS_ITS | Encounter Summary ---
Author Organization [facility] Address [address] [place] [address] Phone Care Team Providers Care Control Room Helper Name Role Phone Unknown, Unknown Primary Care Provider Loree mason Encounter Details Date Type Department Care Team (Late st Contact Info) Description 03/26/2017 Documentation [facility]iac Dining Host [address] [facility], [address], [address] [place] [address] Gumaro Templeton MD 55 [facility] [address] [place] [address] [email or web address] Social History Tobacco Use Types Packs/Day Years [...] 02/06/2017 11:23 AM EDT Larry, Nidia Evelyne, SITE LEAD * Patient has serious difficulty dressing or [...] on filedocumented in this encounter Care Teams Control Room Helper Relationship Specialty Start Date End Date Unknown, Unknown, PCP - General 01/12/17 documented as of this encounter Additional Source Comments The information contained in this document represents components of the legal health record. It is not the complete legal health record.[facility]
--- OUTSIDE RECORDS SUMMARY | 2025-08-04 11:40 | XMS_ITS | Clinical Summary ---
Author Organization [facility] Address [address] [place] [address] Phone Care Team Providers Care Mounter Saxophones Name Role Phone Oren Puentes MD Primary Care Provider [phone] Allergies No known active allergies Medications acetaminophen [...] LICA stent without complications. Upon arrival to [facility] SBP 85-90, HR 45-50, sudafed 60mg x1 given -Continue post procedure care per protocol -Maintain SBP >90, HR >45 -NS at 150cc/hr x 10 hours -Sudafed 60 mg q 4 hours prn for SBP <90 -Neuro checks q 4 hours -Continue ASA and Plavix -Continue Atorvastatin 80 mg daily -Check labs in the morning -Follow up with Dr. Oropeza in [facility] with an ultrasound in 2 weeks and [...] he developed epistaxis and it was discontinued. [id number]. Currently sinus bradycardia in the 50's (patients [...] disease 02/04/2017 12/23/2021 Overview (12/23/2021): s/p R RETURNED GOODS RECEIVING CLERK endarterectomy Last Assessment & Plan: History of PAD, s/p right RETURNED GOODS RECEIVING CLERK endarterectomy November 2016. Left iliofemoral angiogram reveals a high grade L RETURNED GOODS RECEIVING CLERK lesion (distal to the access site) -Continue [...] patient's age to complete this topic Insurance [facility] Medicare [facility] Medicare Care Teams Mounter Saxophones Relationship Specialty Start Date End Date Oren Puentes MD [address] [place], [place] PCP - General Internal Medicine 10/22/21
== END 2025-08-04 11:16 | disposition home or self-care (01) ==
LOC: HO.HMCH 10:19
PROVIDERS: PCP Internal Medicine
DX: I12.9 Hypertensive chronic kidney disease with stage 1 through stage 4 chronic kidney disease, or unspecified chronic kidney disease (principal); I48.92 Unspecified atrial flutter; N18.31 Chronic kidney disease, stage 3a; J44.9 Chronic obstructive pulmonary disease, unspecified; E66.9 Obesity, unspecified; Z68.38 Body mass index [BMI] 38.0-38.9, adult; I73.9 Peripheral vascular disease, unspecified; I77.9 Disorder of arteries and arterioles, unspecified; E78.5 Hyperlipidemia, unspecified; R26.89 Other abnormalities of gait and mobility; G47.33 Obstructive sleep apnea (adult) (pediatric)

== ENCOUNTER → 2025-08-04 10:18 | Outpatient (BNVA) | payer MEDICARE, SELFPAY | PROVIDERS: PCP Internal Medicine | DX: I12.9 Hypertensive chronic kidney disease with stage 1 through stage 4 chronic kidney disease, or unspecified chronic kidney disease (principal); Z68.38 Body mass index [BMI] 38.0-38.9, adult; N18.31 Chronic kidney disease, stage 3a; I48.92 Unspecified atrial flutter; I73.9 Peripheral vascular disease, unspecified; I77.9 Disorder of arteries and arterioles, unspecified; E78.5 Hyperlipidemia, unspecified; E66.9 Obesity, unspecified; J44.9 Chronic obstructive pulmonary disease, unspecified; R26.89 Other abnormalities of gait and mobility; G47.33 Obstructive sleep apnea (adult) (pediatric); Z71.3 Dietary counseling and surveillance; Z87.891 Personal history of nicotine dependence | CPT/HCPCS: 99212 ==

== ENCOUNTER 2025-08-18 11:30 | Outpatient (REF) | payer MEDICARE, SELFPAY ==
[2025-08-18 12:40] LABS: Anion Gap 10 (12-20); Blood Urea Nitrogen 22 mg/dL (9-16); Calcium 10.5 mg/dL (8.4-10.2); Carbon Dioxide 31 mmol/L (22-29); Chloride 106 mmol/L (96-108); Estimated Glomerular Filt Rate 58; Potassium 4.4 mmol/L (3.3-5.1); Sodium 143 mmol/L (135-145)
[2025-08-18 13:04] LABS: PSA,Total (Free>4and<10) 4.21 ng/mL (0.00-4.00)
[2025-08-18 13:42] LABS: Parathyroid Hormone Intact 213.5 pg/mL (8.7-77.1)
[2025-08-21 13:03] LABS: Free Prostate Spec Ag 0.4 ng/mL; Percent Free Prostate Spec Ag 9 % (calc) (>25)
== END 2025-08-18 11:31 | disposition home or self-care (01) ==
LOC: HO.LAB 11:30
PROVIDERS: Nurse Practitioner Family; Absent Provider Psychiatry & Neurology Neurology; Visit Provider Internal Medicine Nephrology
DX: Z12.5 Encounter for screening for malignant neoplasm of prostate (principal); I12.9 Hypertensive chronic kidney disease with stage 1 through stage 4 chronic kidney disease, or unspecified chronic kidney disease; N18.31 Chronic kidney disease, stage 3a; N40.0 Benign prostatic hyperplasia without lower urinary tract symptoms; N41.9 Inflammatory disease of prostate, unspecified; E21.3 Hyperparathyroidism, unspecified; R97.20 Elevated prostate specific antigen [PSA]
CPT/HCPCS: 36415; 80051; 82306; 82310; 82565; 83970; 84100; 84153; 84154; 84520

== ENCOUNTER 2025-08-23 09:19 | Outpatient (AMB) | payer MEDICARE, SELFPAY ==
--- NOTE | 2025-08-23 09:29 | HO.NEPHOV_ITS ---
Vital Signs 08/23/25 09:30 Height 5 ft 2 in Weight 215 lb 8 oz BMI 39.4 BP 144/70 H Blood Pressure Location Lt brachial Position Sitting Pulse 127 H Pulse Source Pulse Oximeter Pulse Oximetry (%) 96 Oxygen Delivery Method Room Air Intake Visit Reasons: 6mon [id number] w/ Furniture Painter Required: No Accompanied by: Spouse Allergies ENVIRONMENTAL Allergy (Uncoded 08/04/25 10:36) Runny Nose HPI Comments Details: Holland was seen in follow-up of his chronic kidney disease and hypertension. He has vascular disease and has seen vascular surgeon . He had undergone angiography as well as stenting. He denies taking any nonsteroidal anti- inflammatory medications for it. He follows up with Dr. Flores. His blood pressure has been close to goal at home. He denies any chest pain, shortness of breath, proximal nocturnal dyspnea, orthopnea, pedal edema or urinary symptoms. He does not have any palpitation, syncope or orthostatic symptoms. He is on lipid-lowering agents. He has been tolerating lisinopril. He is on anticoagulation. His PSA has gone up [facility] Medical History Myoclonus Coarse tremors Gait apraxia Muscle spasms of lower extremity Hypersomnia [place] Lumbar spondylosis Paroxysmal atrial fibrillation Atrial tachycardia Atrial flutter Persistent atrial fibrillation Obesity Screening for prostate cancer Screening for diabetes mellitus Paroxysmal atrial fibrillation History of stent insertion of renal artery Carotid disease, bilateral PAD (peripheral artery disease) Hyperlipidemia Hypertension Surgical History H/O esophagogastroduodenoscopy H/O colonoscopy History of angioplasty History of surgery History of cardioversion History of vasectomy History of carotid endarterectomy Family History Father Heart disease Mother Hypertension Brother No problems noted. Son No problems noted. Social History Housing: House Are you a primary director of critical care to a significant other at home: No Do you presently have visiting nurse or other home services: No Alcohol intake: former Patient Tobacco Use Status: Former Tobacco user Tobacco use type: Cigarette e-Cigarette/Vaping Use: Never Used Second Hand Smoke Exposure: No Advance Directives Date on File: 08/17/20 service: No Current occupational status: retired Cognitive needs: Yes (cane) Hearing needs: Yes (hearing aide) Vision needs: Yes (glasses) Review of Systems Const All systems reviewed & are unremarkable except as noted in HPI and below Physical Exam Vital Signs: Last Vital Signs Pulse 127 H 08/23/25 09:30 BP 144/70 H 08/23/25 09:30 Pulse Ox 96 08/23/25 09:30 Oxygen Delivery Method Room Air 08/23/25 09:30 BMI result Body Mass Index 39.4 Const General: comfortable and no acute distress Orientation/consciousness: patient oriented x3 HEENT Head: Yes normocephalic Mouth: Normal oral and palatal mucosa present Eyes EOM: EOMs intact bilaterally Neck Neck: Yes supple Resp Auscultation: clear to auscultation bilaterally Cardio Jugular venous distension: no JVD Rate: regular rate GI Palpation (GI): Soft to palpation Auscultation: normal bowel sounds General: Yes no CVA tenderness Back/Spine/Pelvis Back: no CVA tenderness Skin General skin exam: no rashes or lesions noted Neuro General: patient oriented x3 and moves all extremities Extrem General: Yes no pedal edema Results Reviewed Nephrology Results: Sodium, (135-145) 143 mmol/L 08/18/25 Potassium, (3.3-5.1) 4.4 mmol/L 08/18/25 Chloride, (96-108) 106 mmol/L 08/18/25 Carbon Dioxide, (22-29) 31 mmol/L H 08/18/25 BUN, (9-16) 22 mg/dL H 08/18/25 Creatinine, (0.5-1.4) 1.21 mg/dL 08/18/25 Calcium, (8.4-10.2) 10.5 mg/dL H 08/18/25 Phosphorus, (2.7-4.5) 2.9 mg/dL 08/18/25 PTH Intact, (8.7-77.1) 213.5 pg/mL H 08/18/25 Renal US 02/04/22 Assessment & Plan Assessment & Plan (1) Hypertension: Code(s): I10 - Essential (primary) hypertension Category: Medical Qualifiers: Hypertension type: primary hypertension Qualified Code(s): I10 - Essential (primary) hypertension (2) CKD (chronic kidney disease) stage 3, GFR 30-59 ml/min: Code(s): N18.30 - Chronic kidney disease, stage 3 unspecified Category: Medical Qualifiers: Chronic kidney disease stage 3 subtype: stage 3a (GFR 45-59) Qualified Code(s): N18.31 - Chronic kidney disease, stage 3a (3) Secondary hyperparathyroidism (of renal origin): Code(s): N25.81 - Secondary hyperparathyroidism of renal origin Category: Medical Plan Holland has stage III 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 He has longstanding hypertension which is well controlled on the current medication regimen. His needs to cut back on salt and should lose some weight. He avoids nonsteroidal anti-inflammatory medications. He should remain well hydrated. He is on statins. He takes anticoagulation. He has primary hyperparathyroidism as evident by Sestamibi scan. I started him on sensipar 30 mg three times a week which I plan to increased to 60 mg three times a week. I increased his Vitamin D to 2000 U daily. I plan to repeat a Doppler of his renal arteries with time. Answered all his questions. Follow up labs ordered. Orders: Orders Vitamin D 25-OH Total 6 Months I10 - Essential (primary) hypertension, N18.31 - Chronic kidney disease, stage 3a, N25.81 - Secondary hyperparathyroidism of renal origin Calcium 6 Months I10 - Essential (primary) hypertension, N18.31 - Chronic kidney disease, stage 3a, N25.81 - Secondary hyperparathyroidism of renal origin Blood Urea Nitrogen 6 Months I10 - Essential (primary) hypertension, N18.31 - Chronic kidney disease, stage 3a, N25.81 - Secondary hyperparathyroidism of renal origin Parathyroid Hormone Intact 6 Months I10 - Essential (primary) hypertension, N18.31 - Chronic kidney disease, stage 3a, N25.81 - Secondary hyperparathyroidism of renal origin Phosphorus 6 Months I10 - Essential (primary) hypertension, N18.31 - Chronic kidney disease, stage 3a, N25.81 - Secondary hyperparathyroidism of renal origin Electrolytes 6 Months I10 - Essential (primary) hypertension, N18.31 - Chronic kidney disease, stage 3a, N25.81 - Secondary hyperparathyroidism of renal origin Creatinine 6 Months I10 - Essential (primary) hypertension, N18.31 - Chronic kidney disease, stage 3a, N25.81 - Secondary hyperparathyroidism of renal origin Coding Level of Care Code Est Pt Level 4 (86911) Diagnoses Primary hypertension I10 Hypertension type: primary hypertension Stage 3a chronic kidney disease N18.31 Chronic kidney disease stage 3 subtype: stage 3a (GFR 45-59) Secondary hyperparathyroidism (of renal origin) N25.81
[2025-08-23 09:30] VITALS: BP 144/70; PULSE 127; O2SAT 96; BMI 39.4
--- OUTSIDE RECORDS SUMMARY | 2025-08-23 10:28 | XMS_ITS | Encounter Summary ---
Author Organization [facility] Address [address] [place] [address] Phone Care Team Providers Care Manhole Builder Name Role Phone Unknown, Unknown Primary Care Provider Loree mason Encounter Details Date Type Department Care Team (Late st Contact Info) Description 03/26/2017 Documentation [facility] [place] Cardiac Leather Worker [address] [facility], [address] 9, [address] [place] [address] Floyd Merritt MD, MSc [address] [facility] [address] [place] [address] [email or web address] Social History Tobacco Use Types [...] 02/06/2017 11:23 AM EDT Larry, Nidia Evelyne, POWDER NIPPER * Patient has serious difficulty dressing or [...] on filedocumented in this encounter Care Teams Manhole Builder Relationship Specialty Start Date End Date Unknown, Unknown, PCP - General 01/12/17 documented as of this encounter Additional Source Comments The information contained in this document represents components of the legal health record. It is not the complete legal health record.[facility]
--- OUTSIDE RECORDS SUMMARY | 2025-08-23 10:28 | XMS_ITS | Encounter Summary ---
Author Organization [facility] Address [address] [place] [address] Phone Care Team Providers Care Pie Bakery Laborer Name Role Phone Unknown, Unknown Primary Care Provider Loree mason Encounter Details Date Type Department Care Team (Late st Contact Info) Description 03/26/2017 Procedure Pass [facility] [place] Cardiac Incinerator Plant General Supervisor [address] [facility], Floor 9, [address] [place] [address] Social History Tobacco Use Types [...] on filedocumented in this encounter Care Teams Pie Bakery Laborer Relationship Specialty Start Date End Date Unknown, Unknown, PCP - General 01/12/17 documented as of this encounter Additional Source Comments The information contained in this document represents components of the legal health record. It is not the complete legal health record.[facility]
--- OUTSIDE RECORDS SUMMARY | 2025-08-23 10:29 | XMS_ITS | Patient Health Record ---
Author Organization [facility] Address [address] [place] [address] Care Team Providers Care Ferry Captain Name Role Phone Rubén Beard Unavailable [phone] Reason For Referral No Information Plan Of Treatment No Information
--- OUTSIDE RECORDS SUMMARY | 2025-08-23 10:29 | XMS_ITS | Encounter Summary ---
Author Organization [facility] Address [address] [place] [address] Phone Care Team Providers Care Deputy Administrator Name Role Phone Unknown, Unknown Primary Care Provider Loree mason Encounter Details Date Type Department Care Team (Late st Contact Info) Description 03/26/2017 Documentation [facility] [place] Cardiac Patent Counsel [address] [facility], [address], [address] [place] [address] Gumaro Templeton MD [address] [facility] [address] [place] [address] [email or web address] Social History Tobacco Use Types Packs/Day Years [...] 02/06/2017 11:23 AM EDT Larry, Nidia Evelyne, MARINE ENGINEER CPVEC * Patient has serious difficulty dressing or [...] on filedocumented in this encounter Care Teams Deputy Administrator Relationship Specialty Start Date End Date Unknown, Unknown, PCP - General 01/12/17 documented as of this encounter Additional Source Comments The information contained in this document represents components of the legal health record. It is not the complete legal health record.[facility]
--- OUTSIDE RECORDS SUMMARY | 2025-08-23 10:29 | XMS_ITS | Encounter Summary ---
Author Organization [facility] Address [address] [place] [address] Phone Care Team Providers Care Corporate Compliance Director Name Role Phone Unknown, Unknown Primary Care Provider Loree mason Encounter Details Date Type Department Care Team (Late st Contact Info) Description 02/05/2017 Procedure Pass [facility] [place] Cardiac Appliance Assembler [address] [facility], [address] 9, [address] [place] [address] Social History Tobacco Use Types [...] on filedocumented in this encounter Care Teams Corporate Compliance Director Relationship Specialty Start Date End Date Unknown, Unknown, PCP - General 01/12/17 documented as of this encounter Additional Source Comments The information contained in this document represents components of the legal health record. It is not the complete legal health record.[facility]
--- OUTSIDE RECORDS SUMMARY | 2025-08-23 10:29 | XMS_ITS | Encounter Summary ---
Author Organization [facility] Address [address] [facility] [address] [place] [address] Phone Care Team Providers Care Industrial Cook Name Role Phone Unknown, Unknown Primary Care Provider Loree mason Encounter Details Date Type Department Care Team (Late st Contact Info) Description 03/26/2017 Documentation [facility] Cardiac Site Head [address] [facility], Floor 9, [address] [place] [address] Matt Oropeza, DO [address] [facility] [address] [place] [address] [email or web address] Social History Tobacco Use Types Packs/Day Years [...] EDT NIH Stroke Scale +mRS Interval: pre slabbing machine operator procedure Time: 8:30am on 03/26/2017 Person Administering [...] NIH Stroke Scale + mRS Interval: post slabbing machine operator procedure Time: 8:35am Person Administering Scale: Doug [...] on filedocumented in this encounter Care Teams Industrial Cook Relationship Specialty Start Date End Date Unknown, Unknown, PCP - General 01/12/17 documented as of this encounter Additional Source Comments The information contained in this document represents components of the legal health record. It is not the complete legal health record.[facility]
--- OUTSIDE RECORDS SUMMARY | 2025-08-23 10:29 | XMS_ITS | Clinical Summary ---
Author Organization [facility] Address [address] [facility] [address] [place] [address] Phone Care Team Providers Care Hot Bread Baker Name Role Phone Unknown, Unknown MD Primary [...] morning -Follow up with Dr. Oropeza in [facility] with an ultrasound in 2 weeks and [...] he developed epistaxis and it was discontinued. [id number]. Currently sinus bradycardia in the 50's (patients [...] artery disease) 02/04/2017 Overview (02/04/2017): s/p R IC DESIGNER CUSTOM endarterectomy Assessment & Plan (03/26/2017 5:21 PM EDT): History of PAD, s/p right IC DESIGNER CUSTOM endarterectomy November 2016. Left iliofemoral angiogram reveals a high grade L IC DESIGNER CUSTOM lesion (distal to the access site) -Continue ASA and statin as above -Followed by Dr. Oropeza Assessment & Plan (02/05/2017 8:42 AM EDT): Intermittent claudication L calf. R calf claudication resolved following R IC DESIGNER CUSTOM endarterectomy in November. The right groin infected [...] artery at a future date. - Per [facility] Neurology 02/05/17: NIHSS score = 1, MRS [...] this topic Medical Devices Implanted Type Area Rosin Barrel Filler Device Identifier Shelf Expiration Date Model / Serial / Lot Stent Carotid 8-6x40mm Tapered Xact - Vasc. Dev. Div. - [id number] Implanted:Qty: 1 on 02/05/2017 by Matt Oropeza DO at [facility] Stent [employer] V[employer]ULAR 05/08/2019 820 [id number] Stent Carotid 9-7x40mm Tapered Xact - Vasc. Dev. Div. - [id number] Implanted:Qty: 1 on 03/26/2017 by Matt Oropeza DO at [facility] Stent [employer] VASCULAR 06/08/2019 820 [id number] Description:left ica Insurance [facility] PPO MEDICARE A CIGNA PPO MEDICARE A CIGNA PPO MEDICARE A CIGNA PPO MEDICARE A CIGNA PPO MEDICARE A CIGNA PPO MEDICARE A CIGNA PPO MEDICARE A CIGNA PPO MEDICARE A CIGNA PPO MEDICARE A Advance Directives For more information, please contact: [phone] (9AM - 5PM Robyn[facility], Thursday-Thursday) * Full Code (Presumed) (Latest Code Status on File) Date Activated Date Inactivated Comments 03/26/2017 4:49 PM 03/27/2017 2:59 PM * Full Code (Confirmed) Date Activated Date Inactivated Comments 02/05/2017 2:39 PM 02/06/2017 3:33 PM Question Answer Comments Code Discussion Comments: with patient Care Teams Hot Bread Baker Relationship Specialty Start Date End Date Unknown, Unknown, PCP - General 01/12/17 Additional Source Comments The information contained in this document represents components of the legal health record. It is not the complete legal health record.[facility]
--- OUTSIDE RECORDS SUMMARY | 2025-08-23 10:29 | XMS_ITS | Encounter Summary ---
Author Organization [facility] Address [address] [facility] [address] [place] [address] Phone Care Team Providers Care Seed Cleaning Machine Operator Name Role Phone Unknown, Unknown Primary Care Provider Loree mason Encounter Details Date Type Department Care Team (Late st Contact Info) Description 02/05/2017 Documentation [facility] Vascular Surgery - [address], 4th Floor, [address] [place] [address] Matt Oropeza, DO [address] [facility] [address] [place] [address] [email or web address] Social History Tobacco Use Types [...] Scale: Karl Broderick Patient seen at the [facility] on 02/05/2017 at7:40 NIHSS-0 (+unilateral blindness) mRS-0 [...] on filedocumented in this encounter Care Teams Seed Cleaning Machine Operator Relationship Specialty Start Date End Date Unknown, Unknown, PCP - General 01/12/17 documented as of this encounter Additional Source Comments The information contained in this document represents components of the legal health record. It is not the complete legal health record.[facility]
--- OUTSIDE RECORDS SUMMARY | 2025-08-23 10:29 | XMS_ITS | Clinical Summary ---
Author Organization [facility] Address [address] [place] [address] Phone Care Team Providers Care Veneer Gluer Name Role Phone Oren Puentes MD Primary Care Provider [phone] Allergies No known active allergies Medications acetaminophen [...] LICA stent without complications. Upon arrival to [facility] SBP 85-90, HR 45-50, sudafed 60mg x1 given -Continue post procedure care per protocol -Maintain SBP >90, HR >45 -NS at 150cc/hr x 10 hours -Sudafed 60 mg q 4 hours prn for SBP <90 -Neuro checks q 4 hours -Continue ASA and Plavix -Continue Atorvastatin 80 mg daily -Check labs in the morning -Follow up with Dr. Oropeza in [facility] with an ultrasound in 2 weeks [...] he developed epistaxis and it was discontinued. [id number]. Currently sinus bradycardia in the 50's (patients [...] disease 02/04/2017 12/23/2021 Overview (12/23/2021): s/p R CHECK OUT CASHIER endarterectomy Last Assessment & Plan: History of PAD, s/p right CHECK OUT CASHIER endarterectomy November 2016. Left iliofemoral angiogram reveals a high grade L CHECK OUT CASHIER lesion (distal to the access site) -Continue [...] patient's age to complete this topic Insurance [facility] Medicare [facility] Medicare Care Teams Veneer Gluer Relationship Specialty Start Date End Date Oren Puentes MD [address] [place], [place] PCP - General Internal Medicine 10/22/21
--- OUTSIDE RECORDS SUMMARY | 2025-08-23 10:29 | XMS_ITS | Encounter Summary ---
Author Organization [facility] Address [address] [place] [address] Phone Care Team Providers Care Bowling Or Skating Front Desk Clerk Name Role Phone Unknown, Unknown Primary Care Provider Loree mason Encounter Details Date Type Department Care Team (Late st Contact Info) Description 03/26/2017 Documentation [facility] [place] Cardiac Die Casting Machine Setter [address] [facility] 9, [address] [place] [address] Floyd Merritt MD, MSc [address] [facility] [address] [place] [address] [email or web address] Social History Tobacco Use [...] 02/06/2017 11:23 AM EDT Larry, Nidia Evelyne, TRANSPORT MEDIC * Patient has serious difficulty dressing or [...] on filedocumented in this encounter Care Teams Bowling Or Skating Front Desk Clerk Relationship Specialty Start Date End Date Unknown, Unknown, PCP - General 01/12/17 documented as of this encounter Additional Source Comments The information contained in this document represents components of the legal health record. It is not the complete legal health record.[facility]
== END 2025-08-23 09:53 | disposition home or self-care (01) ==
LOC: HO.HKA 09:20
PROVIDERS: Visit Provider Internal Medicine Nephrology
DX: I10 Essential (primary) hypertension (principal); N18.31 Chronic kidney disease, stage 3a; N25.81 Secondary hyperparathyroidism of renal origin
CPT/HCPCS: 99214

== ENCOUNTER → 2025-08-23 09:19 | Outpatient (BNVA) | payer MEDICARE, SELFPAY | PROVIDERS: Visit Provider Internal Medicine Nephrology | DX: N18.31 Chronic kidney disease, stage 3a (principal); I10 Essential (primary) hypertension; N25.81 Secondary hyperparathyroidism of renal origin | CPT/HCPCS: 99212 ==

== ENCOUNTER 2025-09-18 08:19 | Outpatient (REF) | payer MEDICARE, SELFPAY ==
--- NOTE | ~2025-09-18 | US_ITS ---
EXAMINATION: Noninvasive assessment of the bilateral lower extremities with ARTERIAL DUPLEX, ANKLE BRACHIAL INDICES (ABIs), and PULSE VOLUME RECORDINGS (PVRs). CLINICAL INFORMATION: I 73.9. Peripheral vascular disease. TECHNIQUE: Duplex Doppler techniques with waveform analysis and measurement of velocities in the bilateral common femoral, profunda femoris, superficial femoral, popliteal and tibial arteries were performed. Additionally, ankle pulse volume recordings, ankle pressure measurements and ankle brachial indices were obtained of the lower extremity arterial system bilaterally. The study was performed only at rest. COMPARISON: August 29, 2024 and October 20, 2022. FINDINGS: Arrhythmia episodes. DIRECT DUPLEX DOPPLER FINDINGS: RIGHT LEG: Common femoral artery: 131 cm/s, phasicity: Monophasic. Spectral broadening. Profunda femoris artery: 42 cm/s, phasicity: Monophasic. Spectral broadening. Superficial femoral artery (proximal): 103 cm/s, phasicity: Biphasic. Spectral broadening. Superficial femoral artery (mid): 91 cm/s, phasicity: Biphasic. Spectral broadening. Superficial femoral artery (distal): 142 cm/s, phasicity: Triphasic. Spectral broadening. Popliteal artery: 82 cm/s, phasicity: Biphasic. Spectral broadening. Posterior tibial artery: 77 cm/s, phasicity: Biphasic. Spectral broadening. Peroneal artery: 69 cm/s, phasicity: Monophasic. Spectral broadening. Anterior tibial artery: 69 cm/s, phasicity: Monophasic. Spectral broadening. Dorsalis pedis artery: 65 cm/s, phasicity:Monophasic. Spectral broadening. LEFT LEG: Common femoral artery: 272 cm/s, phasicity: Monophasic. Spectral broadening. Profunda femoris artery: 67 cm/s, phasicity: Monophasic. Spectral broadening. Superficial femoral artery (proximal): 29 cm/s, phasicity: Monophasic. Spectral broadening. Superficial femoral artery (mid): 31 cm/s, phasicity: Monophasic . Spectral broadening. Superficial femoral artery (distal): 29 cm/s, phasicity: Monophasic. Spectral broadening. Popliteal artery: 44 cm/s, phasicity: Monophasic. Spectral broadening. Posterior tibial artery: 41 cm/s, phasicity: Monophasic. Spectral broadening. Peroneal artery: 60 cm/s, phasicity: Monophasic. Spectral broadening. Anterior tibial artery: 19 cm/s, phasicity: Monophasic. Spectral broadening. Dorsalis pedis artery: 41 cm/s, phasicity: Monophasic. Spectral broadening. BRACHIAL PRESSURES: Right: 158 Left: 165 ANKLE PRESSURES: Right: PT 129, DP 122 Left: PT 91, DP 68 ANKLE-BRACHIAL INDEX: Right: 0.78. Left: 0.55. ANKLE PVR WAVEFORMS: Right: Abnormal Left: Abnormal US/US arterial duplex BI w/ BRADLY IMPRESSION: Right leg: Moderate to severe inflow disease, worsening below the knee to the ankle. Left leg: Severe inflow disease throughout the interrogated arteries. BRADLY Reference: - >1.4 = calcified vessels - 0.9 - 1.4 = normal - no significant arterial disease - 0.7 - 0.89 = mild peripheral arterial disease - 0.51 - 0.69 = moderate peripheral arterial disease - 0.50 = severe peripheral arterial disease - < .30 = critical arterial disease EXAMINATION: US RETROPERITONEAL LIMITED (AORTA) CLINICAL INFORMATION: I 73.9. COMPARISON: Correlated to CT angiogram abdomen dated January 09, 2025. TECHNIQUE: Gifford-scale, color Doppler and spectral Doppler evaluation of the abdominal aorta. FINDINGS: Abdominal aorta is patent.. The measurements of the aorta in maximum AP and transverse dimensions respectively are as follows: Proximal: 2.2 cm. Mid: 1.8 cm. Distal: 1.6 cm. The right peak systolic velocity from proximal to distal segments : 87- 92 cm/sec The peak systolic velocities iliac arteries are as follows: Right: Common iliac artery: 107 cm/s. External iliac artery: 183 cm/s. Left: Common iliac artery: 135 cm/s. Exam iliac artery: 80 cm/s. IMPRESSION: No gross aneurysm, abdominal aorta.. Electronically signed by: Lawrence Young MD 09/18/2025 12:35 PM [facility]
--- OUTSIDE RECORDS SUMMARY | 2025-09-18 08:41 | XMS_ITS | Encounter Summary ---
Author Organization [facility] Address [address] [place] [address] Phone Care Team Providers Care Business Employment Specialist Name Role Phone Unknown, Unknown Primary Care Provider Loree mason Encounter Details Date Type Department Care Team (Late st Contact Info) Description 03/26/2017 Documentation [facility] [place]iac Proposal Writer [address] [facility], [address] 9, [address] [place] [address] Floyd Merritt MD, MSc [address] [facility] [address] [place] [address] [email or web address] Social History Tobacco Use Types [...] 02/06/2017 11:23 AM EDT Larry, Nidia Evelyne, LATHE OPERATOR * Patient has serious difficulty dressing or [...] on filedocumented in this encounter Care Teams Business Employment Specialist Relationship Specialty Start Date End Date Unknown, Unknown, PCP - General 01/12/17 documented as of this encounter Additional Source Comments The information contained in this document represents components of the legal health record. It is not the complete legal health record.[facility]
--- OUTSIDE RECORDS SUMMARY | 2025-09-18 08:41 | XMS_ITS | Encounter Summary ---
Author Organization [facility] Address [address] [place] [address] Phone Care Team Providers Care Owner Oral Surgeon Name Role Phone Unknown, Unknown Primary Care Provider Loree mason Encounter Details Date Type Department Care Team (Late st Contact Info) Description 03/26/2017 Procedure Pass [facility] Cardiac Quality Tech [address] [facility], [address] 9, [address] [place] [address] Social History Tobacco Use Types [...] on filedocumented in this encounter Care Teams Owner Oral Surgeon Relationship Specialty Start Date End Date Unknown, Unknown, PCP - General 01/12/17 documented as of this encounter Additional Source Comments The information contained in this document represents components of the legal health record. It is not the complete legal health record.[facility]
--- OUTSIDE RECORDS SUMMARY | 2025-09-18 08:41 | XMS_ITS | Encounter Summary ---
Author Organization [facility] Address [address] [place] [address] Phone Care Team Providers Care Patient Relations Manager Name Role Phone Unknown, Unknown Primary Care Provider Loree mason Encounter Details Date Type Department Care Team (Late st Contact Info) Description 03/26/2017 Documentation [facility] Cardiac Anti Tank Missileman [address] [facility], Floor 9, [address] [place] [address] Matt Oropeza, DO [address] [facility] [address] [place] [address] [email or web address] Social History Tobacco Use Types Packs/Day Years [...] EDT NIH Stroke Scale +mRS Interval: pre rd lab technician procedure Time: 8:30am on 03/26/2017 Person Administering [...] NIH Stroke Scale + mRS Interval: post rd lab technician procedure Time: 8:35am Person Administering Scale: Doug [...] on filedocumented in this encounter Care Teams Patient Relations Manager Relationship Specialty Start Date End Date Unknown, Unknown, PCP - General 01/12/17 documented as of this encounter Additional Source Comments The information contained in this document represents components of the legal health record. It is not the complete legal health record.[facility]
--- OUTSIDE RECORDS SUMMARY | 2025-09-18 08:42 | XMS_ITS | Encounter Summary ---
Author Organization [facility] Address [address] [place] [address] Phone Care Team Providers Care Medical Insurance Biller Name Role Phone Unknown, Unknown Primary Care Provider Loree mason Encounter Details Date Type Department Care Team (Late st Contact Info) Description 03/26/2017 Documentation [facility] Cardiac Director Of Procurement [address] [facility], Floor 9, [address] [place] [address] Gumaro Templeton MD [address] [facility] [address] [place] [address] [email or web address] Social History Tobacco Use Types [...] 02/06/2017 11:23 AM EDT Larry, Nidia Evelyne, FISH FARMER * Patient has serious difficulty dressing or [...] on filedocumented in this encounter Care Teams Medical Insurance Biller Relationship Specialty Start Date End Date Unknown, Unknown, PCP - General 01/12/17 documented as of this encounter Additional Source Comments The information contained in this document represents components of the legal health record. It is not the complete legal health record.[facility]
--- OUTSIDE RECORDS SUMMARY | 2025-09-18 08:42 | XMS_ITS | Encounter Summary ---
Author Organization [facility] Address [address] [place] [address] Phone Care Team Providers Care Primer Inserting Machine Operator Name Role Phone Unknown, Unknown Primary Care Provider Loree mason Encounter Details Date Type Department Care Team (Late st Contact Info) Description 02/05/2017 Procedure Pass [facility] Cardiac Death Surveys Coder [address] [facility], [address] 9, [address] [place] [address] Social History Tobacco Use Types [...] on filedocumented in this encounter Care Teams Primer Inserting Machine Operator Relationship Specialty Start Date End Date Unknown, Unknown, PCP - General 01/12/17 documented as of this encounter Additional Source Comments The information contained in this document represents components of the legal health record. It is not the complete legal health record.[facility]
--- OUTSIDE RECORDS SUMMARY | 2025-09-18 08:42 | XMS_ITS | Encounter Summary ---
Author Organization [facility] Address [address] [place] [address] Phone Care Team Providers Care Scientific Artist Name Role Phone Unknown, Unknown Primary Care Provider Loree mason Encounter Details Date Type Department Care Team (Late st Contact Info) Description 03/26/[address] [facility] Cardiac Computer Systems Engineer [address] [facility], Floor 9, [address] [place] [address] Floyd Merritt MD, MSc [address] [facility] [id number] [place] [address] [email or web address] Social History Tobacco Use Types Packs/Day Years [...] Assessment Author No 02/06/2017 11:23 AM EDT Laryr, Nidia Evelyne, LIFE SKILLS COORDINATOR VOLUNTEER * Patient has serious difficulty dressing or [...] on filedocumented in this encounter Care Teams Scientific Artist Relationship Specialty Start Date End Date Unknown, Unknown, PCP - General 01/12/17 documented as of this encounter Additional Source Comments The information contained in this document represents components of the legal health record. It is not the complete legal health record.[facility]
--- OUTSIDE RECORDS SUMMARY | 2025-09-18 08:42 | XMS_ITS | Encounter Summary ---
Author Organization [facility] Address [address] [address] [place] [address] Phone Care Team Providers Care Continuous Process Rotary Drum Tanner Name Role Phone Unknown, Unknown Primary Care Provider Loree mason Encounter Details Date Type Department Care Team (Late st Contact Info) Description 02/05/2017 Documentation [facility] [place] - [address], 4th Floor, [address] [place] [address] Matt Oropeza, DO [address] [facility] [address] [place] [address] [email or web address] Social History Tobacco Use Types Packs/Day [...] Scale: Karl Broderick Patient seen at the BELT WORKER on 02/05/2017 at7:40 NIHSS-0 (+unilateral blindness) mRS-0 [...] on filedocumented in this encounter Care Teams Continuous Process Rotary Drum Tanner Relationship Specialty Start Date End Date Unknown, Unknown, PCP - General 01/12/17 documented as of this encounter Additional Source Comments The information contained in this document represents components of the legal health record. It is not the complete legal health record.[facility]
--- OUTSIDE RECORDS SUMMARY | 2025-09-18 08:43 | XMS_ITS | Patient Health Record ---
Author Organization [facility] Address [address] [place] [address] Care Team Providers Care Transport Company Manager Name Role Phone Rubén Beard Unavailable [phone] Reason For Referral No Information Plan Of Treatment No Information
--- OUTSIDE RECORDS SUMMARY | 2025-09-18 08:43 | XMS_ITS | Clinical Summary ---
Author Organization [facility] Address [address] [place] [address] Phone Care Team Providers Care Shagger Name Role Phone Oren Puentes MD Primary Care Provider [phone] Allergies No known active allergies Medications acetaminophen [...] without complications. Upon arrival to [facility] SBP 85-90, HR 45-50, sudafed 60mg x1 given -Continue post procedure care per protocol -Maintain SBP >90, HR >45 -NS at 150cc/hr x 10 hours -Sudafed 60 mg q 4 hours prn for SBP <90 -Neuro checks q 4 hours -Continue ASA and Plavix -Continue Atorvastatin 80 mg daily -Check labs in the morning -Follow up with Dr. Oropeza in [facility] with an ultrasound in 2 weeks [...] he developed epistaxis and it was discontinued. [id number]. Currently sinus bradycardia in the 50's (patients [...] disease 02/04/2017 12/23/2021 Overview (12/23/2021): s/p R MUD TEMPERER endarterectomy Last Assessment & Plan: History of PAD, s/p right MUD TEMPERER endarterectomy November 2016. Left iliofemoral angiogram reveals a high grade L MUD TEMPERER lesion (distal to the access site) -Continue [...] patient's age to complete this topic Insurance [facility] Medicare [facility] Medicare Care Teams Shagger Relationship Specialty Start Date End Date Oren Puentes MD [address] [place], [place] PCP - General Internal Medicine 10/22/21
--- OUTSIDE RECORDS SUMMARY | 2025-09-18 08:43 | XMS_ITS | Clinical Summary ---
Author Organization [facility] Address [address] [facility] [facility] [address] [place] [address] Phone Care Team Providers Care Blade Grinder Name Role Phone Unknown, Unknown MD Primary [...] morning -Follow up with Dr. Oropeza in [facility] with an ultrasound in 2 weeks [...] he developed epistaxis and it was discontinued. [id number]. Currently sinus bradycardia in the 50's (patients [...] artery disease) 02/04/2017 Overview (02/04/2017): s/p R BUDGET ASSISTANT endarterectomy Assessment & Plan (03/26/2017 5:21 PM EDT): History of PAD, s/p right BUDGET ASSISTANT endarterectomy November 2016. Left iliofemoral angiogram reveals a high grade L BUDGET ASSISTANT lesion (distal to the access site) -Continue ASA and statin as above -Followed by Dr. Oropeza Assessment & Plan (02/05/2017 8:42 AM EDT): Intermittent claudication L calf. R calf claudication resolved following R BUDGET ASSISTANT endarterectomy in November. The right groin infected [...] a future date. - Per [facility] Neurology 02/05/17: NIHSS score = 1, MRS [...] this topic Medical Devices Implanted Type Area Band Saw Operator Cake Cutting Device Identifier Shelf Expiration Date Model / Serial / Lot Stent Carotid 8-6x40mm Tapered Xact - Vasc. Dev. Div. - [id number] Implanted:Qty: 1 on 02/05/2017 by Matt Oropeza DO at [facility] Stent [employer] 05/08/2019 820 [id number] Stent Carotid 9-7x40mm Tapered Xact - Vasc. Dev. Div. - [id number] Implanted:Qty: 1 on 03/26/2017 by Matt Oropeza DO at [facility] Stent [employer] 06/08/2019 820 [id number] Description:left ica Insurance [facility] PPO MEDICARE A CIGNA PPO MEDICARE A CIGNA PPO MEDICARE A CIGNA PPO MEDICARE A CIGNA PPO MEDICARE A CIGNA PPO MEDICARE A CIGNA PPO MEDICARE A CIGNA PPO MEDICARE A CIGNA PPO MEDICARE A Advance Directives For more information, please contact: [phone] (9AM - 5PM Robyn/[facility], Thursday-Thursday) * Full Code (Presumed) (Latest Code Status on File) Date Activated Date Inactivated Comments 03/26/2017 4:49 PM 03/27/2017 2:59 PM * Full Code (Confirmed) Date Activated Date Inactivated Comments 02/05/2017 2:39 PM 02/06/2017 3:33 PM Question Answer Comments Code Discussion Comments: with patient Care Teams Blade Grinder Relationship Specialty Start Date End Date Unknown, Unknown, PCP - General 01/12/17 Additional Source Comments The information contained in this document represents components of the legal health record. It is not the complete legal health record.[facility]
== END 2025-09-18 08:20 | disposition home or self-care (01) ==
LOC: HO.US 08:19
PROVIDERS: Visit Provider Surgery Vascular Surgery
DX: I73.9 Peripheral vascular disease, unspecified (principal)
CPT/HCPCS: 76706

== ENCOUNTER → 2025-09-18 08:20 | Outpatient (BNV) | payer MEDICARE, SELFPAY | PROVIDERS: Visit Provider Radiology Diagnostic Radiology | DX: I73.9 Peripheral vascular disease, unspecified (principal); I70.222 Atherosclerosis of native arteries of extremities with rest pain, left leg | CPT/HCPCS: 76706; 93922; 93925 ==

== ENCOUNTER 2025-09-21 08:56 | Outpatient (AMB) | payer MEDICARE, SELFPAY ==
--- NOTE | 2025-09-21 08:58 | A.OFFVIS_ITS ---
Vital Signs 09/21/25 08:59 Height 5 ft 2 in Weight 215 lb 8 oz BMI 39.4 BP 158/100 H Blood Pressure Location Rt brachial Position Sitting Pulse 64 Pulse Source Pulse Oximeter Pulse Oximetry (%) 96 Oxygen Delivery Method Room Air Intake Visit Reasons: 4 months F/U (LVM) Intake Note: Follow up Coarse tremor, Lumbar spondylosis, snoring and Hypersomnia. See Polysomnogram report Fiber Optic Assembler Required: No Accompanied by: Spouse Allergies ENVIRONMENTAL Allergy (Unknown, Uncoded 09/21/25 08:58) Runny Nose HPI Comments Details: 80y/o right handed male comes for F/u of gait issues, tremors, muscle twitching , sleep problems. MRI brain showed white matter chnages MRI LS spine - showed multilevel dge changes , moderate canal stenosis SLeep study - REM dominant sleep apnea. AHI 9 REM AHI 27 and O2 orestes 80%- periodic limb movements No falls History from last visit 05/2025 -Gait- He has become more dependant on his came for the past 8 mths , feels tired ,off balance etc. He feels like his legs are slow and is weak.His right leg is worse than left.He had 1 fall 3 mths ago , he is also more stooped.His stride is shorter and gets stuck often .He is shuffling He has lumbar spondylosis and has back pain Tremors - right hand at rest for oevr 2 years .He has carapl tunnel and tendinitis and his ahdn hurts . He has trouble with right hand movement. SLeep- many years ago 2017 he had sleep study - does not remember his results. He use dto be a heavy snorer , he still snores but milder in supine position. No gasping arousals. No witnessed apneas. He has excessive daytime sleepiness. Muscle twitches- usually when he is relaxing , leg twitches wake him up from sleep.wake yahir up form sleep sometimes [facility] Medical History (Updated 09/21/25 @ 09:24 by Joanne Teague MD) Periodic limb movements of sleep Myoclonus Coarse tremors Gait apraxia Muscle spasms of lower extremity Hypersomnia Snoring Falls Lumbar spondylosis Paroxysmal atrial fibrillation Atrial tachycardia Atrial flutter Persistent atrial fibrillation Obesity Screening for prostate cancer Screening for diabetes mellitus Paroxysmal atrial fibrillation History of stent insertion of renal artery Carotid disease, bilateral PAD (peripheral artery disease) Hyperlipidemia Hypertension Surgical History H/O esophagogastroduodenoscopy H/O colonoscopy History of angioplasty History of surgery History of cardioversion History of vasectomy History of carotid endarterectomy Family History Father Heart disease Mother Hypertension Brother No problems noted. Son No problems noted. Social History Housing: House Are you a primary healthcare technician to a significant other at home: No Do you presently have visiting nurse or other home services: No Alcohol intake: former Patient Tobacco Use Status: Former Tobacco user Tobacco use type: Cigarette e-Cigarette/Vaping Use: Never Used Second Hand Smoke Exposure: No Advance Directives Date on File: 08/17/20 service: No Current occupational status: retired Cognitive needs: Yes (cane) Hearing needs: Yes (hearing aide) Vision needs: Yes (glasses) Physical Exam Vital Signs: Last Vital Signs Pulse 64 09/21/25 08:59 BP 158/100 H 09/21/25 08:59 Pulse Ox 96 09/21/25 08:59 Oxygen Delivery Method Room Air 09/21/25 08:59 BMI result Body Mass Index 39.4 Const General: cooperative, healthy appearing and comfortable Nutritional Appearance: obese Orientation/consciousness: patient oriented x3 Neuro Other: Right hand intermittent rest tremors , mild cog wheel rigidity FFM and foot taps very slow , gait with can e, better today as per , decreased stride, mild stoop, good turning General: patient oriented x3 and moves all extremities Cranial nerves: Yes Facial sensation intact/muscles of mastication intact, Yes Bilaterally intact EOM present, Yes Nystagmus not present, Yes Normal facial strength present and Yes Midline tongue present Cognition (Neuro): normal cognition Motor exam (neuro): 5/5 motor strength present throughout Coordination: [id number]-it-[id number] test normal Results Reviewed Results Reviewed: MRI Brain 05/2025 white matter disease and 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 No acute stroke MRI L spine -.is normal lumbar lordosis. There is grade 1 anterolisthesis L5 over S1 and grade 1 retrolisthesis L3 over L4 and L2 over L3. Mild loss of L2-3, L3-4, L4-5 and L5-S1 disc height is noted. At L1-2 disc level is a left paracentral disc herniation narrowing the left lateral recess and moderately narrowing the left neural foramina. There is mild narrowing of right neural foramina At L2-3 disc level there is a broad-based diffuse bulge with bilateral facet joint and mild ligament flavum hypertrophy resulting in moderate canal stenosis. There is bilateral moderate narrowing of neural foramina. In addition there is a right lateral migrated disc fragment adjacent to the right L3 pedicle. It is best visualized on axial image 23/17 At L3-4 disc level there is a broad-based diffuse bulge/osteophyte complex resulting in mild to moderate AP canal stenosis. There is bilateral moderate narrowing of neural foramina. At L4-5 disc level the disc is intact with no evidence of herniation or spinal canal stenosis. The neural foramina are moderately narrowed secondary to facet joint hypertrophy. At L5-S1 disc level there is a grade 1 anterolisthesis with diffuse pseudo disc bulge resulting in mild AP canal stenosis. There is moderate facet joint arthropathy resulting in bilateral mild to moderate narrowing of neural foramina slightly greater on the left then right. Conus medullaris terminates at L1 and appears normal in morphology. There are Schmorl's node along the T12-L1, L2-3 and L3-4 disc levels. Incidental noted is made of moderate size left renal cyst. MR/MR lumbar spine wo con IMPRESSION: Grade 1 anterolisthesis L5 over S1 and grade 1 anterolisthesis L3 over L4 and L2 over L3. There is multilevel degenerative disc bulges resulting in canal stenosis as described above. Inferior migrated right paracentral disc herniation at L2-3 disc level. PSG - 07/2025 AHI 9 REM AHI 27 O2 orestes 80% Assessment & Plan Assessment & Plan (1) Lumbar spondylosis: Comment: hyperreflexia, spinal myoclonus , gait apraxia Code(s): M47.816 - Spondylosis without myelopathy or radiculopathy, lumbar region Category: Medical (2) Coarse tremors: Comment: ? rest ? parkinsons Code(s): G25.2 - Other specified forms of tremor Category: Medical (3) Gait apraxia: Code(s): R48.2 - Apraxia Category: Medical (4) Obstructive sleep apnea: Code(s): G47.33 - Obstructive sleep apnea (adult) (pediatric) Category: Medical (5) Periodic limb movements of sleep: Code(s): G47.61 - Periodic limb movement disorder Category: Medical Plan MRI Brain and MRI LS spineresults discussed will order PT for gait and strengthening SLeep study results reviewed will start on CPAP 5-20 cm of water and gabapentin 100mg qhs for PLMS Orders: Orders PT Evaluation and Treatment Today M47.816 - Spondylosis without myelopathy or radiculopathy, lumbar region, R48.2 - Apraxia Medications: New gabapentin 100 mg PO BEDTIME 30 caps 5RF Coding Level of Care Code Est Pt Level 4 (60137) Complex EM visit Add On G2211 Diagnoses Lumbar spondylosis M47.816 Coarse tremors G25.2 Gait apraxia R48.2 Obstructive sleep apnea G47.33 Periodic limb movements of sleep G47.61
[2025-09-21 08:59] VITALS: BP 158/100; PULSE 64; O2SAT 96; BMI 39.4
--- OUTSIDE RECORDS SUMMARY | 2025-09-21 09:36 | XMS_ITS | Encounter Summary ---
Author Organization [facility] Address [address] [place] [address] Phone Care Team Providers Care Occupational Therapy Program Director Name Role Phone Unknown, Unknown Primary Care Provider Loree mason Encounter Details Date Type Department Care Team (Late st Contact Info) Description 03/26/2017 Procedure Pass [facility] Cardiac Government Relations Manager [address] [facility], Floor 9, [address] [place] [address] Social History Tobacco Use Types [...] on filedocumented in this encounter Care Teams Occupational Therapy Program Director Relationship Specialty Start Date End Date Unknown, Unknown, PCP - General 01/12/17 documented as of this encounter Additional Source Comments The information contained in this document represents components of the legal health record. It is not the complete legal health record.[facility]
--- OUTSIDE RECORDS SUMMARY | 2025-09-21 09:37 | XMS_ITS | Encounter Summary ---
Author Organization [facility] Address [address] [place] [address] Phone Care Team Providers Care Maintenance Specialist Name Role Phone Unknown, Unknown Primary Care Provider Loree mason Encounter Details Date Type Department Care Team (Late st Contact Info) Description 03/26/2017 Documentation [facility] Cardiac Junk Removal Specialist [address] [facility], Floor 9, [address] [place] [address] Matt Oropeza, DO [address] [facility] [address] [place] [address] [email or web address] Social History Tobacco Use Types Packs/Day Years [...] EDT NIH Stroke Scale +mRS Interval: pre landscape laborer procedure Time: 8:30am on 03/26/2017 Person Administering [...] NIH Stroke Scale + mRS Interval: post landscape laborer procedure Time: 8:35am Person Administering Scale: Doug [...] on filedocumented in this encounter Care Teams Maintenance Specialist Relationship Specialty Start Date End Date Unknown, Unknown, PCP - General 01/12/17 documented as of this encounter Additional Source Comments The information contained in this document represents components of the legal health record. It is not the complete legal health record.[facility]
--- OUTSIDE RECORDS SUMMARY | 2025-09-21 09:37 | XMS_ITS ---
[...] on patient's age to complete this topic IPV VACCINES Aged Out No longer eligi ble based on patient's age to complete this topic MENINGOCOCCAL VACCINES (ACWY) Aged Out No longer eligible based on patient's age to complete this topic MENINGOCOCCAL VACCINES (B) Aged Out N o longer eligible based on patient's age to complete this topic Medical Devices Implanted Type Area Trading Analyst Device Identifier Shelf Expiration Date Model / Serial / Lot Stent Carotid 8-6x40mm Tapered Xact - Vasc. Dev. Div. - [id number] Implanted:Qty: 1 on 02/05/2017 by Matt Oropeza DO at [facility] Stent [employer] 05/08/2019 820 [id number] Stent Carotid 9-7x40mm Tapered Xact - Vasc. Dev. Div. - [id number] Implanted:Qty: 1 on 03/26/2017 by Matt Oropeza DO at [facility] Stent [employer]ASCULAR 06/08/2019 820 [id number] Description:left ica Insurance [facility] PPO [facility]IC[facility] C[facility]NA [facility]PO MEDICARE A CIGNA PPO MEDICARE A CIGNA PPO MEDICARE A CIGNA PPO MEDICARE A CIGNA PPO MEDICARE A [facility] PPO MEDICARE A CIGNA PPO MEDICARE A Advance Directives For more information, please contact: [phone] (9AM - 5PM [facility], Thursday-Thursday) * Full Code (Presumed) (Latest Code Status on File) Date Activated Date Inactivated Comments 03/26/2017 4:49 PM 03/27/2017 2:59 PM * Full Code (Confirmed) Date Activated Date Inactivated Comments 02/05/2017 2:39 PM 02/06/2017 3:33 PM Question Answer Comments Code Discussion Comments: with patient Care Teams Electric Engine Mechanic Relationship Specialty Start Date End Date Unknown, Unknown, PCP - General 01/12/17 Additional Source Comments The information contained in this document represents components of the legal health record. It is not the complete legal health record.[facility]
--- OUTSIDE RECORDS SUMMARY | 2025-09-21 09:37 | XMS_ITS | Encounter Summary ---
Author Organization [facility] Address [address] [place] [address] Phone Care Team Providers Care Tank Truck Loader Name Role Phone Unknown, Unknown Primary Care Provider Loree mason Encounter Details Date Type Department Care Team (Late st Contact Info) Description 03/26/2017 Documentation [facility] Cardiac Gas Line Servicer [address] [facility], Floor 9, [address] [place] [address] Floyd Merritt MD, MSc [address] [facility] [address] [place] [address] [email or web address] Social History Tobacco Use Types Packs/Day Years [...] 02/06/2017 11:23 AM EDT Larry, Nidia Evelyne, STEM DRYER MAINTAINER * Patient has serious difficulty dressing or [...] filedocumented in this encounter Care Teams Tank Truck Loader Relationship Specialty Start Date End Date Unknown, Unknown, PCP - General 01/12/17 documented as of this encounter Additional Source Comments The information contained in this document represents components of the legal health record. It is not the complete legal health record.[facility]
--- OUTSIDE RECORDS SUMMARY | 2025-09-21 09:37 | XMS_ITS | Clinical Summary ---
Author Organization [facility] Address [address] [place] [address] Phone Care Team Providers Care Barrel Roller Name Role Phone Oren Puentes MD Primary Care Provider [phone] Allergies No known active allergies Medications acetaminophen [...] LICA stent without complications. Upon arrival to [facility] SBP 85-90, HR 45-50, sudafed 60mg x1 given -Continue post procedure care per protocol -Maintain SBP >90, HR >45 -NS at 150cc/hr x 10 hours -Sudafed 60 mg q 4 hours prn for SBP <90 -Neuro checks q 4 hours -Continue ASA and Plavix -Continue Atorvastatin 80 mg daily -Check labs in the morning -Follow up with Dr. Oropeza in [facility] with an ultrasound in 2 weeks [...] he developed epistaxis and it was discontinued. [id number]. Currently sinus bradycardia in the 50's (patients [...] disease 02/04/2017 12/23/2021 Overview (12/23/2021): s/p R DISTRIBUTION SPEC endarterectomy Last Assessment & Plan: History of PAD, s/p right DISTRIBUTION SPEC endarterectomy November 2016. Left iliofemoral angiogram reveals a high grade L DISTRIBUTION SPEC lesion (distal to the access site) -Continue [...] patient's age to complete this topic Insurance [facility] Medicare [facility] Medicare Care Teams Barrel Roller Relationship Specialty Start Date End Date Oren Puentes MD [address] [place], [place] PCP - General Internal Medicine 10/22/21
--- OUTSIDE RECORDS SUMMARY | 2025-09-21 09:37 | XMS_ITS | Encounter Summary ---
Author Organization [facility] Address [address] [place] [address] Phone Care Team Providers Care Sales And Marketing Intern Name Role Phone Unknown, Unknown Primary Care Provider Loree mason Encounter Details Date Type Department Care Team (Late st Contact Info) Description 02/05/2017 Procedure Pass [facility] Cardiac Senior Ui Developer [address] [facility], [address] 9, [address] [place] [address] Social History Tobacco Use Types [...] on filedocumented in this encounter Care Teams Sales And Marketing Intern Relationship Specialty Start Date End Date Unknown, Unknown, PCP - General 01/12/17 documented as of this encounter Additional Source Comments The information contained in this document represents components of the legal health record. It is not the complete legal health record.[facility]
--- OUTSIDE RECORDS SUMMARY | 2025-09-21 09:37 | XMS_ITS | Patient Health Record ---
Author Organization [facility] Address [address] [place] [id number] Care Team Providers Care Manufacturers Representative Name Role Phone Rubén Beard Unavailable [phone] Reason For Referral No Information Plan Of Treatment No Information
--- OUTSIDE RECORDS SUMMARY | 2025-09-21 09:37 | XMS_ITS | Encounter Summary ---
Author Organization [facility] Address [address] [place] [address] Phone Care Team Providers Care Amusement Equipment Operator Name Role Phone Unknown, Unknown Primary Care Provider Loree mason Encounter Details Date Type Department Care Team (Late st Contact Info) Description 03/26/2017 Documentation [facility] Cardiac Quarter Section Ironer [address] [facility], Floor 9, [address] [place] [address] Gumaro Templeton MD [address] [facility] [address] [place] [address] [email or web address] Social History Tobacco Use Types Packs/Day Years [...] 02/06/2017 11:23 AM EDT Larry, Nidia Evelyne, RAIL SIGNAL WORKER * Patient has serious difficulty dressing or [...] on filedocumented in this encounter Care Teams Amusement Equipment Operator Relationship Specialty Start Date End Date Unknown, Unknown, PCP - General 01/12/17 documented as of this encounter Additional Source Comments The information contained in this document represents components of the legal health record. It is not the complete legal health record.[facility]
--- OUTSIDE RECORDS SUMMARY | 2025-09-21 09:37 | XMS_ITS | Encounter Summary ---
Author Organization [facility] Address [address] [place] [address] Phone Care Team Providers Care Salesperson Parts Name Role Phone Unknown, Unknown Primary Care Provider Loree mason Encounter Details Date Type Department Care Team (Late st Contact Info) Description 03/26/2017 Documentation [facility] Cardiac Rail Washer [address] [facility], [address] 9, [address] [place] [address] Floyd Merritt MD, MSc [address] [facility] [address] [place] [address] [email or web address] Social History Tobacco Use Types Packs/Day [...] 02/06/2017 11:23 AM EDT Larry, Nidia Evelyne, STEAM PLANT RECORDS CLERK * Patient has serious difficulty dressing or [...] on filedocumented in this encounter Care Teams Salesperson Parts Relationship Specialty Start Date End Date Unknown, Unknown, PCP - General 01/12/17 documented as of this encounter Additional Source Comments The information contained in this document represents components of the legal health record. It is not the complete legal health record.[facility]
--- OUTSIDE RECORDS SUMMARY | 2025-09-21 09:37 | XMS_ITS | Encounter Summary ---
Author Organization [facility] Address [address] [place] [address] Phone Care Team Providers Care Senior Sales Administrator Name Role Phone Unknown, Unknown Primary Care Provider Loree mason Encounter Details Date Type Department Care Team (Late st Contact Info) Description 02/05/2017 Documentation [facility] [place] - [address], 4th Floor, [address] [place] [address] Matt Oropeza, DO [address] [facility] [address] [place] [address] [email or web address] Social History Tobacco Use Types Packs/Day [...] Scale: Karl Broderick Patient seen at the LINE PAINTING MACHINE OPERATOR on 02/05/2017 at7:40 NIHSS-0 (+unilateral blindness) mRS-0 [...] on filedocumented in this encounter Care Teams Senior Sales Administrator Relationship Specialty Start Date End Date Unknown, Unknown, PCP - General 01/12/17 documented as of this encounter Additional Source Comments The information contained in this document represents components of the legal health record. It is not the complete legal health record.[facility]
== END 2025-09-21 09:33 | disposition home or self-care (01) ==
LOC: HO.HSMS 08:56
PROVIDERS: Visit Provider Psychiatry & Neurology Neurology
DX: M47.816 Spondylosis without myelopathy or radiculopathy, lumbar region (principal); G25.2 Other specified forms of tremor; R48.2 Apraxia; G47.33 Obstructive sleep apnea (adult) (pediatric); G47.61 Periodic limb movement disorder
CPT/HCPCS: 99214; G2211

== ENCOUNTER → 2025-09-21 08:56 | Outpatient (BNVA) | payer MEDICARE, SELFPAY | PROVIDERS: Visit Provider Psychiatry & Neurology Neurology | DX: M47.816 Spondylosis without myelopathy or radiculopathy, lumbar region (principal); G25.2 Other specified forms of tremor; R48.2 Apraxia; G47.33 Obstructive sleep apnea (adult) (pediatric); G47.61 Periodic limb movement disorder; I10 Essential (primary) hypertension; Z87.891 Personal history of nicotine dependence | CPT/HCPCS: 99212 ==

== ENCOUNTER 2025-10-17 10:55 | Outpatient (AMB) | payer MEDICARE, SELFPAY ==
--- NOTE | 2025-10-17 10:58 | MHC.OFFVIS ---
Intake Visit Reasons: 1 yr follow up Arterial & Abd US 09/18/25 Intake Note: Patient presents for follow up arterial & Abd US. Patient states he is having issues with his right leg. States he bothers him and that it gives him trouble ambulating, he uses a cane. Accompanied by: Spouse Allergies ENVIRONMENTAL Allergy (Unknown, Uncoded 09/21/25 08:58) Runny Nose HPI HPI 1 yr follow up Arterial & Abd US 09/18/25: Details: The patient is a 80 year old male presenting for follow-up of peripheral artery disease. He has a history of bilateral iliac stents and bilateral femoral endarterectomies. His current ankle-brachial index (BRADLY) is 0.78 on the right and 0.55 on the left, which is stable compared to the results from one year ago, which were 0.81 on the right and 0.59 on the left. Despite the lower BRADLY in the left leg, he reports pain in the right leg with walking. The patient reports using a cane primarily for balance issues and altered depth perception, not due to pain. He experiences difficulty particularly when descending stairs. He also reports sciatic pain that is exacerbated after standing on a cement floor for approximately 30 minutes, with pain radiating up his leg and causing discomfort throughout the night. 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 The patient is under the care of a neurologist, Dr. Ortega, who ordered MRIs of his spine and brain; the brain MRI was reportedly normal for his age. Due to jerking movements during sleep, a sleep study was performed, and he recently started using a CPAP machine. He is also scheduled for physical therapy to strengthen his back muscles to improve support and balance. Regarding his activity level, he has hired assistance for strenuous yard work such as leaf pickup and lawn mowing but continues to perform other tasks like trimming bushes and maintaining the deck. [facility] Medical History Periodic limb movements of sleep Myoclonus Coarse tremors Gait apraxia Muscle spasms of lower extremity Hypersomnia Snoring Falls Lumbar spondylosis Paroxysmal atrial fibrillation Atrial tachycardia Atrial flutter Persistent atrial fibrillation Obesity Screening for prostate cancer Screening for diabetes mellitus Paroxysmal atrial fibrillation History of stent insertion of renal artery Carotid disease, bilateral PAD (peripheral artery disease) Hyperlipidemia Hypertension Surgical History H/O esophagogastroduodenoscopy H/O colonoscopy History of angioplasty History of surgery History of cardioversion History of vasectomy History of carotid endarterectomy Family History Father Heart disease Mother Hypertension Brother No problems noted. Son No problems noted. Social History Housing: House Are you a primary customer care specialist to a significant other at home: No Do you presently have visiting nurse or other home services: No Alcohol intake: former Patient Tobacco Use Status: Former Tobacco user Tobacco use type: Cigarette e-Cigarette/Vaping Use: Never Used Second Hand Smoke Exposure: No Advance Directives Date on File: 08/17/20 service: No Current occupational status: retired Cognitive needs: Yes (cane) Hearing needs: Yes (hearing aide) Vision needs: Yes (glasses) Review of Systems Const All systems reviewed & are unremarkable except as noted in HPI and below Reports no additional complaints ENT Reports Normal hearing present Card Denies chest pain, Denies chest pain at rest, Denies chest pain with activity and Denies pedal edema Resp Denies cough GI Denies abdominal pain Musc Denies abnormal gait, Denies muscle cramps and Denies radiating pain into limb Skin/Breast Denies skin ulcer and Denies wounds Neuro Reports Normal hearing present and Denies abnormal gait Psych Reports no additional complaints Physical Exam Const General: cooperative, healthy appearing and comfortable Orientation/consciousness: oriented to person, oriented to place and oriented to time HEENT Head: Yes normal to inspection Neck Neck: Yes normal visual inspection Carotids: no bruits Chest Chest palpation & inspection: normal inspection of the chest Resp Effort & Inspection: normal respiratory effort and able to speak in complete sentences Auscultation: clear to auscultation bilaterally, no crackles, no rales, no rhonchi and no wheezes Cardio Rate: regular rate Rhythm: regular rhythm Heart sounds: S1 normal heart sound present and S2 normal heart sound present Bruits: no carotid bruits Peripheral pulses: Peripheral pulses 2+ throughout GI Inspection: Yes normal to inspection Skin Wounds: no wounds Hair: normal Neuro General: oriented to person, oriented to place and oriented to time Cranial nerves: Yes CN's II-XII intact bilaterally and Yes Normal hearing present Cognition (Neuro): normal cognition Motor exam (neuro): 5/5 motor strength present throughout Extrem Other: venous exam: No significant superficial varicosities or spider telangiectasias, minimal edema General: No clubbing, No cyanosis and No edema Psych Appearance: grossly normal Mental Status: mental status grossly normal Speech and movement: Normal speech and movement present Results Reviewed Results Reviewed: Arterial testing dated 09/18/2025 demonstrates BRADLY on the right of 0.78 and on the left of 0.55 Assessment & Plan Assessment & Plan (1) PAD (peripheral artery disease): Comment: Bilateral femoral endarterectomy 12/05/2020- left common iliac and external iliac plasty 01/02/2021 - right common iliac stent Code(s): I73.9 - Peripheral vascular disease, unspecified Category: Medical Plan: I reviewed the patient's ankle-brachial index results with him, noting the right is 0.78 and the left is 0.55. I explained that these findings are stable compared to last year and that his overall vascular status is good. We discussed that his primary current issue is balance, which is being appropriately managed by his neurologist and with upcoming physical therapy. I expressed that I am happy with his progress and have scheduled a one-year follow-up visit. I advised him to be careful and take his time, especially on stairs, to prevent falls. Thank you for allowing us to assist in his care. Orders: Orders US arterial duplex LE BI 1 Year I73.9 - Peripheral vascular disease, unspecified US abdominal aortic aneurysm 1 Year I73.9 - Peripheral vascular disease, unspecified Coding Level of Care Code Est Pt Level 4 (28392) Add On Problem Visit Only Diagnoses PAD (peripheral artery disease) I73.9
== END 2025-10-17 11:33 | disposition home or self-care (01) ==
LOC: HO.HVS 10:56
PROVIDERS: Visit Provider Surgery Vascular Surgery
DX: I73.9 Peripheral vascular disease, unspecified (principal)
CPT/HCPCS: 99214; G2211

== ENCOUNTER → 2025-10-17 10:55 | Outpatient (BNVA) | payer MEDICARE, SELFPAY | PROVIDERS: Visit Provider Surgery Vascular Surgery | DX: I73.9 Peripheral vascular disease, unspecified (principal) | CPT/HCPCS: 99212 ==

== ENCOUNTER 2025-10-24 12:08 | Outpatient (REF) | payer MEDICARE, SELFPAY ==
[2025-10-24 15:20] LABS: PSA,Total (Free>4and<10) 3.46 ng/mL (0.00-4.00)
--- OUTSIDE RECORDS SUMMARY | 2025-10-24 15:58 | XMS_ITS | Encounter Summary ---
Author Organization [facility] Address [address] [place] [address] Phone Care Team Providers Care Sheep Shearer Name Role Phone Unknown, Unknown Primary Care Provider Loree mason Encounter Details Date Type Department Care Team (Late st Contact Info) Description 03/26/2017 Procedure Pass [facility] Cardiac Homemaker Companion [address] [facility], Floor 9, [address] [place] [address] Social History Tobacco Use Types [...] on filedocumented in this encounter Care Teams Sheep Shearer Relationship Specialty Start Date End Date Unknown, Unknown, PCP - General 01/12/17 documented as of this encounter Additional Source Comments The information contained in this document represents components of the legal health record. It is not the complete legal health record.[facility]
--- OUTSIDE RECORDS SUMMARY | 2025-10-24 15:58 | XMS_ITS | Encounter Summary ---
Author Organization [facility] Address [address] [place] [address] Phone Care Team Providers Care Orchard Pruner Name Role Phone Unknown, Unknown Primary Care Provider Loree mason Encounter Details Date Type Department Care Team (Late st Contact Info) Description 03/26/2017 Documentation [facility] Cardiac Temp Recruiter [address] [facility], [address] 9, [address] [place] [address] Floyd Merritt MD, MSc [address] [facility] [address] [place] [address] [email or web address] Social History Tobacco Use Types Packs/Day Years [...] 02/06/2017 11:23 AM EDT Larry, Nidia Evelyne, SHIPPER/RECEIVER * Patient has serious difficulty dressing or [...] No 02/06/2017 11:23 AM Ndiia Arteaga NP documented as of this encounter Mental Status * Patient has serious difficulty concentrating, remembering, or making decisions due to physical, mental, or emotional condition Answer Entry Date Author No 02/06/2017 11:23 AM Nidia Arteaga NP documented in this encounter Plan of Treatment Not on file documented as of this encounter Visit Diagnoses Not on filedocumented in this encounter Care Teams Orchard Pruner Relationship Specialty Start Date End Date Unknown, Unknown, PCP - General 01/12/17 documented as of this encounter Additional Source Comments The information contained in this document represents components of the legal health record. It is not the complete legal health record.[facility]
--- OUTSIDE RECORDS SUMMARY | 2025-10-24 15:59 | XMS_ITS | Encounter Summary ---
Author Organization [facility] Address [address] [place] [address] Phone Care Team Providers Care Collating Machine Operator Name Role Phone Unknown, Unknown Primary Care Provider Loree mason Encounter Details Date Type Department Care Team (Late st Contact Info) Description 02/05/2017 Documentation [facility] Vascular Surgery - [address], 4th Floor, [address] [place] [address] Matt Oropeza, DO [address] [facility] [address] [place] [address] [email or web address] Social History Tobacco Use Types Packs/Day Years [...] Scale: Karl Broderick Patient seen at the SOFTWARE QA MANAGER on 02/05/2017 at7:40 NIHSS-0 (+unilateral blindness) mRS-0 [...] 2:26 PM EDT NIH Stroke Scale Interval: [facility] Stroke Scales Time: 12:22 PM Person Administering [...] on filedocumented in this encounter Care Teams Collating Machine Operator Relationship Specialty Start Date End Date Unknown, Unknown, PCP - General 01/12/17 documented as of this encounter Additional Source Comments The information contained in this document represents components of the legal health record. It is not the complete legal health record.[facility]
--- OUTSIDE RECORDS SUMMARY | 2025-10-24 15:59 | XMS_ITS | Encounter Summary ---
Author Organization [facility] Address [address] [place] [address] Phone Care Team Providers Care Powder Coater Name Role Phone Unknown, Unknown Primary Care Provider Loree mason Encounter Details Date Type Department Care Team (Late st Contact Info) Description 03/26/[address] [facility] Cardiac Medical Representative [address], [address] 9, [address] [place] [address] Gumaro Templeton MD [address] [facility] [address] [place] [address] [email or web address] Social History Tobacco Use Types [...] 02/06/2017 11:23 AM EDT Larry, Nidia Evelyne, CHIEF LIBRARIAN BRANCH OR DEPARTMENT * Patient has serious difficulty dressing or [...] on filedocumented in this encounter Care Teams Powder Coater Relationship Specialty Start Date End Date Unknown, Unknown, PCP - General 01/12/17 documented as of this encounter Additional Source Comments The information contained in this document represents components of the legal health record. It is not the complete legal health record.[facility]
--- OUTSIDE RECORDS SUMMARY | 2025-10-24 15:59 | XMS_ITS | Patient Health Record ---
Author Organization [facility] Address [address] [place] [address] Care Team Providers Care Linseed Oil Order Filler Name Role Phone Rubén Beard Unavailable [phone] Reason For Referral No Information Plan Of Treatment No Information
--- OUTSIDE RECORDS SUMMARY | 2025-10-24 15:59 | XMS_ITS | Encounter Summary ---
Author Organization [facility] Address [address] [place] [address] Phone Care Team Providers Care Plate Maker Name Role Phone Unknown, Unknown Primary Care Provider Loree mason Encounter Details Date Type Department Care Team (Late st Contact Info) Description 03/26/2017 Documentation [facility] Cardiac Search Engine Optimization Strategist [address], [address] 9, [address] [place] [address] Mtat Oropeza, DO [address] [facility] [address] [place] [address] [email or web address] Social History Tobacco Use Types Packs/Day Years [...] EDT NIH Stroke Scale +mRS Interval: pre catheter finisher and inspector procedure Time: 8:30am on 03/26/2017 Person Administering [...] NIH Stroke Scale + mRS Interval: post catheter finisher and inspector procedure Time: 8:35am Person Administering Scale: Doug [...] on filedocumented in this encounter Care Teams Plate Maker Relationship Specialty Start Date End Date Unknown, Unknown, PCP - General 01/12/17 documented as of this encounter Additional Source Comments The information contained in this document represents components of the legal health record. It is not the complete legal health record.[facility]
--- OUTSIDE RECORDS SUMMARY | 2025-10-24 15:59 | XMS_ITS | Clinical Summary ---
Author Organization [facility] Address [address] [facility] [address] [place] [address] Phone Care Team Providers Care Labor Expediter Name Role Phone Unknown, Unknown MD Primary [...] morning -Follow up with Dr. Oropeza in [facility] with an ultrasound in 2 weeks [...] he developed epistaxis and it was discontinued. [id number]. Currently sinus bradycardia in the 50's (patients [...] artery disease) 02/04/2017 Overview (02/04/2017): s/p R BRICKLAYER TENDER endarterectomy Assessment & Plan (03/26/2017 5:21 PM EDT): History of PAD, s/p right BRICKLAYER TENDER endarterectomy November 2016. Left iliofemoral angiogram reveals a high grade L BRICKLAYER TENDER lesion (distal to the access site) -Continue ASA and statin as above -Followed by Dr. Oropeza Assessment & Plan (02/05/2017 8:42 AM EDT): Intermittent claudication L calf. R calf claudication resolved following R BRICKLAYER TENDER endarterectomy in November. The right groin infected [...] artery at a future date. - Per [facility] Neurology 02/05/17: NIHSS score = 1, MRS [...] this topic Medical Devices Implanted Type Area Scale Tester Device Identifier Shelf Expiration Date Model / Serial / Lot Stent Carotid 8-6x40mm Tapered Xact - Vasc. Dev. Div. - [id number] Implanted:Qty: 1 on 02/05/2017 by Matt Oropeza DO at [facility] Stent LOPEZ VASCULAR 05/08/2019 820 [id number] Stent Carotid 9-7x40mm Tapered Xact - Vasc. Dev. Div. - [id number] Implanted:Qty: 1 on 03/26/2017 by Matt Oropeza DO at [facility] Stent LOPEZ VASCULAR 06/08/2019 [id number] Description:left ica Insurance [facility] PPO MEDICARE A CIGNA PPO MEDICARE A CIGNA PPO MEDICARE A CIGNA PPO MEDICARE A CIGNA PPO MEDICARE A CIGNA PPO [facility] Address: [place] [address] MEDICARE A CIGNA PPO MEDICARE A CIGNA PPO MEDICARE A CIGNA PPO [facility] Address: [facility] [address] [place] [address] MEDICARE A Advance Directives For more information, please contact: [phone] (9AM - 5PM [facility], Thursday-Thursday) * Full Code (Presumed) (Latest Code Status on File) Date Activated Date Inactivated Comments 03/26/2017 4:49 PM 03/27/2017 2:59 PM * Full Code (Confirmed) Date Activated Date Inactivated Comments 02/05/2017 2:39 PM 02/06/2017 3:33 PM Question Answer Comments Code Discussion Comments: with patient Care Teams Labor Expediter Relationship Specialty Start Date End Date Unknown, Unknown, PCP - General 01/12/17 Additional Source Comments The information contained in this document represents components of the legal health record. It is not the complete legal health record.[facility]
--- OUTSIDE RECORDS SUMMARY | 2025-10-24 15:59 | XMS_ITS | Encounter Summary ---
Author Organization [facility] Address [address] [place] [address] Phone Care Team Providers Care Wooling Machine Operator Name Role Phone Unknown, Unknown Primary Care Provider Loree mason Encounter Details Date Type Department Care Team (Late st Contact Info) Description 03/26/2017 Documentation [facility] Cardiac Home Health Speech Therapist [address] [facility], Floor 9, [address] [place] [address] Floyd Merritt MD, MSc [address] [facility] [address] [place] [address] [email or web address] Social History Tobacco Use Types Packs/Day [...] 02/06/2017 11:23 AM EDT Larry, Nidia Evelyne, ELECTRICAL INSTALLATION INSPECTOR * Patient has serious difficulty dressing or [...] on filedocumented in this encounter Care Teams Wooling Machine Operator Relationship Specialty Start Date End Date Unknown, Unknown, PCP - General 01/12/17 documented as of this encounter Additional Source Comments The information contained in this document represents components of the legal health record. It is not the complete legal health record.[facility]
--- OUTSIDE RECORDS SUMMARY | 2025-10-24 15:59 | XMS_ITS | Encounter Summary ---
Author Organization [facility] Address [address] [place] [address] Phone Care Team Providers Care Motor Block Mechanic Name Role Phone Unknown, Unknown Primary Care Provider Loree mason Encounter Details Date Type Department Care Team (Late st Contact Info) Description 02/05/2017 Procedure Pass [facility] Cardiac Voice Instructor [address] [facility], Floor 9, [address] [place] [address] Social History Tobacco Use Types [...] filedocumented in this encounter Care Teams Motor Block Mechanic Relationship Specialty Start Date End Date Unknown, Unknown, PCP - General 01/12/17 documented as of this encounter Additional Source Comments The information contained in this document represents components of the legal health record. It is not the complete legal health record.[facility]
== END 2025-10-24 12:09 | disposition home or self-care (01) ==
LOC: HO.10HDL 12:08
PROVIDERS: Visit Provider Nurse Practitioner Family
DX: Z12.5 Encounter for screening for malignant neoplasm of prostate (principal); R97.20 Elevated prostate specific antigen [PSA]
CPT/HCPCS: 36415; 84153

== ENCOUNTER 2025-11-03 10:24 | Outpatient (REF) | payer MEDICARE, SELFPAY ==
--- NOTE | ~2025-11-03 | US_ITS ---
CLINICAL HISTORY: R97.20 - Elevated prostate specific antigen [PSA] US Renal Comparison: None provided Findings: Right kidney normal size and echotexture, 12 cm length. Left kidney normal size and echotexture, 11.4 cm length. No collecting system dilatation of either kidney. Normal color Doppler. There are bilateral Bosniak 1 cysts, largest on the left measuring 4.9 x 4.8 x 3.4 cm. Urinary bladder is unremarkable. Prevoid volume 346 mL. Postvoid volume 46 mL. Bilateral ureteral jets are visualized. The prostate measures 7.0 x 5.6 x 4.5 cm. IMPRESSION: 1. Bosniak 1 cysts bilaterally. 2. No acute findings This document has been electronically signed by: Ramon Frausto MD on 11/04/2025 08:52:18
--- OUTSIDE RECORDS SUMMARY | 2025-11-03 10:30 | XMS_ITS | Clinical Summary ---
Author Organization [facility] Address [address] [place] [address] Phone Care Team Providers Care Rn New Graduate Name Role Phone Oren Puentes MD Primary Care Provider [phone] Allergies No known active allergies Medications acetaminophen [...] LICA stent without complications. Upon arrival to [facility] SBP 85-90, HR 45-50, sudafed 60mg x1 given -Continue post procedure care per protocol -Maintain SBP >90, HR >45 -NS at 150cc/hr x 10 hours -Sudafed 60 mg q 4 hours prn for SBP <90 -Neuro checks q 4 hours -Continue ASA and Plavix -Continue Atorvastatin 80 mg daily -Check labs in the morning -Follow up with Dr. Oropeza in [facility] with an ultrasound in 2 weeks and [...] he developed epistaxis and it was discontinued. [id number]=2. Currently sinus bradycardia in the 50's (patients [...] disease 02/04/2017 12/23/2021 Overview (12/23/2021): s/p R AEROSPACE STRESS ENGINEER endarterectomy Last Assessment & Plan: History of PAD, s/p right AEROSPACE STRESS ENGINEER endarterectomy November 2016. Left iliofemoral angiogram reveals a high grade L AEROSPACE STRESS ENGINEER lesion (distal to the access site) -Continue [...] patient's age to complete this topic Insurance [facility] Medicare [facility] Medicare Care Teams Rn New Graduate Relationship Specialty Start Date End Date Oren Puentes MD [address] [place], [place] PCP - General Internal Medicine 10/22/21
--- OUTSIDE RECORDS SUMMARY | 2025-11-03 10:30 | XMS_ITS | Encounter Summary ---
Author Organization [facility] Address [address] [place] [address] Phone Care Team Providers Care Bag Loader Name Role Phone Unknown, Unknown Primary Care Provider Loree mason Encounter Details Date Type Department Care Team (Late st Contact Info) Description 02/05/2017 Procedure Pass [facility] Cardiac Pharmacy Benefit Manager [address] [facility], Floor 9, [address] [place] [address] Social History Tobacco Use Types [...] on filedocumented in this encounter Care Teams Bag Loader Relationship Specialty Start Date End Date Unknown, Unknown, PCP - General 01/12/17 documented as of this encounter Additional Source Comments The information contained in this document represents components of the legal health record. It is not the complete legal health record.[facility]
--- OUTSIDE RECORDS SUMMARY | 2025-11-03 10:30 | XMS_ITS | Patient Health Record ---
Author Organization [facility] Address [address] [place] [address] Care Team Providers Care Collections Technician Name Role Phone Rubén Beard Unavailable [phone] Reason For Referral No Information Plan Of Treatment No Information
--- OUTSIDE RECORDS SUMMARY | 2025-11-03 10:30 | XMS_ITS | Encounter Summary ---
Author Organization [facility] Address [address] [facility] [address] [place] [address] Phone Care Team Providers Care Metal Bonder Name Role Phone Unknown, Unknown Primary Care Provider Loree mason Encounter Details Date Type Department Care Team (Late st Contact Info) Description 02/05/2017 Documentation [facility] Vascular Surgery [address] [facility], 4th Floor, [address] [place] [address] Matt Oropeza, DO [address] [facility] [address] [place] [address] [email or web address] Social History Tobacco Use Types Packs/Day Years [...] Scale: Karl Broderick Patient seen at the [facility] on 02/05/2017 at7:40 NIHSS-0 (+unilateral blindness) mRS-0 [...] Time: 12:22 PM Person Administering Scale: Karl Harringtonluzurmila Patient seen on 02/06/2017 @ 11am and [...] on filedocumented in this encounter Care Teams Metal Bonder Relationship Specialty Start Date End Date Unknown, Unknown, MD PCP - General 01/12/17 documented as of this encounter Additional Source Comments The information contained in this document represents components of the legal health record. It is not the complete legal health record.[facility]
--- OUTSIDE RECORDS SUMMARY | 2025-11-03 10:30 | XMS_ITS | Encounter Summary ---
Author Organization [facility] Address [address] [facility] [address] [facility] [address] [place] [address] Phone Care Team Providers Care Trip Rider Name Role Phone Unknown, Unknown Primary Care Provider Loree mason Encounter Details Date Type Department Care Team (Late st Contact Info) Description 03/26/2017 Documentation [facility] Cardiac Home Specialist [address] [facility], [address] 9, [address] [place] [address] Matt Oropeza, DO [address] [facility] [address] [place] [address] [email or web address] Social History Tobacco Use Types Packs/Day Years [...] NIH Stroke Scale +mRS Interval: pre laborer hide house procedure Time: 8:30am on 03/26/2017 Person Administering [...] Stroke Scale + mRS Interval: post laborer hide house procedure Time: 8:35am Person Administering Scale: Doug [...] on filedocumented in this encounter Care Teams Trip Rider Relationship Specialty Start Date End Date Unknown, Unknown, PCP - General 01/12/17 documented as of this encounter Additional Source Comments The information contained in this document represents components of the legal health record. It is not the complete legal health record.[facility]
--- OUTSIDE RECORDS SUMMARY | 2025-11-03 10:30 | XMS_ITS | Encounter Summary ---
Author Organization [facility] Address [address] [place] [address] Phone Care Team Providers Care Dynamics Ax Developer Name Role Phone Unknown, Unknown Primary Care Provider Loree mason Encounter Details Date Type Department Care Team (Late st Contact Info) Description 03/26/2017 Documentation [facility] Cardiac Riverboat Master [address] [facility], [address] 9, [address] [place] [address] Gumaro Templeton MD 55 [facility] [address] [place] [address] [email or web address] Social History Tobacco Use Types [...] 02/06/2017 11:23 AM EDT Larry, Nidia Evelyne, SOCIAL INSURANCE SPECIALIST * Patient has serious difficulty dressing or [...] on filedocumented in this encounter Care Teams Dynamics Ax Developer Relationship Specialty Start Date End Date Unknown, Unknown, PCP - General 01/12/17 documented as of this encounter Additional Source Comments The information contained in this document represents components of the legal health record. It is not the complete legal health record.[facility]
--- OUTSIDE RECORDS SUMMARY | 2025-11-03 10:30 | XMS_ITS | Encounter Summary ---
Author Organization [facility] Address [address] [place] [address] Phone Care Team Providers Care Aerial Advertiser Name Role Phone Unknown, Unknown Primary Care Provider Loree mason Encounter Details Date Type Department Care Team (Late st Contact Info) Description 03/26/2017 Procedure Pass [facility] Cardiac Administrative Office Specialist [address] [facility], [address] 9, [address] [place] [address] Social History Tobacco Use Types [...] on filedocumented in this encounter Care Teams Aerial Advertiser Relationship Specialty Start Date End Date Unknown, Unknown, PCP - General 01/12/17 documented as of this encounter Additional Source Comments The information contained in this document represents components of the legal health record. It is not the complete legal health record.[facility]
--- OUTSIDE RECORDS SUMMARY | 2025-11-03 10:30 | XMS_ITS | Encounter Summary ---
Author Organization [facility] Address [address] [place] [address] Phone Care Team Providers Care Networking Technician Name Role Phone Unknown, Unknown Primary Care Provider Loree mason Encounter Details Date Type Department Care Team (Late st Contact Info) Description 03/26/2017 Documentation [facility] Cardiac Physical Therapy Technician [address] [facility], [address] 9, [address] [place] [address] Floyd Merritt MD, MSc [address] [facility] [address] [place] [address] [email or web address] Social History Tobacco Use Types Packs/Day [...] 02/06/2017 11:23 AM EDT Larry, Nidia Evelyne, HEALTH CARE MARKETING SPECIALIST * Patient has serious difficulty dressing [...] on filedocumented in this encounter Care Teams Networking Technician Relationship Specialty Start Date End Date Unknown, Unknown, PCP - General 01/12/17 documented as of this encounter Additional Source Comments The information contained in this document represents components of the legal health record. It is not the complete legal health record.[facility]
--- OUTSIDE RECORDS SUMMARY | 2025-11-03 10:30 | XMS_ITS | Clinical Summary ---
Author Organization [facility] Address [address] [facility] [address] [place] [address] Phone Care Team Providers Care Mutuel Department Manager Name Role Phone Unknown, Unknown MD Primary [...] morning -Follow up with Dr. Oropeza in [facility] with an ultrasound in 2 weeks and [...] he developed epistaxis and it was discontinued. [id number]. Currently sinus bradycardia in the 50's (patients [...] artery disease) 02/04/2017 Overview (02/04/2017): s/p R CHRISTMAS TREE FARM MANAGER endarterectomy Assessment & Plan (03/26/2017 5:21 PM EDT): History of PAD, s/p right CHRISTMAS TREE FARM MANAGER endarterectomy November 2016. Left iliofemoral angiogram reveals a high grade L CHRISTMAS TREE FARM MANAGER lesion (distal to the access site) -Continue ASA and statin as above -Followed by Dr. Oropeza Assessment & Plan (02/05/2017 8:42 AM EDT): Intermittent claudication L calf. R calf claudication resolved following R CHRISTMAS TREE FARM MANAGER endarterectomy in November. The right groin infected [...] artery at a future date. - Per [facility] Neurology 02/05/17: NIHSS score = 1, MRS [...] this topic Medical Devices Implanted Type Area Cattle Sticker Device Identifier Shelf Expiration Date Model / Serial / Lot Stent Carotid 8-6x40mm Tapered Xact - Vasc. Dev. Div. - [id number] Implanted:Qty: 1 on 02/05/2017 by Matt Oropeza DO at [facility] Stent LOPEZ VASCULAR 05/08/2019 820 90- [id number] Stent Carotid 9-7x40mm Tapered Xact - Vasc. Dev. Div. - [id number] Implanted:Qty: 1 on 03/26/2017 by Matt Oropeza DO at [facility] Stent LOPEZ VASCULAR 06/08/2019 [id number] Description:left ica Insurance [facility] PPO MEDICARE A CIGNA PPO MEDICARE A CIGNA PPO MEDICARE A CIGNA PPO MEDICARE A CIGNA PPO MEDICARE A CIGNA PPO MEDICARE A CIGNA PPO MEDICARE A CIGNA PPO MEDICARE A CIGNA PPO MEDICARE A Advance Directives For more information, please contact: [phone] (9AM - 5PM [facility], Thursday-Thursday) * Full Code (Presumed) (Latest Code Status on File) Date Activated Date Inactivated Comments 03/26/2017 4:49 PM 03/27/2017 2:59 PM * Full Code (Confirmed) Date Activated Date Inactivated Comments 02/05/2017 2:39 PM 02/06/2017 3:33 PM Question Answer Comments Code Discussion Comments: with patient Care Teams Mutuel Department Manager Relationship Specialty Start Date End Date Unknown, Unknown, PCP - General 01/12/17 Additional Source Comments The information contained in this document represents components of the legal health record. It is not the complete legal health record.[facility]
--- OUTSIDE RECORDS SUMMARY | 2025-11-03 10:30 | XMS_ITS | Encounter Summary ---
Author Organization [facility] Address [address] [place] [address] Phone Care Team Providers Care Textile Converter Name Role Phone Unknown, Unknown Primary Care Provider Loree mason Encounter Details Date Type Department Care Team (Late st Contact Info) Description 03/26/2017 Documentation [facility] Cardiac Manager Fashion [address] [facility], [address] 9, [address] [place] [address] Floyd Merritt MD, MSc [address] [facility] [address] [place] [address] [email or web address] Social History Tobacco Use Types Packs/Day Years [...] Assessment Author No 02/06/2017 11:23 AM Nidia Artaega NP * Patient is blind or has serious difficulty with seeing, even when wearing glasses Answer Date of Assessment Author No 02/06/2017 11:23 AM Nidia Arteaga NP * Patient has serious difficulty walking or climbing stairs (5yr old or older) Answer Date of Assessment Author No 02/06/2017 11:23 AM EDT Larry, Nidia Evelyne, OTOLARYNGOLOGY PHYSICIAN * Patient has serious difficulty dressing or [...] on filedocumented in this encounter Care Teams Textile Converter Relationship Specialty Start Date End Date Unknown, Unknown, PCP - General 01/12/17 documented as of this encounter Additional Source Comments The information contained in this document represents components of the legal health record. It is not the complete legal health record.[facility]
== END 2025-11-03 10:25 | disposition home or self-care (01) ==
LOC: HO.US 10:24
PROVIDERS: Visit Provider Nurse Practitioner Family
DX: R97.20 Elevated prostate specific antigen [PSA] (principal)
CPT/HCPCS: 76770

== ENCOUNTER → 2025-11-03 10:27 | Outpatient (BNV) | payer MEDICARE, SELFPAY | PROVIDERS: Visit Provider Specialist | DX: N28.1 Cyst of kidney, acquired (principal) | CPT/HCPCS: 76770 ==